=== PATIENT | female | born 1945 | race Caucasian/White ===

== ENCOUNTER 2020-05-13 08:53 | Day surgery (SDC) | payer MEDICARE ==
[2020-05-11 14:47] VITALS: BMI 35.9
[~2020-05-13 08:53] MED LIST: LACTATED RINGERS 1,000 ML IV SCH
[2020-05-13] MEDS ORDERED: LIDOCAINE 1% (10MG/ML) FOR IV START INTRADERMA ONE (10:00)
[2020-05-13 10:04] VITALS: RESP 16; TEMP 98.4
[2020-05-13] MEDS ORDERED: fentaNYL (PF) 50 MCG/ML 2 ML AMP ONE (10:06)
[2020-05-13] MEDS ORDERED: MIDAZOLAM 2 MG/2 ML VIAL ONE (10:06)
[2020-05-13] MEDS ORDERED: LIDOCAINE 1% INJ 10MG/ML (20 ML MDV) ONE (10:06)
[2020-05-13] MEDS ORDERED: PROPOFOL 10 MG/ML 20 ML VIAL IV ONE (10:06)
--- NOTE | 2020-05-13 10:37 | P.PCN ---
Date of Procedure: 05/13/20 Description of Procedure: BRIEF HISTORY: Patient is a 75-year-old female presenting for outpatient colonoscopy for screening for malignant neoplasm of the colon. No prior colonoscopy. No change in bowel habits. She does report a family history of colon cancer mother. PROCEDURE PERFORMED: Colonoscopy. PREOPERATIVE DIAGNOSIS: Screening for malignant neoplasm of the colon, no prior colonoscopy. ESTIMATED BLOOD LOSS: Minimal. IV sedation per Anesthesia. PROCEDURE: After informed consent was obtained, the patient, was brought into the endoscopy unit. IV sedation was administered by Anesthesia under continuous monitoring. Digital rectal examination was normal. Initially the Olympus CF-190 flexible video colonoscope was then inserted in the rectum, gradually advanced into the cecum without any difficulty. Careful examination was performed as the scope was gradually being withdrawn. Ileocecal valve and the appendiceal orifice were visualized and appeared normal. Prep was excellent. Mucosa of the cecum, ascending colon, transverse colon, descending colon, sigmoid colon, and rectum appeared normal. A few scattered diverticula noted in the sigmoid colon. Retroflexion was performed in the rectum and no lesions were seen, low-grade internal hemorrhoids and skin tags on retroflexion . The patient tolerated the procedure well. IMPRESSION: Mild sigmoid diverticulosis. Otherwise normal-appearing colon from rectum to cecum. RECOMMENDATIONS: Findings of this examination were discussed with the patient and her sister. Okay to resume diet. Okay to resume medications. Recommendation is for repeat colonoscopy in 5 years for family history of colon cancer the patient is medically stable at that time.
[2020-05-13 11:02] VITALS: BP 107/46; PULSE 82
== END 2020-05-13 11:20 | disposition home or self-care (01) ==
LOC: ORWHC2ENDO 08:53
PROVIDERS: ATTEND Internal Medicine
DX: Z12.11 Encounter for screening for malignant neoplasm of colon (principal); Z80.0 Family history of malignant neoplasm of digestive organs; K57.30 Diverticulosis of large intestine without perforation or abscess without bleeding; Z88.0 Allergy status to penicillin; Z96.651 Presence of right artificial knee joint; Z98.49 Cataract extraction status, unspecified eye; Z79.82 Long term (current) use of aspirin; Z79.899 Other long term (current) drug therapy; Z86.73 Personal history of transient ischemic attack (TIA), and cerebral infarction without residual deficits
CPT/HCPCS: J2250; J2001; J3010; J2704; G0105; 45378

== ENCOUNTER 2023-07-17 05:14 | Inpatient (IN) | payer MEDICARE ==
[2023-07-17 05:27] LABS: Glucose,Whole Blood 202 mg/dL (70-110)
--- NOTE | 2023-07-17 05:29 | ED ---
Altered Mental Status HPI - General Chief Complaint: Altered Mental Status Stated Complaint: Unresponsive Time Seen by Provider: 07/17/23 05:21 Source: EMS Mode of arrival: EMS Limitations: altered mental status - History of Present Illness Initial Comments: 's patient is 78-year-old woman brought by ambulance to evaluation for mental status change. The patient reportedly had called her family and told them she is not feeling well. Family called EMS and when they arrived they found patient at the top of the stairs and she was unresponsive. Emesis didn't state that the patient was in their estimation GCS 8 on arrival. They started to provide ox ygen via bag valve mask and transported patient here. On arrival, the patient is able to follow simple commands and answer yes no questions and state her name. She is otherwise not able to give much history. He did deny having any pain. MD Complaint: altered mental status -: unknown Severity: severe Treatments Prior to Arrival: oxygen - Related Data Home Medications Medication Instructions Recorded Confirmed Atorvastatin [Lipitor] 80 mg PO DAILY 05/11/20 07/17/23 Furosemide [Lasix] 20 mg PO BID 05/11/20 07/17/23 Losartan Potassium [Cozaar] 25 mg PO BID 05/11/20 07/17/23 Potassium Chloride [Klor-Con 10 ER] 10 meq PO DAILY 07/17/23 07/17/23 Previous Rx's Medication Instructions Recorded Aspirin 81 mg PO DAILY #30 tab 07/20/23 Azithromycin [Zithromax] 500 mg PO DAILY #5 tab 07/20/23 Clopidogrel [Plavix] 75 mg PO DAILY #30 tab 07/20/23 Ipratropium-Albuterol Nebulize 3 ml INHALATION RT-QID #120 each 07/20/23 [Duoneb 0.5 mg-3 mg/3 ml Soln] cefUROXime axetiL [Ceftin] 500 mg PO BID 5 Days #10 tab 07/20/23 predniSONE 10 mg PO DIRECTED #30 tab 07/20/23 Allergies Allergy/AdvReac Type Severity Reaction Status Date / Time Penicillins AdvReac Unknown PASSED OUT Verified 07/17/23 09:28 Review of Systems ROS Statement: Those systems with pertinent positive or pertinent negative responses have been documented in the HPI. ROS Other: All systems not noted in ROS Statement are negative. Limitations: ROS unobtainable due to patients medical condition Respiratory: Reports: dyspnea Cardiovascular: Denies: chest pain Past Medical History Past Medical History: CVA/TIA, Hypertension Additional Past Medical History / Comment(s): states CVA (no residual ), states stent in upper leg, rash on lower legs, ankles swell, pt states on Nutrisystem diet and has lost 20-25 # with frequent stools. History of Any Multi-Drug Resistant Organisms: None Reported Past Surgical History: Joint Replacement Additional Past Surgical History / Comment(s): total right knee x2, stem cell injections prior to total knees, cataract surgery, stent in leg. Additional Past Anesthesia/Blood Transfusion Reaction / Comment(s): STATES UNABLE TO INTUBATE- THEY HAD TO DO A SPINAL., STATES SHE HAS LETTER FROM [place] [facility] INSTRUCTED PATIENT TO BRING THIS LETTER WITH HER. Past Psychological History: No Psychological Hx Reported Smoking Status: Never smoker Past Alcohol Use History: None Reported Past Drug Use History: None Reported - Past Family History Mother Family Medical History: Cancer Additional Family Medical History / Comment(s): colon cancer General Exam General appearance: obtunded Head exam: Present: atraumatic, normocephalic Eye exam: Present: normal appearance, PERRL. Absent: scleral icterus, conjunctival injection ENT exam: Present: mucous membranes dry Neck exam: Present: normal inspection Respiratory exam: Present: respiratory distress, rales (Right-sided), rhonchi Cardiovascular Exam: Present: normal rhythm, tachycardia, normal heart sounds. Absent: systolic murmur, diastolic murmur, rubs, gallop GI/Abdominal exam: Present: soft. Absent: distended, tenderness, guarding, rebound, rigid, mass Extremities exam: Present: normal capillary refill, pedal edema (Mild ankle edema), other ( chronic venous stasis change) Neurological exam: Present: altered, CN II-XII intact. Absent: motor sensory deficit Expanded Eye Response: (3) open to voice Motor Response: (6) obeys commands Verbal Response: (4) confused conversation Skin exam: Present: warm, dry, intact, normal color. Absent: rash Course Vital Signs 07/17/23 07/17/23 07/17/23 05:16 05:20 05:21 Temperature Pulse Rate 117 H 84 Respiratory 20 20 Rate Blood Pressure 163/71 107/42 O2 Sat by Pulse 85 L 97 95 Oximetry Fraction of Inspired Oxygen (FIO2) 07/17/23 07/17/23 07/17/23 05:24 06:30 07:40 Temperature Pulse Rate 88 Respiratory 20 Rate Blood Pressure 113/45 O2 Sat by Pulse 95 Oximetry Fraction of 100 80 Inspired Oxygen (FIO2) 07/17/23 07/17/23 07/17/23 08:00 08:05 08:30 Temperature Pulse Rate 92 88 87 Respiratory 26 H 10 L 24 Rate Blood Pressure 119/57 119/57 91/69 O2 Sat by Pulse 88 L 94 L 93 L Oximetry Fraction of Inspired Oxygen (FIO2) 07/17/23 07/17/23 07/17/23 09:00 09:30 09:33 Temperature Pulse Rate 95 108 H Respiratory 24 24 Rate Blood Pressure 151/77 139/50 O2 Sat by Pulse 73 L 79 L Oximetry Fraction of Inspired Oxygen (FIO2) 07/17/23 07/17/23 07/17/23 09:45 09:47 10:05 Temperature Pulse Rate Respiratory 24 Rate Blood Pressure O2 Sat by Pulse 78 L Oximetry Fraction of 80 Inspired Oxygen (FIO2) 07/17/23 07/17/23 10:08 10:10 Temperature 99 F Pulse Rate 109 H 105 H Respiratory 22 26 H Rate Blood Pressure 163/57 177/77 O2 Sat by Pulse 83 L Oximetry Fraction of Inspired Oxygen (FIO2) Medical Decision Making - Medical Decision Making 's patient is 78-year-old woman brought by ambulance after she had become unresponsive at home after ground-level fall. The patient has improved somewhat since EMS arrived on the scene. At this point it appears that the patient probably has had acute respiratory failure with respiratory acidosis. The patient placed on BiPAP and is continuing to have slow but steady improvement. The patient is admitted to [facility] medical service and consultation to pulmonology who did see the patient in the department. The patient had chest x-ray that I interpreted to show increased density throughout the right lung, concerning for infiltrate versus aspiration. I did have a lengthy discussion of CODE STATUS with the patient's sister who states that per her knowledge of the patient she would desire full code. The patient's sister warned that in the past they were told that if she required intubation that she does have a limitation of the range of motion of her mandible and her was concerned that intubation would cause mandible fracture and therefore cautioned against intubation. Was pt. sent in by a medical professional or institution ([facility], [employer], urgent care, hospital, or fpc...) When possible be specific @ -[No] Did you speak to anyone other than the patient for history (EMS, parent, family, police, friend...)? What history was obtained from this source @ -[No] Did you review nursing and triage notes (agree or disagree)? Why? @ -[I reviewed and agree with nursing and triage notes] Were old charts reviewed (outside hosp., previous admission, EMS record, old EKG, old radiological studies, urgent care reports/EKG's, fpc records)? Report findings @ -[No old charts were reviewed] Differential Diagnosis (chest pain, altered mental status, abdominal pain women, abdominal pain men, vaginal bleeding, weakness, fever, dyspnea, syncope, headache, dizziness, GI bleed, back pain, seizure, CVA, palpatations, mental health, musculoskeletal)? @ -[Differential Dyspnea: Coronary syndrome, arrhythmia, tamponade, asthma, COPD, pulmonary embolism, pneumonia, pneumothorax, pulmonary effusion, anaphylaxis, diabetic ketoacidosis, flailed chest, pulmonary contusion, diaphragmatic rupture, anemia, neuromuscular, this is not meant to be an all-inclusive list. EKG interpreted by me (3pts min.). @ -[I interpreted As above] X-rays interpreted by me (1pt min.). @ -[I interpreted as above CT interpreted by me (1pt min.). @ -[None done] U/S interpreted by me (1pt. min.). @ -[None done] What testing was considered but not performed or refused? (CT, X-rays, U/S, labs)? Why? @ -[None] What meds were considered but not given or refused? Why? @ -[None] Did you discuss the management of the patient with other professionals (professionals i.e. [facility], [employer], lab, RT, psych nurse, director social service, wallpaper scraper, teacher, environmental technical officer, insurance case manager)? Give summary @ -[The patient's care is discussed with the admitting physician as well as consultants. There treatment recommendations are incorporated Was smoking cessation discussed for >3mins.? @ -[No] Was critical care preformed (if so, how long)? @ -[Yes 40 minutes Were there social determinants of health that impacted care today? How? (Homelessness, low income, unemployed, alcoholism, drug addiction, transportation, low edu. Level, literacy, decrease access to med. care, [facility], re hab)? @ -[No] Was there de-escalation of care discussed even if they declined (Discuss DNR or withdrawal of care, Hospice)? DNR status @ -[As CODE STATUS was discussed as above What co-morbidities impacted this encounter? (DM, HTN, Smoking, COPD, CAD, Cancer, CVA, ARF, Chemo, Hep., AIDS, mental health diagnosis, sleep apnea, morbid obesity)? @ -[None] Was patient admitted / discharged? Hospital course, mention meds given and route, prescriptions, significant lab abnormalities, going to OR and other pertinent info. @ -[See above Undiagnosed new problem with uncertain prognosis? @ -[No] Drug Therapy requiring intensive monitoring for toxicity (Heparin, Nitro, Insulin, Cardizem)? @ -[No] Were any procedures done? @ -[No] Diagnosis/symptom? @ -[Acute exacerbation of COPD Pneumonia Respiratory acidosis Impending respiratory failure Acute delirium Acute, or Chronic, or Acute on Chronic? @ -[Acute Uncomplicated (without systemic symptoms) or Complicated (systemic symptoms)? @ -[Complicated by altered mental status/delirium Side effects of treatment? @ -[No] Exacerbation, Progression, or Severe Exacerbation? @ -[Severe exacerbation of COPD Poses a threat to life or bodily function? How? (Chest pain, [place], [place], pneumonia, PE, COPD, DKA, ARF, appy, cholecystitis, CVA, Diverticulitis, Homicidal, Suicidal, threat to staff... and all critical care pts) @ -[Yes, there is high risk of mortality associated with respiratory failure. - Lab Data Result diagrams: 07/20/23 04:26 07/20/23 04:26 Lab Results 07/17/23 07/17/23 07/17/23 Range/Units 05:20 05:20 05:20 WBC 10.7 H (3.8-10.6) k/uL RBC 4.33 (3.80-5.40) m/uL Hgb 11.5 (11.4-16.0) gm/dL Hct 38.0 (34.0-46.0) % MCV 87.8 (80.0-100.0) fL MCH 26.5 (25.0-35.0) pg MCHC 30.1 L (31.0-37.0) g/dL RDW 14.7 (11.5-15.5) % Plt Count 207 (150-450) k/uL MPV 9.8 Neutrophils % 75 % Lymphocytes % 14 % Monocytes % 7 % Eosinophils % 2 % Basophils % 0 % Neutrophils # 8.0 H (1.3-7.7) k/uL Lymphocytes # 1.5 (1.0-4.8) k/uL Monocytes # 0.7 (0-1.0) k/uL Eosinophils # 0.2 (0-0.7) k/uL Basophils # 0.0 (0-0.2) k/uL Hypochromasia Marked PT 12.6 H (10.0-12.5) sec INR 1.2 H (<1.2) APTT 24.6 (22.0-30.0) sec VBG pH (7.31-7.41) VBG pCO2 (37-51) mmHg VBG HCO3 (24-28) mmol/L Sodium 139 (137-145) mmol/L Potassium 5.0 (3.5-5.1) mmol/L Chloride 104 (98-107) mmol/L Carbon Dioxide 20 L (22-30) mmol/L Anion Gap 15 mmol/L BUN 19 H (7-17) mg/dL Creatinine 0.59 (0.52-1.04) mg/dL Est GFR (CKD-EPI)AfAm >90 (>60 ml/min/1.73 sqM) Est GFR (CKD-EPI)NonAf 88 (>60 ml/min/1.73 sqM) Glucose 227 H (74-99) mg/dL POC Glucose (mg/dL) (70-110) mg/dL POC Glu Investigator Operator ID Lactic Ac Sepsis Rflx Plasma Lactic Acid Luis Eduardo (0.7-2.0) mmol/L Calcium 8.8 (8.4-10.2) mg/dL Total Bilirubin 0.8 (0.2-1.3) mg/dL AST 71 H (14-36) U/L ALT 28 (4-34) U/L Alkaline Phosphatase 63 (38-126) U/L Troponin I (0.000-0.034) ng/mL Total Protein 6.5 (6.3-8.2) g/dL Albumin 3.7 (3.5-5.0) g/dL Serum Alcohol <10 mg/dL Influenza Type A (PCR) (Not Detectd) Influenza Type B (PCR) (Not Detectd) RSV (PCR) (Not Detectd) SARS-CoV-2 (PCR) (Not Detectd) 07/17/23 07/17/23 07/17/23 Range/Units 05:20 05:20 05:20 WBC (3.8-10.6) k/uL RBC (3.80-5.40) m/uL Hgb (11.4-16.0) gm/dL Hct (34.0-46.0) % MCV (80.0-100.0) fL MCH (25.0-35.0) pg MCHC (31.0-37.0) g/dL RDW (11.5-15.5) % Plt Count (150-450) k/uL MPV Neutrophils % % Lymphocytes % % Monocytes % % Eosinophils % % Basophils % % Neutrophils # (1.3-7.7) k/uL Lymphocytes # (1.0-4.8) k/uL Monocytes # (0-1.0) k/uL Eosinophils # (0-0.7) k/uL Basophils # (0-0.2) k/uL Hypochromasia PT (10.0-12.5) sec INR (<1.2) APTT (22.0-30.0) sec VBG pH 7.21 L (7.31-7.41) VBG pCO2 57 H (37-51) mmHg VBG HCO3 23 L (24-28) mmol/L Sodium (137-145) mmol/L Potassium (3.5-5.1) mmol/L Chloride (98-107) mmol/L Carbon Dioxide (22-30) mmol/L Anion Gap mmol/L BUN (7-17) mg/dL Creatinine (0.52-1.04) mg/dL Est GFR (CKD-EPI)AfAm (>60 ml/min/1.73 sqM) Est GFR (CKD-EPI)NonAf (>60 ml/min/1.73 sqM) Glucose (74-99) mg/dL POC Glucose (mg/dL) (70-110) mg/dL POC Glu Investigator Operator ID Lactic Ac Sepsis Rflx Plasma Lactic Acid Luis Eduardo 6.1 H* (0.7-2.0) mmol/L Calcium (8.4-10.2) mg/dL Total Bilirubin (0.2-1.3) mg/dL AST (14-36) U/L ALT (4-34) U/L Alkaline Phosphatase (38-126) U/L Troponin I 0.071 H* (0.000-0.034) ng/mL Total Protein (6.3-8.2) g/dL Albumin (3.5-5.0) g/dL Serum Alcohol mg/dL Influenza Type A (PCR) (Not Detectd) Influenza Type B (PCR) (Not Detectd) RSV (PCR) (Not Detectd) SARS-CoV-2 (PCR) (Not Detectd) 07/17/23 07/17/23 07/17/23 Range/Units 05:25 05:41 06:15 WBC (3.8-10.6) k/uL RBC (3.80-5.40) m/uL Hgb (11.4-16.0) gm/dL Hct (34.0-46.0) % MCV (80.0-100.0) fL MCH (25.0-35.0) pg MCHC (31.0-37.0) g/dL RDW (11.5-15.5) % Plt Count (150-450) k/uL MPV Neutrophils % % Lymphocytes % % Monocytes % % Eosinophils % % Basophils % % Neutrophils # (1.3-7.7) k/uL Lymphocytes # (1.0-4.8) k/uL Monocytes # (0-1.0) k/uL Eosinophils # (0-0.7) k/uL Basophils # (0-0.2) k/uL Hypochromasia PT (10.0-12.5) sec INR (<1.2) APTT (22.0-30.0) sec VBG pH (7.31-7.41) VBG pCO2 (37-51) mmHg VBG HCO3 (24-28) mmol/L Sodium (137-145) mmol/L Potassium (3.5-5.1) mmol/L Chloride (98-107) mmol/L Carbon Dioxide (22-30) mmol/L Anion Gap mmol/L BUN (7-17) mg/dL Creatinine (0.52-1.04) mg/dL Est GFR (CKD-EPI)AfAm (>60 ml/min/1.73 sqM) Est GFR (CKD-EPI)NonAf (>60 ml/min/1.73 sqM) Glucose (74-99) mg/dL POC Glucose (mg/dL) 202 H (70-110) mg/dL POC Glu Investigator Operator ID Cheikh, Pao Lactic Ac Sepsis Rflx Y Plasma Lactic Acid Luis Eduardo (0.7-2.0) mmol/L Calcium (8.4-10.2) mg/dL Total Bilirubin (0.2-1.3) mg/dL AST (14-36) U/L ALT (4-34) U/L Alkaline Phosphatase (38-126) U/L Troponin I (0.000-0.034) ng/mL Total Protein (6.3-8.2) g/dL Albumin (3.5-5.0) g/dL Serum Alcohol mg/dL Influenza Type A (PCR) Not Detected (Not Detectd) Influenza Type B (PCR) Not Detected (Not Detectd) RSV (PCR) Not Detected (Not Detectd) SARS-CoV-2 (PCR) Not Detected (Not Detectd) - EKG Data -: EKG Interpreted by Ia EKG shows normal: sinus rhythm (With occasional premature supraventricular complex), axis, intervals (Normal), QRS complexes (Normal) Rate: tachycardia (Rate 100 bpm) Interpretation: nonspecific ST-T wave changes Disposition Clinical Impression: COPD exacerbation, Altered mental status, Acute delirium, Respiratory acidosis, Elevated troponin, Pneumonia Disposition: ADMITTED IP TO THIS HOSP Condition: Serious Is patient prescribed a controlled substance at d/c from ED?: No
[2023-07-17 05:38] LABS: Basophils % (A) 0 %; Eosinophils # (A) 0.2 k/uL (0-0.7); Eosinophils % (A) 2 %; HGB 11.5 gm/dL (11.4-16.0); Hypochromasia Marked; Lymphocytes # (A) 1.5 k/uL (1.0-4.8); Lymphocytes % (A) 14 %; MCH 26.5 pg (25.0-35.0); MCHC 30.1 g/dL (31.0-37.0); MCV 87.8 fL (80.0-100.0); Mean Platelet Volume 9.8; Monocytes # (A) 0.7 k/uL (0-1.0); Monocytes % (A) 7 %; Neutrophils % (A) 75 %; Platelet Count 207 k/uL (150-450); RBC 4.33 m/uL (3.80-5.40); RDW 14.7 % (11.5-15.5); WBC 10.7 k/uL (3.8-10.6)
[2023-07-17] MEDS ORDERED: AZITHROMYCIN 500 MG in SODIUM CHLORIDE 0.9% 250 ML IVPB STA (05:41)
--- NOTE | 2023-07-17 05:42 | XR ---
EXAM: XR Chest, 1 View CLINICAL HISTORY: ITS.REASON XR Reason: altered mental status TECHNIQUE: Frontal view of the chest. COMPARISON: No relevant prior studies available. IMPRESSION: 1. Asymmetric right greater than left lung airspace disease which may be due to infection/aspiration changes. Consider CT evaluation for further characterization. 2. Cardiomegaly.
[2023-07-17 05:43] LABS: VBG PH 7.21 (7.31-7.41)
[2023-07-17 05:49] LABS: ALT 28 U/L (4-34); AST 71 U/L (14-36); African American GFR (CKD) >90 (>60 ml/min/1.73 sqM); Albumin 3.7 g/dL (3.5-5.0); Alcohol <10 mg/dL; Alkaline Phosphatase 63 U/L (38-126); Anion Gap 15 mmol/L; Blood Urea Nitrogen 19 mg/dL (7-17); Calcium 8.8 mg/dL (8.4-10.2); Carbon Dioxide 20 mmol/L (22-30); Chloride 104 mmol/L (98-107); Glucose 227 mg/dL (74-99); Non-African American GFR(CKD) 88 (>60 ml/min/1.73 sqM); Sodium 139 mmol/L (137-145); Total Bilirubin 0.8 mg/dL (0.2-1.3); Total Protein 6.5 g/dL (6.3-8.2)
[2023-07-17 06:19] LABS: INR 1.2 (<1.2); Partial Thromboplastin Time 24.6 sec (22.0-30.0); Prothrombin Time 12.6 sec (10.0-12.5)
[2023-07-17] MEDS ORDERED: SODIUM CHLORIDE 0.9% 1,000 ML IV STA (07:38)
[2023-07-17] MEDS ORDERED: SODIUM CHLORIDE 0.9% 500 ML 500 ML IV STA (07:38)
[2023-07-17] MEDS ORDERED: SODIUM CHLORIDE 0.9% 1,000 ML IV ONE (07:38)
[2023-07-17] MEDS ORDERED: IPRATROPIUM-ALBUTEROL 3 ML NEB INHALATION PRN (07:59)
[2023-07-17] MEDS ORDERED: ACETAMINOPHEN TAB 325 MG TAB PO PRN (07:59)
[2023-07-17] MEDS ORDERED: methylPREDNISolone SOD SUCCI 125 MG/2 ML VIAL IV STA (07:59)
[2023-07-17] MEDS ORDERED: NALOXONE 0.4 MG/ML 1 ML VIAL IVP PRN (07:59)
[2023-07-17] MEDS ORDERED: ONDANSETRON 4 MG/2 ML VIAL IVP STA (09:00)
[2023-07-17] MEDS ORDERED: FUROSEMIDE 10 MG/ML 4 ML VIAL IV STA (10:07)
[2023-07-17] MEDS ORDERED: PIPERACILLIN-TAZOBACTAM 3.375 GM in SODIUM CHLORIDE 0.9% 100 ML IVPB ONE (10:15)
[2023-07-17 10:20] LABS: Glucose,Whole Blood 101 mg/dL (70-110)
[2023-07-17] MEDS: predniSONE 20 MG TAB PO SCH (10:59)
[2023-07-17] MEDS: IPRATROPIUM-ALBUTEROL 3 ML NEB INHALATION SCH ×4 (11:06→20:37)
[2023-07-17 11:19] LABS: Appearance,Urine Clear (Clear); Bilirubin,Urine Negative (Negative); Blood,Urine Negative (Negative); Color,Urine Colorless; Glucose,Urine (UA) Trace (Negative); Ketones,Urine Negative (Negative); Leukocyte Esterase,Urine Negative (Negative); Nitrite,Urine Negative (Negative); Protein,Urine Negative (Negative); Specific Gravity,Urine 1.009 (1.001-1.035); Urobilinogen,Urine <2.0 mg/dL (<2.0)
--- NOTE | 2023-07-17 11:49 | P.CNPUL ---
History of Present Illness Consult date: 07/17/23 Requesting physician: Izabel Murguia Reason for consult: dyspnea, cough, hypoxemia, pneumonia, abnormal CXR/CT Chief complaint: Shortness of breath. History of present illness: Pulmonary consult dated 07/17/2023. This is a 70-year-old female who was brought into the emergency department, at 5:00 in the morning, on 07/17/2023, by EMS, for mental status changes. Apparently EMS was called by the family, and apparently the family mentioned that the patient was not feeling well. They found the patient at the top of the stairs, and she was poorly responsive/unresponsive. She had a Marco Coma Scale of 8, on arrival. The patient was able to speak in short sentences. She apparently was quite short of breath. The patient was placed on BiPAP, with settings of 12/5 in 100% initially. She was getting saline at 130 mL an hour. Her chest x-ray showed near complete opacification of the right lung. A venous blood gas showed a pCO2 of 57, and a pH is 7.21. She apparently has a history of CVA, peripheral vascular occlusive disease with stents, hypertension, hyperlipidemia, among other things. She apparently has some sort of issue with her jaw, and mandibular immobility, and states that she cannot be intubated. White count was 10.7, hemoglobin 11.5, hematocrit 38, and platelet count 207,000. Sodium 139, potassium 5, chlorides 104, CO2 20, anion gap 15, BUN 19, and creatinine 0.59. Glucose was 227. Lactic acid was 6.1. Repeat 1.6. Troponin was 0.071. Urine was negative. Testing for influenza A, B, RSV, and coronavirus, overall negative. Chest x-ray showed cardiomegaly, and near complete opacification of the right lung. Review of Systems REVIEW OF SYSTEMS: CONSTITUTIONAL: [Negative.] NEUROLOGIC: Mental status changes. HEENT: [ Negative.] CARDIAC: [Negative.] PULMONARY: Shortness of breath. GI: [Negative.] : [Negative.] RHEUMATOLOGIC: [ Negative.] IMMUNOLOGIC: [ Negative.] ENDOCRINE: [Negative. ] DERMATOLOGIC: [Negative.] Past Medical History Past Medical History: CVA/TIA, Hypertension Additional Past Medical History / Comment(s): states CVA (no residual ), states stent in upper leg, rash on lower legs, ankles swell, pt states on Nutrisystem diet and has lost 20-25 # with frequent stools. History of Any Multi-Drug Resistant Organisms: None Reported Past Surgical History: Joint Replacement Additional Past Surgical History / Comment(s): total right knee x2, stem cell injections prior to total knees, cataract surgery, stent in leg. Additional Past Anesthesia/Blood Transfusion Reaction / Comment(s): STATES UNABLE TO INTUBATE- THEY HAD TO DO A SPINAL., STATES SHE HAS LETTER FROM [place] AND INSTRUCTED PATIENT TO BRING THIS LETTER WITH HER. Past Psychological History: No Psychological Hx Reported Smoking Status: Never smoker Past Alcohol Use History: None Reported Past Drug Use History: None Reported - Past Family History Mother Family Medical History: Cancer Additional Family Medical History / Comment(s): colon cancer Medications and Allergies Home Medications Medication Instructions Recorded Confirmed Type Atorvastatin [Lipitor] 80 mg PO DAILY 05/11/20 07/17/23 History Furosemide [Lasix] 20 mg PO BID 05/11/20 07/17/23 History Losartan Potassium [Cozaar] 25 mg PO BID 05/11/20 07/17/23 History Potassium Chloride [Klor-Con 10 ER] 10 meq PO DAILY 07/17/23 07/17/23 History Allergies Allergy/AdvReac Type Severity Reaction Status Date / Time Penicillins AdvReac Unknown PASSED OUT Verified 07/17/23 09:28 Physical Exam Osteopathic Statement: *. No significant issues noted on an osteopathic structural exam other than those noted in the History and Physical/Consult. Vitals: Vital Signs Temp Pulse Resp BP Pulse Ox FiO2 07/17/23 11:21 86 07/17/23 11:16 86 07/17/23 11:11 86 07/17/23 11:00 83 23 119/55 96 80 07/17/23 10:30 98 23 132/76 80 07/17/23 10:10 105 H 26 H 177/77 83 L 07/17/23 10:08 99 F 109 H 22 163/57 07/17/23 10:05 80 07/17/23 09:47 78 L 07/17/23 09:45 24 07/17/23 09:33 79 L 07/17/23 09:30 108 H 24 139/50 73 L 01/09/24 09:00 95 24 151/77 01/09/24 08:30 87 24 91/69 93 L 07/17/23 08:05 88 10 L 119/57 94 L 07/17/23 08:00 92 26 H 119/57 88 L 07/17/23 07:40 80 07/17/23 06:30 88 20 113/45 95 07/17/23 05:24 100 07/17/23 05:21 84 20 107/42 95 07/17/23 05:20 97 07/17/23 05:16 117 H 20 163/71 85 L Intake and Output 07/16/23 07/17/23 07/17/23 22:59 06:59 14:59 Intake Total 170 Output Total 1025 Balance -855 Intake: Intake, IV Titration 110 Amount Piperacillin-Tazobactam 3 100 .375 gm In Sodium Chloride 0.9% 100 ml @ 200 mls/hr IVPB ONCE ONE Rx#:[id number] Sodium Chloride 0.9% 1, 10 000 ml @ 10 mls/hr IV . Q24H STA Rx#:[id number] Oral 60 Output: Urine 1025 Other: Weight 79.333 kg Patient is tachypnea, and very lethargic/somnolent. BiPAP mask is noted. HEENT examination is grossly unremarkable. Neck supple. Full range of motion. No adenopathy thyromegaly or neck vein distention. Cardiovascular examination reveals regular rhythm rate. S1-S2 normal. No S3 or S4. No discernible murmur noted. Heart sounds are distant. Heart rate 86 bpm. Lungs reveal scattered bilateral rhonchi. Breath sounds are diminished on the right. No crackles or wheezes. Saturations are 96%, now on AIRVO, at 60 L/m, with an FiO2 of 80% Abdomen soft, without bowel sounds. Extremities are intact. No cyanosis clubbing or edema. Skin is without rash or lesion. Neurologic examination reveals the patient to be very lethargic/somnolent. Results - Laboratory Findings CBC and BMP: 07/17/23 05:20 07/17/23 05:20 PT/INR, D-dimer PT 12.6 sec (10.0-12.5) H 07/17/23 05:20 INR 1.2 (<1.2) H 07/17/23 05:20 Abnormal lab findings: Abnormal Labs 07/17/23 07/17/23 07/17/23 05:20 05:20 05:20 WBC 10.7 H MCHC 30.1 L Neutrophils # 8.0 H PT 12.6 H INR 1.2 H VBG pH VBG pCO2 VBG HCO3 Carbon Dioxide 20 L BUN 19 H Glucose 227 H POC Glucose (mg/dL) Plasma Lactic Acid Luis Eduardo AST 71 H Troponin I Urine Glucose (UA) 07/17/23 07/17/23 07/17/23 05:20 05:20 05:20 WBC MCHC Neutrophils # PT INR VBG pH 7.21 L VBG pCO2 57 H VBG HCO3 23 L Carbon Dioxide BUN Glucose POC Glucose (mg/dL) Plasma Lactic Acid Luis Eduardo 6.1 H* AST Troponin I 0.071 H* Urine Glucose (UA) 07/17/23 07/17/23 05:25 10:18 WBC MCHC Neutrophils # PT INR VBG pH VBG pCO2 VBG HCO3 Carbon Dioxide BUN Glucose POC Glucose (mg/dL) 202 H Plasma Lactic Acid Luis Eduardo AST Troponin I Urine Glucose (UA) Trace H - Diagnostic Findings Chest x-ray: image reviewed Assessment and Plan Assessment: Acute hypoxemic respiratory failure, likely on the basis of right-sided pneumonia. Acute mental status changes, likely secondary to hypoxemic respiratory failure. History of hypertension. History of hyperlipidemia. History of CVA/TIA. History of peripheral vascular occlusive disease, with previous stent placement. Lifelong nontobacco user. Plan: Plan dated 07/17/2023. The patient be transferred to the intensive care unit. Because of ongoing respiratory secretions, we added AIRVO rather than BiPAP. Saturation seems to be improved. The right lung is nearly completely opacified. Antibiotics and breathing treatments to be started. The patient apparently has some issues with her jaw, which is immobile, and apparently a letter states that she cannot be i ntubated. Labs, x-rays, medications are reviewed. Prognosis is guarded. Time with Patient: Greater than 30
[2023-07-17] MEDS: HEPARIN SODIUM,PORCINE 5,000 UNIT/ML 1 ML VIAL SQ SCH ×2 (13:13→19:55)
[2023-07-17] MEDS: PANTOPRAZOLE 40 MG TABLET PO SCH (13:13)
--- NOTE | 2023-07-17 14:30 | US ---
EXAMINATION TYPE: US carotid duplex BILAT DATE OF EXAM: 07/17/2023 COMPARISON: NONE CLINICAL INDICATION: Female, 78 years old with history of stroke; Stents TECHNIQUE: Carotid duplex ultrasound examination. Indirect Doppler criteria was utilized. FINDINGS: EXAM MEASUREMENTS: RIGHT: Peak Systolic Velocity (PSV) cm/sec ----- Right CCA: 104 ----- Right ICA: 130 ----- Right ECA: 158 ICA/CCA ratio: 1.3 RIGHT: End Diastole cm/sec ----- Right CCA: 23 ----- Right ICA: 37 ----- Right ECA: 10 LEFT: Peak Systolic Velocity (PSV) cm/sec ----- Left CCA: 76 ----- Left ICA: 304 ----- Left ECA: 258 ICA/CCA ratio: 4.0 LEFT: End Diastole cm/sec ----- Left CCA: 14 ----- Left ICA: 68 ----- Left ECA: 27 VERTEBRALS (direction of flow): Right Vertebral: Antegrade Left Vertebral: Antegrade Rhythm: Arrhythmia DOCTOR OF DENTAL SURGERY NOTES: Difficult exam due to previous stenting and extensive bilateral plaque buildup. Difficult exam also due to patient not able to lay back and not have pillows behind head; short neck. IMPRESSION: Moderate stenosis, between 50 and 69%, right internal carotid artery . Severe stenosis greater than 70% left carotid artery. Criteria for Assigning % of Stenosis / Diameter reduction (Estimation based on the indirect measurements of the internal carotid artery velocities (ICA PSV). 1. Normal (no stenosis)=ICA PSV < 125 cm/s: ratio < 2.0: ICA EDV<40 cm/s. 2. Less than 50% stenosis=ICA PSV < 125 cm/s: ratio < 2.0: ICA EDV<40 cm/s. 3. 50 to 69% stenosis=ICA PSV of 125 to 230 cm/s: ration 2.0 ? 4.0: ICA EDV 40-100 cm/s. 4. Greater than 70% stenosis to near occlusion= ICA PSV > 230 cm/s: ratio > 4.0: ICA EDV > 100 cm/s. 5. Near occlusion= ICA PSV velocities may be low or undetectable: variable ratio and ICA EDV. 6. Total occlusion=unable to detect flow.
[2023-07-17] MEDS ORDERED: PIPERACILLIN-TAZOBACTAM 3.375 GM in SODIUM CHLORIDE 0.9% 100 ML IVPB SCH (16:00)
--- NOTE | 2023-07-17 16:42 | CA ---
Transthoracic Echo Report Name: Imani Em Age: 78 Gender: F : 1945 Exam Date: 07/17/2023 10:49 Exam Location: [facility] Ht (in): 63 Wt (lb): 174 Ordering Physician: Akhil Gallego DO Attending/Referring Phys: Superintendent Service Berta Yee RDCS Procedure CPT: Indications: chf Cardiac Hx: Technical Quality: Fair Contrast 1: Total Dose (mL): Contrast 2: Total Dose (mL): MEASUREMENTS (Male / Female) Normal Values 2D ECHO LV Diastolic Diameter PLAX 4.2 cm 4.2 - 5.9 / 3.9 - 5.3 cm LV Systolic Diameter PLAX 2.5 cm IVS Diastolic Thickness 1.5 cm 0.6 - 1.0 / 0.6 - 0.9 cm LVPW Diastolic Thickness 1.5 cm 0.6 - 1.0 / 0.6 - 0.9 cm LV Relative Wall Thickness 0.7 RV Internal Dim ED PLAX 3.0 cm LVOT Diameter 1.5 cm LA Systolic Diameter LX 4.4 cm 3.0 - 4.0 / 2.7 - 3.8 cm LA Volume 66.0 cm??? 18 - 58 / 22 - 52 cm??? LA Volume Index 34.7 cm???/m??? 16 - 28 cm???/m??? M-MODE Aortic Root Diameter MM 3.0 cm AV Cusp Separation MM 1.2 cm DOPPLER AV Peak Velocity 333.3 cm/s AV Peak Gradient 44.4 mmHg AV Mean Velocity 195.3 cm/s AV Mean Gradient 18.8 mmHg AV Velocity Time Integral 60.4 cm LVOT Peak Velocity 214.1 cm/s LVOT Peak Gradient 18.3 mmHg AV Area Cont Eq pk 1.1 cm??? MV Peak Velocity 216.4 cm/s MV Peak Gradient 18.7 mmHg MV Mean Velocity 127.3 cm/s MV Mean Gradient 7.3 mmHg MV Velocity Time Integral 66.4 cm MV Area PHT 1.2 cm??? Mitral E Point Velocity 150.6 cm/s Mitral A Point Velocity 210.5 cm/s Mitral E to A Ratio 0.7 MV Deceleration Time 656.1 ms TR Peak Velocity 308.7 cm/s TR Peak Gradient 38.1 mmHg Right Ventricular Systolic Press 52.0 mmHg FINDINGS Left Ventricle Left ventricular ejection fraction is estimated at 60-65 %. Left ventricular cavity size normal. Moderately increased septal wall thickness. Moderately increased posterior wall thickness. Right Ventricle Normal right ventricular size. Moderate pulmonary hypertension. Right Atrium Right atrium not well visualized. Left Atrium Moderately increased left atrial diameter. Moderately increased left atrial volume. Mildly increased left atrial area. Mitral Valve Moderate thickening/calcification of the anterior mitral valve leaflet. Moderate thickening/calcification of the posterior mitral valve leaflet. Moderate mitral annular calcification. Mild mitral regurgitation. Moderate mitral stenosis with mean gradient of 7 mmhg Aortic Valve Focal thickening of the aortic valve cusps. -moderate aortic stenosis with a peak gradient of 44 mmHg and a mean gradient of 19 mmHg. Tricuspid Valve Tricuspid valve not well visualized. Mild tricuspid regurgitation. Pulmonic Valve Structurally normal pulmonic valve. Trace pulmonic regurgitation. Pericardium No pericardial effusion. Aorta Normal size aortic root and proximal ascending aorta. CONCLUSIONS Normal LV systolic function Moderate aortic stenosis Moderate pulmonary hypertension Severe mitral annular calcification Previewed by: Dr. Rolando Evans MD (Electronically Signed) Final Date: 17 July 2023 16:41
[2023-07-17] MEDS: FUROSEMIDE 20 MG TAB PO SCH (16:59)
[2023-07-17] MEDS: LOSARTAN 25 MG TAB PO SCH (20:55)
--- NOTE | 2023-07-17 22:32 | HP ---
HISTORY AND PHYSICAL CHIEF COMPLAINT: Unresponsiveness and pneumonia. HISTORY OF PRESENT ILLNESS: This is a 78-year-old woman with a past medical history of CVA, hypertension, apparently called family seeing that the patient is not feeling well. By the time EMS came, they found her unresponsive, patient was bagged then, was given BiPAP. Also, the patient was found to have right pneumonia and the patient was found to be hypoxic and the patient admitted to ICU for further evaluation and treatment. Currently, there is no history of any fever, rigors, or chills. No history of any headache, loss of consciousness, or seizures at this time. Aspiration pneumonia was highly suspected. The patient was started on Zosyn. PAST MEDICAL HISTORY: Reviewed include CVA, TIA, hypertension, rest of the history and rest of the chart is also reviewed. HOME MEDICATIONS: Reviewed with KCl, dose and rest of medications reviewed. ALLERGIES: Penicillin. FAMILY HISTORY: History of colon cancer. SOCIAL HISTORY: No history of smoking or alcohol. REVIEW OF SYSTEMS: A 14-point review is negative except as mentioned earlier. PHYSICAL EXAMINATION: VITAL SIGNS: Pulse 83, blood pressure 118/52, respirations 23. HEENT: Conjunctivae normal. NECK: No jugular venous distention. CARDIOVASCULAR: S1, S2 muffled. RESPIRATIONS: Diminished at the bases, scattered rhonchi and crackles. ABDOMEN: Soft, nontender. LEGS: No edema, no swelling. NERVOUS SYSTEM: Diffusely weak. SKIN: No ulcer, rash, bleeding. JOINTS: No active deforming arthropathy. LABORATORY DATA: Noted, glucose 22. Chest x-ray reviewed personally. ASSESSMENT: 1. Right aspiration pneumonia, possibly with acute hypoxic respiratory failure. 2. Change in mental status and possible syncope, rule out cardiac and Neurology causes. 3. Increased WBC. 4. Troponin 0.071, rule out acute [id number]-elevation myocardial infarction. 5. History of CVA, TIA. 6. Hypertension. 7. Full code. RECOMMENDATIONS: This 78-year-old woman presented with multiple complex medical issues. At this time, I recommended to continue the current medications. I would recommend intensive bronchodilator treatment and antibiotics and would follow the patient closely with intensive care physician in the ICU. The overall prognosis remain guarded because of above-mentioned multiple complex medical issues. I would also recommend Neurology and Cardiology consultations and complete neurovascular workup including 2D echo and carotid Doppler also. The CT scan of the brain also will be ordered. The prognosis is guarded because of multiple complex medical issues. Further recommendations to follow, see orders for details. MMODL / IJN: [id number] /
--- NOTE | 2023-07-17 22:34 | P.CONS ---
History of Present Illness - Reason for Consult Consult date: 07/17/23 Pneumonia Requesting physician: Izabel Murguia - Chief Complaint Mental status changes X 1 day - History of Present Illness Patient is a 78-year-old female with a past medical history difficult for CVA TIA hypertension in this patient also have a history of bilateral lower extremity chronic swelling and venous stasis dermatitis patient has been brought into the hospital for evaluation of mental status changes patient apparently called her family that she was not feeling well EMS was calling and arrival of EMS the patient was noticed to be unresponsive patient was rushed to the ER on arrival to the ER the patient was in respiratory distress and has to be placed on BiPAP and has been admitted to the ICU patient on presentation to the hospital did have a low-grade fever of 99 F and she spike a fever 100.3 F this afternoon patient was mildly tachycardic at 1 point not hypotensive requiring any pressor support and has been hypoxic requiring respiratory support patient did have a white count of 10.7 creatinine 0.59 lactic acid was elevated repeat is normal procalcitonin 2.62 urine has been negative influenza RSV COVID testing was negative patient did have a chest x-ray with asymmetric right greater than left lung airspace disease due to infection or aspiration changes and cardiomegaly patient was started on Rocephin and Zithromax has been admitted to the ICU infectious disease was consulted for further management of antibiotic therapy. At the time my evaluation patient mention has been sick for the last few days has been complaining of shortness of breath and also have a cough mild to moderate intensity cannot bring up any sputum. Denies any URI symptoms no nausea no vomiting choking on the food no abdominal pain or any diarrhea patient has been complaining of more swelling to lower extremity and did have some redness but no significant pain open wound or any drainage Review of Systems Positive point and negatives has been mentioned in the HPI, complete review of systems was performed and all other systems are negative Past Medical History Past Medical History: CVA/TIA, Hypertension Additional Past Medical History / Comment(s): states CVA (no residual ), states stent in upper leg, rash on lower legs, ankles swell, pt states on Nutrisystem diet and has lost 20-25 # with frequent stools. History of Any Multi-Drug Resistant Organisms: None Reported Past Surgical History: Joint Replacement Additional Past Surgical History / Comment(s): total right knee x2, stem cell injections prior to total knees, cataract surgery, stent in leg. Additional Past Anesthesia/Blood Transfusion Reaction / Comm: STATES UNABLE TO INTUBATE- THEY HAD TO DO A SPINAL., STATES SHE HAS LETTER FROM [place] AND INSTRUCTED PATIENT TO BRING THIS LETTER WITH HER. Past Psychological History: No Psychological Hx Reported Smoking Status: Never smoker Past Alcohol Use History: None Reported Past Drug Use History: None Reported - Past Family History Mother Family Medical History: Cancer Additional Family Medical History / Comment(s): colon cancer Medications and Allergies Home Medications Medication Instructions Recorded Confirmed Type Atorvastatin [Lipitor] 80 mg PO DAILY 05/11/20 07/17/23 History Furosemide [Lasix] 20 mg PO BID 05/11/20 07/17/23 History Losartan Potassium [Cozaar] 25 mg PO BID 05/11/20 07/17/23 History Potassium Chloride [Klor-Con 10 ER] 10 meq PO DAILY 07/17/23 07/17/23 History Aspirin 81 mg PO DAILY #30 tab 07/20/23 Rx Azithromycin [Zithromax] 500 mg PO DAILY #5 tab 07/20/23 Rx Clopidogrel [Plavix] 75 mg PO DAILY #30 tab 07/20/23 Rx Ipratropium-Albuterol Nebulize 3 ml INHALATION RT-QID #120 each 07/20/23 Rx [Duoneb 0.5 mg-3 mg/3 ml Soln] cefUROXime axetiL [Ceftin] 500 mg PO BID 5 Days #10 tab 07/20/23 Rx predniSONE 10 mg PO DIRECTED #30 tab 07/20/23 Rx Allergies Allergy/AdvReac Type Severity Reaction Status Date / Time Penicillins AdvReac Unknown PASSED OUT Verified 07/17/23 09:28 Physical Exam Vitals: Vital Signs Temp Pulse Resp BP Pulse Ox FiO2 07/17/23 13:00 78 22 111/50 99 75 07/17/23 12:30 76 18 105/43 100 75 07/17/23 12:00 99.2 F 76 18 103/43 99 86 07/17/23 11:30 80 20 119/55 98 07/17/23 11:21 86 07/17/23 11:16 86 07/17/23 11:11 86 07/17/23 11:00 83 23 119/55 96 86 07/17/23 10:30 98 23 132/76 86 07/17/23 10:10 105 H 26 H 177/77 83 L 07/17/23 10:08 99 F 109 H 22 163/57 07/17/23 10:05 80 07/17/23 09:47 78 L 07/17/23 09:45 24 07/17/23 09:33 79 L 07/17/23 09:30 108 H 24 139/50 73 L 07/17/23 09:00 95 24 151/77 07/17/23 08:30 87 24 91/69 93 L 07/17/23 08:05 88 10 L 119/57 94 L 07/17/23 08:00 92 26 H 119/57 88 L 07/17/23 07:40 80 07/17/23 06:30 88 20 113/45 95 07/17/23 05:24 100 07/17/23 05:21 84 20 107/42 95 07/17/23 05:20 97 07/17/23 05:16 117 H 20 163/71 85 L Intake and Output 07/16/23 07/17/23 07/17/23 22:59 06:59 14:59 Intake Total 190 Output Total 1475 Balance -1285 Intake: Intake, IV Titration 130 Amount Piperacillin-Tazobactam 3 100 .375 gm In Sodium Chloride 0.9% 100 ml @ 200 mls/hr IVPB ONCE ONE Rx#:[id number] Sodium Chloride 0.9% 1, 30 000 ml @ 10 mls/hr IV . Q24H STA Rx#:[id number] Oral 60 Output: Urine 1475 Other: Voiding Method Indwelling Catheter Weight 79.333 kg GENERAL DESCRIPTION: Middle-aged F[place]ale lying in bed, no distress. No tachypnea or accessory muscle of respiration use. HEENT: Shows Pallor , no scleral icterus. Oral mucous membrane is dry. No pharyngeal erythema or thrush NECK: Trachea central, no thyromegaly. LUNGS: Unlabored breathing. Decreased breath sound at the base HEART: S1, S2, regular rate and rhythm. No loud murmur ABDOMEN: Soft, no tenderness , guarding or rigidity, no organomegaly EXTREMITIES: Diffuse swelling to bilateral extremity minimal redness and warmth SKIN: No rash, no masses palpable. NEUROLOGICAL: The patient is awake, alert, oriented x3, mood and affect normal. Results CBC & Chem 7: 07/20/23 04:26 07/20/23 04:26 Labs: Abnormal Lab Results - Last 24 Hours (Table) 07/17/23 07/17/23 07/17/23 Range/Units 05:20 05:20 05:20 WBC 10.7 H (3.8-10.6) k/uL MCHC 30.1 L (31.0-37.0) g/dL Neutrophils # 8.0 H (1.3-7.7) k/uL PT 12.6 H (10.0-12.5) sec INR 1.2 H (<1.2) D-Dimer (<0.60) mg/L FEU VBG pH (7.31-7.41) VBG pCO2 (37-51) mmHg VBG HCO3 (24-28) mmol/L Carbon Dioxide 20 L (22-30) mmol/L BUN 19 H (7-17) mg/dL Glucose 227 H (74-99) mg/dL POC Glucose (mg/dL) (70-110) mg/dL Plasma Lactic Acid Luis Eduardo (0.7-2.0) mmol/L AST 71 H (14-36) U/L Troponin I (0.000-0.034) ng/mL Urine Glucose (UA) (Negative) 07/17/23 07/17/23 07/17/23 Range/Units 05:20 05:20 05:20 WBC (3.8-10.6) k/uL MCHC (31.0-37.0) g/dL Neutrophils # (1.3-7.7) k/uL PT (10.0-12.5) sec INR (<1.2) D-Dimer (<0.60) mg/L FEU VBG pH 7.21 L (7.31-7.41) VBG pCO2 57 H (37-51) mmHg VBG HCO3 23 L (24-28) mmol/L Carbon Dioxide (22-30) mmol/L BUN (7-17) mg/dL Glucose (74-99) mg/dL POC Glucose (mg/dL) (70-110) mg/dL Plasma Lactic Acid Luis Eduardo 6.1 H* (0.7-2.0) mmol/L AST (14-36) U/L Troponin I 0.071 H* (0.000-0.034) ng/mL Urine Glucose (UA) (Negative) 07/17/23 07/17/23 07/17/23 Range/Units 05:25 10:18 12:17 WBC (3.8-10.6) k/uL MCHC (31.0-37.0) g/dL Neutrophils # (1.3-7.7) k/uL PT (10.0-12.5) sec INR (<1.2) D-Dimer 3.84 H (<0.60) mg/L FEU VBG pH (7.31-7.41) VBG pCO2 (37-51) mmHg VBG HCO3 (24-28) mmol/L Carbon Dioxide (22-30) mmol/L BUN (7-17) mg/dL Glucose (74-99) mg/dL POC Glucose (mg/dL) 202 H (70-110) mg/dL Plasma Lactic Acid Luis Eduardo (0.7-2.0) mmol/L AST (14-36) U/L Troponin I (0.000-0.034) ng/mL Urine Glucose (UA) Trace H (Negative) Assessment and Plan (1) Leukocytosis Status: Acute Code(s): D72.829 - ELEVATED WHITE BLOOD CELL COUNT, UNSPECIFIED SNOMED Code(s): 190440440 (2) Penicillin allergy Status: Acute Code(s): Z88.0 - ALLERGY STATUS TO PENICILLIN SNOMED Code(s): 11589672 (3) Pneumonia Status: Acute Code(s): J18.9 - PNEUMONIA, UNSPECIFIED ORGANISM SNOMED Code(s): 349590792 Plan: 1patient presented to hospital with increasing shortness of breath hypoxemia patient did have a fever pulmonary infiltrate concerning for pneumonia question of community-acquired versus aspiration etiology 2-patient also have bilateral extremity swelling and minimal redness concerning for possible component of cellulitis 3-penicillin allergy that will limit the number of antibiotics safe to use 4-Rocephin 2 g daily and Zithromax to continue while waiting for the workup to be completed and cultures to be finalized We will follow on clinical condition and cultures to further adjust medication if needed Thank you for this consultation we will follow the patient along with you Dictation was produced using dragon dictation software. please excuse any grammatical, word or spelling errors. Time with Patient: Greater than 30
[2023-07-18 05:32] LABS: Basophils % (A) 0 %; Eosinophils % (A) 0 %; HCT 30.5 % (34.0-46.0); Hypochromasia Marked; Lymphocytes # (A) 1.1 k/uL (1.0-4.8); Lymphocytes % (A) 9 %; MCH 26.3 pg (25.0-35.0); MCHC 30.7 g/dL (31.0-37.0); MCV 85.8 fL (80.0-100.0); Mean Platelet Volume 9.7; Monocytes # (A) 0.6 k/uL (0-1.0); Monocytes % (A) 5 %; Neutrophils # (A) 10.9 k/uL (1.3-7.7); Neutrophils % (A) 85 %; Platelet Count 139 k/uL (150-450); RBC 3.55 m/uL (3.80-5.40); RDW 14.9 % (11.5-15.5); WBC 12.8 k/uL (3.8-10.6)
[2023-07-18 05:40] LABS: HGB 9.4 gm/dL (11.4-16.0)
[2023-07-18 05:43] LABS: African American GFR (CKD) >90 (>60 ml/min/1.73 sqM); Anion Gap 6 mmol/L; Blood Urea Nitrogen 28 mg/dL (7-17); Calcium 8.4 mg/dL (8.4-10.2); Carbon Dioxide 27 mmol/L (22-30); Chloride 106 mmol/L (98-107); Glucose 125 mg/dL (74-99); Non-African American GFR(CKD) 82 (>60 ml/min/1.73 sqM); Sodium 139 mmol/L (137-145)
[2023-07-18] MEDS: PANTOPRAZOLE 40 MG TABLET PO SCH (06:35)
--- NOTE | 2023-07-18 07:35 | P.CRDCN ---
History of Present Illness Consult date: 07/18/23 Chief complaint: Shortness of breath History of present illness: The patient is a 78-year-old female patient with a past medical history signific ant for valvular heart disease including aortic stenosis and mitral stenosis as well as multiple comorbid conditions who was admitted to the hospital after she was found unresponsive at home. The patient stated that she was in her usual state of health and she was sleeping in a recliner chair last night and she pushed the pattern and that she rejected the patient and pushed her on the floor. She was found unresponsive on the floor. She was brought to the hospital for further evaluation. She underwent an EKG which showed sinus mechanism with nonspecific ST and T wave abnormalities and also she underwent cardiac enzymes was a first set came in to be slightly abnormal and chest x-ray showed possible right side pneumonia. Currently the patient is on antibiotic for that. Pulmonary/critical care team on the case. She doesn't have any history of coronary artery disease or congestive heart failure or cardiac arrhythmia but that she does have history of lower extremities peripheral arter ial disease and she underwent revascularization in the past. No indication of chest pain but she clearly was experiencing shortness of breath associated with cough and sputum production. No fever and no chills. The examination is remarkable for regular rhythm with a systolic murmur and decreased the intensity of S2. Assessment Change in mental status Evidence of myocardial injury Pneumonia Peripheral arterial disease Multiple comorbid conditions Plan Obtain serial cardiac enzymes The echo was reviewed and showed normal LV systolic function was moderate aortic stenosis and moderate mitral stenosis Further recommendation to follow the serial cardiac enzymes Procedure living severe coronary artery disease Follow-up with the patient Past Medical History Past Medical History: CVA/TIA, Hypertension Additional Past Medical History / Comment(s): states CVA (no residual ), states stent in upper leg, rash on lower legs, ankles swell, pt states on Nutrisystem diet and has lost 20-25 # with frequent stools. History of Any Multi-Drug Resistant Organisms: None Reported Past Surgical History: Joint Replacement Additional Past Surgical History / Comment(s): total right knee x2, stem cell injections prior to total knees, cataract surgery, stent in leg. Additional Past Anesthesia/Blood Transfusion Reaction / Comment(s): STATES UNABLE TO INTUBATE- THEY HAD TO DO A SPINAL., STATES SHE HAS LETTER FROM [place] AND INSTRUCTED PATIENT TO BRING THIS LETTER WITH HER. Past Psychological History: No Psychological Hx Reported Smoking Status: Never smoker Past Alcohol Use History: None Reported Past Drug Use History: None Reported - Past Family History Mother Family Medical History: Cancer Additional Family Medical History / Comment(s): colon cancer Medications and Allergies Home Medications Medication Instructions Recorded Confirmed Type Atorvastatin [Lipitor] 80 mg PO DAILY 05/11/20 07/17/23 History Furosemide [Lasix] 20 mg PO BID 05/11/20 07/17/23 History Losartan Potassium [Cozaar] 25 mg PO BID 05/11/20 07/17/23 History Potassium Chloride [Klor-Con 10 ER] 10 meq PO DAILY 07/17/23 07/17/23 History Allergies Allergy/AdvReac Type Severity Reaction Status Date / Time Penicillins AdvReac Unknown PASSED OUT Verified 07/17/23 09:28 Physical Exam Vitals: Vital Signs Temp Pulse Resp BP Pulse Ox FiO2 07/18/23 07:00 73 18 98/43 99 07/18/23 06:00 70 17 108/48 97 07/18/23 05:00 74 18 109/48 98 07/18/23 04:00 98.7 F 74 14 128/71 97 50 07/18/23 03:59 98 50 07/18/23 03:00 73 16 108/49 94 L 07/18/23 02:00 79 19 95/40 97 07/18/23 01:00 73 20 96/47 97 07/18/23 00:00 99.6 F 77 27 H 104/44 97 50 07/17/23 23:58 97 50 07/17/23 23:00 78 16 102/40 98 07/17/23 22:00 77 22 106/44 95 07/17/23 21:00 81 17 107/46 97 07/17/23 20:52 81 07/17/23 20:37 78 97 50 07/17/23 20:00 99.8 F H 79 25 H 100/41 97 50 07/17/23 19:00 80 18 105/45 95 50 07/17/23 18:00 84 19 104/44 97 50 07/17/23 17:20 50 07/17/23 17:00 85 20 106/41 99 60 07/17/23 16:00 100.3 F H 77 20 102/40 99 60 07/17/23 15:24 82 07/17/23 15:13 70 60 07/17/23 15:00 82 18 112/47 99 60 07/17/23 14:30 85 20 111/46 99 07/17/23 14:00 81 24 112/48 98 60 07/17/23 13:40 60 07/17/23 13:00 78 22 111/50 99 75 07/17/23 12:31 75 07/17/23 12:30 76 18 105/43 100 75 07/17/23 12:00 99.2 F 76 18 103/43 99 86 07/17/23 11:30 80 20 119/55 98 07/17/23 11:21 86 07/17/23 11:16 86 07/17/23 11:11 86 07/17/23 11:00 83 23 119/55 96 86 07/17/23 10:30 98 23 132/76 86 07/17/23 10:10 105 H 26 H 177/77 83 L 07/17/23 10:08 99 F 109 H 22 163/57 07/17/23 10:05 80 07/17/23 09:47 78 L 07/17/23 09:45 24 07/17/23 09:33 79 L 07/17/23 09:30 108 H 24 139/50 73 L 07/17/23 09:00 95 24 151/77 07/17/23 08:30 87 24 91/69 93 L 07/17/23 08:05 88 10 L 119/57 94 L 07/17/23 08:00 92 26 H 119/57 88 L 07/17/23 07:40 80 Intake and Output 07/17/23 07/18/23 07/18/23 22:59 06:59 14:59 Intake Total 320 80 10 Output Total 285 330 40 Balance 35 -250 -30 Intake: IV 30 80 10 Sodium Chloride 0.9% 1, 30 80 10 000 ml @ 10 mls/hr IV . Q24H STA Rx#:[id number] Intake, IV Titration 50 Amount Sodium Chloride 0.9% 1, 50 000 ml @ 10 mls/hr IV . Q24H STA Rx#:[id number] Oral 240 Output: Urine 285 330 40 Other: Voiding Method Indwelling Catheter Indwelling Catheter Weight 84.6 kg Results 07/18/23 04:46 07/18/23 04:46 CBC 07/18/23 Range/Units 04:46 WBC 12.8 H (3.8-10.6) k/uL RBC 3.55 L (3.80-5.40) m/uL Hgb 9.4 L D (11.4-16.0) gm/dL Hct 30.5 L (34.0-46.0) % Plt Count 139 L (150-450) k/uL Comprehensive Metabolic Panel 07/18/23 Range/Units 04:46 Sodium 139 (137-145) mmol/L Potassium 4.0 (3.5-5.1) mmol/L Chloride 106 (98-107) mmol/L Carbon Dioxide 27 (22-30) mmol/L BUN 28 H (7-17) mg/dL Creatinine 0.71 (0.52-1.04) mg/dL Glucose 125 H (74-99) mg/dL Calcium 8.4 (8.4-10.2) mg/dL Current Medications Generic Name Dose Route Start Last Admin Trade Name Freq PRN Reason Stop Dose Admin Acetaminophen 650 mg 07/17/23 07:59 Acetaminophen Tab 325 Mg Tab PO Q4HR PRN Mild Pain or Fever > 100.5 Albuterol/Ipratropium 3 ml 07/17/23 07:59 Ipratropium-Albuterol 3 Ml Neb INHALATION RT-Q2H PRN Shortness Of Breath Or Wheezing Albuterol/Ipratropium 3 ml 07/17/23 08:00 07/17/23 20:37 Ipratropium-Albuterol 3 Ml Neb INHALATION 3 ml RT-QID LAY Administration Atorvastatin Calcium 80 mg 07/18/23 09:00 Atorvastatin 80 Mg Tab PO DAILY LAY Azithromycin 500 mg 07/18/23 09:00 Azithromycin 500 Mg Tab PO 07/19/23 09:01 DAILY LAY Protocol Furosemide 20 mg 07/17/23 17:00 07/17/23 16:59 Furosemide 20 Mg Tab PO 20 mg 0900,1700 LAY Administration Heparin Sodium (Porcine) 5,000 unit 07/17/23 12:15 07/17/23 19:55 Heparin Sodium,Porcine 5,000 Unit/Ml 1 Ml Vial SQ 5,000 unit Q12HR LAY Administration Sodium Chloride 1,000 mls @ 10 mls/hr 07/17/23 07:38 07/17/23 11:00 Saline 0.9% IV 07/18/23 07:37 10 mls/hr .Q24H STA Administration Ceftriaxone Sodium 2 gm/ 50 mls @ 100 mls/hr 07/18/23 09:00 Sodium Chloride IVPB Q24HR LAY Protocol Losartan Potassium 25 mg 07/17/23 21:00 07/17/23 20:55 Losartan 25 Mg Tab PO Not Given BID LAY Naloxone HCl 0.2 mg 07/17/23 07:59 Naloxone 0.4 Mg/Ml 1 Ml Vial IVP Q2M PRN Opioid Reversal Pantoprazole Sodium 40 mg 07/17/23 12:15 07/18/23 06:35 Pantoprazole 40 Mg Tablet PO 40 mg [id number] LAY Administration Potassium Chloride 10 meq 07/18/23 09:00 Potassium Chloride Er 10 Meq Tab.Er.Prt PO DAILY LAY Prednisone 40 mg 07/17/23 09:00 07/17/23 10:59 Prednisone 20 Mg Tab PO 07/21/23 09:01 40 mg DAILY LAY Administration Intake and Output 07/17/23 07/18/23 07/18/23 22:59 06:59 14:59 Intake Total 320 80 10 Output Total 285 330 40 Balance 35 -250 -30 Intake: IV 30 80 10 Sodium Chloride 0.9% 1, 30 80 10 000 ml @ 10 mls/hr IV . Q24H STA Rx#:[id number] Intake, IV Titration 50 Amount Sodium Chloride 0.9% 1, 50 000 ml @ 10 mls/hr IV . Q24H STA Rx#:[id number] Oral 240 Output: Urine 285 330 40 Other: Voiding Method Indwelling Catheter Indwelling Catheter Weight 84.6 kg 07/18/23 04:46 07/18/23 04:46
--- NOTE | 2023-07-18 08:15 | P.CNNES ---
History of Present Illness Consult date: 07/17/23 Requesting physician: Izabel Murguia Reason for Consult: syncope, ? fall weakness, TIA?? 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 Patient states that she was sleeping in the chair, as she usually sleeps in a chair, cannot lay flat because of her respiratory difficulties. Apparently the chair opened up" dumped her out". She started having in hyperventilation, panicked, couldn't get up. She went into respiratory distress, became unresponsive at home. EMS was called, and they Ambu bag her. There was "tons of frothy pinkish sputum" coming out. Patient was brought to the hospital. There was no report of slurred speech, facial droop or any other focal symptoms. EMS flow sheet not available in the chart. Vital signs on arrival blood pressure 163/71, pulse rate 117, temperature 99.0 axillary. Repeat temperature was 99.2 axillary. Blood test shows WBC 10.7 hemoglobin 11.5, normal platelets. INR 1.2, VBG with pH of 7.21, pCO2 57, HCO3 23. Electrolytes are normal, renal functions are normal. Plasma lactate 6.1. AST is mildly elevated 71, normal ALT 28. Troponin is mildly elevated 0.071. UA negative, blood alcohol level negative, influenza, RSV and coronal virus PCR negative. EKG shows sinus tachycardia with occasional supraventricular premature complexes. Chest x-ray revealed asymmetric right greater than left lung airspace disease this pain be due to infection/aspiration changes. Consider CTA variation for further characterization. Cardiomegaly. While in the ER, patient was given Lasix, and she "bounced back". Patient has history of TIA 4 years ago with no residual deficits. Patient has chronic lung disease, never been diagnosed with COPD. She always sleeps in the chair because she cannot lay flat. 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 She denies any alcohol. Denies diabetes. She walks by herself does not use any assistive device. She lives alone at home. Review of Systems All systems: negative (As mentioned in HPI. Patient has chronic shoulder issues bilaterally with arthritis. Patient has chronic breathing difficulty.) Past Medical History Past Medical History: CVA/TIA, Hypertension, Pneumonia, Rheumatoid Arthritis (RA) Additional Past Medical History / Comment(s): states CVA (no residual ), states stent in upper rt leg, rash on lower legs, ankles swell, pt states on Nutrisystem diet and has lost 20-25 # with frequent stools. arthritis bilateral arms History of Any Multi-Drug Resistant Organisms: None Reported Past Surgical History: Joint Replacement Additional Past Surgical History / Comment(s): total right knee x2, stem cell injections prior to total knees, cataract surgery, stent in leg. Additional Past Anesthesia/Blood Transfusion Reaction / Comment(s): STATES UNABLE TO INTUBATE- THEY HAD TO DO A SPINAL., STATES SHE HAS LETTER FROM [place] AND INSTRUCTED PATIENT TO BRING THIS LETTER WITH HER. Past Psychological History: No Psychological Hx Reported Smoking Status: Never smoker Past Alcohol Use History: None Reported Past Drug Use History: None Reported - Past Family History Mother Family Medical History: Cancer Additional Family Medical History / Comment(s): colon cancer Medications and Allergies Home Medications Medication Instructions Recorded Confirmed Type Atorvastatin [Lipitor] 80 mg PO DAILY 05/11/20 07/17/23 History Furosemide [Lasix] 20 mg PO BID 05/11/20 07/17/23 History Losartan Potassium [Cozaar] 25 mg PO BID 05/11/20 07/17/23 History Potassium Chloride [Klor-Con 10 ER] 10 meq PO DAILY 07/17/23 07/17/23 History Allergies Allergy/AdvReac Type Severity Reaction Status Date / Time Penicillins AdvReac Unknown PASSED OUT Verified 07/17/23 09:28 Physical Examination - Vital Signs Vital Signs: Vital Signs Temp Pulse Resp BP Pulse Ox FiO2 07/17/23 14:00 81 24 112/48 98 60 07/17/23 13:00 78 22 111/50 99 75 07/17/23 12:30 76 18 105/43 100 75 07/17/23 12:00 99.2 F 76 18 103/43 99 86 07/17/23 11:30 80 20 119/55 98 07/17/23 11:21 86 07/17/23 11:16 86 07/17/23 11:11 86 07/17/23 11:00 83 23 119/55 96 86 07/17/23 10:30 98 23 132/76 86 07/17/23 10:10 105 H 26 H 177/77 83 L 07/17/23 10:08 99 F 109 H 22 163/57 07/17/23 10:05 80 07/17/23 09:47 78 L 07/17/23 09:45 24 07/17/23 09:33 79 L 07/17/23 09:30 108 H 24 139/50 73 L 07/17/23 09:00 95 24 151/77 07/17/23 08:30 87 24 91/69 93 L 07/17/23 08:05 88 10 L 119/57 94 L 07/17/23 08:00 92 26 H 119/57 88 L 07/17/23 07:40 80 07/17/23 06:30 88 20 113/45 95 07/17/23 05:24 100 07/17/23 05:21 84 20 107/42 95 07/17/23 05:20 97 07/17/23 05:16 117 H 20 163/71 85 L Intake and Output 07/16/23 07/17/23 07/17/23 22:59 06:59 14:59 Intake Total 260 Output Total 1550 Balance -1290 Intake: Intake, IV Titration 140 Amount Piperacillin-Tazobactam 3 100 .375 gm In Sodium Chloride 0.9% 100 ml @ 200 mls/hr IVPB ONCE ONE Rx#:[id number] Sodium Chloride 0.9% 1, 40 000 ml @ 10 mls/hr IV . Q24H STA Rx#:[id number] Oral 120 Output: Urine 1550 Other: Voiding Method Indwelling Catheter Weight 79.333 kg 79.333 kg Patient is an elderly female, in no significant distress. She does have some airvo attached. Her oxygen demand has been improving. Patient is alert awake oriented to time place and person. Speech and language functions are normal. Patient can name and repeat very well. No aphasia or dysarthria. Attention, concentration and fund of knowledge is adequate. Detail cognitive function testing deferred. On cranial nerve examination, pupils are equal, round and reacting to light, visual ortiz are full on confrontation, with no neglect on double simultaneous stimulation. Extraocular muscles are intact with no nystagmus. Face is symmetric, tongue protrudes to the midline. Palatal elevation and sensation normal, hearing and shoulder shrug normal, facial sensation normal. On muscle strength testing, there is no pronator drift and the strength is normal in arms and legs distally and proximally, except bilateral shoulders, which she has significant arthritis. In the lower limbs, her hip flexion is 4+ but ankle dorsiflexion 5 bilaterally. Deep tendon reflexes are symmetric 2 all over and plantars downgoing. Sensory to touch is equal with no neglect on double simultaneous stimulation. Cerebellar function showed no ataxia for [id number] testing. No dysdiadochokinesia. Tone and bulk of muscles normal. Gait deferred.. On general examination, there is no carotid bruit or murmur, S1-S2 audible. Chest is clear on consultation. Abdomen is soft nontender. No organomegaly, bowel sounds present. Peripheral pulses are present. Patient has peripheral edema. Results - Laboratory Findings CBC and BMP: 07/18/23 04:46 07/18/23 04:46 Abnormal Lab Findings: Abnormal Labs 07/17/23 07/17/23 07/17/23 05:20 05:20 05:20 WBC 10.7 H MCHC 30.1 L Neutrophils # 8.0 H PT 12.6 H INR 1.2 H D-Dimer VBG pH VBG pCO2 VBG HCO3 Carbon Dioxide 20 L BUN 19 H Glucose 227 H POC Glucose (mg/dL) Plasma Lactic Acid Luis Eduardo AST 71 H Troponin I Urine Glucose (UA) 07/17/23 07/17/23 07/17/23 05:20 05:20 05:20 WBC MCHC Neutrophils # PT INR D-Dimer VBG pH 7.21 L VBG pCO2 57 H VBG HCO3 23 L Carbon Dioxide BUN Glucose POC Glucose (mg/dL) Plasma Lactic Acid Luis Eduardo 6.1 H* AST Troponin I 0.071 H* Urine Glucose (UA) 07/17/23 07/17/23 07/17/23 05:25 10:18 12:17 WBC MCHC Neutrophils # PT INR D-Dimer 3.84 H VBG pH VBG pCO2 VBG HCO3 Carbon Dioxide BUN Glucose POC Glucose (mg/dL) 202 H Plasma Lactic Acid Luis Eduardo AST Troponin I Urine Glucose (UA) Trace H Assessment and Plan Assessment: * Syncope * Bilateral ICA stenosis, severe > 70% left ICA and moderate stenosis between 50 and 69% right ICA. * Possible pneumonia * Moderate mitral stenosis, moderate aortic stenosis. * Hypertension * History of TIA 4 years ago, with no residual deficits * Rheumatoid arthritis * Chronic lung disease. * Nonsmoker. Plan: * Patient has presented with syncopal spell, likely due to underlying cardiopulmonary process. * CT head was recommended, but patient cannot lay flat. Her current neurological examination is normal, and current NIH stroke scale 0. * Carotid Doppler revealed moderate stenosis between 50 and 69% right ICA, severe stenosis of greater than 70% left carotid artery. Antegrade flow in both vertebral arteries. * Consider CTA of head and neck for further evaluation of stenosis. Patient states that she cannot lay flat at all. We will defer to cardiovascular team, if she is a candidate for stenting. * 2-D echo revealed normal left ventricular systolic function with EF 60-65%. Moderately increased septal wall thickness. Moderate increased posterior wall thickness. Moderately increased left atrial diameter, and left atrial volume. Mild MR, moderate MS, moderate aortic stenosis. Cardiology on board. * Lipid panel. Continue Lipitor 80 mg daily. Hemoglobin A1c. * Start aspirin 81 mg daily, if no medical contraindication. * Patient currently on ceftriaxone and azithromycin for possible pneumonia. ID on board. * Other medical management as per IM, critical care and other specialties. * Neurology will follow. Thank you for the consult.
[2023-07-18] MEDS: ASPIRIN 81 MG PO SCH (08:52)
[2023-07-18] MEDS: FUROSEMIDE 20 MG TAB PO SCH ×2 (08:52→16:12)
[2023-07-18] MEDS: HEPARIN SODIUM,PORCINE 5,000 UNIT/ML 1 ML VIAL SQ SCH ×2 (08:52→19:47)
[2023-07-18] MEDS: POTASSIUM CHLORIDE ER 10 MEQ TAB.ER.PRT PO SCH (08:52)
[2023-07-18] MEDS: predniSONE 20 MG TAB PO SCH (08:52)
[2023-07-18] MEDS: ATORVASTATIN 80 MG TAB PO SCH (08:52)
[2023-07-18] MEDS: AZITHROMYCIN 500 MG TAB PO SCH (08:53)
[2023-07-18] MEDS: IPRATROPIUM-ALBUTEROL 3 ML NEB INHALATION SCH ×4 (09:28→20:16)
--- NOTE | 2023-07-18 10:27 | XR ---
EXAMINATION TYPE: XR chest 1V portable DATE OF EXAM: 07/18/2023 Comparison: 07/17/2023 Clinical History: 78-year-old female ICU follow-up, bipap Findings: Heart mildly enlarged. Airspace disease throughout the right lung is becoming less confluent improvin g. Similar interstitial density on the left. No sizable pleural effusion. Impression: Similar mild cardiomegaly but with improving airspace disease throughout the right lung. Patchy densi ties remain.
--- NOTE | 2023-07-18 11:55 | P.PN ---
Subjective Progress Note Date: 07/18/23 Principal diagnosis: Respiratory failure. Pulmonary consult dated 07/17/2023. This is a 70-year-old female who was brought into the emergency department, at 5:00 in the morning, on 07/17/2023, by EMS, for mental status changes. Apparently EMS was called by the family, and apparently the family mentioned that the patient was not feeling well. They found the patient at the top of the stairs, and she was poorly responsive/unresponsive. She had a Marco Coma Scale of 8, on arrival. The patient was able to speak in short sentences. She apparently was quite short of breath. The patient was placed on BiPAP, with settings of 12/5 in 100% initially. She was getting saline at 130 mL an hour. Her chest x-ray showed near complete opacification of the right lung. A venous blood gas showed a pCO2 of 57, and a pH is 7.21. She apparently has a history of CVA, peripheral vascular occlusive disease with stents, hypertension, hyperlipidemia, among other things. She apparently has some sort of issue with her jaw, and mandibular immobility, and states that she cannot be intubated. White count was 10.7, hemoglobin 11.5, hematocrit 38, and platelet count 207,000. Sodium 139, potassium 5, chlorides 104, CO2 20, anion gap 15, BUN 19, and creatinine 0.59. Glucose was 227. Lactic acid was 6.1. Repeat 1.6. Troponin was 0.071. Urine was negative. Testing for influenza A, B, RSV, and coronavirus, overall negative. Chest x-ray showed cardiomegaly, and near complete opacification of the right lung. Progress note dated 07/18/2023. 70-year-old female seen in the emergency department yesterday, for respiratory failure, and mental status changes. The patient was found to be poorly responsive, and brought into the emergency department by EMS. Her chest x-ray yesterday showed near complete opacification of the right lung. She was initially placed on BiPAP, and then on AIRVO. She was admitted to the intensive care unit for further monitoring and management. Currently, she is seen in room 267. She is on AIRVO, at 40 L/m with an FiO2 55%. Her pro-calcitonin level was 2.62, and she continues on Rocephin and azithromycin. She is getting saline at 10 mL an hour. She is doing much better. White count 12.8, hemoglobin 9.4, hematocrit 30.5, platelet count 139,000. Sodium 139, potassium 4, chlorides 106, CO2 27, BUN 28, creatinine 0.71. Her most recent troponin level was 0.067. N-terminal proBNP was 3270. Chest x-ray shows improving airspace disease, throughout the right lung. Objective - Vital Signs Vital signs: Vital Signs Temp 98.7 F 07/18/23 04:00 Pulse 84 07/18/23 11:00 Resp 22 07/18/23 11:00 BP 83/58 07/18/23 11:00 Pulse Ox 97 07/18/23 11:00 FiO2 40 07/18/23 11:00 Intake & Output 07/17/23 07/18/23 07/18/23 18:59 06:59 18:59 Intake Total 540 120 90 Output Total 1685 480 160 Balance -1145 -360 -70 Weight 79.333 kg 84.6 kg Intake: IV 110 40 Sodium Chloride 0.9% 1, 110 40 000 ml @ 10 mls/hr IV . Q24H [facility] Rx#:[id number] Intake, IV Titration 180 10 50 Amount Piperacillin-Tazobactam 3 100 .375 gm In Sodium Chloride 0.9% 100 ml @ 200 mls/hr IVPB ONCE ONE Rx#:[id number] Sodium Chloride 0.9% 1, 80 10 000 ml @ 10 mls/hr IV . Q24H [facility] Rx#:[id number] cefTRIAXone 2 gm In 50 Sodium Chloride 0.9% 50 ml @ 100 mls/hr IVPB Q24HR [facility] Rx#:[id number] Oral 360 Output: Urine 1685 480 160 Other: Voiding Method Indwelling Catheter Indwelling Catheter Indwelling Catheter - Exam Patient is much more comfortable, without any respiratory distress. She is awake and alert. AIRVO cannula in place. HEENT examination is grossly unremarkable. Neck supple. Full range of motion. No adenopathy thyromegaly or neck vein dis tention. Cardiovascular examination reveals regular rhythm rate. S1-S2 normal. No S3 or S4. No discernible murmur noted. Heart sounds are distant. Heart rate 84 bpm. Lungs reveal scattered bilateral rhonchi. Breath sounds are diminished on the right. No crackles or wheezes. Saturations are 96%, now on AIRVO, at 40 L/m with an FiO2 of 55%. Abdomen soft, without bowel sounds. Extremities reveal evidence of 1+ edema, and chronic venous stasis changes. Skin is without rash or lesion. Neurologic examination is brief but nonfocal. - Labs CBC & Chem 7: 07/18/23 04:46 07/18/23 04:46 Labs: Abnormal Lab Results - Last 24 Hours (Table) 07/17/23 07/17/23 07/18/23 Range/Units 12:17 14:06 04:46 WBC 12.8 H (3.8-10.6) k/uL RBC 3.55 L (3.80-5.40) m/uL Hgb 9.4 L D (11.4-16.0) gm/dL Hct 30.5 L (34.0-46.0) % MCHC 30.7 L (31.0-37.0) g/dL Plt Count 139 L (150-450) k/uL Neutrophils # 10.9 H (1.3-7.7) k/uL D-Dimer 3.84 H (<0.60) mg/L FEU BUN (7-17) mg/dL Glucose (74-99) mg/dL Troponin I (0.000-0.034) ng/mL Procalcitonin 2.62 H (0.02-0.09) ng/mL 07/18/23 07/18/23 Range/Units 04:46 08:16 WBC (3.8-10.6) k/uL RBC (3.80-5.40) m/uL Hgb (11.4-16.0) gm/dL Hct (34.0-46.0) % MCHC (31.0-37.0) g/dL Plt Count (150-450) k/uL Neutrophils # (1.3-7.7) k/uL D-Dimer (<0.60) mg/L FEU BUN 28 H (7-17) mg/dL Glucose 125 H (74-99) mg/dL Troponin I 0.067 H* (0.000-0.034) ng/mL Procalcitonin (0.02-0.09) ng/mL Assessment and Plan Assessment: Acute hypoxemic respiratory failure, likely on the basis of right-sided pneumonia. Acute mental status changes, likely secondary to hypoxemic respiratory failure. History of hypertension. History of hyperlipidemia. History of CVA/TIA. History of peripheral vascular occlusive disease, with previous stent placement. Lifelong nontobacco user. Plan: Plan dated 07/17/2023. The patient be transferred to the intensive care unit. Because of ongoing respiratory secretions, we added AIRVO rather than BiPAP. Saturation seems to be improved. The right lung is nearly completely opacified. Antibiotics and breathing treatments to be started. The patient apparently has some issues with her jaw, which is immobile, and apparently a letter states that she cannot be intubated. Labs, x-rays, medications are reviewed. Prognosis is guarded. Plan dated 07/18/2023. The patient is seen in the intensive care unit. She remains on Rocephin and Zithromax, for possible pneumonia, involving the right lung. He may relate to aspiration. Her pro-calcitonin level was elevated at 2.62. The patient currently is on AIRVO, at 40 L/m, with an FiO2 55%. The patient's getting saline at 10 mL an hour. Labs, x-rays, and medications are all reviewed. Clinically, the patient is night and day difference today than she was yesterday. He is much improved, much more alert, and having much less respiratory distress. We will continue to follow make recommendations along the way. Prognosis is guarded. Time with Patient: Greater than 30
[2023-07-18] MEDS: LOSARTAN 25 MG TAB PO SCH ×2 (12:41→19:47)
[2023-07-18 16:25] LABS: Chol/HDL Ratio 2.05 Ratio; LDL Cholesterol,Calculated 31.6 mg/dL (0.0-131.0); VLDL Calculation 10.98 mg/dL (5.00-40.00)
--- NOTE | 2023-07-18 18:31 | P.PN ---
Subjective Progress Note Date: 07/18/23 Principal diagnosis: Reason for follow-up is pneumonia Patient is a 78-year-old female with a past medical history difficult for CVA TIA hypertension in this patient also have a history of bilateral lower extremity chronic swelling and venous stasis dermatitis patient has been brought into the hospital for evaluation of mental status changes, patient was in respiratory distress on presentation to the hospital requiring BiPAP and admission to the ICU, chest x-ray with suspicious for pneumonia. On today's evaluation that is 07/18/2023 patient did have resolution of fever and is afebrile this morning, the patient is breathing comfortably on 40% FiO2 the patient denies having any chest pain or shortness of breath occasional cough no nausea vomiting no abdominal pain no diarrhea. The patient vital of 12.8 creatinine 0.71 Percocet 2.6 to Objective - Vital Signs Vital signs: Vital Signs Temp 98.7 F 07/18/23 04:00 Pulse 77 07/18/23 12:00 Resp 15 07/18/23 12:00 BP 99/50 07/18/23 12:00 Pulse Ox 96 07/18/23 12:33 FiO2 40 07/18/23 12:33 Intake & Output 07/17/23 07/18/23 07/18/23 18:59 06:59 18:59 Intake Total 540 120 100 Output Total 1685 480 200 Balance -1145 -360 -100 Weight 79.333 kg 84.6 kg Intake: IV 110 50 Sodium Chloride 0.9% 1, 110 50 000 ml @ 10 mls/hr IV . Q24H [facility] Rx#:[id number] Intake, IV Titration 180 10 50 Amount Piperacillin-Tazobactam 3 100 .375 gm In Sodium Chloride 0.9% 100 ml @ 200 mls/hr IVPB ONCE ONE Rx#:[id number] Sodium Chloride 0.9% 1, 80 10 000 ml @ 10 mls/hr IV . Q24H [facility] Rx#:[id number] cefTRIAXone 2 gm In 50 Sodium Chloride 0.9% 50 ml @ 100 mls/hr IVPB Q24HR [facility] Rx#:[id number] Oral 360 Output: Urine 1685 480 200 Other: Voiding Method Indwelling Catheter Indwelling Catheter Indwelling Catheter - Exam GENERAL DESCRIPTION: An elderly female up in the chair in no distress RESPIRATORY SYSTEM: Unlabored breathing , decreased breath sounds at bases HEART: S1 S2 regular rate and rhythm , ABDOMEN: Soft , no tenderness EXTREMITIES: Diffuse swelling to lower extremity no significant redness - Labs CBC & Chem 7: 07/18/23 04:46 07/18/23 04:46 Labs: Abnormal Lab Results - Last 24 Hours (Table) 07/17/23 07/17/23 07/18/23 Range/Units 12:17 14:06 04:46 WBC 12.8 H (3.8-10.6) k/uL RBC 3.55 L (3.80-5.40) m/uL Hgb 9.4 L D (11.4-16.0) gm/dL Hct 30.5 L (34.0-46.0) % MCHC 30.7 L (31.0-37.0) g/dL Plt Count 139 L (150-450) k/uL Neutrophils # 10.9 H (1.3-7.7) k/uL D-Dimer 3.84 H (<0.60) mg/L FEU BUN (7-17) mg/dL Glucose (74-99) mg/dL Troponin I (0.000-0.034) ng/mL Procalcitonin 2.62 H (0.02-0.09) ng/mL 07/18/23 07/18/23 Range/Units 04:46 08:16 WBC (3.8-10.6) k/uL RBC (3.80-5.40) m/uL Hgb (11.4-16.0) gm/dL Hct (34.0-46.0) % MCHC (31.0-37.0) g/dL Plt Count (150-450) k/uL Neutrophils # (1.3-7.7) k/uL D-Dimer (<0.60) mg/L FEU BUN 28 H (7-17) mg/dL Glucose 125 H (74-99) mg/dL Troponin I 0.067 H* (0.000-0.034) ng/mL Procalcitonin (0.02-0.09) ng/mL Assessment and Plan (1) Pneumonia Current Visit: Yes Status: Acute Code(s): J18.9 - PNEUMONIA, UNSPECIFIED ORGANISM SNOMED Code(s): 741476927 (2) Leukocytosis Current Visit: Yes Status: Acute Code(s): D72.829 - ELEVATED WHITE BLOOD CELL COUNT, UNSPECIFIED SNOMED Code(s): 025800205 (3) Penicillin allergy Current Visit: Yes Status: Acute Code(s): Z88.0 - ALLERGY STATUS TO PEN ICILLIN SNOMED Code(s): 52609627 Plan: 1patient presented to hospital with increasing shortness of breath hypoxemia patient did have a fever pulmonary infiltrate concerning for pneumonia question of community-acquired versus aspiration etiology 2-patient also have bilateral extremity swelling and minimal redness concerning for possible component of cellulitis 3-penicillin allergy that will limit the number of antibiotics safe to use 4-patient did have some clinical improvement and will continue with Rocephin 2 g daily and Zithromax, waiting for the workup to be completed and cultures to be finalized Dictation was produced using [employer] dictation software. please excuse any grammatical, word or spelling errors. Time with Patient: Less than 30
--- NOTE | 2023-07-19 04:21 | PN ---
PROGRESS NOTE DATE OF SERVICE: 07/18/2023 SUBJECTIVE: This is a 78-year-old woman, who was admitted with right aspiration pneumonia and acute hypoxic respiratory failure, still on AIRVO. The patient is rather unstable, is being closely monitored in ICU. Multiple consultants are following the following. She is still on broad spectrum IV antibiotics. The chest x-ray showed some minimal improvement on the right side. The CT scan of the brain has been ordered, but she deferred because of the acute on stable condition at this time. Procalcitonin 2.62. Troponin is elevated. PAST MEDICAL HISTORY: Reviewed. REVIEW OF SYSTEMS: A 14-point review is negative except as mentioned earlier. CURRENT MEDICATIONS: Reviewed include DuoNeb. Dose and rest of medications reviewed. PHYSICAL EXAMINATION: VITAL SIGNS: Pulse is 77, blood pressure 109/43, respirations 14. CHEST: A few scattered rhonchi and crackles. ABDOMEN: Soft, nontender. NERVOUS SYSTEM: Nonfocal. LABORATORY DATA: Reviewed. ASSESSMENT: 1. Right aspiration pneumonia possibly acute hypoxic respiratory failure. 2. Change in mental status, acute encephalopathy, possibly secondary to syncope. 3. Increased WBC. 4. Troponin 0.01. Rule out acute dve-VW-[id number]-elevation myocardial infarction. 5. Moderate aortic stenosis and moderate mitral stenosis in the 2D echo. 6. History of cerebrovascular accident, transient ischemic attack. 7. Hypertension. 8. Bilateral carotid artery stenosis. 9. Full code. RECOMMENDATIONS: Recommend to continue current management and continue symptomatic treatment. Closely follow with Cardiology and Pulmonology. Neurology has also seen the patient and prognosis guarded. Further recommendations to follow. Echo showed normal LV dysfunction and moderate aortic stenosis and moderate mitral stenosis. Carotid duplex showed severe 70% stenosis of the left carotid artery and moderate stenosis 55% to 60% of the right internal carotid artery. We will closely follow. MMODL / IJN: [id number] /
[2023-07-19] MEDS: PANTOPRAZOLE 40 MG TABLET PO SCH (06:24)
[2023-07-19 06:43] LABS: Basophils % (A) 0 %; Eosinophils # (A) 0.1 k/uL (0-0.7); Eosinophils % (A) 1 %; HCT 29.6 % (34.0-46.0); Hypochromasia Marked; Lymphocytes # (A) 1.2 k/uL (1.0-4.8); Lymphocytes % (A) 12 %; MCH 26.5 pg (25.0-35.0); MCHC 30.5 g/dL (31.0-37.0); MCV 86.9 fL (80.0-100.0); Mean Platelet Volume 9.7; Monocytes # (A) 0.5 k/uL (0-1.0); Monocytes % (A) 5 %; Neutrophils # (A) 8.4 k/uL (1.3-7.7); Neutrophils % (A) 81 %; Platelet Count 133 k/uL (150-450); RBC 3.41 m/uL (3.80-5.40); RDW 14.7 % (11.5-15.5); WBC 10.3 k/uL (3.8-10.6)
[2023-07-19 07:01] LABS: ALT 35 U/L (4-34); AST 37 U/L (14-36); African American GFR (CKD) >90 (>60 ml/min/1.73 sqM); Albumin 2.8 g/dL (3.5-5.0); Alkaline Phosphatase 56 U/L (38-126); Anion Gap 9 mmol/L; Blood Urea Nitrogen 33 mg/dL (7-17); Calcium 8.5 mg/dL (8.4-10.2); Carbon Dioxide 27 mmol/L (22-30); Chloride 106 mmol/L (98-107); Glucose 98 mg/dL (74-99); Non-African American GFR(CKD) 89 (>60 ml/min/1.73 sqM); Potassium 4.1 mmol/L (3.5-5.1); Sodium 142 mmol/L (137-145); Total Bilirubin 0.4 mg/dL (0.2-1.3); Total Protein 5.4 g/dL (6.3-8.2)
[2023-07-19] MEDS: IPRATROPIUM-ALBUTEROL 3 ML NEB INHALATION SCH ×4 (08:10→20:27)
[2023-07-19] MEDS: HEPARIN SODIUM,PORCINE 5,000 UNIT/ML 1 ML VIAL SQ SCH ×2 (09:44→20:37)
[2023-07-19] MEDS: POTASSIUM CHLORIDE ER 10 MEQ TAB.ER.PRT PO SCH (09:45)
[2023-07-19] MEDS: FUROSEMIDE 20 MG TAB PO SCH ×2 (09:45→16:44)
[2023-07-19] MEDS: ATORVASTATIN 80 MG TAB PO SCH (09:45)
[2023-07-19] MEDS: predniSONE 20 MG TAB PO SCH (09:45)
[2023-07-19] MEDS: ASPIRIN 81 MG PO SCH (09:45)
[2023-07-19] MEDS: LOSARTAN 25 MG TAB PO SCH ×2 (09:47→20:37)
[2023-07-19] MEDS: AZITHROMYCIN 500 MG TAB PO SCH (09:47)
--- NOTE | 2023-07-19 10:57 | P.PN ---
Subjective Progress Note Date: 07/18/23 Patient was seen for a follow-up patient is sitting comfortably in the recliner. Patient's ABG has improved, only on 35% FiO2. Her legs are much stronger. Arms slightly weak. Patient did walk today. Patient denies any new focal symptoms. Objective - Vital Signs Vital signs: Vital Signs Temp 98.7 F 07/18/23 04:00 Pulse 77 07/18/23 14:00 Resp 20 07/18/23 14:00 BP 102/41 07/18/23 14:00 Pulse Ox 95 07/18/23 14:00 FiO2 35 07/18/23 14:00 Intake & Output 07/17/23 07/18/23 07/18/23 18:59 06:59 18:59 Intake Total 540 120 130 Output Total 1685 480 360 Balance -1145 -360 -230 Weight 79.333 kg 84.6 kg Intake: IV 110 80 Sodium Chloride 0.9% 1, 110 80 000 ml @ 10 mls/hr IV . Q24H [facility] Rx#:[id number] Intake, IV Titration 180 10 50 Amount Piperacillin-Tazobactam 3 100 .375 gm In Sodium Chloride 0.9% 100 ml @ 200 mls/hr IVPB ONCE ONE Rx#:[id number] Sodium Chloride 0.9% 1, 80 10 000 ml @ 10 mls/hr IV . Q24H [facility] Rx#:[id number] cefTRIAXone 2 gm In 50 Sodium Chloride 0.9% 50 ml @ 100 mls/hr IVPB Q24HR [facility] Rx#:[id number] Oral 360 Output: Urine 1685 480 360 Other: Voiding Method Indwelling Catheter Indwelling Catheter Indwelling Catheter - Exam Patient's examination unchanged. Mentation normal. Strength normal. - Labs CBC & Chem 7: 07/19/23 06:24 07/19/23 06:24 Labs: Abnormal Lab Results - Last 24 Hours (Table) 07/17/23 07/18/23 07/18/23 Range/Units 14:06 04:46 04:46 WBC 12.8 H (3.8-10.6) k/uL RBC 3.55 L (3.80-5.40) m/uL Hgb 9.4 L D (11.4-16.0) gm/dL Hct 30.5 L (34.0-46.0) % MCHC 30.7 L (31.0-37.0) g/dL Plt Count 139 L (150-450) k/uL Neutrophils # 10.9 H (1.3-7.7) k/uL BUN 28 H (7-17) mg/dL Glucose 125 H (74-99) mg/dL Troponin I (0.000-0.034) ng/mL Procalcitonin 2.62 H (0.02-0.09) ng/mL 07/18/23 07/18/23 Range/Units 08:16 12:48 WBC (3.8-10.6) k/uL RBC (3.80-5.40) m/uL Hgb (11.4-16.0) gm/dL Hct (34.0-46.0) % MCHC (31.0-37.0) g/dL Plt Count (150-450) k/uL Neutrophils # (1.3-7.7) k/uL BUN (7-17) mg/dL Glucose (74-99) mg/dL Troponin I 0.067 H* 0.061 H* (0.000-0.034) ng/mL Procalcitonin (0.02-0.09) ng/mL Microbiology - Last 24 Hours (Table) 07/17/23 05:45 Blood Culture - Preliminary Blood 07/17/23 05:30 Blood Culture - Preliminary Blood Assessment and Plan Assessment: * Syncope * Bilateral ICA stenosis, severe > 70% left ICA and moderate stenosis between 50 and 69% right ICA. * Possible pneumonia * Moderate mitral stenosis, moderate aortic stenosis. * Hypertension * History of TIA 4 years ago, with no residual deficits * Rheumatoid arthritis * Chronic lung disease. * Nonsmoker. Plan: * Patient has presented with syncopal spell, likely due to underlying cardiopulmonary process. * CT head was recommended, but patient cannot lay flat. Her current neurological examination is normal, and current NIH stroke scale 0. * Carotid Doppler revealed moderate stenosis between 50 and 69% right ICA, severe stenosis of greater than 70% left carotid artery. Antegrade flow in both vertebral arteries. * Await cardiovascular input regarding possibility of carotid stenting. Discussed with Dr. Chinchilla. * 2-D echo revealed normal left ventricular systolic function with EF 60-65%. Moderately increased septal wall thickness. Moderate increased posterior wall thickness. Moderately increased left atrial diameter, and left atrial volume. Mild MR, moderate MS, moderate aortic stenosis. Cardiology on board. * Lipid panel. Continue Lipitor 80 mg daily. Hemoglobin A1c 5.6. * Start aspirin 81 mg daily, if no medical contraindication. * Patient currently on ceftriaxone and azithromycin for possible pneumonia. ID on board. * Other medical management as per IM, critical care and other specialties.
--- NOTE | 2023-07-19 12:12 | XR ---
EXAMINATION TYPE: XR chest 1V portable DATE OF EXAM: 07/19/2023 Comparison: 07/18/2023 Clinical History: 78-year-old female pneumonia Findings: Heart mildly enlarged. Atherosclerotic calcifications throughout the aorta. Vascular stent at the lef t base of the neck. Patchy and confluent airspace opacities throughout the right lung and mild patchy interstitial densities throughout the left lung fairly similar to minimally increased. Impression: Patchy and confluent airspace disease throughout the right lung and mild patchy densities on the left . Changes are similar to minimally increased.
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
--- NOTE | 2023-07-19 12:39 | P.PN ---
Subjective Progress Note Date: 07/19/23 Principal diagnosis: Respiratory failure. Pulmonary consult dated 07/17/2023. This is a 70-year-old female who was brought into the emergency department, at 5:00 in the morning, on 07/17/2023, by EMS, for mental status changes. Apparently EMS was called by the family, and apparently the family mentioned that the patient was not feeling well. They found the patient at the top of the stairs, and she was poorly responsive/unresponsive. She had a Marco Coma Scale of 8, on arrival. The patient was able to speak in short sentences. She apparently was quite short of breath. The patient was placed on BiPAP, with settings of 12/5 in 100% initially. She was getting saline at 130 mL an hour. Her chest x-ray showed near complete opacification of the right lung. A venous blood gas showed a pCO2 of 57, and a pH is 7.21. She apparently has a history of CVA, peripheral vascular occlusive disease with stents, hypertension, hyperlipidemia, among other things. She apparently has some sort of issue with her jaw, and mandibular immobility, and states that she cannot be intubated. White count was 10.7, hemoglobin 11.5, hematocrit 38, and platelet count 207,000. Sodium 139, potassium 5, chlorides 104, CO2 20, anion gap 15, BUN 19, and creatinine 0.59. Glucose was 227. Lactic acid was 6.1. Repeat 1.6. Troponin was 0.071. Urine was negative. Testing for influenza A, B, RSV, and coronavirus, overall negative. Chest x-ray showed cardiomegaly, and near complete opacification of the right lung. Progress note dated 07/18/2023. 70-year-old female seen in the emergency department yesterday, for respiratory failure, and mental status changes. The patient was found to be poorly responsive, and brought into the emergency department by EMS. Her chest x-ray yesterday showed near complete opacification of the right lung. She was initially placed on BiPAP, and then on AIRVO. She was admitted to the intensive care unit for further monitoring and management. Currently, she is seen in room 267. She is on AIRVO, at 40 L/m with an FiO2 55%. Her pro-calcitonin level was 2.62, and she continues on Rocephin and azithromycin. She is getting saline at 10 mL an hour. She is doing much better. White count 12.8, hemoglobin 9.4, hematocrit 30.5, platelet count 139,000. Sodium 139, potassium 4, chlorides 106, CO2 27, BUN 28, creatinine 0.71. Her most recent troponin level was 0.067. N-terminal proBNP was 3270. Chest x-ray shows improving airspace disease, throughout the right lung. Progress note dated 07/19/2023. 70-year-old female with a history of respiratory failure. Currently, she is resting comfortably in the intensive care unit, room 267. She's been weaned down to 2 L of oxygen. No IV fluids. Yesterday, she was on AIRVO, at 40 L/m, with an FiO2 of 55%. She appears very comfortable today. She denies any shortness of breath, cough, wheezing, or chest congestion. White count is 10.3, hemoglobin 9, hematocrit 29.6, and platelet count 133,000. Sodium 142, potassium 4.1, chlorides 106, CO2 27, BUN 33, and creatinine 0.57. Troponins are 0.067 and 0.061. Albumin was 2.8. Pro-calcitonin level was 2.62. Chest x- ray shows patchy confluence airspace disease, throughout the right lung, although, overall, the chest x-rays improved. Objective - Vital Signs Vital signs: Vital Signs Temp 98.2 F 07/19/23 08:00 Pulse 80 07/19/23 11:36 Resp 18 07/19/23 11:36 BP 141/82 07/19/23 08:00 Pulse Ox 94 L 07/19/23 08:10 FiO2 35 07/19/23 01:10 Intake & Output 07/18/23 07/19/23 07/19/23 18:59 06:59 18:59 Intake Total 150 Output Total 540 550 40 Balance -390 -550 -40 Weight 82 kg Intake: IV 100 Sodium Chloride 0.9% 1, 100 000 ml @ 10 mls/hr IV . Q24H [facility] Rx#:[id number] Intake, IV Titration 50 Amount cefTRIAXone 2 gm In 50 Sodium Chloride 0.9% 50 ml @ 100 mls/hr IVPB Q24HR [facility] Rx#:[id number] Output: Urine 540 550 40 Other: Voiding Method Indwelling Catheter Indwelling Catheter Indwelling Catheter - Exam Patient is much more comfortable, without any respiratory distress. She is awake and alert. Nasal cannula at 2 L is 94%. HEENT examination is grossly unremarkable. Neck supple. Full range of motion. No adenopathy thyromegaly or neck vein distention. Cardiovascular examination reveals regular rhythm rate. S1-S2 normal. No S3 or S4. No discernible murmur noted. Heart sounds are distant. Heart rate 80 bpm. Lungs reveal scattered bilateral rhonchi. Breath sounds are diminished on the right. No crackles or wheezes. Saturations are 94% on 2 L by nasal cannula. Abdomen soft, without bowel sounds. Extremities reveal evidence of 1+ edema, and chronic venous stasis changes. Skin is without rash or lesion. Neurologic examination is brief but nonfocal. - Labs CBC & Chem 7: 07/19/23 06:24 07/19/23 06:24 Labs: Abnormal Lab Results - Last 24 Hours (Table) 07/18/23 07/19/23 07/19/23 Range/Units 12:48 06:24 06:24 RBC 3.41 L (3.80-5.40) m/uL Hgb 9.0 L (11.4-16.0) gm/dL Hct 29.6 L (34.0-46.0) % MCHC 30.5 L (31.0-37.0) g/dL Plt Count 133 L (150-450) k/uL Neutrophils # 8.4 H (1.3-7.7) k/uL BUN 33 H (7-17) mg/dL AST 37 H (14-36) U/L ALT 35 H (4-34) U/L Troponin I 0.061 H* (0.000-0.034) ng/mL Total Protein 5.4 L (6.3-8.2) g/dL Albumin 2.8 L (3.5-5.0) g/dL Microbiology - Last 24 Hours (Table) 07/17/23 05:45 Blood Culture - Preliminary Blood 07/17/23 05:30 Blood Culture - Preliminary Blood Assessment and Plan Assessment: Acute hypoxemic respiratory failure, likely on the basis of right-sided pneumonia. Acute mental status changes, likely secondary to hypoxemic respiratory failure. History of hypertension. History of hyperlipidemia. History of CVA/TIA. History of peripheral vascular occlusive disease, with previous stent placement. Lifelong nontobacco user. Plan: Plan dated 07/17/2023. The patient be transferred to the intensive care unit. Because of ongoing respiratory secretions, we added AIRVO rather than BiPAP. Saturation seems to be improved. The right lung is nearly completely opacified. Antibiotics and breathing treatments to be started. The patient apparently has some issues with her jaw, which is immobile, and apparently a letter states that she cannot be intubated. Labs, x-rays, medications are reviewed. Prognosis is guarded. Plan dated 07/18/2023. The patient is seen in the intensive care unit. She remains on Rocephin and Zithromax, for possible pneumonia, involving the right lung. He may relate to aspiration. Her pro-calcitonin level was elevated at 2.62. The patient currently is on AIRVO, at 40 L/m, with an FiO2 55%. The patient's getting saline at 10 mL an hour. Labs, x-rays, and medications are all reviewed. Clinically, the patient is night and day difference today than she was yesterday. He is much improved, much more alert, and having much less respiratory distress. We will continue to follow make recommendations along the way. Prognosis is guarded. Plan dated 07/19/2023. Overall, the patient's doing much better. The patient's alert and awake. She is sitting in a chair, next her hospital bed. She's been weaned down to 2 L of oxygen. She's not receiving any IV fluids. Her chest x-ray today is much improved. She continues on Rocephin, updrafts, and prednisone. No additional recommendations are made. We will continue to follow the patient. Prognosis is guarded. Labs, x-rays, and medications are reviewed. Time with Patient: Less than 30
[2023-07-19] MEDS: PSYLLIUM HUSK 100% 6 GM PACKET PO SCH (20:04)
--- NOTE | 2023-07-20 00:52 | PN ---
PROGRESS NOTE DATE OF SERVICE: 07/19/2023 SUBJECTIVE: This is a 78-year-old woman who was admitted with right aspiration pneumonia, acute hypoxic respiratory failure, is being closely monitored. The patient is off airway at this time. The most recent chest x-ray which I reviewed personally showed significant bilateral pneumonia, right more than left, multiple consultants are following the patient closely. PAST MEDICAL HISTORY: Reviewed. REVIEW OF SYSTEMS: A 14-point review of systems is negative except as mentioned earlier. CURRENT MEDICATIONS: Reviewed include IV Zosyn, rest of the medication doses are reviewed. PHYSICAL EXAMINATION: VITAL SIGNS: Pulse is 75, blood pressure 140/80, respirations 16. CHEST: Bilateral scattered rhonchi and crackles. ABDOMEN: Soft. NERVOUS SYSTEM: No focal deficits. LABORATORY DATA: Reviewed, hemoglobin is 9. The troponin is noted. ASSESSMENT: 1. Right aspiration pneumonia, possibly with acute hypoxic respiratory failure. 2. Change in mental status, acute encephalopathy, possibly secondary to syncope. 3. History of recent troponin 0.01. Rule out acute [id number] elevation myocardial infarction. 4. Moderate aortic stenosis and moderate mitral stenosis on the 2D echo. 5. History of CVA, TIA. 6. Hypertension. 7. Bilateral carotid artery stenosis. 8. Full code. RECOMMENDATIONS: Recommended to continue current management, continue symptomatic treatment, otherwise at this time I would recommend continue the broad-spectrum IV antibiotics. Also recommended CT scan of the brain to complete the workup. Closely follow with multiple consultants. Prognosis guarded. Further recommendations to follow. Increase ambulation. MMODL / IJN: [id number] /
[2023-07-20 04:38] LABS: Basophils % (A) 0 %; Eosinophils % (A) 0 %; HCT 30.5 % (34.0-46.0); HGB 9.3 gm/dL (11.4-16.0); Hypochromasia Marked; Lymphocytes % (A) 11 %; MCH 26.4 pg (25.0-35.0); MCHC 30.6 g/dL (31.0-37.0); MCV 86.2 fL (80.0-100.0); Mean Platelet Volume 9.9; Monocytes # (A) 0.4 k/uL (0-1.0); Monocytes % (A) 5 %; Neutrophils # (A) 7.6 k/uL (1.3-7.7); Neutrophils % (A) 82 %; Platelet Count 148 k/uL (150-450); RBC 3.53 m/uL (3.80-5.40); RDW 14.6 % (11.5-15.5); WBC 9.3 k/uL (3.8-10.6)
[2023-07-20 04:56] LABS: African American GFR (CKD) >90 (>60 ml/min/1.73 sqM); Anion Gap 8 mmol/L; Blood Urea Nitrogen 29 mg/dL (7-17); Calcium 8.5 mg/dL (8.4-10.2); Carbon Dioxide 28 mmol/L (22-30); Chloride 106 mmol/L (98-107); Glucose 116 mg/dL (74-99); Non-African American GFR(CKD) 89 (>60 ml/min/1.73 sqM); Potassium 4.2 mmol/L (3.5-5.1); Sodium 142 mmol/L (137-145)
--- NOTE | 2023-07-20 05:15 | P.PN ---
Subjective Progress Note Date: 07/19/23 Patient was seen for a follow-up. Patient is sitting in the recliner, has oxygen by airvo, appears mild short of breath. Patient feels she is slightly better. Her oxygen requirement is decreasing. Her legs are much stronger. Arms slightly weak. Patient did walk today. Patient denies any new focal symptoms. Objective - Vital Signs Vital signs: Vital Signs Temp 98.2 F 07/19/23 08:00 Pulse 80 07/19/23 11:36 Resp 18 07/19/23 11:36 BP 141/82 07/19/23 08:00 Pulse Ox 94 L 07/19/23 08:10 FiO2 35 07/19/23 01:10 Intake & Output 07/18/23 07/19/23 07/19/23 18:59 06:59 18:59 Intake Total 150 Output Total 540 550 40 Balance -390 -550 -40 Weight 82 kg Intake: IV 100 Sodium Chloride 0.9% 1, 100 000 ml @ 10 mls/hr IV . Q24H [facility] Rx#:[id number] Intake, IV Titration 50 Amount cefTRIAXone 2 gm In 50 Sodium Chloride 0.9% 50 ml @ 100 mls/hr IVPB Q24HR [facility] Rx#:[id number] Output: Urine 540 550 40 Other: Voiding Method Indwelling Catheter Indwelling Catheter Indwelling Catheter - Exam Patient's examination unchanged. Mentation normal. Strength normal. - Labs CBC & Chem 7: 07/20/23 04:26 07/20/23 04:26 Labs: Abnormal Lab Results - Last 24 Hours (Table) 07/19/23 07/19/23 Range/Units 06:24 06:24 RBC 3.41 L (3.80-5.40) m/uL Hgb 9.0 L (11.4-16.0) gm/dL Hct 29.6 L (34.0-46.0) % MCHC 30.5 L (31.0-37.0) g/dL Plt Count 133 L (150-450) k/uL Neutrophils # 8.4 H (1.3-7.7) k/uL BUN 33 H (7-17) mg/dL AST 37 H (14-36) U/L ALT 35 H (4-34) U/L Total Protein 5.4 L (6.3-8.2) g/dL Albumin 2.8 L (3.5-5.0) g/dL Microbiology - Last 24 Hours (Table) 07/17/23 05:45 Blood Culture - Preliminary Blood 07/17/23 05:30 Blood Culture - Preliminary Blood Assessment and Plan Assessment: * Syncope * Bilateral ICA stenosis, severe > 70% left ICA and moderate stenosis between 50 and 69% right ICA. Probably asymptomatic. Patient did not have any stroke symptoms or TIA. * Possible pneumonia * Moderate mitral stenosis, moderate aortic stenosis. * Hypertension * History of TIA 4 years ago, with no residual deficits * Rheumatoid arthritis * Chronic lung disease. * Nonsmoker. Plan: * Patient has presented with syncopal spell, likely due to underlying cardiopulmonary process. * CT head and CTA of head and neck were recommended, but patient cannot lay flat. Her current neurological examination is normal, and current NIH stroke scale 0. * Carotid Doppler revealed moderate stenosis between 50 and 69% right ICA, severe stenosis of greater than 70% left carotid artery. Antegrade flow in both vertebral arteries. * Patient denies any history of stroke or TIA at this time. Carotid stenosis is likely asymptomatic at this time. * Ideally she would need a CTA of head and neck for further evaluation of carotid stenosis. However patient cannot lay flat. Await cardiovascular input regarding possibility of carotid stenting. This may be done as an outpatient, once her pneumonia has cleared. * 2-D echo revealed normal left ventricular systolic function with EF 60-65%. Moderately increased septal wall thickness. Moderate increased posterior wall thickness. Moderately increased left atrial diameter, and left atrial volume. Mild MR, moderate MS, moderate aortic stenosis. Cardiology on board. * Lipid panel. Continue Lipitor 80 mg daily. Hemoglobin A1c 5.6. * Patient states that she has been taking aspirin 81 mg daily for a few years ( although not mentioned in her home medication list). Aspirin will be continued. * Patient currently on ceftriaxone and azithromycin for possible pneumonia. ID on board. * Other medical management as per IM, critical care and other specialties.
[2023-07-20] MEDS: PANTOPRAZOLE 40 MG TABLET PO SCH (06:17)
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
[2023-07-20] MEDS ORDERED: CLOPIDOGREL 75 MG TAB PO SCH (09:00)
[2023-07-20] MEDS: IPRATROPIUM-ALBUTEROL 3 ML NEB INHALATION SCH ×3 (09:05→15:21)
[2023-07-20] MEDS: HEPARIN SODIUM,PORCINE 5,000 UNIT/ML 1 ML VIAL SQ SCH (10:10)
[2023-07-20] MEDS: predniSONE 20 MG TAB PO SCH (10:10)
[2023-07-20] MEDS: ASPIRIN 81 MG PO SCH (10:11)
[2023-07-20] MEDS: FUROSEMIDE 20 MG TAB PO SCH (10:11)
[2023-07-20] MEDS: PSYLLIUM HUSK 100% 6 GM PACKET PO SCH (10:12)
[2023-07-20] MEDS: LOSARTAN 25 MG TAB PO SCH (10:12)
[2023-07-20] MEDS: ATORVASTATIN 80 MG TAB PO SCH (10:13)
[2023-07-20] MEDS: POTASSIUM CHLORIDE ER 10 MEQ TAB.ER.PRT PO SCH (10:13)
--- NOTE | 2023-07-20 10:39 | P.PN ---
Subjective Progress Note Date: 07/20/23 Principal diagnosis: Respiratory failure. Pulmonary consult dated 07/17/2023. This is a 70-year-old female who was brought into the emergency department, at 5:00 in the morning, on 07/17/2023, by EMS, for mental status changes. Apparently EMS was called by the family, and apparently the family mentioned that the patient was not feeling well. They found the patient at the top of the stairs, and she was poorly responsive/unresponsive. She had a Marco Coma Scale of 8, on arrival. The patient was able to speak in short sentences. She apparently was quite short of breath. The patient was placed on BiPAP, with settings of 12/5 in 100% initially. She was getting saline at 130 mL an hour. Her chest x-ray showed near complete opacification of the right lung. A venous blood gas showed a pCO2 of 57, and a pH is 7.21. She apparently has a history of CVA, peripheral vascular occlusive disease with stents, hypertension, hyperlipidemia, among other things. She apparently has some sort of issue with her jaw, and mandibular immobility, and states that she cannot be intubated. White count was 10.7, hemoglobin 11.5, hematocrit 38, and platelet count 207,000. Sodium 139, potassium 5, chlorides 104, CO2 20, anion gap 15, BUN 19, and creatinine 0.59. Glucose was 227. Lactic acid was 6.1. Repeat 1.6. Troponin was 0.071. Urine was negative. Testing for influenza A, B, RSV, and coronavirus, overall negative. Chest x-ray showed cardiomegaly, and near complete opacification of the right lung. Progress note dated 07/18/2023. 70-year-old female seen in the emergency department yesterday, for respiratory failure, and mental status changes. The patient was found to be poorly responsive, and brought into the emergency department by EMS. Her chest x-ray yesterday showed near complete opacification of the right lung. She was initially placed on BiPAP, and then on AIRVO. She was admitted to the intensive care unit for further monitoring and management. Currently, she is seen in room 267. She is on AIRVO, at 40 L/m with an FiO2 55%. Her pro-calcitonin level was 2.62, and she continues on Rocephin and azithromycin. She is getting saline at 10 mL an hour. She is doing much better. White count 12.8, hemoglobin 9.4, hematocrit 30.5, platelet count 139,000. Sodium 139, potassium 4, chlorides 106, CO2 27, BUN 28, creatinine 0.71. Her most recent troponin level was 0.067. N-terminal proBNP was 3270. Chest x-ray shows improving airspace disease, throughout the right lung. Progress note dated 07/19/2023. 70-year-old female with a history of respiratory failure. Currently, she is resting comfortably in the intensive care unit, room 267. She's been weaned down to 2 L of oxygen. No IV fluids. Yesterday, she was on AIRVO, at 40 L/m, with an FiO2 of 55%. She appears very comfortable today. She denies any shortness of breath, cough, wheezing, or chest congestion. White count is 10.3, hemoglobin 9, hematocrit 29.6, and platelet count 133,000. Sodium 142, potassium 4.1, chlorides 106, CO2 27, BUN 33, and creatinine 0.57. Troponins are 0.067 and 0.061. Albumin was 2.8. Pro-calcitonin level was 2.62. Chest x- ray shows patchy confluence airspace disease, throughout the right lung, although, overall, the chest x-rays improved. Progress note dated 07/20/2023. 70-year-old female with a history of respiratory failure. She was initially seen in the emergency department. The patient is currently seen in the intensive care unit, room 267. She's made a miraculous recovery, and is currently on 2 L of oxygen, or room air, in no IV fluids. She's feeling much better, and the like to be discharged home. I told her it was up to her primary care provider/hospitalist doctor. White count 9.3, hemoglobin 9.3, hematocrit 3 0.5, platelet count 148,000. Sodium 142, potassium 4.2, chlorides 106, CO2 28, BUN 29, creatinine 0.58. Glucose 116. Objective - Vital Signs Vital signs: Vital Signs Temp 99.2 F 07/20/23 01:44 Pulse 95 07/20/23 09:54 Resp 18 07/20/23 01:44 BP 132/62 07/20/23 01:44 Pulse Ox 84 L 07/20/23 09:54 FiO2 35 07/19/23 01:10 Intake & Output 07/19/23 07/20/23 07/20/23 18:59 06:59 18:59 Output Total 40 Balance -40 Output: Urine 40 Other: Voiding Method Indwelling Catheter External Catheter # Voids 2 1 # Bowel Movements 1 - Exam Patient is much more comfortable, without any respiratory distress. She is awak e and alert. Nasal cannula at 2 L is 97 %. HEENT examination is grossly unremarkable. Neck supple. Full range of motion. No adenopathy thyromegaly or neck vein distention. Cardiovascular examination reveals regular rhythm rate. S1-S2 normal. No S3 or S4. No discernible murmur noted. Heart sounds are distant. Heart rate 85 bpm. Lungs reveal scattered bilateral rhonchi. Breath sounds are diminished on the right. No crackles or wheezes. Saturations are 97 % on 2 L by nasal cannula. Abdomen soft, without bowel sounds. Extremities reveal evidence of 1+ edema, and chronic venous stasis changes. Skin is without rash or lesion. Neurologic examination is brief but nonfocal. - Labs CBC & Chem 7: 07/20/23 04:26 07/20/23 04:26 Labs: Abnormal Lab Results - Last 24 Hours (Table) 07/20/23 07/20/23 Range/Units 04:26 04:26 RBC 3.53 L (3.80-5.40) m/uL Hgb 9.3 L (11.4-16.0) gm/dL Hct 30.5 L (34.0-46.0) % MCHC 30.6 L (31.0-37.0) g/dL Plt Count 148 L (150-450) k/uL BUN 29 H (7-17) mg/dL Glucose 116 H (74-99) mg/dL Microbiology - Last 24 Hours (Table) 07/17/23 05:45 Blood Culture - Preliminary Blood 07/17/23 05:30 Blood Culture - Preliminary Blood Assessment and Plan Assessment: Acute hypoxemic respiratory failure, likely on the basis of right-sided pneumonia. Acute mental status changes, likely secondary to hypoxemic respiratory failure. History of hypertension. History of hyperlipidemia. History of CVA/TIA. History of peripheral vascular occlusive disease, with previous stent placement. Lifelong nontobacco user. Plan: Plan dated 07/17/2023. The patient be transferred to the intensive care unit. Because of ongoing resp iratory secretions, we added AIRVO rather than BiPAP. Saturation seems to be improved. The right lung is nearly completely opacified. Antibiotics and breathing treatments to be started. The patient apparently has some issues with her jaw, which is immobile, and apparently a letter states that she cannot be intubated. Labs, x-rays, medications are reviewed. Prognosis is guarded. Plan dated 07/18/2023. The patient is seen in the intensive care unit. She remains on Rocephin and Zithromax, for possible pneumonia, involving the right lung. He may relate to aspiration. Her pro-calcitonin level was elevated at 2.62. The patient currently is on AIRVO, at 40 L/m, with an FiO2 55%. The patient's getting saline at 10 mL an hour. Labs, x-rays, and medications are all reviewed. Clinically, the patient is night and day difference today than she was yesterday. He is much improved, much more alert, and having much less respiratory distress. We will continue to follow make recommendations along the way. Prognosis is guarded. Plan dated 07/19/2023. Overall, the patient's doing much better. The patient's alert and awake. She is sitting in a chair, next her hospital bed. She's been weaned down to 2 L of oxygen. She's not receiving any IV fluids. Her chest x-ray today is much improved. She continues on Rocephin, updrafts, and prednisone. No additional recommendations are made. We will continue to follow the patient. Prognosis is guarded. Labs, x-rays, and medications are reviewed. Plan dated 07/20/2023. The patient's doing much better. The patient is currently on room air, or 2 L. Her saturations are excellent. She's feeling much improved. Labs, x-rays, and medications are reviewed. Her medications are reviewed. The patient can certainly transfer out of the intensive care unit. She remains on Rocephin. We will switch her to something orally. She continues on prednisone 40 mg a day. Prognosis is thought to be very good. Time with Patient: Less than 30
--- NOTE | 2023-07-20 12:34 | P.PN ---
Progress Note - Text Progress Note Date: 07/20/23 Patient will require 2 L of oxygen via nasal cannula to manage her pulmonary hypertension.
--- NOTE | 2023-07-20 12:36 | CDI ---
Documentation Clarification Form Date: 07/20/2023 11:53:17 AM From: Ana Harris RN, CCDS Phone: [phone] Admit Date: 07/17/2023 07:59:00 AM Patient Name: Imani Em Visit Number: [id number] Discharge Date: ATTENTION: The Clinical Documentation Specialists (CDI) and [facility] Coding Staff appreciate your assistance in clarifying documentation. Please respond to the clarification below the line at the bottom and electronically sign. The CDI & [facility] Coding staff will review the response and follow-up if needed. Please note: Queries are made part of the Legal Health Record. If you have any questions, please contact the author of this message via ITS. Dr. Mir Chinchilla There is documentation of evidence of myocardial injury in the cardiology consult on 07/18/23 and subsequent progress notes has mildly abnormal cardiac enzymes. Additional clarification is requested. History/Risk Factors: CVA/TIA, Hypertension Clinical Indicators: 78-year-old female past medical history significant for valvular heart disease including aortic stenosis and mitral stenosis found unresponsive at home. She was poorly responsive/unresponsive per EMS. She had short of breath. The patient was placed on BiPAP, with settings of 12/5 in 100% initially. 163/71 117 20 bipap WBC 0.7, lactic acid 6.1, Troponin 0.071, 0.067, 0.061 EKG: Sinus mechanism with nonspecific ST and T wave abnormalities. Vent rate 100 bpm ECHO: Left ventricular EF estimated at 60-65% moderate aortic stenosis and moderate mitral stenosis Treatment: ICU/Telemetry monitoring Monitor O2 Sat (Titrate) Monitor serial cardiac enzymes ASA 81 MG PO Daily 02/15-02/17 Plavix 75 MG PO Daily 07/20 (3 doses ordered) Lasix 20MG PO 09, 1700 07/17-07/20 Cozaar 25 MG PO BID 07/17-07/20 Can you please clarify evidence of myocardial injury, mildly abnormal cardiac enzymes? [ ] Type II myocardial infarction secondary to acute hypoxic respiratory failure [ ] Non-ischemic myocardial injury [ ] Other, please specify [ ] Unable to determine (Template Last Revised: September 2020) MTDD
--- NOTE | 2023-07-20 12:49 | P.PN ---
Subjective Progress Note Date: 07/19/23 Principal diagnosis: Reason for follow-up is pneumonia Patient is a 78-year-old female with a past medical history difficult for CVA TIA hypertension in this patient also have a history of bilateral lower extremity chronic swelling and venous stasis dermatitis patient has been brought into the hospital for evaluation of mental status changes, patient was in respiratory distress on presentation to the hospital requiring BiPAP and admission to the ICU, chest x-ray with suspicious for pneumonia. On today's evaluation that is 07/19/2023 patient remains to be afebrile this morning, the patient is breathing comfortably on 2 L nasal cannula oxygen, the patient denies having any chest pain or shortness of breath, the patient did have occasional cough no nausea vomiting no abdominal pain no diarrhea. The patient white count is down to 10.3 creatinine 0.57 Percocet 2.62 Objective - Vital Signs Vital signs: Vital Signs Temp 98.2 F 07/19/23 08:00 Pulse 80 07/19/23 08:00 Resp 16 07/19/23 08:00 BP 141/82 07/19/23 08:00 Pulse Ox 98 07/19/23 08:00 FiO2 2 07/19/23 08:00 Intake & Output 07/18/23 07/19/23 18:59 06:59 Output Total 40 Balance -40 Output: Urine 40 Other: Voiding Method Indwelling Catheter External Catheter # Voids 2 1 # Bowel Movements 1 - Exam GENERAL DESCRIPTION: An elderly female up in the chair in no distress RESPIRATORY SYSTEM: Unlabored breathing , decreased breath sounds at bases HEART: S1 S2 regular rate and rhythm , ABDOMEN: Soft , no tenderness EXTREMITIES: Diffuse swelling to lower extremity no significant redness - Labs CBC & Chem 7: 07/20/23 04:26 07/20/23 04:26 Labs: Abnormal Lab Results - Last 24 Hours (Table) 07/20/23 07/20/23 Range/Units 04:26 04:26 RBC 3.53 L (3.80-5.40) m/uL Hgb 9.3 L (11.4-16.0) gm/dL Hct 30.5 L (34.0-46.0) % MCHC 30.6 L (31.0-37.0) g/dL Plt Count 148 L (150-450) k/uL BUN 29 H (7-17) mg/dL Glucose 116 H (74-99) mg/dL Microbiology - Last 24 Hours (Table) 07/17/23 05:45 Blood Culture - Preliminary Blood 07/17/23 05:30 Blood Culture - Preliminary Blood Assessment and Plan (1) Pneumonia Current Visit: Yes Status: Acute Code(s): J18.9 - PNEUMONIA, UNSPECIFIED ORGANISM SNOMED Code(s): 931836644 (2) Leukocytosis Current Visit: Yes Status: Acute Code(s): D72.829 - ELEVATED WHITE BLOOD CELL COUNT, UNSPECIFIED SNOMED Code(s): 989740223 (3) Penicillin allergy Current Visit: Yes Status: Acute Code(s): Z88.0 - ALLERGY STATUS TO PENICILLIN SNOMED Code(s): 40100275 Plan: 1patient presented to hospital with increasing shortness of breath hypoxemia patient did have a fever pulmonary infiltrate concerning for pneumonia question of community-acquired versus aspiration etiology 2-patient also have bilateral extremity swelling and minimal redness concerning for possible component of cellulitis 3-penicillin allergy that will limit the number of antibiotics safe to use 4-patient is slowly clinical improvement, patient to continue Rocephin 2 g daily and monitor clinical course closely Dictation was produced using [employer] dictation software. please excuse any g rammatical, word or spelling errors.
--- NOTE | 2023-07-20 12:50 | P.PN ---
Subjective Progress Note Date: 07/20/23 Principal diagnosis: Reason for follow-up is pneumonia Patient is a 78-year-old female with a past medical history difficult for CVA TIA hypertension in this patient also have a history of bilateral lower extremity chronic swelling and venous stasis dermatitis patient has been brought into the hospital for evaluation of mental status changes, patient was in respiratory distress on presentation to the hospital requiring BiPAP and admission to the ICU, chest x-ray with suspicious for pneumonia. On today's evaluation that is 07/20/2023 patient continues to be afebrile, the patient is breathing comfortably on 2 L nasal cannula oxygen, the patient denies chest pain or shortness of breath, the patient did have occasional cough but no sputum production, patient denies nausea vomiting no abdominal pain no diarrhea. The patient white count is 9.3 creatinine 0.58 Percocet 2.62 Objective - Vital Signs Vital signs: Vital Signs Temp 99.2 F 07/20/23 01:44 Pulse 86 07/20/23 12:34 Resp 16 07/20/23 08:00 BP 164/78 07/20/23 08:00 Pulse Ox 84 L 07/20/23 09:54 FiO2 35 07/19/23 01:10 Intake & Output 07/19/23 07/20/23 07/20/23 18:59 06:59 18:59 Output Total 40 Balance -40 Output: Urine 40 Other: Voiding Method Indwelling Catheter External Catheter Toilet # Voids 2 1 # Bowel Movements 1 - Exam GENERAL DESCRIPTION: An elderly female up in the chair in no distress RESPIRATORY SYSTEM: Unlabored breathing , decreased breath sounds at bases HEART: S1 S2 regular rate and rhythm , ABDOMEN: Soft , no tenderness EXTREMITIES: Diffuse swelling to lower extremity no significant redness - Labs CBC & Chem 7: 07/20/23 04:26 07/20/23 04:26 Labs: Abnormal Lab Results - Last 24 Hours (Table) 07/20/23 07/20/23 Range/Units 04:26 04:26 RBC 3.53 L (3.80-5.40) m/uL Hgb 9.3 L (11.4-16.0) gm/dL Hct 30.5 L (34.0-46.0) % MCHC 30.6 L (31.0-37.0) g/dL Plt Count 148 L (150-450) k/uL BUN 29 H (7-17) mg/dL Glucose 116 H (74-99) mg/dL Microbiology - Last 24 Hours (Table) 07/17/23 05:45 Blood Culture - Preliminary Blood 07/17/23 05:30 Blood Culture - Preliminary Blood Assessment and Plan (1) Pneumonia Current Visit: Yes Status: Acute Code(s): J18.9 - PNEUMONIA, UNSPECIFIED ORGANISM SNOMED Code(s): 577223488 (2) Leukocytosis Current Visit: Yes Status: Acute Code(s): D72.829 - ELEVATED WHITE BLOOD CELL COUNT, UNSPECIFIED SNOMED Code(s): 210773008 (3) Penicillin allergy Current Visit: Yes Status: Acute Code(s): Z88.0 - ALLERGY STATUS TO PENICILLIN SNOMED Code(s): 59404338 Plan: 1patient presented to hospital with increasing shortness of breath hypoxemia patient did have a fever pulmonary infiltrate concerning for pneumonia question of community-acquired versus aspiration etiology 2-patient also have bilateral extremity swelling and minimal redness concerning for possible component of cellulitis 3-penicillin allergy that will limit the number of antibiotics safe to use 4-patient has shown clinical improvement, Rocephin has been discontinued currently on Zithromax and will monitor the patient closely Dictation was produced using [employer] dictation software. please excuse any grammatical, word or spelling errors. Time with Patient: Less than 30
--- NOTE | 2023-07-20 13:20 | DS ---
DISCHARGE SUMMARY FINAL DIAGNOSES: 1. Bilateral aspiration pneumonia, right more than left, possibly hypoxic respiratory failure and change in mental status, acute hepatic encephalopathy possibly secondary to syncope. 2. Possible COPD, J44.9. 3. Chronic hypoxic respiratory failure. 4. Troponin 0.01. Myocardial infarction ruled out. Rule out coronary artery disease. Outpatient followup. 5. Moderate aortic stenosis and moderate mitral stenosis on the 2D echo. 6. History of CVA TIA. 7. Bilateral carotid artery stenosis. 8. Hypertension. 9. Full code. DISCHARGE DISPOSITION: The patient will be discharged in stable condition and guarded prognosis. Time taken 35 minutes. HISTORY OF PRESENT ILLNESS: This is a 78-year-old woman with a past medical history of multiple medical problems, admitted with syncope as well as aspiration pneumonia. The evaluation showed multiple findings as above. Cardiology and multiple consultants saw the patient. The improved significantly. Dr. Gallego cleared the patient for discharge. The patient is keen on going home also at this time. The patient will require outpatient home O2 and I would also recommend outpatient antibiotics. The patient recommended to continue Plavix and aspirin and also Zithromax, Ceftin, and DuoNeb q.i.d. and p.r.n. and prednisone taper. Otherwise continue to monitor. The prognosis is guarded. Follow up with Primary and follow up with Cardiology for above- mentioned multiple cardiac issues. Once again, the patient is stable but overall prognosis guarded. Further recommendations to follow. MMODL / IJN: [id number] /
--- NOTE | 2023-07-20 14:09 | P.PN ---
Progress Note - Text Progress Note Date: 07/20/23 07/20/2023 Additional diagnoses Lactic acidosis, multifactorial possibly secondary to syncope as well as hypoxia Acute hypercarbic encephalopathy
[2023-07-20 15:06] VITALS: BP 150/101; PULSE 90; RESP 18; TEMP 99
[2023-07-21] MEDS ORDERED: AZITHROMYCIN 500 MG TAB PO SCH (09:00)
== END 2023-07-20 15:00 | disposition home health service (06) | DRG 177 ==
LOC: EC 05:14 → 2SICU 07:59
PROVIDERS: ADMIT Hospitalist; ATTEND Hospitalist
PROC: 5A09357 Assistance with Respiratory Ventilation, Less than 24 Consecutive Hours, Continuous Positive Airway Pressure (ICD-10-PCS; principal; 2023-07-17)
DX: J69.0 Pneumonitis due to inhalation of food and vomit (principal); I21.A1 Myocardial infarction type 2; J96.21 Acute and chronic respiratory failure with hypoxia; G93.49 Other encephalopathy; E87.20 Acidosis, unspecified; I27.20 Pulmonary hypertension, unspecified; E78.5 Hyperlipidemia, unspecified; I73.9 Peripheral vascular disease, unspecified; M06.9 Rheumatoid arthritis, unspecified; Z77.22 Contact with and (suspected) exposure to environmental tobacco smoke (acute) (chronic); I08.0 Rheumatic disorders of both mitral and aortic valves; I10 Essential (primary) hypertension; I25.10 Atherosclerotic heart disease of native coronary artery without angina pectoris; I49.1 Atrial premature depolarization; I65.23 Occlusion and stenosis of bilateral carotid arteries; I87.2 Venous insufficiency (chronic) (peripheral); M19.90 Unspecified osteoarthritis, unspecified site; Z79.899 Other long term (current) drug therapy; Z95.820 Peripheral vascular angioplasty status with implants and grafts; Z96.651 Presence of right artificial knee joint; Z86.73 Personal history of transient ischemic attack (TIA), and cerebral infarction without residual deficits; W18.30XA Fall on same level, unspecified, initial encounter; Z88.0 Allergy status to penicillin
CPT/HCPCS: 36415; 71045; 80048; 80053; 80061; 80320; 81003; 82803; 83036; 83605; 83880; 84145; 84484; 85025; 85379; 85610; 85730; 87040; 87636; 93005; 93306; 93880; 94640; 94660; 96361; 96365; 96366; 96367; 96375; 99291

== ENCOUNTER → 2023-08-17 | Outpatient (CLI) | payer MEDICARE ==
[2023-08-17 12:03] LABS: African American GFR (CKD) >90 (>60 ml/min/1.73 sqM); Blood Urea Nitrogen 18 mg/dL (7-17); Non-African American GFR(CKD) 87 (>60 ml/min/1.73 sqM)
--- NOTE | 2023-08-17 14:46 | CT ---
EXAMINATION TYPE: CT angio neck DATE OF EXAM: 08/17/2023 1:05 PM CLINICAL INDICATION:Female, 78 years old with history of I65.29 OCCLUSION AND STENOSIS OF UNSPECIFIED CAROT; Occlusion/stenosis of unspecified carotid COMPARISON: None TECHNIQUE: Axially acquired helical CT Angiogram of the Neck was obtained with and without contrast. Axial images are supplemented with coronal and sagittal MIP reconstructions. 3D reconstructions were also performed and were post-processed at an independent workstation. Estimated carotid stenosis was calculated using the NASCET criteria. CT DLP: 322.20 mGycm, Automated exposure control for dose reduction was used. Contrast used:80 mL of Isovue 370 with IV Contrast, Oral contrast used: None. FINDINGS: CTA NECK: Right Carotid System: The common carotid and external carotid arteries are patent. There is approximately 70 % stenosis at the carotid bifurcation secondary to calcified plaquing. The rest of the internal carotid artery is p atent. Left Carotid System: Common carotid artery is patent. There is a stent graft present within the common carotid artery whic h is patent without significant stenosis this and is just before the bifurcation. An additional stent graft is present in the proximal internal carotid artery which also appears patent. The lumen of the proximal internal carotid artery stent graft has a smaller caliber than other approximately 25-50 %. Remaining mild narrowing of the distal portion of the stent graft. Vertebral arteries are patent without evidence hemodynamically significant stenosis. There is a 4a-vessel aortic arch. The origins of the great vessels are patent. No evidence of hemodyn amically significant stenosis. Upper thorax: Mitral valve annular calcifications. Aortic valve calcifications. Arthrosis course of t he aorta. The esophagus is dilated and somewhat patulous. Layering debris within the esophagus. There is mildly enlarged for size. IMPRESSION: 1. Left common carotid artery stent graft which appears patent No evidence for significant stenosis. 2. Left carotid bifurcation stent grafts within the internal carotid artery which has a smaller [place] with approximately 25-50 % narrowing. 3. At least greater than 70% stenosis of the right carotid bifurcation secondary to calcified plaque . 4. No evidence of dissection. 5. The esophagus is patulous with layering debris correlate for reflux and/or esophageal dysmotility .
== END | disposition home or self-care (01) ==
LOC: RADCTMAIN 11:17
PROVIDERS: ATTEND Internal Medicine Interventional Cardiology
DX: I65.23 Occlusion and stenosis of bilateral carotid arteries (principal); K22.89 Other specified disease of esophagus; Z95.828 Presence of other vascular implants and grafts
CPT/HCPCS: 70498; 82565; 84520

== ENCOUNTER 2023-09-05 08:30 | Inpatient (IN) | payer MEDICARE ==
--- NOTE | 2023-09-05 08:44 | ED ---
SOB HPI - General Chief Complaint: Shortness of Breath Stated Complaint: SOB Time Seen by Provider: 09/05/23 08:40 Source: patient, EMS Mode of arrival: EMS Limitations: no limitations - History of Present Illness Initial Comments: 78-year-old female presents emergency department reporting shortness of breath. Patient was hospitalized 2 weeks ago for a COPD exacerbation and aspiration pneumonia. She was discharged home on 3 L of oxygen at night. States that last night she became short of breath. She has had a frothy cough. She woke up at 430 with a coughing attack. Patient follows with Dr. Gallego and Dr. Chinchilla. EMS put the patient on 4 L of oxygen. They did not give her breathing treatment as the patient states she is allergic to albuterol. She denies any chest pain. Patient denies history of congestive heart failure but does have chronic lower extremity edema and takes Lasix. She denies fevers. No sick contacts. Patient does admit to dark stools since she left the hospital. No other alleviating, precipitating modifying factors - Related Data Home Medications Medication Instructions Recorded Confirmed Atorvastatin [Lipitor] 80 mg PO DAILY 05/11/20 09/05/23 Furosemide [Lasix] 20 mg PO BID 05/11/20 09/05/23 Losartan Potassium [Cozaar] 25 mg PO BID 05/11/20 09/05/23 Potassium Chloride [Klor-Con 10 ER] 10 meq PO DAILY 07/17/23 09/05/23 Ammonium Lactate Cream [Lac-Hydrin 1 applic TOPICAL DAILY 09/05/23 09/05/23 12% Cream] Calcium Carbonate [Tums] 1,000 mg PO QID PRN 09/05/23 09/05/23 Pantoprazole [Protonix] 40 mg PO BID 09/05/23 09/05/23 Previous Rx's Medication Instructions Recorded Aspirin 81 mg PO DAILY #30 tab 07/20/23 Clopidogrel [Plavix] 75 mg PO DAILY #30 tab 07/20/23 Ipratropium-Albuterol Nebulize 3 ml INHALATION RT-QID #120 each 07/20/23 [Duoneb 0.5 mg-3 mg/3 ml Soln] Allergies Allergy/AdvReac Type Severity Reaction Status Date / Time Penicillins AdvReac Unknown PASSED OUT Verified 09/05/23 12:05 Review of Systems ROS Statement: Those systems with pertinent positive or pertinent negative responses have been documented in the HPI. ROS Other: All systems not noted in ROS Statement are negative. Past Medical History Past Medical History: CVA/TIA, Hypertension Additional Past Medical History / Comment(s): states CVA (no residual ), states stent in upper leg, rash on lower legs, ankles swell, pt states on Nutrisystem diet and has lost 20-25 # with frequent stools. History of Any Multi-Drug Resistant Organisms: None Reported Past Surgical History: Joint Replacement Additional Past Surgical History / Comment(s): total right knee x2, stem cell injections prior to total knees, cataract surgery, stent in leg. Additional Past Anesthesia/Blood Transfusion Reaction / Comment(s): STATES UNABLE TO INTUBATE- THEY HAD TO DO A SPINAL., STATES SHE HAS LETTER FROM [facility] INSTRUCTED PATIENT TO BRING THIS LETTER WITH HER. Past Psychological History: No Psychological Hx Reported Smoking Status: Never smoker Past Alcohol Use History: None Reported Past Drug Use History: None Reported - Past Family History Mother Family Medical History: Cancer Additional Family Medical History / Comment(s): colon cancer General Exam Limitations: no limitations General appearance: alert, in no apparent distress Head exam: Present: atraumatic, normocephalic, normal inspection Eye exam: Present: normal appearance, PERRL, EOMI. Absent: scleral icterus, conjunctival injection, periorbital swelling ENT exam: Present: normal exam, mucous membranes moist Neck exam: Present: normal inspection. Absent: tenderness, meningismus, lymphadenopathy Respiratory exam: Present: rales. Absent: respiratory distress, wheezes, rhonchi, stridor Cardiovascular Exam: Present: regular rate, normal rhythm, normal heart sounds. Absent: systolic murmur, diastolic murmur, rubs, gallop, clicks GI/Abdominal exam: Present: soft, normal bowel sounds. Absent: distended, tenderness, guarding, rebound, rigid Extremities exam: Present: full ROM, normal capillary refill, pedal edema. Absent: tenderness, joint swelling, calf tenderness Back exam: Present: normal inspection Neurological exam: Present: alert, oriented X3, CN II-XII intact Psychiatric exam: Present: normal affect, normal mood Skin exam: Present: warm, dry, intact, normal color. Absent: rash Course Vital Signs 09/05/23 09/05/23 09/05/23 08:37 08:50 11:41 Temperature 98.6 F 98.4 F Pulse Rate 91 80 Respiratory 22 20 12 Rate Blood Pressure 153/79 153/64 O2 Sat by Pulse 100 94 L Oximetry 09/05/23 09/05/23 09/05/23 11:54 12:00 12:14 Temperature 98.4 F 98.4 F Pulse Rate 88 80 83 Respiratory 22 18 24 Rate Blood Pressure 177/75 179/76 190/85 O2 Sat by Pulse 100 100 100 Oximetry 09/05/23 09/05/23 09/05/23 14:20 14:33 14:45 Temperature 99.0 F 99.0 F 99.0 F Pulse Rate 79 75 74 Respiratory 22 20 22 Rate Blood Pressure 183/87 192/81 183/86 O2 Sat by Pulse 100 100 100 Oximetry 09/05/23 09/05/23 17:21 20:00 Temperature 99.3 F Pulse Rate 74 78 Respiratory 18 18 Rate Blood Pressure 174/70 167/81 O2 Sat by Pulse 97 Oximetry Medical Decision Making - Medical Decision Making Was pt. sent in by a medical professional or institution (, PA, DISTRIBUTION ESTIMATOR, urgent care, hospital, or custodial...) When possible be specific @ -No Did you speak to anyone other than the patient for history (EMS, parent, family, police, friend...)? What history was obtained from this source @ -No Did you review nursing and triage notes (agree or disagree)? Why? @ -I reviewed and agree with nursing and triage notes Were old charts reviewed (outside hosp., previous admission, EMS record, old EKG, old radiological studies, urgent care reports/EKG's, custodial records)? Report findings @ -No old charts were reviewed Differential Diagnosis (chest pain, altered mental status, abdominal pain women, abdominal pain men, vaginal bleeding, weakness, fever, dyspnea, syncope, headache, dizziness, GI bleed, back pain, seizure, CVA, palpatations, mental health, musculoskeletal)? @ -Differential Dyspnea: Coronary syndrome, arrhythmia, tamponade, asthma, COPD, pulmonary embolism, pneumonia, pneumothorax, pulmonary effusion, anaphylaxis, diabetic ketoacidosis, flailed chest, pulmonary contusion, diaphragmatic rupture, anemia, neuromuscular, this is not meant to be an all-inclusive list. EKG interpreted by me (3pts min.). @ -Yes and demonstrates sinus rhythm with a rate of 88. NE interval 147. QRS 91. QTc of 405. No acute ST segment elevations or depressions X-rays interpreted by me (1pt min.). @ -Yes and demonstrates signs of congestive heart failure CT interpreted by me (1pt min.). @ -None done U/S interpreted by me (1pt. min.). @ -None done What testing was considered but not performed or refused? (CT, X-rays, U/S, labs)? Why? @ -None What meds were considered but not given or refused? Why? @ -None Did you discuss the management of the patient with other professionals (professionals i.e. , PA, DISTRIBUTION ESTIMATOR, lab, RT, psych nurse, social media project manager, bowling ball grader and marker, teacher, disability hearing officer, welfare case worker)? Give summary @ -Spoke with Dr. Mcfadden for admission Was smoking cessation discussed for >3mins.? @ -No Was critical care preformed (if so, how long)? @ -40 minutes for blood transfusion Were there social determinants of health that impacted care today? How? (Homelessness, low income, unemployed, alcoholism, drug addiction, t ransportation, low edu. Level, literacy, decrease access to med. care, senior living, rehab)? @ -No Was there de-escalation of care discussed even if they declined (Discuss DNR or withdrawal of care, Hospice)? DNR status @ -No What co-morbidities impacted this encounter? (DM, HTN, Smoking, COPD, CAD, Cance r, CVA, ARF, Chemo, Hep., AIDS, mental health diagnosis, sleep apnea, morbid obesity)? @ -COPD Was patient admitted / discharged? Hospital course, mention meds given and route, prescriptions, significant lab abnormalities, going to OR and other pertinent info. @ -Upon arrival patient was placed into room 5. Thorough history and physical exam was performed. Patient does have rales on physical exam. Laboratory studies are conducted and chest x-ray was performed. Patient found to be markedly anemic. Patient will require blood transfusion at this time. As she is already volume overloaded she will also receive Lasix. Patient will be admitted to Dr. Mcfadden who accepted the admission. Patient pending a bed on the floor in stable condition Undiagnosed new problem with uncertain prognosis? @ -Yes Drug Therapy requiring intensive monitoring for toxicity (Heparin, Nitro, Insulin, Cardizem)? @ -No Were any procedures done? @ -No Diagnosis/symptom? @ -Acute dyspnea, chronic respiratory failure, acute anemia, occult positive stool, acute CHF Acute, or Chronic, or Acute on Chronic? @Acute Uncomplicated (without systemic symptoms) or Complicated (systemic symptoms)? @ -Complicated Side effects of treatment? @ -No Exacerbation, Progression, or Severe Exacerbation? @ -No Poses a threat to life or bodily function? How? (Chest pain, [place], [place], pneumonia, PE, COPD, DKA, ARF, appy, cholecystitis, CVA, Diverticulitis, Homicidal, Suicidal, threat to staff... and all critical care pts) @ -Yes as patient is markedly anemic - Lab Data Result diagrams: 09/07/23 07:57 09/07/23 07:57 Lab Results 09/05/23 09/05/23 09/05/23 Range/Units 09:13 09:13 09:13 WBC 6.2 (3.8-10.6) k/uL RBC 2.17 L (3.80-5.40) m/uL Hgb 4.7 L* D (11.4-16.0) gm/dL Hct 15.9 L* (34.0-46.0) % MCV 73.2 L D (80.0-100.0) fL MCH 21.7 L (25.0-35.0) pg MCHC 29.7 L (31.0-37.0) g/dL RDW 17.1 H (11.5-15.5) % Plt Count 171 (150-450) k/uL MPV 8.4 Neutrophils % 76 % Lymphocytes % 14 % Monocytes % 6 % Eosinophils % 2 % Basophils % 1 % Neutrophils # 4.7 (1.3-7.7) k/uL Lymphocytes # 0.9 L (1.0-4.8) k/uL Monocytes # 0.4 (0-1.0) k/uL Eosinophils # 0.1 (0-0.7) k/uL Basophils # 0.0 (0-0.2) k/uL Hypochromasia Marked Poikilocytosis Moderate Anisocytosis Slight Microcytosis Moderate PT 12.2 (10.0-12.5) sec INR 1.1 (<1.2) APTT 21.2 L (22.0-30.0) sec Sodium 141 (137-145) mmol/L Potassium 3.9 (3.5-5.1) mmol/L Chloride 107 (98-107) mmol/L Carbon Dioxide 27 (22-30) mmol/L Anion Gap 7 mmol/L BUN 24 H (7-17) mg/dL Creatinine 0.72 (0.52-1.04) mg/dL Est GFR (CKD-EPI)AfAm >90 (>60 ml/min/1.73 sqM) Est GFR (CKD-EPI)NonAf 81 (>60 ml/min/1.73 sqM) Glucose 110 H (74-99) mg/dL Plasma Lactic Acid Luis Eduardo (0.7-2.0) mmol/L Calcium 9.0 (8.4-10.2) mg/dL Total Bilirubin 0.6 (0.2-1.3) mg/dL AST 23 (14-36) U/L ALT 19 (4-34) U/L Alkaline Phosphatase 64 (38-126) U/L Troponin I (0.000-0.034) ng/mL NT-Pro-B Natriuret Pep 3320 pg/mL Total Protein 5.4 L (6.3-8.2) g/dL Albumin 3.3 L (3.5-5.0) g/dL Stool Occult Blood (Negative) Influenza Type A (PCR) (Not Detectd) Influenza Type B (PCR) (Not Detectd) RSV (PCR) (Not Detectd) SARS-CoV-2 (PCR) (Not Detectd) Blood Type Blood Type Confirm Blood Type Recheck Bld Type Recheck Status Antibody Screen Crossmatch Spec Expiration Date 09/05/23 09/05/23 09/05/23 Range/Units 09:13 09:13 09:13 WBC (3.8-10.6) k/uL RBC (3.80-5.40) m/uL Hgb (11.4-16.0) gm/dL Hct (34.0-46.0) % MCV (80.0-100.0) fL MCH (25.0-35.0) pg MCHC (31.0-37.0) g/dL RDW (11.5-15.5) % Plt Count (150-450) k/uL MPV Neutrophils % % Lymphocytes % % Monocytes % % Eosinophils % % Basophils % % Neutrophils # (1.3-7.7) k/uL Lymphocytes # (1.0-4.8) k/uL Monocytes # (0-1.0) k/uL Eosinophils # (0-0.7) k/uL Basophils # (0-0.2) k/uL Hypochromasia Poikilocytosis Anisocytosis Microcytosis PT (10.0-12.5) sec INR (<1.2) APTT (22.0-30.0) sec Sodium (137-145) mmol/L Potassium (3.5-5.1) mmol/L Chloride (98-107) mmol/L Carbon Dioxide (22-30) mmol/L Anion Gap mmol/L BUN (7-17) mg/dL Creatinine (0.52-1.04) mg/dL Est GFR (CKD-EPI)AfAm (>60 ml/min/1.73 sqM) Est GFR (CKD-EPI)NonAf (>60 ml/min/1.73 sqM) Glucose (74-99) mg/dL Plasma Lactic Acid Luis Eduardo 1.1 (0.7-2.0) mmol/L Calcium (8.4-10.2) mg/dL Total Bilirubin (0.2-1.3) mg/dL AST (14-36) U/L ALT (4-34) U/L Alkaline Phosphatase (38-126) U/L Troponin I <0.012 (0.000-0.034) ng/mL NT-Pro-B Natriuret Pep pg/mL Total Protein (6.3-8.2) g/dL Albumin (3.5-5.0) g/dL Stool Occult Blood (Negative) Influenza Type A (PCR) Not Detected (Not Detectd) Influenza Type B (PCR) Not Detected (Not Detectd) RSV (PCR) Not Detected (Not Detectd) SARS-CoV-2 (PCR) Not Detected (Not Detectd) Blood Type Blood Type Confirm Blood Type Recheck Bld Type Recheck Status Antibody Screen Crossmatch Spec Expiration Date 02/28/24 02/28/24 02/28/24 Range/Units 10:00 10:01 10:05 WBC 6.0 (3.8-10.6) k/uL RBC 2.09 L (3.80-5.40) m/uL Hgb 4.6 L* (11.4-16.0) gm/dL Hct 15.1 L* (34.0-46.0) % MCV 72.3 L (80.0-100.0) fL MCH 22.2 L (25.0-35.0) pg MCHC 30.7 L (31.0-37.0) g/dL RDW 17.1 H (11.5-15.5) % Plt Count 175 (150-450) k/uL MPV 8.7 Neutrophils % 77 % Lymphocytes % 13 % Monocytes % 5 % Eosinophils % 1 % Basophils % 1 % Neutrophils # 4.6 (1.3-7.7) k/uL Lymphocytes # 0.8 L (1.0-4.8) k/uL Monocytes # 0.3 (0-1.0) k/uL Eosinophils # 0.1 (0-0.7) k/uL Basophils # 0.1 (0-0.2) k/uL Hypochromasia Marked Poikilocytosis Moderate Anisocytosis Slight Microcytosis Moderate PT (10.0-12.5) sec INR (<1.2) APTT (22.0-30.0) sec Sodium (137-145) mmol/L Potassium (3.5-5.1) mmol/L Chloride (98-107) mmol/L Carbon Dioxide (22-30) mmol/L Anion Gap mmol/L BUN (7-17) mg/dL Creatinine (0.52-1.04) mg/dL Est GFR (CKD-EPI)AfAm (>60 ml/min/1.73 sqM) Est GFR (CKD-EPI)NonAf (>60 ml/min/1.73 sqM) Glucose (74-99) mg/dL Plasma Lactic Acid Luis Eduardo (0.7-2.0) mmol/L Calcium (8.4-10.2) mg/dL Total Bilirubin (0.2-1.3) mg/dL AST (14-36) U/L ALT (4-34) U/L Alkaline Phosphatase (38-126) U/L Troponin I (0.000-0.034) ng/mL NT-Pro-B Natriuret Pep pg/mL Total Protein (6.3-8.2) g/dL Albumin (3.5-5.0) g/dL Stool Occult Blood (Negative) Influenza Type A (PCR) (Not Detectd) Influenza Type B (PCR) (Not Detectd) RSV (PCR) (Not Detectd) SARS-CoV-2 (PCR) (Not Detectd) Blood Type O Positive Blood Type Confirm O Positive Blood Type Recheck No Previous Record Bld Type Recheck Status CABO Indicated Antibody Screen NEGATIVE Crossmatch See Detail Spec Expiration Date 09/08/2023 - 230409/05/23 Range/Units 10:50 WBC (3.8-10.6) k/uL RBC (3.80-5.40) m/uL Hgb (11.4-16.0) gm/dL Hct (34.0-46.0) % MCV (80.0-100.0) fL MCH (25.0-35.0) pg MCHC (31.0-37.0) g/dL RDW (11.5-15.5) % Plt Count (150-450) k/uL MPV Neutrophils % % Lymphocytes % % Monocytes % % Eosinophils % % Basophils % % Neutrophils # (1.3-7.7) k/uL Lymphocytes # (1.0-4.8) k/uL Monocytes # (0-1.0) k/uL Eosinophils # (0-0.7) k/uL Basophils # (0-0.2) k/uL Hypochromasia Poikilocytosis Anisocytosis Microcytosis PT (10.0-12.5) sec INR (<1.2) APTT (22.0-30.0) sec Sodium (137-145) mmol/L Potassium (3.5-5.1) mmol/L Chloride (98-107) mmol/L Carbon Dioxide (22-30) mmol/L Anion Gap mmol/L BUN (7-17) mg/dL Creatinine (0.52-1.04) mg/dL Est GFR (CKD-EPI)AfAm (>60 ml/min/1.73 sqM) Est GFR (CKD-EPI)NonAf (>60 ml/min/1.73 sqM) Glucose (74-99) mg/dL Plasma Lactic Acid Luis Eduardo (0.7-2.0) mmol/L Calcium (8.4-10.2) mg/dL Total Bilirubin (0.2-1.3) mg/dL AST (14-36) U/L ALT (4-34) U/L Alkaline Phosphatase (38-126) U/L Troponin I (0.000-0.034) ng/mL NT-Pro-B Natriuret Pep pg/mL Total Protein (6.3-8.2) g/dL Albumin (3.5-5.0) g/dL Stool Occult Blood Positive H (Negative) Influenza Type A (PCR) (Not Detectd) Influenza Type B (PCR) (Not Detectd) RSV (PCR) (Not Detectd) SARS-CoV-2 (PCR) (Not Detectd) Blood Type Blood Type Confirm Blood Type Recheck Bld Type Recheck Status Antibody Screen Crossmatch Spec Expiration Date Disposition Clinical Impression: Anemia, Respiratory insufficiency, CHF (congestive heart failure) Disposition: ADMITTED IP TO THIS [facility] Condition: Serious Is patient prescribed a controlled substance at d/c from ED?: No Time of Disposition: 10:59 Decision to Admit Reason: Admit from EC Decision Date: 09/05/23 Decision Time: 10:59
[2023-09-05 09:35] LABS: Anisocytosis Slight; Basophils % (A) 1 %; Eosinophils # (A) 0.1 k/uL (0-0.7); Eosinophils % (A) 2 %; Hypochromasia Marked; Lymphocytes # (A) 0.9 k/uL (1.0-4.8); Lymphocytes % (A) 14 %; MCH 21.7 pg (25.0-35.0); MCHC 29.7 g/dL (31.0-37.0); Mean Platelet Volume 8.4; Microcytosis Moderate; Monocytes # (A) 0.4 k/uL (0-1.0); Monocytes % (A) 6 %; Neutrophils # (A) 4.7 k/uL (1.3-7.7); Neutrophils % (A) 76 %; Platelet Count 171 k/uL (150-450); Poikilocytosis Moderate; RBC 2.17 m/uL (3.80-5.40); RDW 17.1 % (11.5-15.5); WBC 6.2 k/uL (3.8-10.6)
[2023-09-05 09:38] LABS: INR 1.1 (<1.2); Partial Thromboplastin Time 21.2 sec (22.0-30.0); Prothrombin Time 12.2 sec (10.0-12.5)
[2023-09-05 09:40] LABS: ALT 19 U/L (4-34); AST 23 U/L (14-36); African American GFR (CKD) >90 (>60 ml/min/1.73 sqM); Albumin 3.3 g/dL (3.5-5.0); Alkaline Phosphatase 64 U/L (38-126); Anion Gap 7 mmol/L; Blood Urea Nitrogen 24 mg/dL (7-17); Carbon Dioxide 27 mmol/L (22-30); Chloride 107 mmol/L (98-107); Glucose 110 mg/dL (74-99); Non-African American GFR(CKD) 81 (>60 ml/min/1.73 sqM); Potassium 3.9 mmol/L (3.5-5.1); Sodium 141 mmol/L (137-145); Total Bilirubin 0.6 mg/dL (0.2-1.3); Total Protein 5.4 g/dL (6.3-8.2)
--- NOTE | 2023-09-05 09:46 | XR ---
EXAMINATION TYPE: XR chest 2V DATE OF EXAM: 09/05/2023 9:24 AM CLINICAL INDICATION:Female, 78 years old with history of difficulty breathing; COMPARISON: Chest radiographs from 07/19/2023 TECHNIQUE: XR chest 2V Frontal and lateral views of the chest. FINDINGS: Lungs/Pleura: No evidence of focal consolidation or pneumothorax. Blunting of the costophrenic angles is present. Pulmonary vascularity: Pulmonary vascular congestion. Heart/mediastinum: Cardiomediastinal silhouette is enlarged and stable. Atherosclerotic calcificatio ns are seen in the aorta. Musculoskeletal: No acute osseous pathology. IMPRESSION: Cardiomegaly, pulmonary vascular congestion and bilateral pleural effusions. Correlate with BNP for c ongestive heart failure.
[2023-09-05 09:48] LABS: NT-Pro-B-Type Natriuretic Pept 3320 pg/mL
[2023-09-05 09:49] LABS: HGB 4.7 gm/dL (11.4-16.0)
[2023-09-05 09:50] LABS: HCT 15.9 % (34.0-46.0); MCV 73.2 fL (80.0-100.0)
[2023-09-05 10:30] LABS: Anisocytosis Slight; Basophils # (A) 0.1 k/uL (0-0.2); Basophils % (A) 1 %; Eosinophils # (A) 0.1 k/uL (0-0.7); Eosinophils % (A) 1 %; Hypochromasia Marked; Lymphocytes # (A) 0.8 k/uL (1.0-4.8); Lymphocytes % (A) 13 %; MCH 22.2 pg (25.0-35.0); MCHC 30.7 g/dL (31.0-37.0); MCV 72.3 fL (80.0-100.0); Mean Platelet Volume 8.7; Microcytosis Moderate; Monocytes # (A) 0.3 k/uL (0-1.0); Monocytes % (A) 5 %; Neutrophils # (A) 4.6 k/uL (1.3-7.7); Neutrophils % (A) 77 %; Platelet Count 175 k/uL (150-450); Poikilocytosis Moderate; RBC 2.09 m/uL (3.80-5.40); RDW 17.1 % (11.5-15.5)
[2023-09-05 10:33] LABS: HCT 15.1 % (34.0-46.0); HGB 4.6 gm/dL (11.4-16.0)
[2023-09-05] MEDS ORDERED: NALOXONE 0.4 MG/ML 1 ML VIAL IV PRN (10:59)
[2023-09-05] MEDS: PANTOPRAZOLE 40 MG/10 ML VIAL IV SCH (11:25)
[2023-09-05] MEDS: FUROSEMIDE 10 MG/ML 4 ML VIAL IV STA (11:25)
--- NOTE | 2023-09-05 14:48 | P.CONS ---
History of Present Illness - Reason for Consult Consult date: 09/05/23 Anemia Requesting physician: Kimberlyn Mas - Chief Complaint shortness of breath - History of Present Illness This is a pleasant 78-year-old female who presented to the emergency department with complaints of shortness of breath, and frothy cough. She has a past medical history of COPD, congestive heart failure, hypertension, CVA and was recently hospitalized about 2 weeks ago for COPD exacerbation and aspiration pneumonia. She says she follows with Dr. Gallego and her professor of languages is Dr. Bennett. She had blood work showed the patient to be severely anemic. Gastroe nterology was consulted for anemia. Patient denies any abdominal pain, nausea or vomiting. She states that they did tell her her stool was dark. She denies any anticoagulation, however is on Plavix and aspirin. Last taken yesterday. Last colonoscopy was [address] Lynn with findings of mild sigmoid diverticulosis otherwise normal colon. She denies any previous history of upper endoscopy, no history of peptic ulcer disease. She denies any NSAID use. Labs: WBC 6.0 hemoglobin 4.6 hematocrit 15 platelet count 175,000 INR 1.1 sodium 141 potassium 3.9 BUN 24 creatinine 0.7 total bilirubin 0.6 AST 23 ALT 19 alkaline phosphatase 64 stool occult blood positive Review of Systems REVIEW OF SYSTEMS: CARDIOPULMONARY: No chest pain, complaints of shortness of breath and frothy cough. Gastrointestinal: No abdominal pain or epigastric pain. No nausea or vomiting. No hematemesis, coffee-ground emesis. No rectal bleeding, patient reports some dark stool reported GENITOURINARY: No dysuria or hematuria. MUSCULOSKELETAL: Reports normal range of motion., Joint pain. SKIN: No rashes. No jaundice. ENDOCRINE: No chills, fevers. No excessive weight gain or loss. No polydipsia or polyuria. PSYCHIATRIC: Unremarkable. NEUROLOGY: No change in mental status. Denies dizziness, headache. ENT: Vision unremarkable. CONSTITUTIONAL: No recent weight loss. No fever, chills, night sweats. Past Medical History Past Medical History: CVA/TIA, Hypertension Additional Past Medical History / Comment(s): states CVA (no residual ), states stent in upper leg, rash on lower legs, ankles swell, pt states on Nutrisystem diet and has lost 20-25 # with frequent stools. History of Any Multi-Drug Resistant Organisms: None Reported Past Surgical History: Joint Replacement Additional Past Surgical History / Comment(s): total right knee x2, stem cell injections prior to total knees, cataract surgery, stent in leg. Additional Past Anesthesia/Blood Transfusion Reaction / Comm: STATES UNABLE TO INTUBATE- THEY HAD TO DO A SPINAL., STATES SHE HAS LETTER FROM [place] [facility] INSTRUCTED PATIENT TO BRING THIS LETTER WITH HER. Past Psychological History: No Psychological Hx Reported Smoking Status: Never smoker Past Alcohol Use History: None Reported Past Drug Use History: None Reported - Past Family History Mother Family Medical History: Cancer Additional Family Medical History / Comment(s): colon cancer Medications and Allergies Home Medications Medication Instructions Recorded Confirmed Type Atorvastatin [Lipitor] 80 mg PO DAILY 05/11/20 09/05/23 History Furosemide [Lasix] 20 mg PO BID 05/11/20 09/05/23 History Losartan Potassium [Cozaar] 25 mg PO BID 05/11/20 09/05/23 History Potassium Chloride [Klor-Con 10 ER] 10 meq PO DAILY 07/17/23 09/05/23 History Aspirin 81 mg PO DAILY #30 tab 07/20/23 09/05/23 Rx Clopidogrel [Plavix] 75 mg PO DAILY #30 tab 07/20/23 09/05/23 Rx Ipratropium-Albuterol Nebulize 3 ml INHALATION RT-QID #120 each 07/20/23 09/05/23 Rx [Duoneb 0.5 mg-3 mg/3 ml Soln] Ammonium Lactate Cream [Lac-Hydrin 1 applic TOPICAL DAILY 09/05/23 09/05/23 History 12% Cream] Calcium Carbonate [Tums] 1,000 mg PO QID PRN 09/05/23 09/05/23 History Pantoprazole [Protonix] 40 mg PO BID 09/05/23 09/05/23 History Allergies Allergy/AdvReac Type Severity Reaction Status Date / Time Penicillins AdvReac Unknown PASSED OUT Verified 09/05/23 12:05 Physical Exam Vitals: Vital Signs Temp Pulse Resp BP Pulse Ox 09/05/23 14:33 99.0 F 75 20 192/81 100 09/05/23 14:20 99.0 F 79 22 183/87 100 09/05/23 12:14 98.4 F 83 24 190/85 100 09/05/23 12:00 80 18 179/76 100 09/05/23 11:54 98.4 F 88 22 177/75 100 09/05/23 11:41 98.4 F 80 12 153/64 94 L 09/05/23 08:50 20 09/05/23 08:37 98.6 F 91 22 153/79 100 Intake and Output 09/04/23 09/05/23 09/05/23 22:59 06:59 14:59 Intake Total 310 Balance 310 Intake: Blood Product 310 Rc As-1 Unit 310 [id number] Other: Weight 75.75 kg GI GI general appearance: The patient is alert, oriented, appears in no acute distress. HET: Head is normocephalic and atraumatic. Conjunctiva pink. Sclera anicteric. Neck: Supple without lymphadenopathy. Trachea midline. Heart: Regular. Lungs: Equal expansion, normal respiratory effort. Abdomen: Soft, nontender, nondistended with bowel sounds. No guarding or rigidity. Skin: No rashes. No jaundice. Extremities: Normal skin color and turgor. No pedal edema. Neurological: No focal deficits. Alert and oriented x3. Results CBC & Chem 7: 09/05/23 10:01 09/05/23 09:13 Labs: Abnormal Lab Results - Last 24 Hours (Table) 09/05/23 09/05/23 09/05/23 Range/Units 09:13 09:13 09:13 RBC 2.17 L (3.80-5.40) m/uL Hgb 4.7 L* D (11.4-16.0) gm/dL Hct 15.9 L* (34.0-46.0) % MCV 73.2 L D (80.0-100.0) fL MCH 21.7 L (25.0-35.0) pg MCHC 29.7 L (31.0-37.0) g/dL RDW 17.1 H (11.5-15.5) % Lymphocytes # 0.9 L (1.0-4.8) k/uL APTT 21.2 L (22.0-30.0) sec BUN 24 H (7-17) mg/dL Glucose 110 H (74-99) mg/dL Total Protein 5.4 L (6.3-8.2) g/dL Albumin 3.3 L (3.5-5.0) g/dL Stool Occult Blood (Negative) Crossmatch 09/05/23 09/05/23 09/05/23 Range/Units 10:01 10:05 10:50 RBC 2.09 L (3.80-5.40) m/uL Hgb 4.6 L* (11.4-16.0) gm/dL Hct 15.1 L* (34.0-46.0) % MCV 72.3 L (80.0-100.0) fL MCH 22.2 L (25.0-35.0) pg MCHC 30.7 L (31.0-37.0) g/dL RDW 17.1 H (11.5-15.5) % Lymphocytes # 0.8 L (1.0-4.8) k/uL APTT (22.0-30.0) sec BUN (7-17) mg/dL Glucose (74-99) mg/dL Total Protein (6.3-8.2) g/dL Albumin (3.5-5.0) g/dL Stool Occult Blood Positive H (Negative) Crossmatch See Detail Comments: Chest x-ray: Cardiomegaly, pulmonary vascular congestion and bilateral pleural effusions. Correlate with BNP for congestive heart failure. Assessment and Plan (1) Symptomatic anemia Narrative/Plan: 78-year-old female with multiple comorbidities including COPD and recent aspiration pneumonia came in for shortness of breath and was found to have severe microcytic anemia. Patient also had elevated BUN, this is usually consistent with a upper GI bleed. However due to severe anemia would recommend evaluation for GI blood loss with both endoscopy and colonoscopy. Patient is quite concerned with her respiratory status and states that she has restrictive disease and that she is concerned about having an EGD and is refusing at this time unless cleared by her case finisher Dr. Palm. Pulmonology consulted. Will plan for EGD and colonoscopy on Sunday if patient is cleared by pulmo nology. Current Visit: Yes Status: Acute Code(s): D64.9 - ANEMIA, UNSPECIFIED SNOMED Code(s): 690936615 (2) COPD (chronic obstructive pulmonary disease) Current Visit: Yes Status: Acute Code(s): J44.9 - CHRONIC OBSTRUCTIVE PULMONARY DISEASE, UNSPECIFIED SNOMED Code(s): 09116914 (3) CHF (congestive heart failure) Current Visit: Yes Status: Acute Code(s): I50.9 - HEART FAILURE, UNSPECIFIED SNOMED Code(s): 04161334 Plan: 1. Continue symptomatic and supportive care 2. Agree with blood transfusion 3. Daily CBC, transfuse for hemoglobin less than 7 4. Protonix 40 mg daily 5. Avoid NSAIDs 6. Patient may have heart healthy diet 7. Hold aspirin and Plavix 8. Will consult pulmonology for clearance for EGD and colonoscopy, plan is for Sunday09/07/23 Thank you for this consultation, we will continue to follow. Dr. Lilia Evans I agree with the dictator's note, documented as a scribe by Dana Kohli.
[2023-09-05] MEDS: IPRATROPIUM-ALBUTEROL 3 ML NEB INHALATION SCH (20:35)
[2023-09-05 22:09] LABS: Anisocytosis Slight; HCT 23.6 % (34.0-46.0); Hypochromasia Marked; MCH 24.9 pg (25.0-35.0); MCHC 31.2 g/dL (31.0-37.0); Mean Platelet Volume 10.1; Microcytosis Slight; Platelet Count 150 k/uL (150-450); Poikilocytosis Marked; RBC 2.96 m/uL (3.80-5.40); RDW 17.7 % (11.5-15.5); WBC 7.4 k/uL (3.8-10.6)
[2023-09-05 22:20] LABS: HGB 7.4 gm/dL (11.4-16.0); MCV 79.9 fL (80.0-100.0)
[2023-09-05] MEDS ORDERED: Potassium Replacement Protocol 1 EACH MISC MISCELLANE PRN (22:46)
--- NOTE | 2023-09-05 23:11 | P.HPIM ---
History of Present Illness H&P Date: 09/05/23 Chief Complaint: Shortness of breath Patient is a 78-year-old female with a past medical history of COPD on home oxygen at 3 L via nasal cannula, history of CVA/TIA, hypertension presents to ER with complaints of shortness of breath and cough with frothy sputum. Patient states that she is also having dark-colored stools for the past 3 to 4 days. Denies any complaints of fever or chills. No complaints of abdominal pain. No nausea or vomiting. No hematemesis. No chest pain or worsening shortness of breath. Patient was recently admitted to hospital in July 2023 due to syncopal episode after she was ejected out of her new recliner. And also was treated for pneumonia. Patient was seen by cardiology and pulmonary and neurology at that time. Carotid duplex showed bilateral ICA stenosis severe greater than 70% left ICA, moderate stenosis between 50 to 69% on right ICA. CTA neck could not be done at the time. As patient could not lay flat. Patient is currently taking aspirin and Plavix at home. Patient states that she has been having bilateral leg swelling since her knee surgeries. On admission EKG showed sinus rhythm with occasional premature ventricular complexes. Chest x-ray showed cardiomegaly, pulmonary vascular congestion and bilateral pleural effusions. Correlate with BNP for congestive heart failure. Recent echocardiogram showed normal ejection fraction and moderate aortic stenosis. Moderate pulmonary hypertension and severe mitral annular calcification. Neck CTA on 08/17/2023 showed left common carotid artery stent graft which appears patent no evidence of significant stenosis. At least greater than 70% stenosis of the right carotid bifurcation secondary to calcified plaque. Laboratory data showed WBC 6.2 hemoglobin 4.7 Hemoglobin during previous admission was 9.4 MCV 73.2 and platelets 171 RDW 17.1 Sodium 141 potassium 3.9 chloride 107 bicarb is 27 BUN 24 and creatinine 0.71 blood sugar 110 and proBNP 3320, albumin 3.3 FOBT positive. ROS Constitutional: Patient denies any fever or chills . Patient does have generalized weakness. No weight loss. Abdomen: Patient denied nausea vomiting and diarrhea and abdominal pain. Dark- colored stools. Cardiovascular: Patient denies any chest pain. Does have short of breath no palpitations. Respiratory: patient denied any cough is from production. Positive for shortness of breath Neurologic: Patient denied any numbness or tingling headache. Musculoskeletal: Patient denies any complaints of joint swelling or deformity. Skin: Negative Psychiatric: Negative Endocrine: No heat or cold intolerance. No recent weight gain. Genitourinary: No dysuria or hematuria. All other 14 point ROS negative except the above PHYSICAL EXAMINATION: Patient is lying in the bed comfortably, no acute distress, awake alert and oriented.. HEENT: Normocephalic. Neck is supple. Pupils reactive. Nostrils clear. Oral cavity is moist. Neck reveals no JVD, carotid bruits, or thyromegaly. CHEST EXAMINATION: Trachea is central. Symmetrical expansion. Bibasilar diminished sounds and basilar crackles. No wheezing. CARDIAC: Normal S1, S2 with no gallops. No murmurs ABDOMEN: Soft. Bowel sounds normal. No organomegaly. No abdominal bruits. Extremities: Bilateral lower extremity 2+ edema. No clubbing or cyanosis Neurologically awake, alert, oriented x3. Able to move all extremities while in bed. s. No focal deficits noted Skin: No rash or skin lesions. Psychiatric: Coperative. Nonsuicidal Musculoskeletal: No joint swelling or deformity. Normal range of motion. Assessment Acute blood loss anemia secondary to GI bleed likely upper GI with dark-colored stools. Symptomatic anemia Acute on chronic CHF with preserved ejection fraction and moderate pulmonary hypertension Moderate aortic stenosis COPD on home oxygen 3 L via nasal cannula History of CVA/TIA Right ICA 70% stenosis at the bifurcation Hypertension DVT prophylaxis with SCDs Plan: Patient will be transfused with 2 unit of PRBC and keep hemoglobin greater than 7 Continue with PPI IV daily and monitor H&H. Gastroenterology is on board. Plan for EGD and colonoscopy tomorrow. Continue with DuoNebs. Aspirin Plavix on hold. Patient will be continued on Lasix due to fluid overload with anemia contributin g. Continue to follow closely. Past Medical History Past Medical History: CVA/TIA, Hypertension Additional Past Medical History / Comment(s): states CVA (no residual ), states stent in upper leg, rash on lower legs, ankles swell, pt states on Nutrisystem diet and has lost 20-25 # with frequent stools. History of Any Multi-Drug Resistant Organisms: None Reported Past Surgical History: Joint Replacement Additional Past Surgical History / Comment(s): total right knee x2, stem cell injections prior to total knees, cataract surgery, stent in leg. Additional Past Anesthesia/Blood Transfusion Reaction / Comment(s): STATES UNABLE TO INTUBATE- THEY HAD TO DO A SPINAL., STATES SHE HAS LETTER FROM [place] [facility] INSTRUCTED PATIENT TO BRING THIS LETTER WITH HER. Past Psychological History: No Psychological Hx Reported Smoking Status: Never smoker Past Alcohol Use History: None Reported Past Drug Use History: None Reported - Past Family History Mother Family Medical History: Cancer Additional Family Medical History / Comment(s): colon cancer Medications and Allergies Home Medications Medication Instructions Recorded Confirmed Type Atorvastatin [Lipitor] 80 mg PO DAILY 05/11/20 09/05/23 History Furosemide [Lasix] 20 mg PO BID 05/11/20 09/05/23 History Losartan Potassium [Cozaar] 25 mg PO BID 05/11/20 09/05/23 History Potassium Chloride [Klor-Con 10 ER] 10 meq PO DAILY 07/17/23 09/05/23 History Aspirin 81 mg PO DAILY #30 tab 07/20/23 09/05/23 Rx Clopidogrel [Plavix] 75 mg PO DAILY #30 tab 07/20/23 09/05/23 Rx Ipratropium-Albuterol Nebulize 3 ml INHALATION RT-QID #120 each 07/20/23 09/05/23 Rx [Duoneb 0.5 mg-3 mg/3 ml Soln] Ammonium Lactate Cream [Lac-Hydrin 1 applic TOPICAL DAILY 09/05/23 09/05/23 History 12% Cream] Calcium Carbonate [Tums] 1,000 mg PO QID PRN 09/05/23 09/05/23 History Pantoprazole [Protonix] 40 mg PO BID 09/05/23 09/05/23 History Allergies Allergy/AdvReac Type Severity Reaction Status Date / Time Penicillins AdvReac Unknown PASSED OUT Verified 09/05/23 12:05 Physical Exam Vitals: Vital Signs Temp Pulse Resp BP Pulse Ox 09/05/23 12:14 98.4 F 83 24 190/85 100 09/05/23 12:00 80 18 179/76 100 09/05/23 11:54 98.4 F 88 22 177/75 100 09/05/23 11:41 98.4 F 80 12 153/64 94 L 09/05/23 08:50 20 09/05/23 08:37 98.6 F 91 22 153/79 100 Intake and Output 09/04/23 09/05/23 09/05/23 22:59 06:59 14:59 Other: Weight 75.75 kg Results CBC & Chem 7: 09/05/23 21:56 09/05/23 09:13 Labs: Abnormal Lab Results - Last 24 Hours (Table) 09/05/23 09/05/23 09/05/23 Range/Units 09:13 09:13 09:13 RBC 2.17 L (3.80-5.40) m/uL Hgb 4.7 L* D (11.4-16.0) gm/dL Hct 15.9 L* (34.0-46.0) % MCV 73.2 L D (80.0-100.0) fL MCH 21.7 L (25.0-35.0) pg MCHC 29.7 L (31.0-37.0) g/dL RDW 17.1 H (11.5-15.5) % Lymphocytes # 0.9 L (1.0-4.8) k/uL APTT 21.2 L (22.0-30.0) sec BUN 24 H (7-17) mg/dL Glucose 110 H (74-99) mg/dL Total Protein 5.4 L (6.3-8.2) g/dL Albumin 3.3 L (3.5-5.0) g/dL Stool Occult Blood (Negative) Crossmatch 09/05/23 09/05/23 09/05/23 Range/Units 10:01 10:05 10:50 RBC 2.09 L (3.80-5.40) m/uL Hgb 4.6 L* (11.4-16.0) gm/dL Hct 15.1 L* (34.0-46.0) % MCV 72.3 L (80.0-100.0) fL MCH 22.2 L (25.0-35.0) pg MCHC 30.7 L (31.0-37.0) g/dL RDW 17.1 H (11.5-15.5) % Lymphocytes # 0.8 L (1.0-4.8) k/uL APTT (22.0-30.0) sec BUN (7-17) mg/dL Glucose (74-99) mg/dL Total Protein (6.3-8.2) g/dL Albumin (3.5-5.0) g/dL Stool Occult Blood Positive H (Negative) Crossmatch See Detail Assessment and Plan Time with Patient: Greater than 30
[2023-09-05] MEDS: FUROSEMIDE 10 MG/ML 2 ML VIAL IV SCH (23:53)
[2023-09-05] MEDS: LOSARTAN 25 MG TAB PO SCH (23:53)
[2023-09-05] MEDS: CALCIUM CARBONATE 500 MG CHEWABLE PO PRN (23:53)
[2023-09-06 07:58] LABS: Anisocytosis Slight; Basophils % (A) 1 %; Eosinophils # (A) 0.3 k/uL (0-0.7); Eosinophils % (A) 3 %; HCT 25.2 % (34.0-46.0); HGB 7.7 gm/dL (11.4-16.0); Hypochromasia Marked; Lymphocytes # (A) 0.8 k/uL (1.0-4.8); Lymphocytes % (A) 11 %; MCH 24.5 pg (25.0-35.0); MCHC 30.5 g/dL (31.0-37.0); MCV 80.5 fL (80.0-100.0); Mean Platelet Volume 10.7; Microcytosis Slight; Monocytes # (A) 0.4 k/uL (0-1.0); Monocytes % (A) 6 %; Neutrophils # (A) 5.9 k/uL (1.3-7.7); Neutrophils % (A) 78 %; Platelet Count 154 k/uL (150-450); Poikilocytosis Marked; RBC 3.13 m/uL (3.80-5.40); RDW 17.8 % (11.5-15.5); WBC 7.7 k/uL (3.8-10.6)
[2023-09-06 08:25] LABS: African American GFR (CKD) >90 (>60 ml/min/1.73 sqM); Anion Gap 3 mmol/L; Blood Urea Nitrogen 21 mg/dL (7-17); Calcium 8.7 mg/dL (8.4-10.2); Carbon Dioxide 31 mmol/L (22-30); Chloride 108 mmol/L (98-107); Glucose 90 mg/dL (74-99); Non-African American GFR(CKD) 84 (>60 ml/min/1.73 sqM); Potassium 3.5 mmol/L (3.5-5.1); Sodium 142 mmol/L (137-145)
--- NOTE | 2023-09-06 09:16 | P.CNPUL ---
History of Present Illness Consult date: 09/06/23 Requesting physician: Dana Leon Reason for consult: other (Pulmonary clearance for EGD/colonoscopy) Chief complaint: Shortness of breath and frothy sputum History of present illness: I am seeing this patient in new consultation today 09/06/2023 for pulmonary clearance in regards to an upcoming planned EGD/colonoscopy. Patient is a 78-year-old white female with past medical history significant for aspiration and aspiration pneumonia, difficult previous intubation at [facility], hypertension, CVA, peripheral vascular disease, lifelong nontobacco smoker. She had a recent hospitalization 07/17/2023 through 07/20/2023 for right-sided pneumonia. She had a brief stay in the intensive care unit, but did not require intubation. She was discharged on home oxygen. She returned to the emergency room yesterday morning complaining mostly of progressively worsening shortness of breath since her hospital discharge. Shortness of breath is mostly with exertion. She also admits associated fatigue/tiredness and she has been cold. On arrival, she was noted to be severely anemic with a hemoglobin of 4.7 g/dL. She received a total of 2 units PRBCs, and her most recent hemoglobin from last night was 7.4. She reports dark to black formed stools while at home since her most recent hospital discharge. Denies any kenan blood. Denies any nausea or vomiting or hematic emesis. She does take Plavix and aspirin 81 mg daily. Fecal occult was positive. She did have a chest x-ray which was done on arrival which showed cardiomegaly, pulmonary vascular congestion, and bilateral small pleural effusions. NT proBNP was elevated at 3320. She is currently on Lasix 20 mg twice daily. She is resting comfortably on 3 L/min nasal cannula. SpO2 is 100%. She denies any further bowel movements today. Most recent colonoscopy was done in 2019 which showed mild sigmoid diverticulosis without diverticulitis. Most recent CBC from last night includes a WBC count of 7.4, hemoglobin 7.4, hematocrit 23.6, platelets 150. BMP from yesterday shows a sodium 141, potassium 3.9, chloride 107, serum bicarb 27, BUN 24, creatinine 0.72, glucose 110. Troponin less than 0.012. Negative for influenza, RSV, COVID. Afebrile. Vital signs are stable. Patient is leery to have an EGD/colonoscopy, she is afraid of being intubated, as she states she is a difficult intubation. She reportedly has paperwork from [facility] stating that she could not be intubated again. She denies any pre-existing history of lung disease. She is a lifelong non-smoker. Vital signs are stable. Review of Systems REVIEW OF SYSTEMS: CONSTITUTIONAL: Denies any recent significant weight loss or weight gain. Denies fevers. EYES: Denies change in vision. EARS, NOSE, MOUTH, THROAT: Denies headaches, denies sore throat. CARDIOVASCULAR: Denies chest pain, palpitations or syncopal episodes. RESPIRATORY: Admits shortness of breath and cough with frothy sputum. Denies any congestion, hemoptysis, or purulent sputum. GASTROINTESTINAL: Denies change in appetite, abdominal pain, nausea and vomiting, or diarrhea. Admits to dark stools that are formed. Denies any diarrhea or kenan blood. GENITOURINARY: Denies hematuria, denies infections. MUSKULOSKELETAL: Denies pain, denies swelling. INTEGUMENTARY: Denies rash, denies eczema. NEUROLOGICAL: Denies recent memory loss, no recent seizure activity. PSYCHIATRIC: Denies anxiety, denies depression. HEMATOLOGIC/LYMPHATIC: Denies anemia, denies enlarged lymph node Past Medical History Past Medical History: CVA/TIA, Hypertension Additional Past Medical History / Comment(s): states CVA (no residual ), states stent in upper leg, rash on lower legs, ankles swell, pt states on Nutrisystem diet and has lost 20-25 # with frequent stools. History of Any Multi-Drug Resistant Organisms: None Reported Past Surgical History: Joint Replacement Additional Past Surgical History / Comment(s): total right knee x2, stem cell injections prior to total knees, cataract surgery, stent in leg. Additional Past Anesthesia/Blood Transfusion Reaction / Comment(s): STATES DAVID BLE TO INTUBATE- THEY HAD TO DO A SPINAL., STATES SHE HAS LETTER FROM [employer] PAT[employer] TO BRING THIS LETTER WITH HER. Past Psychological History: No Psychological Hx Reported Smoking Status: Never smoker Past Alcohol Use History: None Reported Past Drug Use History: None Reported - Past Family History Mother Family Medical History: Cancer Additional Family Medical History / Comment(s): colon cancer Medications and Allergies Home Medications Medication Instructions Recorded Confirmed Type Atorvastatin [Lipitor] 80 mg PO DAILY 05/11/20 09/05/23 History Furosemide [Lasix] 20 mg PO BID 05/11/20 09/05/23 History Losartan Potassium [Cozaar] 25 mg PO BID 05/11/20 09/05/23 History Potassium Chloride [Klor-Con 10 ER] 10 meq PO DAILY 07/17/23 09/05/23 History Aspirin 81 mg PO DAILY #30 tab 07/20/23 09/05/23 Rx Clopidogrel [Plavix] 75 mg PO DAILY #30 tab 07/20/23 09/05/23 Rx Ipratropium-Albuterol Nebulize 3 ml INHALATION RT-QID #120 each 07/20/23 09/05/23 Rx [Duoneb 0.5 mg-3 mg/3 ml Soln] Ammonium Lactate Cream [Lac-Hydrin 1 applic TOPICAL DAILY 09/05/23 09/05/23 History 12% Cream] Calcium Carbonate [Tums] 1,000 mg PO QID PRN 09/05/23 09/05/23 History Pantoprazole [Protonix] 40 mg PO BID 09/05/23 09/05/23 History Allergies Allergy/AdvReac Type Severity Reaction Status Date / Time Penicillins AdvReac Unknown PASSED OUT Verified 09/05/23 12:05 Physical Exam Vitals: Vital Signs Temp Pulse Pulse Resp BP BP Pulse Ox 09/06/23 00:00 98 F 20 148/63 100 09/05/23 21:28 98.2 F 74 20 138/70 100 09/05/23 20:48 98.5 F 87 18 165/64 97 09/05/23 20:00 78 18 167/81 97 09/05/23 17:21 99.3 F 74 18 174/70 09/05/23 14:45 99.0 F 74 22 183/86 100 09/05/23 14:33 99.0 F 75 20 192/81 100 09/05/23 14:20 99.0 F 79 22 183/87 100 09/05/23 12:14 98.4 F 83 24 190/85 100 09/05/23 12:00 80 18 179/76 100 09/05/23 11:54 98.4 F 88 22 177/75 100 09/05/23 11:41 98.4 F 80 12 153/64 94 L 09/05/23 08:50 20 09/05/23 08:37 98.6 F 91 22 153/79 100 Intake and Output 09/05/23 09/05/23 09/06/23 14:59 22:59 06:59 Intake Total 310 310 Output Total 1700 Balance 310 -1390 Intake: Blood Product 310 310 Rc As-1 Unit 0 310 [id number] Rc As-1 Unit 310 [id number] Output: Urine 1700 Other: Weight 75.75 kg GENERAL EXAM: Alert, 78-year-old white female, comfortable in no apparent distress. HEAD: Normocephalic and atraumatic EYES: Normal reaction of pupils, equal size. NOSE: Clear with pink turbinates. THROAT: No erythema or exudates. NECK: No masses, no JVD. Short neck. CHEST: No chest wall deformity. LUNGS: Equal air entry with no crackles, wheeze, rhonchi or dullness. On 3 L/min nasal cannula. SpO2 is 100%. No conversational dyspnea or accessory muscle use while at rest.. CVS: S1 and S2 normal with no audible murmur, regular rhythm. No extra heart sounds ABDOMEN: No hepatosplenomegaly, active bowel sounds, no guarding or rigidity. SPINE: No scoliosis or deformity SKIN: No rashes CENTRAL NERVOUS SYSTEM: No focal deficits, tone is normal in all 4 extremities. EXTREMITIES: There is no peripheral edema, clubbing, or cyanosis. Peripheral pulses are intact. Results - Laboratory Findings CBC and BMP: 09/06/23 07:42 09/06/23 07:42 PT/INR, D-dimer PT 12.2 sec (10.0-12.5) 09/05/23 09:13 INR 1.1 (<1.2) 09/05/23 09:13 Abnormal lab findings: Abnormal Labs 09/05/23 09/05/23 09/05/23 09:13 09:13 09:13 RBC 2.17 L Hgb 4.7 L* D Hct 15.9 L* MCV 73.2 L D MCH 21.7 L MCHC 29.7 L RDW 17.1 H Lymphocytes # 0.9 L APTT 21.2 L BUN 24 H Glucose 110 H Total Protein 5.4 L Albumin 3.3 L Stool Occult Blood Crossmatch 09/05/23 09/05/23 09/05/23 10:01 10:05 10:50 RBC 2.09 L Hgb 4.6 L* Hct 15.1 L* MCV 72.3 L MCH 22.2 L MCHC 30.7 L RDW 17.1 H Lymphocytes # 0.8 L APTT BUN Glucose Total Protein Albumin Stool Occult Blood Positive H Crossmatch See Detail 09/05/23 21:56 RBC 2.96 L Hgb 7.4 L D Hct 23.6 L MCV 79.9 L D MCH 24.9 L MCHC RDW 17.7 H Lymphocytes # APTT BUN Glucose Total Protein Albumin Stool Occult Blood Crossmatch - Diagnostic Findings Chest x-ray: image reviewed Assessment and Plan Assessment: Acute hypoxemic respiratory failure, secondary to suspected acute diastolic CHF exacerbation, chest x-ray on arrival shows cardiomegaly with pulmonary vascular congestion and suspected small bilateral pleural effusions. No focal infiltrates or obvious evidence of superimposed pneumonia. There is improved aeration of the right lung field that was previously opacified on most recent hospitalization. Acute dyspnea, secondary to above and severe anemia Severe symptomatic microcytic and hypochromic anemia, status post 2 units PRBC transfusion Recent hospitalization for right-sided pneumonia, possible aspiration pneumonia Moderate aortic stenosis Moderate pulmonary hypertension History of systemic hypertension History of hyperlipidemia History of CVA/TIA History of PVD History of being a difficult intubation Lifelong non-smoker Plan: Patient's medications, labs, chest x-ray reviewed Patient is currently on supplemental oxygen at 3 L/min nasal cannula, SpO2 is 100%, this probably can be weaned down Continue with diuretics twice a day. Patient denies any history of pre-existing lung disease. She does state she has history of difficult intubation at outside facility. 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 No stridor on clinical exam. Dr. Benavides will see this patient later this morning, and have further recommendations. Patient's tentatively planned EGD/colonoscopy is reportedly for 09/07/2023. Time with Patient: Greater than 30
[2023-09-06] MEDS: ATORVASTATIN 80 MG TAB PO SCH (11:16)
--- NOTE | 2023-09-06 12:36 | P.PN ---
Subjective Progress Note Date: 09/06/23 Principal diagnosis: Anemia, positive stool for occult blood This is a pleasant 78-year-old female who presented to the emergency department with complaints of shortness of breath, and frothy cough. She has a past medical history of COPD, congestive heart failure, hypertension, CVA and was recently hospitalized about 2 weeks ago for COPD exacerbation and aspiration pneumonia. She says she follows with Dr. Gallego and her hotel manager is Dr. Bennett. She had blood work showed the patient to be severely anemic. Gastroenterology was consulted for anemia. Patient denies any abdominal pain, nausea or vomiting. She states that they did tell her her stool was dark. She denies any anticoagulation, however is on Plavix and aspirin. Last taken yesterday. Last colonoscopy was [address] Lynn with findings of mild sigmoid diverticulosis otherwise normal colon. She denies any previous history of upper endoscopy, no history of peptic ulcer disease. She denies any NSAID use. Labs: WBC 6.0 hemoglobin 4.6 hematocrit 15 platelet count 175,000 INR 1.1 sodium 141 potassium 3.9 BUN 24 creatinine 0.7 total bilirubin 0.6 AST 23 ALT 19 alkaline phosphatase 64 stool occult blood positive 09/06/2023 Patient is seen and examined today as a follow-up for anemia. She denies any blood in her stool. No abdominal pain nausea or vomiting. Repeat hemoglobin 7.7, she is status post 2 units of blood. Oxygen saturation 94 to 96% on 3 L. She denies any shortness of breath or chest pain at this time. Objective - Vital Signs Vital signs: Vital Signs Temp 98.1 F 09/06/23 08:00 Pulse 74 09/06/23 08:00 Resp 20 09/06/23 08:00 BP 138/68 09/06/23 08:00 Pulse Ox 99 09/06/23 08:39 FiO2 Intake & Output 09/05/23 09/06/23 09/06/23 18:59 06:59 18:59 Intake Total 620 118 Output Total 1700 775 Balance -1253 -972 118 Weight 75.75 kg 85.5 kg 85.5 kg Intake: Oral 118 Blood Product 620 Rc As-1 Unit 310 [id number] Rc As-1 Unit 310 [id number] Output: Urine 1700 775 Other: Voiding Method Indwelling Catheter Indwelling Catheter - Exam General appearance: The patient is alert, oriented, appears in no acute distress. HET: Head is normocephalic and atraumatic. Conjunctiva pink. Sclera anicteric. Neck: Supple without lymphadenopathy. Abdomen: Soft, nontender, nondistended with bowel sounds. No guarding or rigidity. Extremities: Normal skin color and turgor. No pedal edema Skin: No rashes, no jaundice Neurological: No focal deficits. Alert and oriented. - Labs CBC & Chem 7: 09/06/23 07:42 09/06/23 07:42 Labs: Abnormal Lab Results - Last 24 Hours (Table) 09/05/23 09/05/23 09/06/23 Range/Units 10:05 21:56 07:42 RBC 2.96 L 3.13 L (3.80-5.40) m/uL Hgb 7.4 L D 7.7 L (11.4-16.0) gm/dL Hct 23.6 L 25.2 L (34.0-46.0) % MCV 79.9 L D (80.0-100.0) fL MCH 24.9 L 24.5 L (25.0-35.0) pg MCHC 30.5 L (31.0-37.0) g/dL RDW 17.7 H 17.8 H (11.5-15.5) % Lymphocytes # 0.8 L (1.0-4.8) k/uL Chloride (98-107) mmol/L Carbon Dioxide (22-30) mmol/L BUN (7-17) mg/dL Crossmatch See Detail 09/06/23 Range/Units 07:42 RBC (3.80-5.40) m/uL Hgb (11.4-16.0) gm/dL Hct (34.0-46.0) % MCV (80.0-100.0) fL MCH (25.0-35.0) pg MCHC (31.0-37.0) g/dL RDW (11.5-15.5) % Lymphocytes # (1.0-4.8) k/uL Chloride 108 H (98-107) mmol/L Carbon Dioxide 31 H (22-30) mmol/L BUN 21 H (7-17) mg/dL Crossmatch Assessment and Plan (1) Symptomatic anemia Narrative/Plan: 78-year-old female with multiple comorbidities including COPD and recent aspiration pneumonia came in for shortness of breath and was found to have severe microcytic anemia. Patient also had elevated BUN, this is usually consistent with a upper GI bleed. However due to severe anemia would recommend evaluation for GI blood loss with both endoscopy and colonoscopy. Patient is quite concerned with her respiratory status and states that she has restrictive disease and that she is concerned about having an EGD and is refusing at this time unless cleared by her high lift operator Dr. Palm. Pulmonology consulted. Will plan for EGD and colonoscopy on Sunday if patient is cleared by pulmonology. Current Visit: Yes Status: Acute Code(s): D64.9 - ANEMIA, UNSPECIFIED SNOMED Code(s): 052181702 (2) COPD (chronic obstructive pulmonary disease) Current Visit: Yes Status: Acute Code(s): J44.9 - CHRONIC OBSTRUCTIVE PULMONARY DISEASE, UNSPECIFIED SNOMED Code(s): 83282947 (3) CHF (congestive heart failure) Current Visit: Yes Status: Acute Code(s): I50.9 - HEART FAILURE, UNSPECIFIED SNOMED Code(s): 59596679 Plan: 1. Continue symptomatic and supportive care 2. Daily CBC, transfuse for hemoglobin less than 7 3. Protonix 40 mg daily 4. Avoid NSAIDs 6. Clear liquid diet 7. Hold aspirin and Plavix 8. Pulmonology consulted for clearance for EGD and colonoscopy, plan is for Sunday09/07/23. Appreciate their recommendations 9. Will tentatively schedule patient for EGD colonoscopy for tomorrow to evaluate for possible GI source of blood loss Thank you for this consultation, we will continue to follow. Dr. Lilia Evans I agree with the dictator's note, documented as a scribe by Dana Kohli.
[2023-09-06] MEDS: POTASSIUM CHLORIDE ER 20 MEQ TAB.ER PO STA (12:37)
[2023-09-06] MEDS: POTASSIUM CHLORIDE 10 MEQ in WATER FOR INJECTION 1 100ML.BAG IVPB SCH (14:58)
--- NOTE | 2023-09-06 16:06 | P.CNPUL ---
History of Present Illness Consult date: 09/06/23 Chief complaint: Pulmonary clearance for EGD History of present illness: This is a 78-year-old female patient who presented to us with profound anemia and the patient's hemoglobin was 4.7 at time of admission the patient was given a total of 2 days of packed RBC and her current hemoglobin is above 7. She reported dark/tarry stool while at home. No bright red blood per rectum. No nausea or emesis. No abdominal pain. She has been maintained on a combination of aspirin and Plavix on outpatient basis and the patient has fecal occult posit carmina. Based on that, EGD and colonoscopy was recommended by GI services. Nevertheless, the patient stated that she is very much concerned about the procedure as the patient has had previous history of difficult intubation and previous attempts to intubate this patient during early hospitalization at [facility] stated that the patient has been extremely difficult to intubate and for that reason a pulmonary consultation was requested. There is still ongoing intention to do an EGD and colonoscopy regarding her GI bleeding workup. Her previous endoscopy that was done back in 2019 have shown diverticulosis and the patient has not undergone any previous EGD. The patient also has other comorbidities and the patient is known to have previous history of peripheral vascular disease and hypertension and she was recently hospitalized between 07/17/2023 to 07/20/2023 for an extensive right lung pneumonia that was thought to be related to an aspiration. At that time, the patient had a brief stay in the intensive care unit. She did not require intubation or mechanical ventilation.The most recent chest x-ray that was done on 09/05/2023 showed cardiomegaly and pulm vessel congestion and bilateral pleural effusion. There was some limited infiltration of the right lung. Comparing it to the earlier chest x-ray from July 2023, there is marked improvement. At the same time, the patient has history of valvular heart disease. The patient has moderate aortic stenosis and moderate mitral stenosis and a preserved LV function and this is based on a echocardiogram that was done on 07/17/2023 which showed an ejection fraction of 60 to 65% along with valvular abnormalities as discussed. The patient was also known to have coronary artery disease. An outpatient CT angiogram of the neck that was done by cardiology showed a left common carotid artery stent graft that was patent and the left carotid bifurcation stent graft within the internal carotid artery that was approximate 25 to 50% narrowing and there was more than 70% stenosis of the right carotid bifurcation secondary to calcified plaque. No evidence of any dissection. I also reviewed the CAT scan of the chest to look at the patient's upper airways and I do appreciate some narrowing in the subglottic trachea. However, on examination, the patient does not have any significant stridor. She is currently on oxygen at 4 L nasal cannula. Pulse ox of 99%. She is on Lasix 20 mg IV every 12 hours. She denies having any Review of Systems CONSTITUTIONAL: Denies any recent significant weight loss or weight gain. Denies fevers. EYES: Denies change in vision. EARS, NOSE, MOUTH, THROAT: Denies headaches, denies sore throat. CARDIOVASCULAR: Denies chest pain, palpitations or syncopal episodes. RESPIRATORY: Admits shortness of breath and cough with frothy sputum. Denies any congestion, hemoptysis, or purulent sputum. GASTROINTESTINAL: Denies change in appetite, abdominal pain, nausea and vomiting, or diarrhea. Admits to dark stools that are formed. Denies any diarrhea or kenan blood. GENITOURINARY: Denies hematuria, denies infections. MUSKULOSKELETAL: Denies pain, denies swelling. INTEGUMENTARY: Denies rash, denies eczema. NEUROLOGICAL: Denies recent memory loss, no recent seizure activity. PSYCHIATRIC: Denies anxiety, denies depression. HEMATOLOGIC/LYMPHATIC: Denies anemia, denies enlarged lymph node Past Medical History Past Medical History: Coronary Artery Disease (CAD), CVA/TIA, Hypertension, Musculoskeletal Disorder, Vascular Disorder Additional Past Medical History / Comment(s): states CVA (no residual ), states stent in leg, rash on lower legs, ankles swell, pt states on Nutrisystem diet a nd has lost 20-25 # with frequent stools. Carotid artery stenosis. Valvular heart disease with moderate aortic stenosis, moderate mitral stenosis at the present LV function. Recent hospitalization for a right lung pneumonia and the hospitalization was between 07/17/2023 to 07/20/2023. Diverticulosis History of Any Multi-Drug Resistant Organisms: None Reported Past Surgical History: Joint Replacement Additional Past Surgical History / Comment(s): total right knee x2, stem cell injections prior to total knees, cataract surgery, stent in leg. Additional Past Anesthesia/Blood Transfusion Reaction / Comment(s): STATES UNABLE TO INTUBATE- THEY HAD TO DO A SPINAL., STATES SHE HAS LETTER FROM [facility] AND INSTRUCTED PATIENT TO BRING THIS LETTER WITH HER. Past Psychological History: No Psychological Hx Reported Smoking Status: Never smoker Past Alcohol Use History: None Reported Past Drug Use History: None Reported - Past Family History Mother Family Medical History: Cancer Additional Family Medical History / Comment(s): colon cancer Medications and Allergies Home Medications Medication Instructions Recorded Confirmed Type Atorvastatin [Lipitor] 80 mg PO DAILY 05/11/20 09/05/23 History Furosemide [Lasix] 20 mg PO BID 05/11/20 09/05/23 History Losartan Potassium [Cozaar] 25 mg PO BID 05/11/20 09/05/23 History Potassium Chloride [Klor-Con 10 ER] 10 meq PO DAILY 07/17/23 09/05/23 History Aspirin 81 mg PO DAILY #30 tab 07/20/23 09/05/23 Rx Clopidogrel [Plavix] 75 mg PO DAILY #30 tab 07/20/23 09/05/23 Rx Ipratropium-Albuterol Nebulize 3 ml INHALATION RT-QID #120 each 07/20/23 09/05/23 Rx [Duoneb 0.5 mg-3 mg/3 ml Soln] Ammonium Lactate Cream [Lac-Hydrin 1 applic TOPICAL DAILY 09/05/23 09/05/23 History 12% Cream] Calcium Carbonate [Tums] 1,000 mg PO QID PRN 09/05/23 09/05/23 History Pantoprazole [Protonix] 40 mg PO BID 09/05/23 09/05/23 History Allergies Allergy/AdvReac Type Severity Reaction Status Date / Time Penicillins AdvReac Unknown PASSED OUT Verified 09/05/23 12:05 Physical Exam Vitals: Vital Signs Temp Pulse Pulse Resp BP BP Pulse Ox 09/06/23 08:39 99 09/06/23 04:00 20 140/68 96 09/06/23 00:00 98 F 20 148/63 100 09/05/23 21:28 98.2 F 74 20 138/70 100 09/05/23 20:48 98.5 F 87 18 165/64 97 09/05/23 20:00 78 18 167/81 97 09/05/23 17:21 99.3 F 74 18 174/70 09/05/23 14:45 99.0 F 74 22 183/86 100 09/05/23 14:33 99.0 F 75 20 192/81 100 09/05/23 14:20 99.0 F 79 22 183/87 100 09/05/23 12:14 98.4 F 83 24 190/85 100 09/05/23 12:00 80 18 179/76 100 09/05/23 11:54 98.4 F 88 22 177/75 100 09/05/23 11:41 98.4 F 80 12 153/64 94 L Intake and Output 09/05/23 09/06/23 09/06/23 22:59 06:59 14:59 Intake Total 310 118 Output Total 1700 775 Balance -1390 -775 118 Intake: Oral 118 Blood Product 310 Rc As-1 Unit 310 [id number] Output: Urine 1700 775 Other: Voiding Method Indwelling Catheter Weight 85.5 kg 85.5 kg GENERAL EXAM: Alert, 78-year-old white female, comfortable in no apparent distress. The patient is currently on 3 L of oxygen by nasal cannula. The patient is calm and comfortable. HEAD: Normocephalic and atraumatic EYES: Normal reaction of pupils, equal size. NOSE: Clear with pink turbinates. THROAT: No erythema or exudates. No throat abnormalities. No scars over the neck NECK: No masses, no JVD. Short neck. No stridor. CHEST: No chest wall deformity. LUNGS: Equal air entry with no crackles, wheeze, rhonchi or dullness. No conversational dyspnea or accessory muscle use while at rest.. CVS: S1 and S2 normal with no audible murmur, regular rhythm. No extra heart sounds ABDOMEN: No hepatosplenomegaly, active bowel sounds, no guarding or rigidity. SPINE: No scoliosis or deformity SKIN: No rashes CENTRAL NERVOUS SYSTEM: No focal deficits, tone is normal in all 4 extremities. EXTREMITIES: There is no peripheral edema, clubbing, or cyanosis. Peripheral pulses are intact. Results - Laboratory Findings CBC and BMP: 09/06/23 07:42 09/06/23 07:42 PT/INR, D-dimer PT 12.2 sec (10.0-12.5) 09/05/23 09:13 INR 1.1 (<1.2) 09/05/23 09:13 Abnormal lab findings: Abnormal Labs 09/05/23 09/05/23 09/05/23 09:13 09:13 09:13 RBC 2.17 L Hgb 4.7 L* D Hct 15.9 L* MCV 73.2 L D MCH 21.7 L MCHC 29.7 L RDW 17.1 H Lymphocytes # 0.9 L APTT 21.2 L Chloride Carbon Dioxide BUN 24 H Glucose 110 H Total Protein 5.4 L Albumin 3.3 L Stool Occult Blood Crossmatch 09/05/23 09/05/23 09/05/23 10:01 10:05 10:50 RBC 2.09 L Hgb 4.6 L* Hct 15.1 L* MCV 72.3 L MCH 22.2 L MCHC 30.7 L RDW 17.1 H Lymphocytes # 0.8 L APTT Chloride Carbon Dioxide BUN Glucose Total Protein Albumin Stool Occult Blood Positive H Crossmatch See Detail 09/05/23 09/06/23 09/06/23 21:56 07:42 07:42 RBC 2.96 L 3.13 L Hgb 7.4 L D 7.7 L Hct 23.6 L 25.2 L MCV 79.9 L D MCH 24.9 L 24.5 L MCHC 30.5 L RDW 17.7 H 17.8 H Lymphocytes # 0.8 L APTT Chloride 108 H Carbon Dioxide 31 H BUN 21 H Glucose Total Protein Albumin Stool Occult Blood Crossmatch - Diagnostic Findings Chest x-ray: image reviewed Assessment and Plan Plan: Severe symptomatic anemia with a hemoglobin of 4.7 at time of admission, likely secondary to a ongoing occult GI bleed which is likely of an upper GI source. The patient has been maintained on a combination of aspirin and Plavix on outpatient basis. Given titrated up to units of packed RBC and the hemoglobin is currently above 7. The patient is being further worked up and there is interest in doing EGD and colonoscopy. There is concern upper airway as the patient has been difficult airway and she has been a very difficult intubation should there be any told to have a respiratory failure during the procedure. Right lung aspiration pneumonia hospitalized between 07/17/2023 and 07/20/2023, likely improved with some minimal residual inflammatory changes involving the right lung. Nevertheless, the radiographic picture is improved considerably Questionable subglottic stenosis as noted on the CAT scan of the neck. The patient has no stridor. The patient has had previous intubations. No previous history of tracheostomy. Previous history of CVA Carotid artery disease Peripheral vascular disease with previous vascular intervention involving the lower extremities along with stenting Valvular heart disease with moderate aortic stenosis and moderate mitral steno sis and preserved LV function Hypertension Hyperlipidemia Diverticular disease, and previous colonoscopy was done 05/13/2020 showing mild sigmoid diverticulosis Plan Hold aspirin and Plavix Monitor hemoglobin and transfuse accordingly to maintain hemoglobin above 7 There is concern of subglottic tracheal stenosis versus in general and airway that is difficult to intubate. Ideally, direct visualization will be needed to evaluate the patency of the airway. I discussed this with the patient. My suggestion is to do a quick bronchoscopy for upper and lower airway inspection and make sure the airway is quite patent. If no significant airway abnormalities, the patient should be able to undergo subsequent EGD and colonoscopy without any complications. Patient has been recently treated for aspiration pneumonia of the right lung. Minimal residual changes/inflammatory changes involving the follow-up chest x- ray. Valvular heart disease and the patient is currently on IV Lasix Will continue to follow For now, the plan is to do a upper and lower airway inspection tomorrow and this will be coordinated with gastroenterology. If the airway is cleared, the patient will continue having her EGD and colonoscopy. This case was discussed with gastroenterology.
[2023-09-06] MEDS: PEG 3350 (236 GM/BTL) + LYTES 4,000 ML BOTTLE PO ONE (16:48)
--- NOTE | 2023-09-06 22:50 | P.PN ---
Subjective Progress Note Date: 09/06/23 Patient is a 78-year-old female with a past medical history of COPD on home oxygen at 3 L via nasal cannula, history of CVA/TIA, hypertension presents to ER with complaints of shortness of breath and cough with frothy sputum. Patient states that she is also having dark-colored stools for the past 3 to 4 days. Denies any complaints of fever or chills. No complaints of abdominal pain. No nausea or vomiting. No hematemesis. No chest pain or worsening shortness of breath. Patient was recently admitted to hospital in July 2023 due to syncopal episode after she was ejected out of her new recliner. And also was treated for pneumonia. Patient was seen by cardiology and pulmonary and neurology at that time. Carotid duplex showed bilateral ICA stenosis severe greater than 70% left ICA, moderate stenosis between 50 to 69% on right ICA. CTA neck could not be done at the time. As patient could not lay flat. Patient is currently taking aspirin and Plavix at home. Patient states that she has been having bilateral leg swelling since her knee surgeries. On admission EKG showed sinus rhythm with occasional premature ventricular complexes. Chest x-ray showed cardiomegaly, pulmonary vascular congestion and bilateral pleural effusions. Correlate with BNP for congestive heart failure. Recent echocardiogram showed normal ejection fraction and moderate aortic stenosis. Moderate pulmonary hypertension and severe mitral annular calcification. Neck CTA on 08/17/2023 showed left common carotid artery stent graft which appears patent no evidence of significant stenosis. At least greater than 70% stenosis of the right carotid bifurcation secondary to calcified plaque. Laboratory data showed WBC 6.2 hemoglobin 4.7 Hemoglobin during previous admission was 9.4 MCV 73.2 and platelets 171 RDW 17.1 Sodium 141 potassium 3.9 chloride 107 bicarb is 27 BUN 24 and creatinine 0.71 blood sugar 110 and proBNP 3320, albumin 3.3 FOBT positive. 09/05/2023 Patient is currently resting in the bed. Awake alert and oriented. Requiring 3.5 L oxygen via nasal cannula. No complaints of chest pain. Denies any nausea or vomiting. Patient is being continued on Protonix 40 mg IV daily. Also on IV Lasix 20 mg twice daily. Laboratory data showed WBC 7.7 hemoglobin 7.7 and platelets 154 and MCV 80.5 Sodium 142, potassium 3.5 chloride 108 bicarb is 31 BUN 21 creatinine 0.69 and calcium 8.7. Pulmonary and GI is on board. Current medications reviewed. ROS Constitutional: Patient denies any fever or chills . Patient does have generalized weakness. No weight loss. Abdomen: Patient denied nausea vomiting and diarrhea and abdominal pain. Dark- colored stools. Cardiovascular: Patient denies any chest pain. Does have short of breath no palpitations. Respiratory: patient denied any cough is from production. Positive for shortness of breath Neurologic: Patient denied any numbness or tingling headache. PHYSICAL EXAMINATION: Patient is lying in the bed comfortably, no acute distress, awake alert and oriented.. HEENT: Normocephalic. Neck is supple. Pupils reactive. Nostrils clear. Oral cav ity is moist. Neck reveals no JVD, carotid bruits, or thyromegaly. CHEST EXAMINATION: Trachea is central. Symmetrical expansion. Bibasilar diminished sounds and basilar crackles. No wheezing. CARDIAC: Normal S1, S2 with no gallops. No murmurs ABDOMEN: Soft. Bowel sounds normal. No organomegaly. No abdominal bruits. Extremities: Bilateral lower extremity 2+ edema. No clubbing or cyanosis Neurologically awake, alert, oriented x3. Able to move all extremities while in bed. s. No focal deficits noted Skin: No rash or skin lesions. Psychiatric: Coperative. Nonsuicidal Musculoskeletal: No joint swelling or deformity. Normal range of motion. Assessment Acute blood loss anemia secondary to GI bleed likely upper GI with dark-colored stools. Symptomatic anemia Questionable subglottic stenosis Acute on chronic CHF with preserved ejection fraction and moderate pulmonary hypertension Moderate aortic stenosis COPD on home oxygen 3 L via nasal cannula History of CVA/TIA Right ICA 70% stenosis at the bifurcation Hypertension DVT prophylaxis with SCDs Plan: Patient was transfused with 2 unit of PRBC. Hemoglobin improved to 7.7 today. Continue with PPI IV daily and monitor H&H. Gastroenterology is on board. Plan for EGD and colonoscopy tomorrow. Pulmonary has seen the patient and recommends upper and lower airway inspection prior to proceeding with EGD and colonoscopy. Continue with DuoNebs. Aspirin Plavix on hold. Patient will be continued on Lasix due to fluid overload with anemia contributing. Will be changed to p.o. tomorrow. Continue to follow closely. Objective - Vital Signs Vital signs: Vital Signs Temp 98 F 09/06/23 00:00 Pulse 74 09/05/23 21:28 Resp 20 09/06/23 04:00 BP 140/68 09/06/23 04:00 Pulse Ox 99 09/06/23 08:39 FiO2 Intake & Output 09/05/23 09/06/23 09/06/23 18:59 06:59 18:59 Intake Total 620 118 Output Total 1700 775 Balance -1080 -775 118 Weight 75.75 kg 85.5 kg 85.5 kg Intake: Oral 118 Blood Product 620 Rc As-1 Unit 310 [id number] Rc As-1 Unit 310 [id number] Output: Urine 1700 775 Other: Voiding Method Indwelling Catheter - Labs CBC & Chem 7: 09/06/23 07:42 09/06/23 07:42 Labs: Abnormal Lab Results - Last 24 Hours (Table) 09/05/23 09/05/23 09/05/23 Range/Units 10:01 10:05 10:50 RBC 2.09 L (3.80-5.40) m/uL Hgb 4.6 L* (11.4-16.0) gm/dL Hct 15.1 L* (34.0-46.0) % MCV 72.3 L (80.0-100.0) fL MCH 22.2 L (25.0-35.0) pg MCHC 30.7 L (31.0-37.0) g/dL RDW 17.1 H (11.5-15.5) % Lymphocytes # 0.8 L (1.0-4.8) k/uL Chloride (98-107) mmol/L Carbon Dioxide (22-30) mmol/L BUN (7-17) mg/dL Stool Occult Blood Positive H (Negative) Crossmatch See Detail 09/05/23 09/06/23 09/06/23 Range/Units 21:56 07:42 07:42 RBC 2.96 L 3.13 L (3.80-5.40) m/uL Hgb 7.4 L D 7.7 L (11.4-16.0) gm/dL Hct 23.6 L 25.2 L (34.0-46.0) % MCV 79.9 L D (80.0-100.0) fL MCH 24.9 L 24.5 L (25.0-35.0) pg MCHC 30.5 L (31.0-37.0) g/dL RDW 17.7 H 17.8 H (11.5-15.5) % Lymphocytes # 0.8 L (1.0-4.8) k/uL Chloride 108 H (98-107) mmol/L Carbon Dioxide 31 H (22-30) mmol/L BUN 21 H (7-17) mg/dL Stool Occult Blood (Negative) Crossmatch Assessment and Plan Time with Patient: Greater than 30
[2023-09-07 08:08] LABS: Anisocytosis Slight; HCT 26.4 % (34.0-46.0); Hypochromasia Marked; MCH 24.8 pg (25.0-35.0); MCHC 30.4 g/dL (31.0-37.0); MCV 81.6 fL (80.0-100.0); Mean Platelet Volume 11.7; Platelet Count 153 k/uL (150-450); Poikilocytosis Marked; RBC 3.24 m/uL (3.80-5.40); RDW 16.9 % (11.5-15.5); WBC 8.1 k/uL (3.8-10.6)
[2023-09-07] MEDS: POTASSIUM CHLORIDE ER 10 MEQ TAB.ER.PRT PO SCH (08:44)
[2023-09-07 08:48] LABS: African American GFR (CKD) >90 (>60 ml/min/1.73 sqM); Anion Gap 4 mmol/L; Blood Urea Nitrogen 17 mg/dL (7-17); Calcium 8.6 mg/dL (8.4-10.2); Carbon Dioxide 32 mmol/L (22-30); Chloride 105 mmol/L (98-107); Glucose 86 mg/dL (74-99); Non-African American GFR(CKD) 88 (>60 ml/min/1.73 sqM); Potassium 3.8 mmol/L (3.5-5.1); Sodium 141 mmol/L (137-145)
[2023-09-07] MEDS: LACTATED RINGERS 1,000 ML IV ONE (15:27)
[2023-09-07] MEDS ORDERED: LIDOCAINE 1% INJ 10MG/ML (20 ML MDV) ONE (15:30)
[2023-09-07] MEDS ORDERED: PROPOFOL 10 MG/ML 20 ML VIAL IV ONE (15:30)
[2023-09-07] MEDS ORDERED: MIDAZOLAM 2 MG/2 ML VIAL ONE (15:30)
--- NOTE | 2023-09-07 15:36 | P.PN ---
Subjective Progress Note Date: 09/07/23 This is a 78-year-old female patient who presented to us with profound anemia and the patient's hemoglobin was 4.7 at time of admission the patient was given a total of 2 days of packed RBC and her current hemoglobin is above 7. She reported dark/tarry stool while at home. No bright red blood per rectum. No nausea or emesis. No abdominal pain. She has been maintained on a combination of aspirin and Plavix on outpatient basis and the patient has fecal occult positive. Based on that, EGD and colonoscopy was recommended by GI services. Nevertheless, the patient stated that she is very much concerned about the procedure as the patient has had previous history of difficult intubation and previous attempts to intubate this patient during early hospitalization at [facility] stated that the patient has been extremely difficult to intubate and for that reason a pulmonary consultation was requested. There is still ongoing intention to do an EGD and colonoscopy regarding her GI bleeding workup. Her previous endoscopy that was done back in 2019 have shown diverticulosis and the patient has not undergone any previous EGD. The patient also has other comorbidities and the patient is known to have previous history of peripheral vascular disease and hypertension and she was recently hospitalized between 07/17/2023 to 07/20/2023 for an extensive right lung pneumonia that was thought to be related to an aspiration. At that time, the patient had a brief stay in the intensive care unit. She did not require intubation or mechanical ventilation.The most recent chest x-ray that was done on 09/05/2023 showed cardiomegaly and pulm vessel congestion and bilateral pleural effusion. There was some limited infiltration of the right lung. Comparing it to the earlier chest x-ray from July 2023, there is marked improvement. At the same time, the patient has history of valvular heart disease. The patient has moderate aortic stenosis and moderate mitral stenosis and a preserved LV function and this is based on a echocardiogram that was done on 07/17/2023 which showed an ejection fraction of 60 to 65% along with valvular abnormalities as discussed. The patient was also known to have coronary artery disease. An outpatient CT angiogram of the neck that was done by cardiology showed a left common carotid artery stent graft that was patent and the left carotid bifurcation stent graft within the internal carotid artery that was approximate 25 to 50% narrowing and there was more than 70% stenosis of the right carotid bifurcation secondary to calcified plaque. No evidence of any dissection. I also reviewed the CAT scan of the chest to look at the patient's upper airways and I do appreciate some narrowing in the subglottic trachea. However, on examination, the patient does not have any significant stridor. She is currently on oxygen at 4 L nasal cannula. Pulse ox of 99%. She is on Lasix 20 mg IV every 12 hours. On today's evaluation of 09/07/2023, the patient is n.p.o. and I am going to do a quick upper airway inspection via bronchoscopy to evaluate for tracheal stenosis. If no significant airway compromise, the patient is going to undergo a EGD and a colonoscopy. Note that the patient Presented to us with a GI bleed. Hemoglobin is stable. She is currently off aspirin and Plavix. No other significant events over the past 24 hours. She is awake and alert and she is currently on 2 L O2 nasal cannula with a pulse ox of 91 to 92%. No respiratory distress. No stridor. GI is on the case. Objective - Vital Signs Vital signs: Vital Signs Temp 98.0 F 09/07/23 08:41 Pulse 80 09/07/23 08:41 Resp 20 09/07/23 08:41 BP 127/58 09/07/23 08:41 Pulse Ox 99 09/07/23 08:41 FiO2 Intake & Output 09/06/23 09/07/23 09/07/23 18:59 06:59 18:59 Intake Total 118 1050 Output Total 625 1550 Balance -507 -1550 1050 Weight 85.5 kg 72.6 kg Intake: IV 10 Invasive Line 1 10 Oral 118 1040 Output: Urine 625 1550 Other: Voiding Method Indwelling Catheter Indwelling Catheter Indwelling Catheter # Bowel Movements 2 1 - Exam GENERAL EXAM: Alert, 78-year-old white female, comfortable in no apparent distress. The patient is currently on 3 L of oxygen by nasal cannula. The patient is calm and comfortable. HEAD: Normocephalic and atraumatic EYES: Normal reaction of pupils, equal size. NOSE: Clear with pink turbinates. THROAT: No erythema or exudates. No throat abnormalities. No scars over the neck NECK: No masses, no JVD. Short neck. No stridor. CHEST: No chest wall deformity. LUNGS: Equal air entry with no crackles, wheeze, rhonchi or dullness. No convers ational dyspnea or accessory muscle use while at rest.. CVS: S1 and S2 normal with no audible murmur, regular rhythm. No extra heart sounds ABDOMEN: No hepatosplenomegaly, active bowel sounds, no guarding or rigidity. SPINE: No scoliosis or deformity SKIN: No rashes CENTRAL NERVOUS SYSTEM: No focal deficits, tone is normal in all 4 extremities. EXTREMITIES: There is no peripheral edema, clubbing, or cyanosis. Peripheral pulses are intact. - Labs CBC & Chem 7: 09/07/23 07:57 09/07/23 07:57 Labs: Abnormal Lab Results - Last 24 Hours (Table) 09/07/23 09/07/23 Range/Units 07:57 07:57 RBC 3.24 L (3.80-5.40) m/uL Hgb 8.0 L (11.4-16.0) gm/dL Hct 26.4 L (34.0-46.0) % MCH 24.8 L (25.0-35.0) pg MCHC 30.4 L (31.0-37.0) g/dL RDW 16.9 H (11.5-15.5) % Carbon Dioxide 32 H (22-30) mmol/L Assessment and Plan Plan: Severe symptomatic anemia with a hemoglobin of 4.7 at time of admission, likely secondary to a ongoing occult GI bleed which is likely of an upper GI source. The patient has been maintained on a combination of aspirin and Plavix on outpatient basis. Given titrated up to units of packed RBC and the hemoglobin is currently above 7. The patient is being further worked up and there is interest in doing EGD and colonoscopy. There is concern upper airway as the patient has been difficult airway and she has been a very difficult intubation should there be any told to have a respiratory failure during the procedure. No evidence of any ongoing GI bleed and the patient's hemoglobin is stable at 8.0. Right lung aspiration pneumonia hospitalized between 07/17/2023 and 07/20/2023, likely improved with some minimal residual inflammatory changes involving the right lung. Nevertheless, the radiographic picture is improved considerably Questionable subglottic stenosis as noted on the CAT scan of the neck. The patient has no stridor. The patient has had previous intubations. No previous history of tracheostomy. Previous history of CVA Carotid artery disease Peripheral vascular disease with previous vascular intervention involving the lower extremities along with stenting Valvular heart disease with moderate aortic stenosis and moderate mitral stenosis and preserved LV function Hypertension Hyperlipidemia Diverticular disease, and previous colonoscopy was done 05/13/2020 showing mild sigmoid diverticulosis Plan Keep the aspirin and Plavix on hold Monitor hemoglobin and transfuse accordingly to maintain hemoglobin above 7, most recent hemoglobin is at 8.0 There is concern of subglottic tracheal stenosis versus in general and airway that is difficult to intubate. Ideally, direct visualization will be needed to evaluate the patency of the airway. I discussed this with the patient. My suggestion is to do a quick bronchoscopy for upper and lower airway inspection and make sure the airway is quite patent. If no significant airway abnormalities, the patient should be able to undergo subsequent EGD and colonoscopy without any complications. The patient is going to undergo the bronchoscopy today for an upper and lower airway inspection to be evaluated for tracheal stenosis. If no significant airway compromise, the patient will be completing her EGD and colonoscopy. Patient has been recently treated for aspiration pneumonia of the right lung. Minimal residual changes/inflammatory changes involving the follow-up chest x- ray. Valvular heart disease and the patient is currently on IV Lasix Will continue to follow Patient is NPO. Procedure will be done today..
[2023-09-07] MEDS: IV FLUID CONTINUATION 900 ML IV ONE (15:53)
--- NOTE | 2023-09-07 16:19 | P.PCN ---
Date of Procedure: 09/07/23 Procedure(s) Performed: Brief history: Patient is a pleasant 78-year-old white female with history of COPD on home O2 admitted hospital with severe symptomatic microcytic anemia and hemoglobin of 4.6 g/dL. She denies any GI bleed. She is scheduled for an upper endoscopy as well as colonoscopy as a part of evaluation of severe symptomatic anemia. Pulmonary clearance was obtained from Dr. Benavides. Procedure performed: Esophagogastroduodenoscopy biopsy Colonoscopy Preoperative diagnosis: severe symptomatic microcytic anemia Anesthesia: MAC Procedure: After informed consent was obtained from the patient was brought into the endoscopy unit and IV sedation was administered by anesthesia under continuous monitoring. Initially upper endoscopy was done. The Olympus GF 160 video endoscope was inserted inserted into the mouth and esophagus intubated without any difficulty and was gradually advanced into the stomach and duodenum and carefully examined. The bulb and second part of the duodenum appeared normal. The scope was then withdrawn into the stomach adequately insufflated with air and upon careful examination the antrum had a 5 mm superficial ulcer with no active bleeding and biopsies were done from this area. There was antral gastritis noted. Rest of the body, cardia and fundus appeared normal. The scope was then withdrawn into the esophagus. The GE junction was located at 40 cm to the incisors. It appeared regular with no erythema erosions or ulcerations. Rest of the esophagus appeared normal. Patient tolerated the procedure well. At this time the patient continued to remain sedation. Initial digital rectal examination was normal. Olympus CF 160 video colonoscope was then inserted into the rectum and gradually advanced to the cecum without any difficulty. Careful examination was performed as the scope was gradually being withdrawn. The prep was excellent. The cecum, ascending colon, transverse colon, descending colon, sigmoid colon and rectum appeared normal. scattered sigmoid diverticulosis Retroflexion was performed in the rectum and no lesions were noted. Patient tolerated the procedure well. Impression: 1. Upper endoscopy revealed 5 mm gastric antral ulcer and antral gastritis 2. Colonoscopy revealed scattered sigmoid diverticulosis but no evidence of colorectal neoplasia Recommendations: Findings of this examination were discussed with the patient as well as her family. Follow with the biopsy results. She will be continued on Protonix 40 mg daily and avoid NSAIDs. Start iron supplements. Monitor CBC daily.
[2023-09-07] MEDS: IV FLUID CONTINUATION 1,000 ML IV ONE (16:30)
--- NOTE | 2023-09-07 18:45 | P.PCN ---
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 The procedure was done prior to the patient having EGD and colonoscopy. It was crucial to evaluate the patient's airways as the patient was reporting having a difficult airway even in the form of difficult intubation versus tracheal stenosis as she has been told in outside hospital. There was concern of respiratory compromise during the endoscopy for that reason I performed a flexible bronchoscopy to evaluate the airway and assess her ability to undergo her endoscopy which will involve an EGD and colonoscopy under conscious sedation The procedure was done under conscious sedation and the patient was given propofol and Versed. I was able to introduce the flexible bronchoscope through the right nostril and I was able to advance a flex bronchoscope to the posterior pharynx and later on to the larynx. There was excess amount of redundant adipose tissue in the upper airways with dynamic collapse of the airways under sedation consistent with obstructive sleep apnea. I was able to pass the bronchoscope and inspect the upper airway. Epiglottis was identified. It was within normal. Vallecula, arytenoids and vocal cords were all within normal limits and the patient had normal vocal cord function and mobility. Following that, the bronchoscope was passed into the subglottic trachea and subglottic area was patent. No evidence of any tracheal stenosis. There was however severe tracheobronchomalacia throughout the patient's airways. The membranous trachea was very dynamic and the patient was having complete collapse of the airway with exhalation and coughing. Nevertheless, there was no anatomic obstruction and this was dynamic obstruction consistent with tracheobronchomalacia. Similar findings were seen in the bilateral mainstem bronchi and the various segments involving the upper lobes and lower lobes bilaterally. Some gnosis poor secretions were also encountered. No endobronchial tumors. The flexible bronchoscope was removed and the procedure was terminated and subsequently the patient was given the clearance to undergo her EGD and colonoscopy. The patient was kept on a oxygen by 10 L facemask throughout the procedure. No complications.
--- NOTE | 2023-09-07 22:38 | P.PN ---
Subjective Progress Note Date: 09/07/23 Patient is a 78-year-old female with a past medical history of COPD on home oxygen at 3 L via nasal cannula, history of CVA/TIA, hypertension presents to ER with complaints of shortness of breath and cough with frothy sputum. Patient states that she is also having dark-colored stools for the past 3 to 4 days. Denies any complaints of fever or chills. No complaints of abdominal pain. No nausea or vomiting. No hematemesis. No chest pain or worsening shortness of breath. Patient was recently admitted to hospital in July 2023 due to syncopal episode after she was ejected out of her new recliner. And also was treated for pneumonia. Patient was seen by cardiology and pulmonary and neurology at that time. Carotid duplex showed bilateral ICA stenosis severe greater than 70% left ICA, moderate stenosis between 50 to 69% on right ICA. CTA neck could not be done at the time. As patient could not lay flat. Patient is currently taking aspirin and Plavix at home. Patient states that she has been having bilateral leg swelling since her knee surgeries. On admission EKG showed sinus rhythm with occasional premature ventricular complexes. Chest x-ray showed cardiomegaly, pulmonary vascular congestion and bilateral pleural effusions. Correlate with BNP for congestive heart failure. Recent echocardiogram showed normal ejection fraction and moderate aortic stenosis. Moderate pulmonary hypertension and severe mitral annular calcification. Neck CTA on 08/17/2023 showed left common carotid artery stent graft which appears patent no evidence of significant stenosis. At least greater than 70% stenosis of the right carotid bifurcation secondary to calcified plaque. Laboratory data showed WBC 6.2 hemoglobin 4.7 Hemoglobin during previous admission was 9.4 MCV 73.2 and platelets 171 RDW 17.1 Sodium 141 potassium 3.9 chloride 107 bicarb is 27 BUN 24 and creatinine 0.71 blood sugar 110 and proBNP 3320, albumin 3.3 FOBT positive. 09/05/2023 Patient is currently resting in the bed. Awake alert and oriented. Requiring 3.5 L oxygen via nasal cannula. No complaints of chest pain. Denies any nausea or vomiting. Patient is being continued on Protonix 40 mg IV daily. Also on IV Lasix 20 mg twice daily. Laboratory data showed WBC 7.7 hemoglobin 7.7 and platelets 154 and MCV 80.5 Sodium 142, potassium 3.5 chloride 108 bicarb is 31 BUN 21 creatinine 0.69 and calcium 8.7. Pulmonary and GI is on board. 09/07/2023 Patient is currently sitting on side of the bed. Awake alert and oriented x 3. Does have cough without any sputum production. Patient is also breathing shallow. Patient is scheduled for bronchoscopy to evaluate for tracheal stenosis followed by EGD and colonoscopy today. Otherwise hemoglobin is stable. 8.0 No further episodes of dark stools. Patient is also receiving IV Protonix Laboratory data showed WBC 8.1 hemoglobin 8.0 and platelets 153 Sodium 141 potassium 3.8 chloride 105 bicarb is 32 BUN 17 and creatinine 0.59. Pulmonary and GI is on board. Current medications reviewed. ROS Constitutional: Patient denies any fever or chills . Patient does have gen eralized weakness. No weight loss. Abdomen: Patient denied nausea vomiting and diarrhea and abdominal pain. Dark- colored stools. Cardiovascular: Patient denies any chest pain. Does have short of breath no palpitations. Respiratory: patient denied any cough is from production. Positive for shor tness of breath Neurologic: Patient denied any numbness or tingling headache. PHYSICAL EXAMINATION: Patient is lying in the bed comfortably, no acute distress, awake alert and oriented.. HEENT: Normocephalic. Neck is supple. Pupils reactive. Nostrils clear. Oral cavity is moist. Neck reveals no JVD, carotid bruits, or thyromegaly. CHEST EXAMINATION: Trachea is central. Symmetrical expansion. Bibasilar diminished sounds and basilar crackles. No wheezing. CARDIAC: Normal S1, S2 with no gallops. No murmurs ABDOMEN: Soft. Bowel sounds normal. No organomegaly. No abdominal bruits. Extremities: Bilateral lower extremity 2+ edema. No clubbing or cyanosis Neurologically awake, alert, oriented x3. Able to move all extremities while in bed. s. No focal deficits noted Skin: No rash or skin lesions. Psychiatric: Coperative. Nonsuicidal Musculoskeletal: No joint swelling or deformity. Normal range of motion. Assessment Acute blood loss anemia secondary to GI bleed likely upper GI with dark-colored stools. Symptomatic anemia Questionable subglottic stenosis Acute on chronic CHF with preserved ejection fraction and moderate pulmonary hypertension Moderate aortic stenosis COPD on home oxygen 3 L via nasal cannula History of CVA/TIA Right ICA 70% stenosis at the bifurcation Hypertension DVT prophylaxis with SCDs Plan: Patient was transfused with 2 unit of PRBC. Hemoglobin improved to 7.7--8.0 today. Continue with PPI IV daily and monitor H&H. Gastroenterology is on board. Plan for EGD and colonoscopy today Pulmonary has seen the patient and recommends upper and lower airway inspection prior to proceeding with EGD and colonoscopy. Continue with DuoNebs. Aspirin Plavix on hold. Patient will be continued on Lasix due to fluid overload with anemia contributing. Will be changed to p.o. tomorrow. Continue to follow closely. Objective - Vital Signs Vital signs: Vital Signs Temp 98.0 F 09/07/23 08:41 Pulse 80 09/07/23 08:41 Resp 20 09/07/23 08:41 BP 127/58 09/07/23 08:41 Pulse Ox 99 09/07/23 08:41 FiO2 Intake & Output 09/06/23 09/07/23 09/07/23 18:59 06:59 18:59 Intake Total 118 1050 Output Total 625 1550 Balance -507 -1550 1050 Weight 85.5 kg 72.6 kg Intake: IV 10 Invasive Line 1 10 Oral 118 1040 Output: Urine 625 1550 Other: Voiding Method Indwelling Catheter Indwelling Catheter Indwelling Catheter # Bowel Movements 2 1 - Labs CBC & Chem 7: 09/07/23 07:57 09/07/23 07:57 Labs: Abnormal Lab Results - Last 24 Hours (Table) 09/07/23 09/07/23 Range/Units 07:57 07:57 RBC 3.24 L (3.80-5.40) m/uL Hgb 8.0 L (11.4-16.0) gm/dL Hct 26.4 L (34.0-46.0) % MCH 24.8 L (25.0-35.0) pg MCHC 30.4 L (31.0-37.0) g/dL RDW 16.9 H (11.5-15.5) % Carbon Dioxide 32 H (22-30) mmol/L Assessment and Plan Time with Patient: Greater than 30
[2023-09-08 09:01] LABS: Anisocytosis Slight; Basophils % (A) 1 %; Eosinophils # (A) 0.3 k/uL (0-0.7); Eosinophils % (A) 4 %; HGB 7.7 gm/dL (11.4-16.0); Hypochromasia Marked; Lymphocytes # (A) 0.8 k/uL (1.0-4.8); Lymphocytes % (A) 12 %; MCH 24.4 pg (25.0-35.0); MCHC 29.6 g/dL (31.0-37.0); MCV 82.3 fL (80.0-100.0); Mean Platelet Volume 10.1; Microcytosis Slight; Monocytes # (A) 0.5 k/uL (0-1.0); Monocytes % (A) 7 %; Neutrophils # (A) 5.3 k/uL (1.3-7.7); Neutrophils % (A) 75 %; Platelet Count 155 k/uL (150-450); Poikilocytosis Moderate; RBC 3.16 m/uL (3.80-5.40); RDW 18.3 % (11.5-15.5); WBC 7.2 k/uL (3.8-10.6)
[2023-09-08 09:15] LABS: African American GFR (CKD) >90 (>60 ml/min/1.73 sqM); Anion Gap 4 mmol/L; Blood Urea Nitrogen 18 mg/dL (7-17); Calcium 8.6 mg/dL (8.4-10.2); Carbon Dioxide 34 mmol/L (22-30); Chloride 104 mmol/L (98-107); Glucose 118 mg/dL (74-99); Non-African American GFR(CKD) 89 (>60 ml/min/1.73 sqM); Potassium 3.4 mmol/L (3.5-5.1); Sodium 142 mmol/L (137-145)
[2023-09-08] MEDS: FUROSEMIDE 20 MG TAB PO SCH (09:59)
[2023-09-08] MEDS: SODIUM FERRIC GLUCONAT-SUCROSE 125 MG in SODIUM CHLORIDE 0.9% 100 ML IVPB SCH (09:59)
--- NOTE | 2023-09-08 11:57 | P.PN ---
Subjective Progress Note Date: 09/08/23 This is a 78-year-old female patient who presented to us with profound anemia and the patient's hemoglobin was 4.7 at time of admission the patient was given a total of 2 days of packed RBC and her current hemoglobin is above 7. She reported dark/tarry stool while at home. No bright red blood per rectum. No nausea or emesis. No abdominal pain. She has been maintained on a combination of aspirin and Plavix on outpatient basis and the patient has fecal occult positive. Based on that, EGD and colonoscopy was recommended by GI services. Nevertheless, the patient stated that she is very much concerned about the procedure as the patient has had previous history of difficult intubation and previous attempts to intubate this patient during early hospitalization at [facility] stated that the patient has been extremely difficult to intubate and for that reason a pulmonary consultation was requested. There is still ongoing intention to do an EGD and colonoscopy regarding her GI bleeding workup. Her previous endoscopy that was done back in 2019 have shown diverticulosis and the patient has not undergone any previous EGD. The patient also has other comorbidities and the patient is known to have previous history of peripheral vascular disease and hypertension and she was recently hospitalized between 07/17/2023 to 07/20/2023 for an extensive right lung pneumonia that was thought to be related to an aspiration. At that time, the patient had a brief stay in the intensive care unit. She did not require intubation or mechanical ventilation.The most recent chest x-ray that was done on 09/05/2023 showed cardiomegaly and pulm vessel congestion and bilateral pleural effusion. There was some limited infiltration of the right lung. Comparing it to the earlier chest x-ray from July 2023, there is marked improvement. At the same time, the patient has history of valvular heart disease. The patient has moderate aortic stenosis and moderate mitral stenosis and a preserved LV function and this is based on a echocardiogram that was done on 07/17/2023 which showed an ejection fraction of 60 to 65% along with valvular abnormalities as discussed. The patient was also known to have coronary artery disease. An outpatient CT angiogram of the neck that was done by cardiology showed a left common carotid artery stent graft that was patent and the left carotid bifurcation stent graft within the internal carotid artery that was approximate 25 to 50% narrowing and there was more than 70% stenosis of the right carotid bifurcation secondary to calcified plaque. No evidence of any dissection. I also reviewed the CAT scan of the chest to look at the patient's upper airways and I do appreciate some narrowing in the subglottic trachea. However, on examination, the patient does not have any significant stridor. She is currently on oxygen at 4 L nasal cannula. Pulse ox of 99%. She is on Lasix 20 mg IV every 12 hours. On today's evaluation of 09/07/2023, the patient is n.p.o. and I am going to do a quick upper airway inspection via bronchoscopy to evaluate for tracheal stenosis. If no significant airway compromise, the patient is going to undergo a EGD and a colonoscopy. Note that the patient Presented to us with a GI bleed. Hemoglobin is stable. She is currently off aspirin and Plavix. No other significant events over the past 24 hours. She is awake and alert and she is currently on 2 L O2 nasal cannula with a pulse ox of 91 to 92%. No respiratory distress. No stridor. GI is on the case. On today's evaluation of 09/08/2023, seen the patient for a follow-up. The patient underwent her endoscopy without any major difficulties and the patient was found to have a 5 mm gastric antral ulcer and antral gastritis and the colonoscopy showed sigmoid diverticulosis without evidence of any malignancy. The patient is not showing any active bleeding at this point in time. Hemoglobin is at 7.7 which is stable and the platelet count is at 155. BUN is 18 with a creatinine of 0.57. Bronchoscopy was also done prior to her EGD and the colonoscopy patient was found to have redundant adipose tissue in the upper airways consistent with obstructive sleep apnea. 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 No evidence of any tracheal stenosis. Respiratory status is stable and the patient remains on oxygen at 3 L with a pulse ox of 95 to 100%. She is on bronchodilators. She is also on IV iron. Hemodynamically stable. She has no specific complaints. Objective - Vital Signs Vital signs: Vital Signs Temp 98.1 F 09/08/23 03:12 Pulse 72 09/08/23 09:58 Resp 16 09/08/23 09:58 BP 94/52 09/08/23 09:58 Pulse Ox 95 09/08/23 09:58 FiO2 Intake & Output 03/08/0109/08/23 09/08/23 18:59 06:59 18:59 Intake Total 1328 20 200 Output Total 700 450 Balance 628 -430 200 Intake: IV 170 20 Invasive Line 1 20 20 Oral 1158 200 Output: Urine 700 450 Other: Voiding Method Indwelling Catheter Indwelling Catheter # Bowel Movements 1 - Exam GENERAL EXAM: Alert, 78-year-old white female, comfortable in no apparent distress. The patient is currently on 3 L of oxygen by nasal cannula. The patient is calm and comfortable. HEAD: Normocephalic and atraumatic EYES: Normal reaction of pupils, equal size. NOSE: Clear with pink turbinates. THROAT: No erythema or exudates. No throat abnormalities. No scars over the neck NECK: No masses, no JVD. Short neck. No stridor. CHEST: No chest wall deformity. LUNGS: Equal air entry with no crackles, wheeze, rhonchi or dullness. No conversational dyspnea or accessory muscle use while at rest.. CVS: S1 and S2 normal with no audible murmur, regular rhythm. No extra heart sounds ABDOMEN: No hepatosplenomegaly, active bowel sounds, no guarding or rigidity. SPINE: No scoliosis or deformity SKIN: No rashes CENTRAL NERVOUS SYSTEM: No focal deficits, tone is normal in all 4 extremities. EXTREMITIES: There is no peripheral edema, clubbing, or cyanosis. Peripheral pulses are intact. - Labs CBC & Chem 7: 09/08/23 08:11 09/08/23 08:11 Labs: Abnormal Lab Results - Last 24 Hours (Table) 09/08/23 09/08/23 Range/Units 08:11 08:11 RBC 3.16 L (3.80-5.40) m/uL Hgb 7.7 L (11.4-16.0) gm/dL Hct 26.0 L (34.0-46.0) % MCH 24.4 L (25.0-35.0) pg MCHC 29.6 L (31.0-37.0) g/dL RDW 18.3 H (11.5-15.5) % Lymphocytes # 0.8 L (1.0-4.8) k/uL Potassium 3.4 L (3.5-5.1) mmol/L Carbon Dioxide 34 H (22-30) mmol/L BUN 18 H (7-17) mg/dL Glucose 118 H (74-99) mg/dL Assessment and Plan Plan: Severe symptomatic anemia with a hemoglobin of 4.7 at time of admission, likely secondary to a ongoing occult GI bleed which is likely of an upper GI source. The patient has been maintained on a combination of aspirin and Plavix on outpatient basis. Given titrated up to units of packed RBC and the hemoglobin is currently above 7. The patient is currently off antiplatelet agents. Antral gastric ulcer along with antral gastritis and sigmoid diverticulosis without evidence of any neoplasia or active bleeding. Right lung aspiration pneumonia hospitalized between 07/17/2023 and 07/20/2023, likely improved with some minimal residual inflammatory changes involving the right lung. Nevertheless, the radiographic picture is improved considerably Tracheobronchomalacia along with redundant adipose tissue involving the upper airway consistent with obstructive sleep apnea. No evidence of any tracheal stenosis. Subglottic trachea is patent. No stridor. This is confirmed by bronchoscopy that was done on 09/07/2023. Previous history of CVA Carotid artery disease Peripheral vascular disease with previous vascular intervention involving the lower extremities along with stenting Valvular heart disease with moderate aortic stenosis and moderate mitral stenosis and preserved LV function Hypertension Hyperlipidemia Diverticular disease, and previous colonoscopy was done 05/13/2020 showing mild sigmoid diverticulosis Plan Monitor hemoglobin Continue PPI Monitor hemoglobin and transfuse accordingly to maintain hemoglobin above 7, most recent hemoglobin is at 7.7 Continue bronchodilators Oxygen therapy and wean it off to maintain saturation above 90% Patient has been recently treated for aspiration pneumonia of the right lung. Minimal residual changes/inflammatory changes involving the follow-up chest x- ray. Valvular heart disease and the patient is currently on oral Lasix Will continue to follow Utilization of antiplatelet agents to be determined by gastroenterology as the patient has a 5 mm NC gastric ulcer. Currently she is on PPI.
--- NOTE | 2023-09-08 21:36 | P.PN ---
Subjective Progress Note Date: 09/08/23 Patient is a 78-year-old female with a past medical history of COPD on home oxygen at 3 L via nasal cannula, history of CVA/TIA, hypertension presents to ER with complaints of shortness of breath and cough with frothy sputum. Patient states that she is also having dark-colored stools for the past 3 to 4 days. Denies any complaints of fever or chills. No complaints of abdominal pain. No nausea or vomiting. No hematemesis. No chest pain or worsening shortness of breath. Patient was recently admitted to hospital in July 2023 due to syncopal episode after she was ejected out of her new recliner. And also was treated for pneumonia. Patient was seen by cardiology and pulmonary and neurology at that time. Carotid duplex showed bilateral ICA stenosis severe greater than 70% left ICA, moderate stenosis between 50 to 69% on right ICA. CTA neck could not be done at the time. As patient could not lay flat. Patient is currently taking aspirin and Plavix at home. Patient states that she has been having bilateral leg swelling since her knee surgeries. On admission EKG showed sinus rhythm with occasional premature ventricular complexes. Chest x-ray showed cardiomegaly, pulmonary vascular congestion and bilateral pleural effusions. Correlate with BNP for congestive heart failure. Recent echocardiogram showed normal ejection fraction and moderate aortic stenosis. Moderate pulmonary hypertension and severe mitral annular calcification. Neck CTA on 08/17/2023 showed left common carotid artery stent graft which appears patent no evidence of significant stenosis. At least greater than 70% stenosis of the right carotid bifurcation secondary to calcified plaque. Laboratory data showed WBC 6.2 hemoglobin 4.7 Hemoglobin during previous admission was 9.4 MCV 73.2 and platelets 171 RDW 17.1 Sodium 141 potassium 3.9 chloride 107 bicarb is 27 BUN 24 and creatinine 0.71 blood sugar 110 and proBNP 3320, albumin 3.3 FOBT positive. 09/05/2023 Patient is currently resting in the bed. Awake alert and oriented. Requiring 3.5 L oxygen via nasal cannula. No complaints of chest pain. Denies any nausea or vomiting. Patient is being continued on Protonix 40 mg IV daily. Also on IV Lasix 20 mg twice daily. Laboratory data showed WBC 7.7 hemoglobin 7.7 and platelets 154 and MCV 80.5 Sodium 142, potassium 3.5 chloride 108 bicarb is 31 BUN 21 creatinine 0.69 and calcium 8.7. Pulmonary and GI is on board. 09/07/2023 Patient is currently sitting on side of the bed. Awake alert and oriented x 3. Does have cough without any sputum production. Patient is also breathing shallow. Patient is scheduled for bronchoscopy to evaluate for tracheal stenosis followed by EGD and colonoscopy today. Otherwise hemoglobin is stable. 8.0 No further episodes of dark stools. Patient is also receiving IV Protonix Laboratory data showed WBC 8.1 hemoglobin 8.0 and platelets 153 Sodium 141 potassium 3.8 chloride 105 bicarb is 32 BUN 17 and creatinine 0.59. Pulmonary and GI is on board. 09/08/2023 Patient is currently sitting on side of the bed. Awake alert and oriented x 3. Requiring oxygen at 3 L via nasal cannula. Patient is s/p EGD and colonoscopy yesterday. EGD showed 5 mm gastric antral ulcer and antral gastritis. Colonoscopy revealed scattered sigmoid diverticulosis but no evidence of colorectal neoplasm. Patient denies any hematemesis or melena. No nausea vomiting abdominal pain or diarrhea. Laboratories showed WBC 7.2 hemoglobin 7.7 and platelets 155, sodium 142 potassium 3.4 chloride 104 bicarb is 34 BUN 18 and creatinine 0.57 and blood sugar is 118. Pulmonary is on board. Bronchoscopy showed redundant adipose tissue in the upper airways consistent with obstructive sleep apnea. 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 No evidence of any tracheal stenosis. Current medications reviewed. ROS Constitutional: Patient denies any fever or chills . Patient does have generalized weakness. No weight loss. Abdomen: Patient denied nausea vomiting and diarrhea and abdominal pain. Dark- colored stools. Cardiovascular: Patient denies any chest pain. Does have short of breath no palpitations. Respiratory: patient denied any cough is from production. Positive for shortness of breath Neurologic: Patient denied any numbness or tingling headache. PHYSICAL EXAMINATION: Patient is lying in the bed comfortably, no acute distress, awake alert and oriented.. HEENT: Normocephalic. Neck is supple. Pupils reactive. Nostrils clear. Oral cavity is moist. Neck reveals no JVD, carotid bruits, or thyromegaly. CHEST EXAMINATION: Trachea is central. Symmetrical expansion. Bibasilar diminished sounds and basilar crackles. No wheezing. CARDIAC: Normal S1, S2 with no gallops. No murmurs ABDOMEN: Soft. Bowel sounds normal. No organomegaly. No abdominal bruits. Extremities: Bilateral lower extremity 2+ edema. No clubbing or cyanosis Neurologically awake, alert, oriented x3. Able to move all extremities while in bed. s. No focal deficits noted Skin: No rash or skin lesions. Psychiatric: Coperative. Nonsuicidal Musculoskeletal: No joint swelling or deformity. Normal range of motion. Assessment Acute blood loss anemia secondary to GI bleed likely upper GI with dark-colored stools. Status post s/p EGD showed 5 mm gastric antral ulcer and antral gastritis. Symptomatic anemia. Improving clinically. Tracheobronchomalacia. No evidence of tracheal stenosis as per bronchoscopy on 09/07/2023. Acute on chronic CHF with preserved ejection fraction and moderate pulmonary hypertension Moderate aortic stenosis COPD on home oxygen 3 L via nasal cannula History of CVA/TIA Right ICA 70% stenosis at the bifurcation Hypertension DVT prophylaxis with SCDs Plan: Patient was transfused with 2 unit of PRBC. Hemoglobin improved to 7.7--8.0 --7.7 today. Gastroenterology is on board. Patient is s/p EGD and colonoscopy report as above. Showed antral ulcer. Continue with PPI. Monitor H&H. Pulmonary is on board. Status post bronchoscopy. No evidence of tracheal stenosis. Continue with DuoNebs. Aspirin Plavix on hold. Patient will be continued on Lasix due to fluid overload with anemia contributing. Changed to by mouth. PT OT will be consulted. Continue to follow closely. Objective - Vital Signs Vital signs: Vital Signs Temp 98.2 F 09/08/23 11:32 Pulse 96 09/08/23 16:39 Resp 16 09/08/23 16:39 BP 97/58 09/08/23 16:39 Pulse Ox 97 09/08/23 16:39 FiO2 Intake & Output 09/08/23 09/08/23 09/09/23 06:59 18:59 06:59 Intake Total 20 338 Output Total 450 Balance -430 338 Weight 64 kg Intake: IV 20 20 Invasive Line 1 20 20 Oral 318 Output: Urine 450 Other: Voiding Method Indwelling Catheter Indwelling Catheter - Labs CBC & Chem 7: 09/08/23 08:11 09/08/23 08:11 Labs: Abnormal Lab Results - Last 24 Hours (Table) 09/08/23 09/08/23 Range/Units 08:11 08:11 RBC 3.16 L (3.80-5.40) m/uL Hgb 7.7 L (11.4-16.0) gm/dL Hct 26.0 L (34.0-46.0) % MCH 24.4 L (25.0-35.0) pg MCHC 29.6 L (31.0-37.0) g/dL RDW 18.3 H (11.5-15.5) % Lymphocytes # 0.8 L (1.0-4.8) k/uL Potassium 3.4 L (3.5-5.1) mmol/L Carbon Dioxide 34 H (22-30) mmol/L BUN 18 H (7-17) mg/dL Glucose 118 H (74-99) mg/dL
[2023-09-09 14:47] LABS: Anisocytosis Slight; Basophils # (A) 0.1 k/uL (0-0.2); Basophils % (A) 1 %; Eosinophils # (A) 0.4 k/uL (0-0.7); Eosinophils % (A) 5 %; HCT 28.8 % (34.0-46.0); HGB 8.7 gm/dL (11.4-16.0); Hypochromasia Marked; Lymphocytes # (A) 1.1 k/uL (1.0-4.8); Lymphocytes % (A) 14 %; MCH 25.4 pg (25.0-35.0); MCHC 30.2 g/dL (31.0-37.0); MCV 84.4 fL (80.0-100.0); Mean Platelet Volume 11.4; Monocytes # (A) 0.5 k/uL (0-1.0); Monocytes % (A) 7 %; Neutrophils # (A) 5.5 k/uL (1.3-7.7); Neutrophils % (A) 71 %; Platelet Count 170 k/uL (150-450); Poikilocytosis Moderate; RBC 3.41 m/uL (3.80-5.40); RDW 17.9 % (11.5-15.5); WBC 7.7 k/uL (3.8-10.6)
[2023-09-09 14:53] LABS: African American GFR (CKD) >90 (>60 ml/min/1.73 sqM); Anion Gap 4 mmol/L; Blood Urea Nitrogen 14 mg/dL (7-17); Calcium 8.8 mg/dL (8.4-10.2); Carbon Dioxide 34 mmol/L (22-30); Chloride 103 mmol/L (98-107); Glucose 148 mg/dL (74-99); Non-African American GFR(CKD) 89 (>60 ml/min/1.73 sqM); Potassium 3.8 mmol/L (3.5-5.1); Sodium 141 mmol/L (137-145)
--- NOTE | 2023-09-09 17:01 | P.PN ---
Subjective Progress Note Date: 09/09/23 This is a 78-year-old female patient who presented to us with profound anemia and the patient's hemoglobin was 4.7 at time of admission the patient was given a total of 2 days of packed RBC and her current hemoglobin is above 7. She reported dark/tarry stool while at home. No bright red blood per rectum. No nausea or emesis. No abdominal pain. She has been maintained on a combination of aspirin and Plavix on outpatient basis and the patient has fecal occult positive. Based on that, EGD and colonoscopy was recommended by GI services. Nevertheless, the patient stated that she is very much concerned about the procedure as the patient has had previous history of difficult intubation and previous attempts to intubate this patient during early hospitalization at [facility] stated that the patient has been extremely difficult to intubate and for that reason a pulmonary consultation was requested. There is still ongoing intention to do an EGD and colonoscopy regarding her GI bleeding workup. Her previous endoscopy that was done back in 2019 have shown diverticulosis and the patient has not undergone any previous EGD. The patient also has other comorbidities and the patient is known to have previous history of peripheral vascular disease and hypertension and she was recently hospitalized between 07/17/2023 to 07/20/2023 for an extensive right lung pneumonia that was thought to be related to an aspiration. At that time, the patient had a brief stay in the intensive care unit. She did not require intubation or mechanical ventilation.The most recent chest x-ray that was done on 09/05/2023 showed cardiomegaly and pulm vessel congestion and bilateral pleural effusion. There was some limited infiltration of the right lung. Comparing it to the earlier chest x-ray from July 2023, there is marked improvement. At the same time, the patient has history of valvular heart disease. The patient has moderate aortic stenosis and moderate mitral stenosis and a preserved LV function and this is based on a echocardiogram that was done on 07/17/2023 which showed an ejection fraction of 60 to 65% along with valvular abnormalities as discussed. The patient was also known to have coronary artery disease. An outpatient CT angiogram of the neck that was done by cardiology showed a left common carotid artery stent graft that was patent and the left carotid bifurcation stent graft within the internal carotid artery that was approximate 25 to 50% narrowing and there was more than 70% stenosis of the right carotid bifurcation secondary to calcified plaque. No evidence of any dissection. I also reviewed the CAT scan of the chest to look at the patient's upper airways and I do appreciate some narrowing in the subglottic trachea. However, on examination, the patient does not have any significant stridor. She is currently on oxygen at 4 L nasal cannula. Pulse ox of 99%. She is on Lasix 20 mg IV every 12 hours. On today's evaluation of 09/07/2023, the patient is n.p.o. and I am going to do a quick upper airway inspection via bronchoscopy to evaluate for tracheal stenosis. If no significant airway compromise, the patient is going to undergo a EGD and a colonoscopy. Note that the patient Presented to us with a GI bleed. Hemoglobin is stable. She is currently off aspirin and Plavix. No other significant events over the past 24 hours. She is awake and alert and she is currently on 2 L O2 nasal cannula with a pulse ox of 91 to 92%. No respiratory distress. No stridor. GI is on the case. On today's evaluation of 09/08/2023, seen the patient for a follow-up. The patient underwent her endoscopy without any major difficulties and the patient was found to have a 5 mm gastric antral ulcer and antral gastritis and the colonoscopy showed sigmoid diverticulosis without evidence of any malignancy. The patient is not showing any active bleeding at this point in time. Hemoglobin is at 7.7 which is stable and the platelet count is at 155. BUN is 18 with a creatinine of 0.57. Bronchoscopy was also done prior to her EGD and the colonoscopy patient was found to have redundant adipose tissue in the upper airways consistent with obstructive sleep apnea. 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 No evidence of any tracheal stenosis. Respiratory status is stable and the patient remains on oxygen at 3 L with a pulse ox of 95 to 100%. She is on bronchodilators. She is also on IV iron. Hemodynamically stable. She has no specific complaints. On today's evaluation of 09/09/2023, the patient is resting comfortably in bed. Hemoglobin today 8.7. No bleeding complications. No respiratory difficulties. She is receiving IV iron. She has home O2 and she remains on O2 at 3 L/min nasal cannula. Objective - Vital Signs Vital signs: Vital Signs Temp 97.5 F L 09/09/23 08:41 Pulse 73 09/09/23 08:41 Resp 16 09/09/23 08:41 BP 122/73 09/09/23 08:41 Pulse Ox 98 09/09/23 08:41 FiO2 Intake & Output 09/08/23 09/09/23 09/09/23 18:59 06:59 18:59 Intake Total 338 20 250 Output Total 500 Balance 338 -480 250 Weight 64 kg 73.4 kg Intake: IV 20 20 10 Invasive Line 1 20 20 10 Oral 318 240 Output: Urine 500 Other: Voiding Method Indwelling Catheter Indwelling Catheter Indwelling Catheter - Exam GENERAL EXAM: Alert, 78-year-old white female, comfortable in no apparent distress. The patient is currently on 3 L of oxygen by nasal cannula. The pat ient is calm and comfortable. HEAD: Normocephalic and atraumatic EYES: Normal reaction of pupils, equal size. NOSE: Clear with pink turbinates. THROAT: No erythema or exudates. No throat abnormalities. No scars over the neck NECK: No masses, no JVD. Short neck. No stridor. CHEST: No chest wall deformity. LUNGS: Equal air entry with no crackles, wheeze, rhonchi or dullness. No conversational dyspnea or accessory muscle use while at rest.. CVS: S1 and S2 normal with no audible murmur, regular rhythm. No extra heart sounds ABDOMEN: No hepatosplenomegaly, active bowel sounds, no guarding or rigidity. SPINE: No scoliosis or deformity SKIN: No rashes CENTRAL NERVOUS SYSTEM: No focal deficits, tone is normal in all 4 extremities. EXTREMITIES: There is no peripheral edema, clubbing, or cyanosis. Peripheral pulses are intact. - Labs CBC & Chem 7: 09/09/23 14:08 09/09/23 14:08 Assessment and Plan Plan: Severe symptomatic anemia with a hemoglobin of 4.7 at time of admission, likely secondary to a ongoing occult GI bleed which is likely of an upper GI source. The patient has been maintained on a combination of aspirin and Plavix on outpatient basis. Given titrated up to units of packed RBC and the hemoglobin is currently above 7. The patient is currently off antiplatelet agents. The patient's hemoglobin is 8.7 Antral gastric ulcer along with antral gastritis and sigmoid diverticulosis without evidence of any neoplasia or active bleeding. Right lung aspiration pneumonia hospitalized between 07/17/2023 and 07/20/2023, likely improved with some minimal residual inflammatory changes involving the right lung. Nevertheless, the radiographic picture is improved considerably Tracheobronchomalacia along with redundant adipose tissue involving the upper airway consistent with obstructive sleep apnea. No evidence of any tracheal stenosis. Subglottic trachea is patent. No stridor. This is confirmed by bronchoscopy that was done on 09/07/2023. Previous history of CVA Carotid artery disease Peripheral vascular disease with previous vascular intervention involving the lower extremities along with stenting Valvular heart disease with moderate aortic stenosis and moderate mitral stenos is and preserved LV function Hypertension Hyperlipidemia Diverticular disease, and previous colonoscopy was done 05/13/2020 showing mild sigmoid diverticulosis Plan Monitor hemoglobin and hemoglobin stable and the patient is having IV iron Continue PPI Monitor hemoglobin and transfuse accordingly to maintain hemoglobin above 7, most recent hemoglobin is at 8.7 Continue bronchodilators Oxygen therapy and wean it off to maintain saturation above 90% Patient has been recently treated for aspiration pneumonia of the right lung. Minimal residual changes/inflammatory changes involving the follow-up chest x- ray. Valvular heart disease and the patient is currently on oral Lasix Will continue to follow Utilization of antiplatelet agents to be determined by gastroenterology as the patient has a 5 mm NC gastric ulcer. Currently she is on PPI.
--- NOTE | 2023-09-10 02:28 | P.PN ---
Subjective Progress Note Date: 09/09/23 Patient is a 78-year-old female with a past medical history of COPD on home oxygen at 3 L via nasal cannula, history of CVA/TIA, hypertension presents to ER with complaints of shortness of breath and cough with frothy sputum. Patient states that she is also having dark-colored stools for the past 3 to 4 days. Denies any complaints of fever or chills. No complaints of abdominal pain. No nausea or vomiting. No hematemesis. No chest pain or worsening shortness of breath. Patient was recently admitted to hospital in July 2023 due to syncopal episode after she was ejected out of her new recliner. And also was treated for pneumonia. Patient was seen by cardiology and pulmonary and neurology at that time. Carotid duplex showed bilateral ICA stenosis severe greater than 70% left ICA, moderate stenosis between 50 to 69% on right ICA. CTA neck could not be done at the time. As patient could not lay flat. Patient is currently taking aspirin and Plavix at home. Patient states that she has been having bilateral leg swelling since her knee surgeries. On admission EKG showed sinus rhythm with occasional premature ventricular complexes. Chest x-ray showed cardiomegaly, pulmonary vascular congestion and bilateral pleural effusions. Correlate with BNP for congestive heart failure. Recent echocardiogram showed normal ejection fraction and moderate aortic stenosis. Moderate pulmonary hypertension and severe mitral annular calcification. Neck CTA on 08/17/2023 showed left common carotid artery stent graft which appears patent no evidence of significant stenosis. At least greater than 70% stenosis of the right carotid bifurcation secondary to calcified plaque. Laboratory data showed WBC 6.2 hemoglobin 4.7 Hemoglobin during previous admission was 9.4 MCV 73.2 and platelets 171 RDW 17.1 Sodium 141 potassium 3.9 chloride 107 bicarb is 27 BUN 24 and creatinine 0.71 blood sugar 110 and proBNP 3320, albumin 3.3 FOBT positive. 09/05/2023 Patient is currently resting in the bed. Awake alert and oriented. Requiring 3.5 L oxygen via nasal cannula. No complaints of chest pain. Denies any nausea or vomiting. Patient is being continued on Protonix 40 mg IV daily. Also on IV Lasix 20 mg twice daily. Laboratory data showed WBC 7.7 hemoglobin 7.7 and platelets 154 and MCV 80.5 Sodium 142, potassium 3.5 chloride 108 bicarb is 31 BUN 21 creatinine 0.69 and calcium 8.7. Pulmonary and GI is on board. 09/07/2023 Patient is currently sitting on side of the bed. Awake alert and oriented x 3. Does have cough without any sputum production. Patient is also breathing shallow. Patient is scheduled for bronchoscopy to evaluate for tracheal stenosis followed by EGD and colonoscopy today. Otherwise hemoglobin is stable. 8.0 No further episodes of dark stools. Patient is also receiving IV Protonix Laboratory data showed WBC 8.1 hemoglobin 8.0 and platelets 153 Sodium 141 potassium 3.8 chloride 105 bicarb is 32 BUN 17 and creatinine 0.59. Pulmonary and GI is on board. 09/08/2023 Patient is currently sitting on side of the bed. Awake alert and oriented x 3. Requiring oxygen at 3 L via nasal cannula. Patient is s/p EGD and colonoscopy yesterday. EGD showed 5 mm gastric antral ulcer and antral gastritis. Colonoscopy revealed scattered sigmoid diverticulosis but no evidence of colorectal neoplasm. Patient denies any hematemesis or melena. No nausea vomiting abdominal pain or diarrhea. Laboratories showed WBC 7.2 hemoglobin 7.7 and platelets 155, sodium 142 potassium 3.4 chloride 104 bicarb is 34 BUN 18 and creatinine 0.57 and blood sugar is 118. Pulmonary is on board. Bronchoscopy showed redundant adipose tissue in the upper airways consistent with obstructive sleep apnea. 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 No evidence of any tracheal stenosis. 09/09/2023 Patient is sitting on the side of the road No complaints of chest pain. No worsening shortness of breath. Requiring 3 L oxygen via nasal cannula. Otherwise hemoglobin level improved to 8.7 today. Leg swelling is also much improved. No nausea or vomiting. Tolerating oral diet. Patient is also receiving IV iron supplementation. Laboratory data showed WBC 7.7 hemoglobin 8.7 and platelets 178 sodium 141 potassium 3.8, chloride 103 bicarb is 34 BUN 49 creatinine 0.58 and blood sugar 148. Anticipate discharge in next 24 hours. Current medications reviewed. ROS Constitutional: Patient denies any fever or chills . Patient does have generalized weakness. No weight loss. Abdomen: Patient denied nausea vomiting and diarrhea and abdominal pain. Dark- colored stools. Cardiovascular: Patient denies any chest pain. Does have short of breath no palpitations. Respiratory: patient denied any cough is from production. Positive for shortness of breath Neurologic: Patient denied any numbness or tingling headache. PHYSICAL EXAMINATION: Patient is lying in the bed comfortably, no acute distress, awake alert and oriented.. HEENT: Normocephalic. Neck is supple. Pupils reactive. Nostrils clear. Oral cavity is moist. Neck reveals no JVD, carotid bruits, or thyromegaly. CHEST EXAMINATION: Trachea is central. Symmetrical expansion. Bibasilar diminished sounds and basilar crackles. No wheezing. CARDIAC: Normal S1, S2 with no gallops. No murmurs ABDOMEN: Soft. Bowel sounds normal. No organomegaly. No abdominal bruits. Extremities: Bilateral lower extremity 2+ edema. No clubbing or cyanosis Neurologically awake, alert, oriented x3. Able to move all extremities while in bed. s. No focal deficits noted Skin: No rash or skin lesions. Psychiatric: Coperative. Nonsuicidal Musculoskeletal: No joint swelling or deformity. Normal range of motion. Assessment Acute blood loss anemia secondary to GI bleed likely upper GI with dark-colored stools. Status post s/p EGD showed 5 mm gastric antral ulcer and antral gastritis. Symptomatic anemia. Improving clinically. Tracheobronchomalacia. No evidence of tracheal stenosis as per bronchoscopy on 09/07/2023. Acute on chronic CHF with preserved ejection fraction and moderate pulmonary hypertension Moderate aortic stenosis COPD on home oxygen 3 L via nasal cannula History of CVA/TIA Right ICA 70% stenosis at the bifurcation Hypertension DVT prophylaxis with SCDs Plan: Patient was transfused with 2 unit of PRBC. Hemoglobin improved to 7.7--8.0 --7.7--8.7 today. Gastroenterology is on board. Patient is s/p EGD and colonoscopy report as above. Showed antral ulcer. Continue with PPI. Monitor H&H. Pulmonary is on board. Status post bronchoscopy. No evidence of tracheal stenosis. Continue with DuoNebs. Aspirin Plavix on hold. Restart once cleared by GI Patient will be continued on Lasix due to fluid overload with anemia contributing. Changed to by mouth. PT OT will be consulted. Continue to follow closely. Objective - Vital Signs Vital signs: Vital Signs Temp 97.8 F 09/09/23 16:34 Pulse 70 09/09/23 16:34 Resp 16 09/09/23 16:34 BP 122/68 09/09/23 16:34 Pulse Ox 96 09/09/23 16:34 FiO2 Intake & Output 09/09/23 09/09/23 09/10/23 06:59 18:59 06:59 Intake Total 20 740 Output Total 500 Balance -480 740 Weight 73.4 kg Intake: IV 20 20 Invasive Line 1 20 20 Oral 720 Output: Urine 500 Other: Voiding Method Indwelling Catheter Indwelling Catheter # Voids 1 # Bowel Movements 1 - Labs CBC & Chem 7: 09/09/23 14:08 09/09/23 14:08 Labs: Abnormal Lab Results - Last 24 Hours (Table) 09/09/23 09/09/23 Range/Units 14:08 14:08 RBC 3.41 L (3.80-5.40) m/uL Hgb 8.7 L (11.4-16.0) gm/dL Hct 28.8 L (34.0-46.0) % MCHC 30.2 L (31.0-37.0) g/dL RDW 17.9 H (11.5-15.5) % Carbon Dioxide 34 H (22-30) mmol/L Glucose 148 H (74-99) mg/dL Assessment and Plan Time with Patient: Greater than 30
[2023-09-10 06:02] LABS: Glucose,Whole Blood 126 mg/dL (70-110)
[2023-09-10 12:07] LABS: Anisocytosis Slight; HCT 27.8 % (34.0-46.0); Hypochromasia Marked; MCH 24.5 pg (25.0-35.0); MCHC 28.8 g/dL (31.0-37.0); MCV 85.2 fL (80.0-100.0); Mean Platelet Volume 8.9; Platelet Count 139 k/uL (150-450); Poikilocytosis Moderate; RBC 3.27 m/uL (3.80-5.40); RDW 18.2 % (11.5-15.5); WBC 7.8 k/uL (3.8-10.6)
[2023-09-10 12:26] LABS: ALT 19 U/L (4-34); AST 30 U/L (14-36); African American GFR (CKD) >90 (>60 ml/min/1.73 sqM); Alkaline Phosphatase 63 U/L (38-126); Anion Gap 4 mmol/L; Blood Urea Nitrogen 12 mg/dL (7-17); Calcium 8.8 mg/dL (8.4-10.2); Carbon Dioxide 36 mmol/L (22-30); Chloride 102 mmol/L (98-107); Glucose 112 mg/dL (74-99); Non-African American GFR(CKD) >90 (>60 ml/min/1.73 sqM); Potassium 3.5 mmol/L (3.5-5.1); Sodium 142 mmol/L (137-145); Total Bilirubin 0.5 mg/dL (0.2-1.3); Total Protein 5.2 g/dL (6.3-8.2)
--- NOTE | 2023-09-10 15:59 | XR ---
EXAMINATION TYPE: XR chest 1V portable DATE OF EXAM: 09/10/2023 Comparison: 09/05/2023 Clinical History: 78-year-old female CHF Findings: Heart moderately enlarged. Dense mitral annular calcifications noted. Atherosclerotic arch calcificat ions. Diffuse interstitial opacity small bilateral pleural effusions with prominent patchy bilateral lower lung opacities. Changes slightly worsened from prior. Impression: Ongoing CHF now with mild interstitial pulmonary edema. Bilateral small pleural effusions with promin ent adjacent atelectasis and/or consolidation, slight interval worsening.
[2023-09-10] MEDS: POTASSIUM CHLORIDE ER 20 MEQ TAB.ER PO STA (18:07)
--- NOTE | 2023-09-11 06:26 | PN ---
PROGRESS NOTE DATE OF SERVICE: 09/10/2023 SUBJECTIVE: This is a 78-year-old woman, who was admitted with anemia as well as CHF acute exacerbation and closely monitored. No chest pain. No palpitation. Endoscopy showed ulcer. REVIEW OF SYSTEMS: Reviewed. HOME MEDICATIONS: Reviewed. OBJECTIVE: VITAL SIGNS: Pulse is 84, blood pressure 130/58, respirations 16. CHEST: A few scattered rhonchi and crackles. ABDOMEN: Soft. NERVOUS SYSTEM: Nonfocal. LABORATORY DATA: Hemoglobin is 8. ASSESSMENT: 1. Acute blood loss anemia, status post transfusion, status post EGD showing gastric antral ulcer and gastritis. 2. Tracheobronchomalacia. 3. Congestive heart failure acute exacerbation. 4. Moderate aortic stenosis. 5. Chronic obstructive pulmonary disease. 6. Multiple complex medical issues. RECOMMENDATIONS: Recommend to continue current management and continue symptomatic treatment. Otherwise, I would recommend 1 more unit of PRBC with Lasix. Continue to monitor. Chest x-ray. Guarded prognosis because of multiple complex medical issues and further recommendations to follow. See orders for further details. Repeat labs. The prognosis remains extremely guarded. The patient still has symptomatic anemia after transfusing 2 units transfusion. See orders for further details. Monitor the potassium also. MMODL / IJN: [id number] /
[2023-09-11 09:27] LABS: Anisocytosis Slight; Basophils # (A) 0.1 k/uL (0-0.2); Basophils % (A) 1 %; Eosinophils # (A) 0.4 k/uL (0-0.7); Eosinophils % (A) 6 %; HGB 9.2 gm/dL (11.4-16.0); Hypochromasia Marked; Lymphocytes # (A) 0.8 k/uL (1.0-4.8); Lymphocytes % (A) 10 %; MCH 26.1 pg (25.0-35.0); MCHC 30.7 g/dL (31.0-37.0); MCV 84.9 fL (80.0-100.0); Mean Platelet Volume 10.1; Monocytes # (A) 0.5 k/uL (0-1.0); Monocytes % (A) 6 %; Neutrophils # (A) 5.9 k/uL (1.3-7.7); Neutrophils % (A) 76 %; Platelet Count 146 k/uL (150-450); Poikilocytosis Marked; RBC 3.54 m/uL (3.80-5.40); RDW 19.1 % (11.5-15.5); WBC 7.8 k/uL (3.8-10.6)
[2023-09-11 09:45] LABS: African American GFR (CKD) >90 (>60 ml/min/1.73 sqM); Anion Gap 2 mmol/L; Blood Urea Nitrogen 13 mg/dL (7-17); Carbon Dioxide 37 mmol/L (22-30); Chloride 105 mmol/L (98-107); Glucose 102 mg/dL (74-99); Non-African American GFR(CKD) >90 (>60 ml/min/1.73 sqM); Potassium 3.9 mmol/L (3.5-5.1); Sodium 144 mmol/L (137-145)
[2023-09-11 13:52] VITALS: BMI 33.8
[2023-09-11] MEDS ORDERED: IPRATROPIUM-ALBUTEROL 3 ML NEB INHALATION PRN (14:17)
[2023-09-11] MEDS: IPRATROPIUM-ALBUTEROL 3 ML NEB INHALATION SCH (19:58)
[2023-09-11] MEDS: SYMBICORT 160-4.5 MCG INHALER INHALATION SCH (19:58)
[2023-09-11] MEDS: HEPARIN SODIUM,PORCINE 5,000 UNIT/ML 1 ML VIAL SQ SCH (20:44)
--- NOTE | 2023-09-11 21:53 | PN ---
PROGRESS NOTE DATE OF SERVICE: 09/11/2023 SUBJECTIVE: This 78-year-old woman was admitted with acute blood loss anemia, also had tracheobronchomalacia. The patient also had CHF acute exacerbation. The most recent chest x-ray done today showed significant lesions bilaterally and evidence of fluid overload also. Multiple consultants are following the patient closely. PAST MEDICAL HISTORY: Reviewed. REVIEW OF SYSTEMS: A 14-point review is negative except as mentioned earlier. CURRENT MEDICATIONS: Reviewed include Narcan, Lasix, dose and rest of medications noted. PHYSICAL EXAMINATION: VITAL SIGNS: Pulse 90, blood pressure 140/66, respirations 18. CHEST: Few scattered rhonchi and crackles. ABDOMEN: Soft. NERVOUS SYSTEM: Nonfocal. LABORATORY DATA: Hemoglobin 9.2. ASSESSMENT: 1. Acute blood loss anemia, status post transfusion, status post EGD showing gastric antral ulcer and gastritis. 2. Tracheobronchomalacia. 3. CHF acute exacerbation. 4. Moderate aortic stenosis. 5. Chronic obstructive pulmonary disease. 6. Multiple complex medical issues. RECOMMENDATIONS AND DISCUSSION: Recommended to continue current management, continue symptomatic treatment. I recommended course of bronchodilators, incentive spirometry, DVT prophylaxis. Prognosis guarded because of multiple complex medical issues and further recommendations to follow. See orders for details. MMODL / IJN: [id number] /
[2023-09-12 09:18] VITALS: TEMP 97.7
[2023-09-12 09:24] LABS: Anisocytosis Moderate; Basophils # (A) 0.1 k/uL (0-0.2); Basophils % (A) 1 %; Eosinophils # (A) 0.3 k/uL (0-0.7); Eosinophils % (A) 4 %; HCT 33.8 % (34.0-46.0); HGB 10.1 gm/dL (11.4-16.0); Hypochromasia Marked; Lymphocytes # (A) 0.8 k/uL (1.0-4.8); Lymphocytes % (A) 11 %; MCH 25.6 pg (25.0-35.0); MCV 85.6 fL (80.0-100.0); Microcytosis Slight; Monocytes # (A) 0.4 k/uL (0-1.0); Monocytes % (A) 5 %; Neutrophils % (A) 78 %; Platelet Count 161 k/uL (150-450); Poikilocytosis Moderate; RBC 3.94 m/uL (3.80-5.40); RDW 20.1 % (11.5-15.5); WBC 7.7 k/uL (3.8-10.6)
[2023-09-12 09:48] LABS: African American GFR (CKD) >90 (>60 ml/min/1.73 sqM); Anion Gap 5 mmol/L; Blood Urea Nitrogen 14 mg/dL (7-17); Calcium 9.2 mg/dL (8.4-10.2); Carbon Dioxide 32 mmol/L (22-30); Chloride 104 mmol/L (98-107); Glucose 116 mg/dL (74-99); Non-African American GFR(CKD) >90 (>60 ml/min/1.73 sqM); Sodium 141 mmol/L (137-145)
[2023-09-12 09:53] LABS: Potassium 4.2 mmol/L (3.5-5.1)
[2023-09-12 11:37] VITALS: BP 133/55; PULSE 85; RESP 20
== END 2023-09-12 15:15 | disposition home or self-care (01) | DRG 377 ==
LOC: EC 08:30 → 3SCARD 11:02
PROVIDERS: ADMIT Hospitalist; ATTEND Hospitalist
PROC: 0DB78ZX Excision of Stomach, Pylorus, Via Natural or Artificial Opening Endoscopic, Diagnostic (ICD-10-PCS; principal; 2023-09-05)
PROC: 0DJD8ZZ Inspection of Lower Intestinal Tract, Via Natural or Artificial Opening Endoscopic (ICD-10-PCS; 2023-09-05)
PROC: 30233N1 Transfusion of Nonautologous Red Blood Cells into Peripheral Vein, Percutaneous Approach (ICD-10-PCS; 2023-09-05)
PROC: 0BJ08ZZ Inspection of Tracheobronchial Tree, Via Natural or Artificial Opening Endoscopic (ICD-10-PCS; 2023-09-07)
DX: K25.4 Chronic or unspecified gastric ulcer with hemorrhage (principal); I50.33 Acute on chronic diastolic (congestive) heart failure; J96.01 Acute respiratory failure with hypoxia; J96.21 Acute and chronic respiratory failure with hypoxia; D62 Acute posthemorrhagic anemia; Q32.4 Other congenital malformations of bronchus; K57.32 Diverticulitis of large intestine without perforation or abscess without bleeding; E78.5 Hyperlipidemia, unspecified; Z99.81 Dependence on supplemental oxygen; J44.9 Chronic obstructive pulmonary disease, unspecified; J39.8 Other specified diseases of upper respiratory tract; I11.0 Hypertensive heart disease with heart failure; D50.9 Iron deficiency anemia, unspecified; G47.33 Obstructive sleep apnea (adult) (pediatric); I08.0 Rheumatic disorders of both mitral and aortic valves; I25.10 Atherosclerotic heart disease of native coronary artery without angina pectoris; I27.20 Pulmonary hypertension, unspecified; I49.3 Ventricular premature depolarization; I65.23 Occlusion and stenosis of bilateral carotid arteries; Z87.01 Personal history of pneumonia (recurrent); Z79.02 Long term (current) use of antithrombotics/antiplatelets; Z79.82 Long term (current) use of aspirin; Z79.899 Other long term (current) drug therapy; Z86.73 Personal history of transient ischemic attack (TIA), and cerebral infarction without residual deficits; Z88.0 Allergy status to penicillin; J98.09 Other diseases of bronchus, not elsewhere classified
CPT/HCPCS: 31645; 36415; 36430; 43239; 45378; 51702; 51798; 71045; 71046; 80048; 80053; 82272; 83605; 83880; 84484; 85025; 85027; 85610; 85730; 86850; 86900; 86901; 86920; 87636; 88305; 88342; 93005; 94760; 96374; 96375; 99291

== ENCOUNTER → 2023-10-01 | Outpatient (CLI) | payer MEDICARE ==
--- NOTE | 2023-10-01 14:26 | FL ---
COMPARISON: NONE DATE OF EXAM: 10/01/2023 HISTORY: Dysplasia A number of thin and thick substances were ingested under the care of the department of speech pathol ogy. There is no evidence of aspiration or penetration. There is no evidence of obstruction. FL TI ME- 1.09 RM3 NO DAP. IMPRESSION: 1. No evidence of aspiration or penetration.
== END | disposition home or self-care (01) ==
LOC: RADFLMAIN 10:49
PROVIDERS: ATTEND Internal Medicine Critical Care Medicine
DX: J69.0 Pneumonitis due to inhalation of food and vomit (principal); Q89.9 Congenital malformation, unspecified
CPT/HCPCS: 74230

== ENCOUNTER 2024-04-30 15:01 | Inpatient (IN) | payer MEDICARE ==
--- NOTE | 2024-04-30 15:31 | ED ---
SOB HPI - General Chief Complaint: Shortness of Breath Stated Complaint: weakness Time Seen by Provider: 04/30/24 15:27 Source: patient, RN notes reviewed, old records reviewed Mode of arrival: EMS Limitations: no limitations - History of Present Illness Initial Comments: This is a 79-year-old female to the ER for evaluation of shortness of breath especially with activity and exertion. Patient having severe and significant shortness of breath here in the emergency department MD Complaint: shortness of breath -: days(s) Severity: severe Severity scale (1-10): 9 Consistency: constant Improves With: rest Worsens With: exertion Known History Of: COPD Context: recent URI Associated Symptoms: denies other symptoms - Related Data Home Medications Medication Instructions Recorded Confirmed Furosemide [Lasix] 20 mg PO BID 05/11/20 04/30/24 Losartan Potassium [Cozaar] 25 mg PO BID 05/11/20 04/30/24 Ammonium Lactate Cream [Lac-Hydrin 1 applic TOPICAL BID 09/05/23 04/30/24 12% Cream] Acetaminophen [Tylenol 8 Hour] 1,300 mg PO DAILY 04/30/24 04/30/24 Acetaminophen [Tylenol 8 Hour] 650 - 1,300 mg PO BID PRN 04/30/24 04/30/24 Atorvastatin [Lipitor] 40 mg PO HS 04/30/24 04/30/24 [place] Beets Gummies 2 tab PO HS 04/30/24 04/30/24 Calcium Carbonate [Calcium] 600 mg PO DAILY 04/30/24 04/30/24 Metamucil Gummy 3 tab PO DAILY 04/30/24 04/30/24 [place]-3S/Dha/Epa/Fish Oil/D3 [Fish 2 tab PO DAILY 04/30/24 04/30/24 Oil Gummies] Omeprazole 20 mg PO DAILY 04/30/24 04/30/24 Vit C/Zinc Citrate/Elderberry 1 tab PO BID 04/30/24 04/30/24 [Sambucus Elderberry Gummy] Vitamin B Gummy(Unknown) 1 tab PO DAILY 04/30/24 04/30/24 Women's Adult Gummy Multivitamin 2 tab PO DAILY 04/30/24 04/30/24 Previous Rx's Medication Instructions Recorded Aspirin 81 mg PO DAILY #30 tab 07/20/23 Allergies Allergy/AdvReac Type Severity Reaction Status Date / Time Penicillins AdvReac Unknown PASSED OUT Verified 04/30/24 18:28 Review of Systems ROS Statement: Those systems with pertinent positive or pertinent negative responses have been documented in the HPI. ROS Other: All systems not noted in ROS Statement are negative. Past Medical History Past Medical History: CVA/TIA, Hypertension Additional Past Medical History / Comment(s): states CVA (no residual ), states stent in upper leg, rash on lower legs, ankles swell, pt states on Nutrisystem diet and has lost 20-25 # with frequent stools. History of Any Multi-Drug Resistant Organisms: None Reported Past Surgical History: Joint Replacement Additional Past Surgical History / Comment(s): total right knee x2, stem cell injections prior to total knees, cataract surgery, stent in leg. Additional Past Anesthesia/Blood Transfusion Reaction / Comment(s): STATES UNABLE TO INTUBATE- THEY HAD TO DO A SPINAL., STATES SHE HAS LETTER FROM [place] AND INSTRUCTED PATIENT TO BRING THIS LETTER WITH HER. Past Psychological History: No Psychological Hx Reported Smoking Status: Never smoker Past Alcohol Use History: None Reported Past Drug Use History: None Reported - Past Family History Mother Family Medical History: Cancer Additional Family Medical History / Comment(s): colon cancer General Exam Limitations: no limitations General appearance: alert, in no apparent distress Head exam: Present: atraumatic, normocephalic, normal inspection Eye exam: Present: normal appearance, PERRL, EOMI. Absent: scleral icterus, conjunctival injection, periorbital swelling ENT exam: Present: normal exam, mucous membranes moist Neck exam: Present: normal inspection. Absent: tenderness, meningismus, lymphadenopathy Respiratory exam: Present: normal lung sounds bilaterally. Absent: respiratory distress, wheezes, rales, rhonchi, stridor Cardiovascular Exam: Present: regular rate, normal rhythm, normal heart sounds. Absent: systolic murmur, diastolic murmur, rubs, gallop, clicks GI/Abdominal exam: Present: soft, normal bowel sounds. Absent: distended, tenderness, guarding, rebound, rigid Extremities exam: Present: normal inspection, full ROM, normal capillary refill. Absent: tenderness, pedal edema, joint swelling, calf tenderness Back exam: Present: normal inspection Neurological exam: Present: alert, oriented X3, CN II-XII intact Psychiatric exam: Present: normal affect, normal mood Skin exam: Present: warm, dry, intact, normal color. Absent: rash Course Vital Signs 04/30/24 04/30/24 04/30/24 15:03 15:21 16:52 Temperature 98.7 F Pulse Rate 59 L 87 82 Respiratory 16 18 16 Rate Blood Pressure 99/40 111/45 108/44 O2 Sat by Pulse 97 96 96 Oximetry 04/30/24 04/30/24 04/30/24 17:20 17:39 17:49 Temperature 98.2 F 98.7 F Pulse Rate 84 84 16 L Respiratory 16 20 82 H Rate Blood Pressure 110/50 121/85 122/43 O2 Sat by Pulse 94 L 94 L 95 Oximetry 04/30/24 04/30/24 04/30/24 18:09 19:11 20:30 Temperature 98 F 98.3 F 98.1 F Pulse Rate 85 88 90 Respiratory 16 20 19 Rate Blood Pressure 114/46 147/61 147/61 O2 Sat by Pulse 95 97 Oximetry 04/30/24 04/30/24 04/30/24 20:44 21:04 23:50 Temperature 98.4 F 98.3 F 98.5 F Pulse Rate 91 89 85 Respiratory 16 20 20 Rate Blood Pressure 121/89 110/65 152/62 O2 Sat by Pulse 96 98 98 Oximetry 05/01/24 05/01/24 05/01/24 03:03 06:27 09:14 Temperature Pulse Rate 88 80 82 Respiratory 20 16 16 Rate Blood Pressure 127/60 122/59 138/70 O2 Sat by Pulse 99 Oximetry 05/01/24 05/01/24 05/01/24 12:25 13:47 18:28 Temperature Pulse Rate 90 87 93 Respiratory 18 18 18 Rate Blood Pressure 151/70 154/71 159/96 O2 Sat by Pulse 95 96 Oximetry 05/01/24 20:27 Temperature Pulse Rate 90 Respiratory 20 Rate Blood Pressure 164/116 O2 Sat by Pulse 93 L Oximetry - Reevaluation(s) Reevaluation #1: 04/30/24 16:26 Medical records reviewed Reevaluation #2: 04/30/24 19:35 Patient symptoms unchanged here in the ER Reevaluation #3: 04/30/24 19:35 Patient informed of results and questions answered Reevaluation #4: Was pt. sent in by a medical professional or institution (MACARIO Alves, ACID WASH OPERATOR, urgent care, hospital, or [facility]...) When possible be specific @ -no Did you speak to anyone other than the patient for history (EMS, parent, family, police, friend...)? What history was obtained from this source @ -no Did you review nursing and triage notes (agree or disagree)? Why? @ -agree Are old charts reviewed (outside hosp., previous admission, EMS record, old EKG, old radiological studies, urgent care reports/EKG's, [facility] records)? Report findings @ -yes Differential Diagnosis (chest pain, altered mental status, abdominal pain women, abdominal pain men, vaginal bleeding, weakness, fever, dyspnea, syncope, headache, dizziness, GI bleed, back pain, seizure, CVA, palpatations, mental health, musculoskeletal)? @ -prior EKG interpreted by me (3pts min.). @ -yes X-rays interpreted by me (1pt min.). @ -yes negative for acute disease CT interpreted by me (1pt min.). @ -no U/S interpreted by me (1pt. min.). @ -no What testing was considered but not performed or refused? (CT, X-rays, U/S, labs)? Why? @ -none What meds were considered but not given or refused? Why? @ -none Did you discuss the management of the patient with other professionals (professionals i.e. MACARIO Alves, ACID WASH OPERATOR, lab, RT, psych nurse, social media senior associate, electrical line mechanic, teacher, consular officer, case management associate)? Give summary @ -no Was smoking cessation discussed for >3mins.? @ -no Was critical care preformed (if so, how long)? @ -yes31 Were there social determinants of health that impacted care today? How? (Homelessness, low income, unemployed, alcoholism, drug addiction, baneg[place] sportation, low edu. Level, literacy, decrease access to med. care, correction, rehab)? @ -none Was there de-escalation of care discussed even if they declined (Discuss DNR or withdrawal of care, Hospice)? DNR status @ -no What co-morbidities impacted this encounter? (DM, HTN, Smoking, COPD, CAD, Cancer, CVA, ARF, Chemo, Hep., AIDS, mental health diagnosis, sleep apnea, morbid obesity)? @ -none Was patient admitted / discharged? Hospital course, mention meds given and route, prescriptions, significant lab abnormalities, going to OR and other pertinent info. @ - 79 female to the ER for evaluation patient has significant low hemoglobin here in the ER will admit for transfusion Admitted Undiagnosed new problem with uncertain prognosis? @ -no Drug Therapy requiring intensive monitoring for toxicity (Heparin, Nitro, Insulin, Cardizem)? @ -no Were any procedures done? @ -no Diagnosis/symptom? @ -Anemia with severe dyspnea symptomatic Acute, or Chronic, or Acute on Chronic? @ -Acute Uncomplicated (without systemic symptoms) or Complicated (systemic symptoms)? @ -Complicated Side effects of treatment? @ -no Exacerbation, Progression, or Severe Exacerbation? @ -exacerbation Poses a threat to life or bodily function? How? (Chest pain, [place], [place], pneumonia, PE, COPD, DKA, ARF, appy, cholecystitis, CVA, Diverticulitis, Homicidal, Suicidal, threat to staff... and all critical care pts) @ -yes GI bleed and anemia with dyspnea Reevaluation #5: Differential Dyspnea: Coronary syndrome, arrhythmia, tamponade, asthma, COPD, pulmonary embolism, pneumonia, pneumothorax, pulmonary effusion, anaphylaxis, diabetic ketoacidosis, flailed chest, pulmonary contusion, diaphragmatic rupture, anemia, neuromuscular, this is not meant to be an all-inclusive list. - Consultations Consultation #1: Spoke with admitting physicians who agreed to admit this patient Consultation #2: Spoke with ICU who does not suggest ICU placement for this patient currently Medical Decision Making - Medical Decision Making 79 female to the ER for evaluation patient has significant low hemoglobin here in the ER will admit for transfusion - Lab Data Result diagrams: 05/05/24 08:12 05/05/24 08:12 Lab Results 04/30/24 04/30/24 04/30/24 Range/Units 15:45 15:45 15:45 WBC 4.3 (3.8-10.6) k/uL RBC 2.68 L (3.80-5.40) m/uL Hgb 3.9 L* (11.4-16.0) gm/dL Hct 17.0 L* (34.0-46.0) % MCV 63.2 L (80.0-100.0) fL MCH 14.7 L (25.0-35.0) pg MCHC 23.2 L (31.0-37.0) g/dL RDW 20.2 H (11.5-15.5) % Plt Count 181 (150-450) k/uL MPV 9.6 Neutrophils % 71 % Lymphocytes % 18 % Monocytes % 6 % Eosinophils % 2 % Basophils % 1 % Neutrophils # 3.0 (1.3-7.7) k/uL Lymphocytes # 0.8 L (1.0-4.8) k/uL Monocytes # 0.3 (0-1.0) k/uL Eosinophils # 0.1 (0-0.7) k/uL Basophils # 0.0 (0-0.2) k/uL Hypochromasia Marked Poikilocytosis Moderate Anisocytosis Moderate Microcytosis Marked PT 11.6 (10.0-12.5) sec INR 1.1 (<1.2) APTT 23.1 (22.0-30.0) sec Sodium 143 (137-145) mmol/L Potassium 3.5 (3.5-5.1) mmol/L Chloride 106 (98-107) mmol/L Carbon Dioxide 27 (22-30) mmol/L Anion Gap 10 mmol/L BUN 25 H (7-17) mg/dL Creatinine 0.63 (0.52-1.04) mg/dL Est GFR (CKD-EPI)AfAm >90 (>60 ml/min/1.73 sqM) Est GFR (CKD-EPI)NonAf 86 (>60 ml/min/1.73 sqM) Glucose 114 H (74-99) mg/dL Lactic Ac Sepsis Rflx Plasma Lactic Acid Luis Eduardo (0.7-2.0) mmol/L Calcium 8.8 (8.4-10.2) mg/dL Magnesium 2.1 (1.6-2.3) mg/dL Total Bilirubin 0.4 (0.2-1.3) mg/dL AST 28 (14-36) U/L ALT 14 (4-34) U/L Alkaline Phosphatase 60 (38-126) U/L Troponin I (0.000-0.034) ng/mL NT-Pro-B Natriuret Pep 3600 pg/mL Total Protein 5.6 L (6.3-8.2) g/dL Albumin 3.4 L (3.5-5.0) g/dL Blood Type Blood Type Recheck Bld Type Recheck Status Antibody Screen Crossmatch Spec Expiration Date 04/30/24 04/30/24 04/30/24 Range/Units 15:45 15:45 16:16 WBC (3.8-10.6) k/uL RBC (3.80-5.40) m/uL Hgb (11.4-16.0) gm/dL Hct (34.0-46.0) % MCV (80.0-100.0) fL MCH (25.0-35.0) pg MCHC (31.0-37.0) g/dL RDW (11.5-15.5) % Plt Count (150-450) k/uL MPV Neutrophils % % Lymphocytes % % Monocytes % % Eosinophils % % Basophils % % Neutrophils # (1.3-7.7) k/uL Lymphocytes # (1.0-4.8) k/uL Monocytes # (0-1.0) k/uL Eosinophils # (0-0.7) k/uL Basophils # (0-0.2) k/uL Hypochromasia Poikilocytosis Anisocytosis Microcytosis PT (10.0-12.5) sec INR (<1.2) APTT (22.0-30.0) sec Sodium (137-145) mmol/L Potassium (3.5-5.1) mmol/L Chloride (98-107) mmol/L Carbon Dioxide (22-30) mmol/L Anion Gap mmol/L BUN (7-17) mg/dL Creatinine (0.52-1.04) mg/dL Est GFR (CKD-EPI)AfAm (>60 ml/min/1.73 sqM) Est GFR (CKD-EPI)NonAf (>60 ml/min/1.73 sqM) Glucose (74-99) mg/dL Lactic Ac Sepsis Rflx Y Plasma Lactic Acid Luis Eduardo 2.2 H* (0.7-2.0) mmol/L Calcium (8.4-10.2) mg/dL Magnesium (1.6-2.3) mg/dL Total Bilirubin (0.2-1.3) mg/dL AST (14-36) U/L ALT (4-34) U/L Alkaline Phosphatase (38-126) U/L Troponin I <0.012 (0.000-0.034) ng/mL NT-Pro-B Natriuret Pep pg/mL Total Protein (6.3-8.2) g/dL Albumin (3.5-5.0) g/dL Blood Type Blood Type Recheck Bld Type Recheck Status Antibody Screen Crossmatch Spec Expiration Date 04/30/24 04/30/24 05/01/24 Range/Units 16:20 19:30 01:42 WBC 6.0 (3.8-10.6) k/uL RBC 3.37 L (3.80-5.40) m/uL Hgb 7.0 L D (11.4-16.0) gm/dL Hct 23.6 L (34.0-46.0) % MCV 70.2 L D (80.0-100.0) fL MCH 20.9 L (25.0-35.0) pg MCHC 29.7 L (31.0-37.0) g/dL RDW 22.0 H (11.5-15.5) % Plt Count 190 (150-450) k/uL MPV 11.0 Neutrophils % % Lymphocytes % % Monocytes % % Eosinophils % % Basophils % % Neutrophils # (1.3-7.7) k/uL Lymphocytes # (1.0-4.8) k/uL Monocytes # (0-1.0) k/uL Eosinophils # (0-0.7) k/uL Basophils # (0-0.2) k/uL Hypochromasia Marked Poikilocytosis Marked Anisocytosis Moderate Microcytosis Marked PT (10.0-12.5) sec INR (<1.2) APTT (22.0-30.0) sec Sodium (137-145) mmol/L Potassium (3.5-5.1) mmol/L Chloride (98-107) mmol/L Carbon Dioxide (22-30) mmol/L Anion Gap mmol/L BUN (7-17) mg/dL Creatinine (0.52-1.04) mg/dL Est GFR (CKD-EPI)AfAm (>60 ml/min/1.73 sqM) Est GFR (CKD-EPI)NonAf (>60 ml/min/1.73 sqM) Glucose (74-99) mg/dL Lactic Ac Sepsis Rflx Plasma Lactic Acid Luis Eduardo 1.0 (0.7-2.0) mmol/L Calcium (8.4-10.2) mg/dL Magnesium (1.6-2.3) mg/dL Total Bilirubin (0.2-1.3) mg/dL AST (14-36) U/L ALT (4-34) U/L Alkaline Phosphatase (38-126) U/L Troponin I (0.000-0.034) ng/mL NT-Pro-B Natriuret Pep pg/mL Total Protein (6.3-8.2) g/dL Albumin (3.5-5.0) g/dL Blood Type O Positive Blood Type Recheck O Pos Bld Type Recheck Status No Antibody Screen NEGATIVE Crossmatch See Detail Spec Expiration Date 05/03/20242319 - EKG Data -: EKG Interpreted by Me (EKG is sinus 83 NE 177 QRS 84 QTc 406) - Radiology Data Radiology results: report reviewed (Chest x-ray does show evaluation of pulmonary edema), image reviewed Critical Care Time Critical Care Time: Yes Total Critical Care Time: 31 Disposition Clinical Impression: COPD exacerbation, COPD (chronic obstructive pulmonary disease), Anemia, Symptomatic anemia Disposition: ADMITTED IP TO THIS HOSP Condition: Fair Is patient prescribed a controlled substance at d/c from ED?: No Time of Disposition: 19:35
[2024-04-30] MEDS: SODIUM CHLORIDE 0.9% 1,000 ML IV STA (15:55)
[2024-04-30 16:00] LABS: Anisocytosis Moderate; Basophils % (A) 1 %; Eosinophils # (A) 0.1 k/uL (0-0.7); Eosinophils % (A) 2 %; Hypochromasia Marked; Lymphocytes # (A) 0.8 k/uL (1.0-4.8); Lymphocytes % (A) 18 %; MCH 14.7 pg (25.0-35.0); MCHC 23.2 g/dL (31.0-37.0); MCV 63.2 fL (80.0-100.0); Mean Platelet Volume 9.6; Microcytosis Marked; Monocytes # (A) 0.3 k/uL (0-1.0); Monocytes % (A) 6 %; Neutrophils % (A) 71 %; Platelet Count 181 k/uL (150-450); Poikilocytosis Moderate; RBC 2.68 m/uL (3.80-5.40); RDW 20.2 % (11.5-15.5); WBC 4.3 k/uL (3.8-10.6)
[2024-04-30 16:10] LABS: INR 1.1 (<1.2); Partial Thromboplastin Time 23.1 sec (22.0-30.0); Prothrombin Time 11.6 sec (10.0-12.5)
[2024-04-30 16:17] LABS: ALT 14 U/L (4-34); AST 28 U/L (14-36); African American GFR (CKD) >90 (>60 ml/min/1.73 sqM); Albumin 3.4 g/dL (3.5-5.0); Alkaline Phosphatase 60 U/L (38-126); Anion Gap 10 mmol/L; Blood Urea Nitrogen 25 mg/dL (7-17); Calcium 8.8 mg/dL (8.4-10.2); Carbon Dioxide 27 mmol/L (22-30); Chloride 106 mmol/L (98-107); Glucose 114 mg/dL (74-99); Magnesium 2.1 mg/dL (1.6-2.3); Non-African American GFR(CKD) 86 (>60 ml/min/1.73 sqM); Potassium 3.5 mmol/L (3.5-5.1); Sodium 143 mmol/L (137-145); Total Bilirubin 0.4 mg/dL (0.2-1.3); Total Protein 5.6 g/dL (6.3-8.2)
[2024-04-30] MEDS: IPRATROPIUM-ALBUTEROL 3 ML NEB INHALATION STA (16:20)
[2024-04-30 16:25] LABS: NT-Pro-B-Type Natriuretic Pept 3600 pg/mL
--- NOTE | 2024-04-30 16:30 | XR ---
EXAMINATION TYPE: XR chest 1V portable DATE OF EXAM: 04/30/2024 4:02 PM CLINICAL INDICATION: Female, 79 years old with history of sob; [facility] COMPARISON: Chest radiographs from 09/10/2023 TECHNIQUE: XR chest 1V portable Frontal view of the chest. FINDINGS: Lungs/Pleura: There is no evidence of pleural effusion, focal consolidation, or pneumothorax. Pulmonary vascularity: Pulmonary vascular congestion. Heart/mediastinum: Cardiomediastinal silhouette is enlarged. Atherosclerotic calcifications are seen in the aorta. Musculoskeletal: No acute osseous pathology. IMPRESSION: Cardiomegaly and mild pulmonary vascular congestion. Correlate with BNP for congestive heart failure. [facility], , 04/30/2024 4:27 PM
[2024-04-30 16:39] LABS: HGB 3.9 gm/dL (11.4-16.0)
[2024-04-30] MEDS ORDERED: NALOXONE 0.4 MG/ML 1 ML VIAL IV PRN (19:27)
[2024-04-30] MEDS ORDERED: MORPHINE SULFATE 4 MG/ML SYRINGE IV PRN (19:27)
[2024-05-01 02:39] LABS: Anisocytosis Moderate; HCT 23.6 % (34.0-46.0); Hypochromasia Marked; MCH 20.9 pg (25.0-35.0); MCHC 29.7 g/dL (31.0-37.0); Microcytosis Marked; Platelet Count 190 k/uL (150-450); Poikilocytosis Marked; RBC 3.37 m/uL (3.80-5.40)
[2024-05-01 02:40] LABS: MCV 70.2 fL (80.0-100.0)
[2024-05-01] MEDS: SODIUM CHLORIDE 0.9% 1,000 ML IV SCH (07:00)
[2024-05-01] MEDS ORDERED: [UNRECOGNIZED DRUG - OTHER] PO SCH (09:00)
[2024-05-01] MEDS ORDERED: CALCIUM CARBONATE 500 MG CHEWABLE PO SCH (09:00)
[2024-05-01] MEDS ORDERED: VITAMIN B GUMMY PO SCH (09:00)
[2024-05-01] MEDS ORDERED: FISH OIL PO SCH (09:00)
[2024-05-01] MEDS ORDERED: EPA PO SCH (09:00)
[2024-05-01] MEDS ORDERED: [UNRECOGNIZED DRUG - OTHER] PO SCH (09:00)
[2024-05-01] MEDS ORDERED: ZINC CITRATE PO SCH (09:00)
[2024-05-01] MEDS ORDERED: OMEGA PO SCH (09:00)
[2024-05-01] MEDS ORDERED: ASCORBIC ACID PO SCH (09:00)
[2024-05-01] MEDS ORDERED: D3 PO SCH (09:00)
[2024-05-01] MEDS ORDERED: DHA PO SCH (09:00)
[2024-05-01] MEDS ORDERED: ELDERBERRY PO SCH (09:00)
[2024-05-01] MEDS: MULTIVITAMINS, THERA 1 EACH TAB PO SCH (09:24)
[2024-05-01] MEDS: LOSARTAN 25 MG TAB PO SCH (09:24)
[2024-05-01] MEDS: PANTOPRAZOLE 40 MG/10 ML VIAL IV SCH ×2 (09:25→20:39)
[2024-05-01] MEDS: CALCIUM CARBONATE 500 MG CHEWABLE PO SCH (09:25)
[2024-05-01 10:00] LABS: Anisocytosis Moderate; Basophils % (A) 0 %; Eosinophils # (A) 0.2 k/uL (0-0.7); Eosinophils % (A) 3 %; HCT 24.9 % (34.0-46.0); HGB 7.3 gm/dL (11.4-16.0); Hypochromasia Marked; Lymphocytes # (A) 0.9 k/uL (1.0-4.8); Lymphocytes % (A) 15 %; MCH 20.7 pg (25.0-35.0); MCHC 29.4 g/dL (31.0-37.0); MCV 70.4 fL (80.0-100.0); Mean Platelet Volume 8.7; Microcytosis Marked; Monocytes # (A) 0.4 k/uL (0-1.0); Monocytes % (A) 6 %; Neutrophils # (A) 4.6 k/uL (1.3-7.7); Neutrophils % (A) 74 %; Platelet Count 180 k/uL (150-450); Poikilocytosis Marked; RBC 3.54 m/uL (3.80-5.40); WBC 6.2 k/uL (3.8-10.6)
[2024-05-01 10:41] LABS: ALT 13 U/L (4-34); AST 32 U/L (14-36); African American GFR (CKD) >90 (>60 ml/min/1.73 sqM); Alkaline Phosphatase 72 U/L (38-126); Anion Gap 5 mmol/L; Blood Urea Nitrogen 19 mg/dL (7-17); Calcium 8.5 mg/dL (8.4-10.2); Carbon Dioxide 25 mmol/L (22-30); Chloride 111 mmol/L (98-107); Glucose 95 mg/dL (74-99); Non-African American GFR(CKD) 87 (>60 ml/min/1.73 sqM); Potassium 3.2 mmol/L (3.5-5.1); Sodium 141 mmol/L (137-145); Total Protein 5.4 g/dL (6.3-8.2)
--- NOTE | 2024-05-01 15:22 | P.HPIM ---
History of Present Illness History of present illness; 79-year-old female with a past medical history of hypertension, COPD (on 3 L at home), diastolic CHF, and history of CVA/TIA presents with complaints of shortness of breath and weakness. Patient reports for the last week or so she has felt short of breath and weak and throughout the week it is gotten increasingly more and more prominent. At which point the patient decided to come to the emergency room due to her symptoms. Patient denies chest pain, palpitations, hematemesis or vomiting of any kind, or any dark stools. Initial lab work from the ER was significant for WBC 4.3, RBC 2.68, hemoglobin 3.9, hematocrit 17, MCV 63.2, platelet count 181, sodium 143, potassium 3.5, creatinine 0.63, glucose 114, troponins less than 0.012, BNP 3600. EKG done in the ER showed heart rate of 83 bpm, no ST segment elevation or depression seen, no T-wave inversions seen. Sinus rhythm, possible left atrial enlargement, QTc 406. ER CXR: Cardiomegaly and mild pulmonary vascular congestion. Patient admitted to internal medicine service REVIEW OF SYSTEMS: CONSTITUTIONAL: No fever, no malaise, no fatigue. HEENT: No recent visual problems or hearing problems. Denied any sore throat. CARDIOVASCULAR: No chest pain, orthopnea, PND, no palpitations, no syncope. PULMONARY: Admits to shortness of breath, no cough, no hemoptysis. GASTROINTESTINAL: No diarrhea, no nausea, no vomiting, no abdominal pain. NEUROLOGICAL: No headaches, admits to weakness, no numbness. HEMATOLOGICAL: Denies any bleeding or petechiae. GENITOURINARY: Denies any burning micturition, frequency, or urgency. MUSCULOSKELETAL/RHEUMATOLOGICAL: Denies any joint pain, swelling, or any muscle pain. ENDOCRINE: Denies any polyuria or polydipsia. The rest of the 14-point review of systems is negative. PHYSICAL EXAMINATION: GENERAL: The patient is alert and oriented x3, not in any acute distress. Well developed, well nourished. HEENT: Pupils are round and equally reacting to light. EOMI. No scleral icterus. No conjunctival pallor. Normocephalic, atraumatic. No pharyngeal erythema. No thyromegaly. CARDIOVASCULAR: S1 and S2 present. No murmurs, rubs, or gallops. PULMONARY: Chest is clear to auscultation b/l, no wheezing or crackles. ABDOMEN: Soft, nontender, nondistended, normoactive bowel sounds. No palpable o rganomegaly. MUSCULOSKELETAL: No joint swelling or deformity. EXTREMITIES: No cyanosis, clubbing, or pedal edema. NEUROLOGICAL: Gross neurological examination did not reveal any focal deficits. SKIN: No rashes. Assessment & Plan: Acute: #Anemia: History of upper GI bleed, previous admission patient had colonoscopy and EGD which showed 5 mm antral gastric ulcer that was not bleeding at the time Potentially will get scope tomorrow GI on consult, appreciate further recommendations Transfuse if hemoglobin less than 7 Continue GI prophylaxis Follow-up results of ferritin and iron panel #Diastolic CHF: Started Lasix 20 mg IV twice daily Daily weights Continue gentle fluids in the setting of potential GI bleed Continue to monitor #Hypokalemia: Replete potassium with 40 mill equivalents p.o. Continue to monitor BMP Chronic: #Hypertension: Continue home medications #History of CVA/TIA: Continue to monitor F: NS 20 cc/h E: None N: Clear liquid diet A: Normally ambulates unassisted at home GI ppx: Protonix 40 mg IV daily CODE STATUS: Full code Dispo: Pending clinical course Inder Rolle MD PGY-1 FM Dictation was produced using [employer] dictation software. please excuse any grammatical, word or spelling errors. Past Medical History Past Medical History: CVA/TIA, Hypertension Additional Past Medical History / Comment(s): states CVA (no residual ), states stent in upper leg, rash on lower legs, ankles swell, pt states on Nutrisystem diet and has lost 20-25 # with frequent stools. History of Any Multi-Drug Resistant Organisms: None Reported Past Surgical History: Joint Replacement Additional Past Surgical History / Comment(s): total right knee x2, stem cell injections prior to total knees, cataract surgery, stent in leg. Additional Past Anesthesia/Blood Transfusion Reaction / Comment(s): STATES UNABLE TO INTUBATE- THEY HAD TO DO A SPINAL., STATES SHE HAS LETTER FROM [place] AND INSTRUCTED PATIENT TO BRING THIS LETTER WITH HER. Past Psychological History: No Psychological Hx Reported Smoking Status: Never smoker Past Alcohol Use History: None Reported Past Drug Use History: None Reported - Past Family History Mother Family Medical History: Cancer Additional Family Medical History / Comment(s): colon cancer Medications and Allergies Home Medications Medication Instructions Recorded Confirmed Type Furosemide [Lasix] 20 mg PO BID 05/11/20 04/30/24 History Losartan Potassium [Cozaar] 25 mg PO BID 05/11/20 04/30/24 History Aspirin 81 mg PO DAILY #30 tab 07/20/23 04/30/24 Rx Ammonium Lactate Cream [Lac-Hydrin 1 applic TOPICAL BID 09/05/23 04/30/24 History 12% Cream] Acetaminophen [Tylenol 8 Hour] 1,300 mg PO DAILY 04/30/24 04/30/24 History Acetaminophen [Tylenol 8 Hour] 650 - 1,300 mg PO BID PRN 04/30/24 04/30/24 History Atorvastatin [Lipitor] 40 mg PO HS 04/30/24 04/30/24 History [place] Beets Gummies 2 tab PO HS 04/30/24 04/30/24 History Calcium Carbonate [Calcium] 600 mg PO DAILY 04/30/24 04/30/24 History Metamucil Gummy 3 tab PO DAILY 04/30/24 04/30/24 History [place]-3S/Dha/Epa/Fish Oil/D3 [Fish 2 tab PO DAILY 04/30/24 04/30/24 History Oil Gummies] Omeprazole 20 mg PO DAILY 04/30/24 04/30/24 History Vit C/Zinc Citrate/Elderberry 1 tab PO BID 04/30/24 04/30/24 History [Sambucus Elderberry Gummy] Vitamin B Gummy(Unknown) 1 tab PO DAILY 04/30/24 04/30/24 History Women's Adult Gummy Multivitamin 2 tab PO DAILY 04/30/24 04/30/24 History Allergies Allergy/AdvReac Type Severity Reaction Status Date / Time Penicillins AdvReac Unknown PASSED OUT Verified 04/30/24 18:28 Physical Exam Vitals: Vital Signs Temp Pulse Resp BP Pulse Ox 05/01/24 06:27 80 16 122/59 99 05/01/24 03:03 88 20 127/60 04/30/24 23:50 98.5 F 85 20 152/62 98 04/30/24 21:04 98.3 F 89 20 110/65 98 04/30/24 20:44 98.4 F 91 16 121/89 96 04/30/24 20:30 98.1 F 90 19 147/61 04/30/24 19:11 98.3 F 88 20 147/61 97 04/30/24 18:09 98 F 85 16 114/46 95 04/30/24 17:49 98.7 F 16 L 82 H 122/43 95 04/30/24 17:39 98.2 F 84 20 121/85 94 L 04/30/24 17:20 84 16 110/50 94 L 04/30/24 16:52 82 16 108/44 96 04/30/24 15:21 87 18 111/45 96 04/30/24 15:03 98.7 F 59 L 16 99/40 97 Intake and Output 04/30/24 05/01/24 05/01/24 22:59 06:59 14:59 Intake Total 292 310 Balance 292 310 Intake: Blood Product 292 310 Rc As-1 Unit 0 310 [id number] Rc Pheresis 2 As3 Unit 292 [id number] Other: Weight 63.503 kg Results CBC & Chem 7: 05/01/24 09:31 05/01/24 09:31 Labs: Abnormal Lab Results - Last 24 Hours (Table) 04/30/24 04/30/24 04/30/24 Range/Units 15:45 15:45 15:45 RBC 2.68 L (3.80-5.40) m/uL Hgb 3.9 L* (11.4-16.0) gm/dL Hct 17.0 L* (34.0-46.0) % MCV 63.2 L (80.0-100.0) fL MCH 14.7 L (25.0-35.0) pg MCHC 23.2 L (31.0-37.0) g/dL RDW 20.2 H (11.5-15.5) % Lymphocytes # 0.8 L (1.0-4.8) k/uL BUN 25 H (7-17) mg/dL Glucose 114 H (74-99) mg/dL Plasma Lactic Acid Luis Eduardo 2.2 H* (0.7-2.0) mmol/L Total Protein 5.6 L (6.3-8.2) g/dL Albumin 3.4 L (3.5-5.0) g/dL Crossmatch 04/30/24 05/01/24 Range/Units 16:20 01:42 RBC 3.37 L (3.80-5.40) m/uL Hgb 7.0 L D (11.4-16.0) gm/dL Hct 23.6 L (34.0-46.0) % MCV 70.2 L D (80.0-100.0) fL MCH 20.9 L (25.0-35.0) pg MCHC 29.7 L (31.0-37.0) g/dL RDW 22.0 H (11.5-15.5) % Lymphocytes # (1.0-4.8) k/uL BUN (7-17) mg/dL Glucose (74-99) mg/dL Plasma Lactic Acid Luis Eduardo (0.7-2.0) mmol/L Total Protein (6.3-8.2) g/dL Albumin (3.5-5.0) g/dL Crossmatch See Detail
[2024-05-01] MEDS: POTASSIUM CHLORIDE ER 20 MEQ TAB.ER PO STA (15:36)
--- NOTE | 2024-05-01 15:37 | P.CONS ---
History of Present Illness - Reason for Consult Consult date: 05/01/24 Anemia Requesting physician: Neftali Ruiz - Chief Complaint Shortness of breath and weakness - History of Present Illness This is a pleasant 79-year-old white female who presented to the emergency department with complaints of shortness of breath with exertion and weakness. She had labs done that showed significant anemia with a hemoglobin of 3.9. Gastroenterology was consulted for anemia. She has a past medical history of anemia, CVA/TIA hypertension and gastric ulcer. Patient denies any abdominal pain, no nausea or vomiting. She denies any anticoagulation or NSAID use. She does take a daily aspirin 81 mg. Denies any blood in her stool or black stool. She was seen earlier this year for similar symptoms and was noted to have a hemoglobin of 4.6 at that time. She underwent an EGD and colonoscopy on 09/07/2023 with gastroenterology. Upper endoscopy with findings of 5 mm gastric antral ulcer nonbleeding, and colonoscopy showed some diverticulosis otherwise normal colon. Review of Systems REVIEW OF SYSTEMS: CARDIOPULMONARY: No chest pain or shortness of breath. Gastrointestinal: No abdominal pain. No nausea or vomiting. No hematemesis, coffee-ground emesis. No rectal bleeding, or melena. GENITOURINARY: No dysuria or hematuria. MUSCULOSKELETAL: Reports normal range of motion., Joint pain. SKIN: No rashes. No jaundice. ENDOCRINE: No chills, fevers. No excessive weight gain or loss. No polydipsia or polyuria. PSYCHIATRIC: Unremarkable. NEUROLOGY: No change in mental status. Denies dizziness, headache. ENT: Vision unremarkable. CONSTITUTIONAL: No recent weight loss. No fever, chills, night sweats. Past Medical History Past Medical History: CVA/TIA, Hypertension Additional Past Medical History / Comment(s): states CVA (no residual ), states stent in upper leg, rash on lower legs, ankles swell, pt states on Nutrisystem diet and has lost 20-25 # with frequent stools. History of Any Multi-Drug Resistant Organisms: None Reported Past Surgical History: Joint Replacement Additional Past Surgical History / Comment(s): total right knee x2, stem cell injections prior to total knees, cataract surgery, stent in leg. Additional Past Anesthesia/Blood Transfusion Reaction / Comm: STATES UNABLE TO INTUBATE- THEY HAD TO DO A SPINAL., STATES SHE HAS LETTER FROM [place] [facility] INSTRUCTED PATIENT TO BRING THIS LETTER WITH HER. Past Psychological History: No Psychological Hx Reported Smoking Status: Never smoker Past Alcohol Use History: None Reported Past Drug Use History: None Reported - Past Family History Mother Family Medical History: Cancer Additional Family Medical History / Comment(s): colon cancer Medications and Allergies Home Medications Medication Instructions Recorded Confirmed Type Furosemide [Lasix] 20 mg PO BID 05/11/20 04/30/24 History Losartan Potassium [Cozaar] 25 mg PO BID 05/11/20 04/30/24 History Aspirin 81 mg PO DAILY #30 tab 07/20/23 04/30/24 Rx Ammonium Lactate Cream [Lac-Hydrin 1 applic TOPICAL BID 09/05/23 04/30/24 History 12% Cream] Acetaminophen [Tylenol 8 Hour] 1,300 mg PO DAILY 04/30/24 04/30/24 History Acetaminophen [Tylenol 8 Hour] 650 - 1,300 mg PO BID PRN 04/30/24 04/30/24 History Atorvastatin [Lipitor] 40 mg PO HS 04/30/24 04/30/24 History [place] Beets Gummies 2 tab PO HS 04/30/24 04/30/24 History Calcium Carbonate [Calcium] 600 mg PO DAILY 04/30/24 04/30/24 History Metamucil Gummy 3 tab PO DAILY 04/30/24 04/30/24 History [place]-3S/Dha/Epa/Fish Oil/D3 [Fish 2 tab PO DAILY 04/30/24 04/30/24 History Oil Gummies] Omeprazole 20 mg PO DAILY 04/30/24 04/30/24 History Vit C/Zinc Citrate/Elderberry 1 tab PO BID 04/30/24 04/30/24 History [Sambucus Elderberry Gummy] Vitamin B Gummy(Unknown) 1 tab PO DAILY 04/30/24 04/30/24 History Women's Adult Gummy Multivitamin 2 tab PO DAILY 04/30/24 04/30/24 History Allergies Allergy/AdvReac Type Severity Reaction Status Date / Time Penicillins AdvReac Unknown PASSED OUT Verified 04/30/24 18:28 Physical Exam Vitals: Vital Signs Temp Pulse Resp BP Pulse Ox 05/01/24 13:47 87 18 154/71 95 05/01/24 12:25 90 18 151/70 05/01/24 09:14 82 16 138/70 05/01/24 06:27 80 16 122/59 99 05/01/24 03:03 88 20 127/60 04/30/24 23:50 98.5 F 85 20 152/62 98 04/30/24 21:04 98.3 F 89 20 110/65 98 04/30/24 20:44 98.4 F 91 16 121/89 96 04/30/24 20:30 98.1 F 90 19 147/61 04/30/24 19:11 98.3 F 88 20 147/61 97 04/30/24 18:09 98 F 85 16 114/46 95 04/30/24 17:49 98.7 F 16 L 82 H 122/43 95 04/30/24 17:39 98.2 F 84 20 121/85 94 L 04/30/24 17:20 84 16 110/50 94 L 04/30/24 16:52 82 16 108/44 96 Intake and Output 05/01/24 05/01/24 05/01/24 06:59 14:59 22:59 Intake Total 310 Output Total 450 Balance 310 -450 Intake: Blood Product 310 Rc As-1 Unit 310 [id number] Output: Urine 450 Other: Voiding Method Bedside Commode # Bowel Movements 1 General appearance: The patient is alert, oriented, appears in no acute distress. HET: Head is normocephalic and atraumatic. Conjunctiva pink. Sclera anicteric. Neck: Supple without lymphadenopathy. Trachea midline. Heart: Regular. Lungs: Equal expansion, normal respiratory effort. Abdomen: Soft, nontender, nondistended. Skin: No rashes. No jaundice. Extremities: Normal skin color and turgor. No pedal edema. Neurological: No focal deficits. Alert and oriented x3. Results CBC & Chem 7: 05/01/24 09:31 05/01/24 09:31 Labs: Abnormal Lab Results - Last 24 Hours (Table) 04/30/24 04/30/24 04/30/24 Range/Units 15:45 15:45 15:45 RBC 2.68 L (3.80-5.40) m/uL Hgb 3.9 L* (11.4-16.0) gm/dL Hct 17.0 L* (34.0-46.0) % MCV 63.2 L (80.0-100.0) fL MCH 14.7 L (25.0-35.0) pg MCHC 23.2 L (31.0-37.0) g/dL RDW 20.2 H (11.5-15.5) % Lymphocytes # 0.8 L (1.0-4.8) k/uL Potassium (3.5-5.1) mmol/L Chloride (98-107) mmol/L BUN 25 H (7-17) mg/dL Glucose 114 H (74-99) mg/dL Plasma Lactic Acid Luis Eduardo 2.2 H* (0.7-2.0) mmol/L Total Protein 5.6 L (6.3-8.2) g/dL Albumin 3.4 L (3.5-5.0) g/dL Crossmatch 04/30/24 05/01/24 05/01/24 Range/Units 16:20 01:42 09:31 RBC 3.37 L 3.54 L (3.80-5.40) m/uL Hgb 7.0 L D 7.3 L (11.4-16.0) gm/dL Hct 23.6 L 24.9 L (34.0-46.0) % MCV 70.2 L D 70.4 L (80.0-100.0) fL MCH 20.9 L 20.7 L (25.0-35.0) pg MCHC 29.7 L 29.4 L (31.0-37.0) g/dL RDW 22.0 H 22.0 H (11.5-15.5) % Lymphocytes # 0.9 L (1.0-4.8) k/uL Potassium (3.5-5.1) mmol/L Chloride (98-107) mmol/L BUN (7-17) mg/dL Glucose (74-99) mg/dL Plasma Lactic Acid Luis Eduardo (0.7-2.0) mmol/L Total Protein (6.3-8.2) g/dL Albumin (3.5-5.0) g/dL Crossmatch See Detail 05/01/24 Range/Units 09:31 RBC (3.80-5.40) m/uL Hgb (11.4-16.0) gm/dL Hct (34.0-46.0) % MCV (80.0-100.0) fL MCH (25.0-35.0) pg MCHC (31.0-37.0) g/dL RDW (11.5-15.5) % Lymphocytes # (1.0-4.8) k/uL Potassium 3.2 L (3.5-5.1) mmol/L Chloride 111 H (98-107) mmol/L BUN 19 H (7-17) mg/dL Glucose (74-99) mg/dL Plasma Lactic Acid Luis Eduardo (0.7-2.0) mmol/L Total Protein 5.4 L (6.3-8.2) g/dL Albumin 3.0 L (3.5-5.0) g/dL Crossmatch Comments: Chest x-ray reports cardiomegaly and mild pulmonary vascular congestion. Correlate with BNP for congestive heart failure Assessment and Plan (1) Microcytic hypochromic anemia Narrative/Plan: 79-year-old female presenting with shortness of breath especially with exertion and weakness presenting with a hemoglobin of 3.9 and a microcytic anemia. Previous history of anemia with a hemoglobin in the fours and had undergone upper and lower endoscopy with findings of a nonbleeding 5 mm gastric antral ulc er. Colonoscopy with diverticulosis otherwise normal. Unclear etiology may be secondary to ulcer. However concern with the severe anemia and patient's history of anemia that may have another underlying cause to her anemia. Would recommend consultation to hematology. In the meantime patient has been transfused, we will proceed with upper endoscopy no need for colonoscopy as patient had within the last year. Current Visit: Yes Status: Acute Code(s): D50.9 - IRON DEFICIENCY ANEMIA, UNSPECIFIED SNOMED Code(s): 24511022 (2) Symptomatic anemia Current Visit: Yes Status: Acute Code(s): D64.9 - ANEMIA, UNSPECIFIED SNOMED Code(s): 817845991 Plan: 1. Continue symptomatic and supportive care 2. Diet as tolerated 3. N.p.o. after midnight 4. Protonix 40 mg twice daily 5. Consult to hematology 6. Plan for EGD tomorrow with possible small bowel capsule endoscopy Thank you for this consultation, we will continue to follow. Dr. Lilia Evans I agree with the dictator's note, documented as a scribe by Dana Kohli.
[2024-05-01 16:50] LABS: % Iron Saturation 3.63 (12.00-45.00); Ferritin 13.2 ng/mL (10.0-291.0)
--- NOTE | 2024-05-01 17:12 | P.CONS ---
History of Present Illness - Reason for Consult Consult date: 05/01/24 Microcytic, hypochromic anemia Requesting physician: Dana Leon - Chief Complaint weak, SOB - History of Present Illness Ms. Em is a 79 yo female we have been asked to see because of severe anemia, admitted with a Hgb 3.9. She is s/p 2 units with a Hgb of 7.3. She has been seen by GI. She had EGD and colonoscopy 09/2023 for anemia, pt states she had a "bleeding ulcer". She was started on po iron but pt states this was stopped. States she has been weak and not walking much since September. She denies any nose bleeds, hematemesis, hemoptysis, hematuria, hematochezia or melena, no easy bruising. Denies fevers, sweats, loss of appetite, chest pain, she is having abd discomfort as she is constipation, no BM for possibly 4 days. Denies any history of blood disorder, no personal Hx of cancer. Review of Systems 10 point ROS is neg except as stated in HPI Past Medical History Past Medical History: CVA/TIA, Hypertension Additional Past Medical History / Comment(s): states CVA (no residual ), states stent in upper leg, rash on lower legs, ankles swell, pt states on Nutrisystem diet and has lost 20-25 # with frequent stools. History of Any Multi-Drug Resistant Organisms: None Reported Past Surgical History: Joint Replacement Additional Past Surgical History / Comment(s): total right knee x2, stem cell injections prior to total knees, cataract surgery, stent in leg. Additional Past Anesthesia/Blood Transfusion Reaction / Comm: STATES UNABLE TO INTUBATE- THEY HAD TO DO A SPINAL., STATES SHE HAS LETTER FROM [place] [facility] INSTRUCTED PATIENT TO BRING THIS LETTER WITH HER. Past Psychological History: No Psychological Hx Reported Smoking Status: Never smoker Past Alcohol Use History: None Reported Past Drug Use History: None Reported - Past Family History Mother Family Medical History: Cancer Additional Family Medical History / Comment(s): colon cancer Medications and Allergies Home Medications Medication Instructions Recorded Confirmed Type Furosemide [Lasix] 20 mg PO BID 05/11/20 04/30/24 History Losartan Potassium [Cozaar] 25 mg PO BID 05/11/20 04/30/24 History Aspirin 81 mg PO DAILY #30 tab 07/20/23 04/30/24 Rx Ammonium Lactate Cream [Lac-Hydrin 1 applic TOPICAL BID 09/05/23 04/30/24 History 12% Cream] Acetaminophen [Tylenol 8 Hour] 1,300 mg PO DAILY 04/30/24 04/30/24 History Acetaminophen [Tylenol 8 Hour] 650 - 1,300 mg PO BID PRN 04/30/24 04/30/24 History Atorvastatin [Lipitor] 40 mg PO HS 04/30/24 04/30/24 History [place] Beets Gummies 2 tab PO HS 04/30/24 04/30/24 History Calcium Carbonate [Calcium] 600 mg PO DAILY 04/30/24 04/30/24 History Metamucil Gummy 3 tab PO DAILY 04/30/24 04/30/24 History [place]-3S/Dha/Epa/Fish Oil/D3 [Fish 2 tab PO DAILY 04/30/24 04/30/24 History Oil Gummies] Omeprazole 20 mg PO DAILY 04/30/24 04/30/24 History Vit C/Zinc Citrate/Elderberry 1 tab PO BID 04/30/24 04/30/24 History [Sambucus Elderberry Gummy] Vitamin B Gummy(Unknown) 1 tab PO DAILY 04/30/24 04/30/24 History Women's Adult Gummy Multivitamin 2 tab PO DAILY 04/30/24 04/30/24 History Allergies Allergy/AdvReac Type Severity Reaction Status Date / Time Penicillins AdvReac Unknown PASSED OUT Verified 04/30/24 18:28 Physical Exam Vitals: Vital Signs Temp Pulse Resp BP Pulse Ox 05/01/24 09:14 82 16 138/70 05/01/24 06:27 80 16 122/59 99 05/01/24 03:03 88 20 127/60 04/30/24 23:50 98.5 F 85 20 152/62 98 04/30/24 21:04 98.3 F 89 20 110/65 98 04/30/24 20:44 98.4 F 91 16 121/89 96 04/30/24 20:30 98.1 F 90 19 147/61 04/30/24 19:11 98.3 F 88 20 147/61 97 04/30/24 18:09 98 F 85 16 114/46 95 04/30/24 17:49 98.7 F 16 L 82 H 122/43 95 04/30/24 17:39 98.2 F 84 20 121/85 94 L 04/30/24 17:20 84 16 110/50 94 L 04/30/24 16:52 82 16 108/44 96 04/30/24 15:21 87 18 111/45 96 04/30/24 15:03 98.7 F 59 L 16 99/40 97 Intake and Output 04/30/24 05/01/24 05/01/24 22:59 06:59 14:59 Intake Total 292 310 Balance 292 310 Intake: Blood Product 292 310 Rc As-1 Unit 0 310 [id number] Rc Pheresis 2 As3 Unit 292 [id number] Other: Weight 63.503 kg - Constitutional General appearance: cooperative, no acute distress, obese - EENT Eyes: anicteric sclerae, EOMI ENT: hearing grossly normal, normal oropharynx - Neck Neck: no lymphadenopathy - Respiratory Respiratory: bilateral: CTA, diminished - Cardiovascular Rhythm: regular Heart sounds: normal: S1, S2 Abnormal Heart Sounds: systolic murmur leg Peripheral Edema: bilateral: 1+ - Gastrointestinal General gastrointestinal: no absent bowel sounds, decreased bowel sounds, no distended, no hepatomegaly, no hyperactive bowel sounds, no normal bowel sounds, no organomegaly, no rigid, no scaphoid, soft, no splenomegaly, tenderness, no umbilical hernia, no ventral hernia Localized gastrointestinal: tender: RUQ, epigastric periumbilical - Integumentary Integumentary: pale - Neurologic Neurologic: CNII-XII intact - Musculoskeletal Musculoskeletal: generalized weakness - Psychiatric Psychiatric: A&O x's 3, appropriate affect Results CBC & Chem 7: 05/01/24 09:31 05/01/24 09:31 Labs: Abnormal Lab Results - Last 24 Hours (Table) 04/30/24 04/30/24 04/30/24 Range/Units 15:45 15:45 15:45 RBC 2.68 L (3.80-5.40) m/uL Hgb 3.9 L* (11.4-16.0) gm/dL Hct 17.0 L* (34.0-46.0) % MCV 63.2 L (80.0-100.0) fL MCH 14.7 L (25.0-35.0) pg MCHC 23.2 L (31.0-37.0) g/dL RDW 20.2 H (11.5-15.5) % Lymphocytes # 0.8 L (1.0-4.8) k/uL Potassium (3.5-5.1) mmol/L Chloride (98-107) mmol/L BUN 25 H (7-17) mg/dL Glucose 114 H (74-99) mg/dL Plasma Lactic Acid Luis Eduardo 2.2 H* (0.7-2.0) mmol/L Total Protein 5.6 L (6.3-8.2) g/dL Albumin 3.4 L (3.5-5.0) g/dL Crossmatch 04/30/24 05/01/24 05/01/24 Range/Units 16:20 01:42 09:31 RBC 3.37 L 3.54 L (3.80-5.40) m/uL Hgb 7.0 L D 7.3 L (11.4-16.0) gm/dL Hct 23.6 L 24.9 L (34.0-46.0) % MCV 70.2 L D 70.4 L (80.0-100.0) fL MCH 20.9 L 20.7 L (25.0-35.0) pg MCHC 29.7 L 29.4 L (31.0-37.0) g/dL RDW 22.0 H 22.0 H (11.5-15.5) % Lymphocytes # 0.9 L (1.0-4.8) k/uL Potassium (3.5-5.1) mmol/L Chloride (98-107) mmol/L BUN (7-17) mg/dL Glucose (74-99) mg/dL Plasma Lactic Acid Luis Eduardo (0.7-2.0) mmol/L Total Protein (6.3-8.2) g/dL Albumin (3.5-5.0) g/dL Crossmatch See Detail 05/01/24 Range/Units 09:31 RBC (3.80-5.40) m/uL Hgb (11.4-16.0) gm/dL Hct (34.0-46.0) % MCV (80.0-100.0) fL MCH (25.0-35.0) pg MCHC (31.0-37.0) g/dL RDW (11.5-15.5) % Lymphocytes # (1.0-4.8) k/uL Potassium 3.2 L (3.5-5.1) mmol/L Chloride 111 H (98-107) mmol/L BUN 19 H (7-17) mg/dL Glucose (74-99) mg/dL Plasma Lactic Acid Luis Eduardo (0.7-2.0) mmol/L Total Protein 5.4 L (6.3-8.2) g/dL Albumin 3.0 L (3.5-5.0) g/dL Crossmatch Chest x-ray: report reviewed Assessment and Plan (1) Microcytic hypochromic anemia Current Visit: Yes Status: Acute Priority: High Code(s): D50.9 - IRON DEFICIENCY ANEMIA, UNSPECIFIED SNOMED Code(s): 09165720 (2) Symptomatic anemia Current Visit: Yes Status: Acute Priority: High Code(s): D64.9 - ANEMIA, UNSPECIFIED SNOMED Code(s): 108504029 Plan: Microcytic, hypochromic anemia -Anemia new onset earlier this year as stated in HPI. Pt denies any acute event or changes in her health that she can recall at that time. She had GI work up then, no significant findings. She is sched for another EGD, pending results. -Pt has been transfused 2 units PRBCs for 3.9 Hgb, would anticipate a Hgb in the 6 range, lab test came back at 7. Cont to monitor. Transfuse for Hgb <7. -Anemia lab work up ordered. Further recommendations as testing results.
[2024-05-01] MEDS: SODIUM FERRIC GLUCONAT-SUCROSE 125 MG in SODIUM CHLORIDE 0.9% 100 ML IVPB SCH (18:48)
[2024-05-01 18:54] LABS: Reticulocyte % 1.9 % (0.5-2.0)
[2024-05-01] MEDS: ATORVASTATIN 40 MG TAB PO SCH (20:30)
[2024-05-01] MEDS: FUROSEMIDE 10 MG/ML 2 ML VIAL IV SCH (20:30)
[2024-05-01] MEDS ORDERED: [UNRECOGNIZED DRUG - OTHER] PO SCH (21:00)
[2024-05-01] MEDS ORDERED: ZINC OXIDE PASTE (Z-GUARD) 1 APPLIC TOPICAL PRN (21:19)
[2024-05-02 07:56] LABS: Anisocytosis Moderate; HCT 25.8 % (34.0-46.0); HGB 7.1 gm/dL (11.4-16.0); Hypochromasia Marked; MCHC 27.7 g/dL (31.0-37.0); MCV 72.3 fL (80.0-100.0); Mean Platelet Volume 8.1; Microcytosis Marked; Platelet Count 173 k/uL (150-450); Poikilocytosis Marked; RBC 3.56 m/uL (3.80-5.40); WBC 9.1 k/uL (3.8-10.6)
[2024-05-02 08:32] LABS: African American GFR (CKD) >90 (>60 ml/min/1.73 sqM); Anion Gap 4 mmol/L; Blood Urea Nitrogen 14 mg/dL (7-17); Calcium 8.5 mg/dL (8.4-10.2); Carbon Dioxide 31 mmol/L (22-30); Chloride 110 mmol/L (98-107); Glucose 84 mg/dL (74-99); Non-African American GFR(CKD) 88 (>60 ml/min/1.73 sqM); Potassium 3.8 mmol/L (3.5-5.1); Sodium 145 mmol/L (137-145)
[2024-05-02] MEDS: IV FLUID CONTINUATION 1,000 ML IV ONE (09:18)
[2024-05-02] MEDS ORDERED: LIDOCAINE 1% INJ 10MG/ML (20 ML MDV) ONE (09:20)
[2024-05-02] MEDS ORDERED: PROPOFOL 10 MG/ML 20 ML VIAL IV ONE (09:20)
--- NOTE | 2024-05-02 09:35 | P.PCN ---
Date of Procedure: 05/02/24 Procedure(s) Performed: BRIEF HISTORY: Patient is a 79-year-old, pleasant, white female admitted to hospital service symptomatic anemia and hemoglobin of 3.9 g/dL requiring the use of biopsy transfusion. She had similar episode in September of this year and she underwent EGD colonoscopy that showed a small 5 mm antral ulcer and sigmoid diverticulosis. She was since then on Prilosec 20 mg daily. She was denies any recent NSAIDs use. She was readmitted to hospital with hemoglobin of 3.9. Denies any active GI bleed. She is not scheduled for an upper endoscopy today and if negative proceed with a small bowel capsule endoscopy.. PROCEDURE PERFORMED: Esophagogastroduodenoscopy with argon plasma coagulation. PREOPERATIVE DIAGNOSIS: Severe symptomatic iron deficiency anemia with a hemoglobin of 3.9 g/dL. IV sedation per anesthesia. PROCEDURE: After informed consent was obtained, the patient was brought into the endoscopy unit. IV sedation was administered by Anesthesia under continuous monitoring. Initially the Olympus GIF-140 video endoscope was inserted into the mouth. Esophagus intubated without any difficulty. It was gradually advanced into the stomach and duodenum and carefully examined. The bulb and the second part of the duodenum appeared normal. The scope at this time was withdrawn to the stomach, adequately insufflated with air, and upon careful examination, mucosa of the antrum had linear areas of telangiectasia with some oozing consistent with gastric antral vascular ectasia s/p argon plasma coagulation. Mucosa of the, body, cardia and the fundus appeared normal. The scope was then withdrawn into the esophagus. In the cardia of the stomach there were a few telangiectasias identified with oozing which were also coagulated with argon plasma. The GE junction was located at 39 cm from the incisors. The esophagus appeared normal. There were no erosions or ulcerations seen and the patient tolerated the procedure well. IMPRESSION: 1. Linear areas of telangiectasia in the gastric antrum suggestive of gastric antral vascular ectasia with some oozing s/p argon plasma coagulation. 2. Previously noted antral ulcer has completely healed. 3. Scattered telangiectasia in the cardia of the stomach status post argon plasma coagulation RECOMMENDATIONS: The findings of this examination were discussed with the patient as well as her family. Continue with iron supplements daily. Monitor CBC daily.. Advance diet as tolerated.
--- NOTE | 2024-05-02 13:39 | P.PN ---
Subjective HPI; 79-year-old female with a past medical history of hypertension, COPD (on 3 L at home), diastolic CHF, and history of CVA/TIA presents with complaints of shortness of breath and weakness. Patient reports for the last week or so she has felt short of breath and weak and throughout the week it is gotten increasingly more and more prominent. At which point the patient decided to come to the emergency room due to her symptoms. Patient denies chest pain, palpitations, hematemesis or vomiting of any kind, or any dark stools. Initial lab work from the ER was significant for WBC 4.3, RBC 2.68, hemoglobin 3.9, hematocrit 17, MCV 63.2, platelet count 181, sodium 143, potassium 3.5, creatinine 0.63, glucose 114, troponins less than 0.012, BNP 3600. EKG done in the ER showed heart rate of 83 bpm, no ST segment elevation or depression seen, no T-wave inversions seen. Sinus rhythm, possible left atrial enlargement, QTc 406. ER CXR: Cardiomegaly and mild pulmonary vascular congestion. Subjective: Patient seen at bedside. No significant overnight events. Patient reports she is feeling somewhat better but still is experiencing weakness. Pertinent positives and negatives discussed above, a complete review of systems was preformed and all the other sytems were negative. Vitals Signs Reveiwed. General: non toxic, no distress, appears at stated age, normal weight Derm: no unusual rashes/lesions, warm Head: atraumatic, normocephalic, symmetric Eyes: EOMI, no lid lag, anicteric sclera, pupils equal round reactive to light ENT: Nose and ears atraumatic Neck: No cervical lymphadenopathy, trachea midline, supple Mouth: no lip lesion, mucus membranes moist Cardiovascular: S1S2 reg, no murmur, positive dorsalis pedis pulse bilateral, no edema Lungs: Decreased air entry bilaterally, no rhonchi, no rales, no accessory muscle use Abdominal: soft, nontender to palpation, no guarding Ext: muscle strength 5 out of 5 in all 4 extremities grossly, no gross muscle atrophy, no contractures, Neuro: CN II-XI grossly intact, no gross focal neuro deficits Psych: Alert, oriented, appropriate affect Data Reveiwed Today: Patient Labs: BC 9.1, hemoglobin 7.1, MCV 72.3, RDW 23, platelet count 173, iron 15, TIBC 413, percent saturation 3.63, transferrin 295, and ferritin 13.2 Imaging: No new imaging Assessment & Plan: Acute: #Anemia: Blood loss versus/and iron deficiency History of upper GI bleed, previous admission patient had colonoscopy and EGD which showed 5 mm antral gastric ulcer that was not bleeding at the time Patient received EGD today showing 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 GI on consult, appreciate further recommendations Transfuse if hemoglobin less than 7 Continue GI prophylaxis Iron panel shows significantly low iron with normal/low ferritin indicating iron deficiency anemia, will replete Continue to follow CBC and BMP #Diastolic CHF: Started Lasix 20 mg IV twice daily Daily weights Continue gentle fluids in the setting of potential GI bleed Continue to monitor #Hypokalemia: Replete potassium with 40 mill equivalents p.o. Continue to monitor BMP Chronic: #Hypertension: Continue home medications #History of CVA/TIA: Continue to monitor F: NS 20 cc/h E: None N: Clear liquid diet A: Normally ambulates unassisted at home GI ppx: Protonix 40 mg IV twice daily CODE STATUS: Full code Dispo: Patient received EGD today with argon plasma coagulation for a gastric antral vascular ectasia with some oozing. Patient's hemoglobin remained stable. We will keep the patient for at least another day as she still feels significantly weak. Inder Rolle MD PGY-1 FM Objective - Vital Signs Vital signs: Vital Signs Temp 98.9 F 05/02/24 04:00 Pulse 83 05/02/24 04:00 Resp 18 05/02/24 04:00 BP 134/58 05/02/24 04:00 Pulse Ox 90 L 05/02/24 04:00 FiO2 Intake & Output 05/01/24 05/02/24 05/02/24 18:59 06:59 18:59 Intake Total 10 Output Total 450 650 Balance -450 -640 Weight 68 kg Intake: IV 10 Invasive Line 1 10 Output: Urine 450 650 Other: Voiding Method Bedside Commode External Catheter # Bowel Movements 1 - Labs CBC & Chem 7: 05/02/24 06:49 05/02/24 06:49 Labs: Abnormal Lab Results - Last 24 Hours (Table) 05/01/24 05/01/24 05/01/24 Range/Units 09:31 09:31 09:31 RBC 3.54 L (3.80-5.40) m/uL Hgb 7.3 L (11.4-16.0) gm/dL Hct 24.9 L (34.0-46.0) % MCV 70.4 L (80.0-100.0) fL MCH 20.7 L (25.0-35.0) pg MCHC 29.4 L (31.0-37.0) g/dL RDW 22.0 H (11.5-15.5) % Lymphocytes # 0.9 L (1.0-4.8) k/uL Potassium 3.2 L (3.5-5.1) mmol/L Chloride 111 H (98-107) mmol/L BUN 19 H (7-17) mg/dL Iron 15 L (50-170) UG/DL % Saturation 3.63 L (12.00-45.00) Total Protein 5.4 L (6.3-8.2) g/dL Albumin 3.0 L (3.5-5.0) g/dL 05/02/24 Range/Units 06:49 RBC 3.56 L (3.80-5.40) m/uL Hgb 7.1 L (11.4-16.0) gm/dL Hct 25.8 L (34.0-46.0) % MCV 72.3 L (80.0-100.0) fL MCH 20.0 L (25.0-35.0) pg MCHC 27.7 L (31.0-37.0) g/dL RDW 23.0 H (11.5-15.5) % Lymphocytes # (1.0-4.8) k/uL Potassium (3.5-5.1) mmol/L Chloride (98-107) mmol/L BUN (7-17) mg/dL Iron (50-170) UG/DL % Saturation (12.00-45.00) Total Protein (6.3-8.2) g/dL Albumin (3.5-5.0) g/dL
--- NOTE | 2024-05-02 16:41 | P.PN ---
Subjective Progress Note Date: 05/02/24 No acute events. Reporting improvement in symptoms. S/p EGD and argon plasma coagulation of noted talangiectasia. Hgb 7.1 Objective - Vital Signs Vital signs: Vital Signs Temp 98 F 05/02/24 08:25 Pulse 89 05/02/24 11:35 Resp 17 05/02/24 11:35 BP 135/71 05/02/24 11:35 Pulse Ox 91 L 05/02/24 11:35 FiO2 Intake & Output 05/01/24 05/02/24 05/02/24 18:59 06:59 18:59 Intake Total 10 480 Output Total 450 650 650 Balance -450 -640 -170 Weight 68 kg Intake: IV 10 300 Invasive Line 1 10 Oral 180 Output: Urine 450 650 650 Other: Voiding Method Bedside Commode External Catheter External Catheter # Bowel Movements 1 - Constitutional General appearance: Present: average body habitus, no acute distress - EENT Eyes: Present: anicteric sclerae, EOMI ENT: Present: hearing grossly normal - Respiratory Details: breathing is even and unlabored - Cardiovascular Details: skin warm and dry - Gastrointestinal General gastrointestinal: Present: soft. Absent: tenderness - Integumentary Integumentary: Present: pale. Absent: cyanotic - Psychiatric Psychiatric: Present: A&O x's 3 - Labs CBC & Chem 7: 05/02/24 06:49 05/02/24 06:49 Labs: Abnormal Lab Results - Last 24 Hours (Table) 05/01/24 05/02/24 05/02/24 Range/Units 09:31 06:49 06:49 RBC 3.56 L (3.80-5.40) m/uL Hgb 7.1 L (11.4-16.0) gm/dL Hct 25.8 L (34.0-46.0) % MCV 72.3 L (80.0-100.0) fL MCH 20.0 L (25.0-35.0) pg MCHC 27.7 L (31.0-37.0) g/dL RDW 23.0 H (11.5-15.5) % Chloride 110 H (98-107) mmol/L Carbon Dioxide 31 H (22-30) mmol/L Iron 15 L (50-170) UG/DL % Saturation 3.63 L (12.00-45.00) Assessment and Plan (1) Microcytic hypochromic anemia Current Visit: Yes Status: Acute Priority: High Code(s): D50.9 - IRON DEFICIENCY ANEMIA, UNSPECIFIED SNOMED Code(s): 68110756 Plan: Microcytic, hypochromic anemia Anemia new onset earlier this year as stated in HPI. Pt denies any acute event or changes in her health that she can recall at that time. She had GI work up then, no significant findings. -Pt has been transfused 2 units PRBCs for 3.9 Hgb, would anticipate a Hgb in the 6 range, lab test came back at 7. Cont to monitor. Transfuse for Hgb <7. -Anemia labs consistent with ASHLEY, parenteral iron ordered -S/p EGD, linear areas of telangiectasia in the gastric antrum and scattered talangiectasia in the cardia of the stomach s/p argon plasma coagulation Will schedule clinic follow-up in 4 weeks to recheck nutritional studies and give additional parenteral iron as necessary Doctor attests: I performed a history and physical examination of this patient, developed impression and plan of care. Discussed with dictator. I agree with dictators note, documented as a scribe.
[2024-05-02] MEDS: ONDANSETRON 4 MG/2 ML VIAL IVP PRN (20:59)
[2024-05-02] MEDS: NYSTATIN 100,000 UNIT/GM POWD 15 GM TOPICAL PRN (21:17)
[2024-05-03 06:57] LABS: Anisocytosis Moderate; HCT 24.7 % (34.0-46.0); Hypochromasia Marked; MCH 20.4 pg (25.0-35.0); MCHC 27.9 g/dL (31.0-37.0); Mean Platelet Volume 8.7; Microcytosis Marked; Platelet Count 152 k/uL (150-450); Poikilocytosis Marked; RBC 3.39 m/uL (3.80-5.40); RDW 23.9 % (11.5-15.5); WBC 9.7 k/uL (3.8-10.6)
[2024-05-03 07:05] LABS: Anion Gap 3 mmol/L; Blood Urea Nitrogen 13 mg/dL (7-17); Carbon Dioxide 32 mmol/L (22-30); Chloride 109 mmol/L (98-107); Glucose 85 mg/dL (74-99); Potassium 3.3 mmol/L (3.5-5.1); Sodium 144 mmol/L (137-145)
[2024-05-03 07:06] LABS: African American GFR (CKD) >90 (>60 ml/min/1.73 sqM); Calcium 8.5 mg/dL (8.4-10.2); HGB 6.9 gm/dL (11.4-16.0); Non-African American GFR(CKD) 79 (>60 ml/min/1.73 sqM)
[2024-05-03] MEDS: POTASSIUM CHLORIDE ER 20 MEQ TAB.ER PO STA (12:25)
[2024-05-03 13:36] VITALS: BMI 34.1
--- NOTE | 2024-05-03 15:41 | P.PN ---
Subjective Progress Note Date: 05/03/24 HPI; 79-year-old female with a past medical history of hypertension, COPD (on 3 L at home), diastolic CHF, and history of CVA/TIA presents with complaints of shortness of breath and weakness. Patient reports for the last week or so she has felt short of breath and weak and throughout the week it is gotten increasingly more and more prominent. At which point the patient decided to come to the emergency room due to her symptoms. Patient denies chest pain, palpitations, hematemesis or vomiting of any kind, or any dark stools. Initial lab work from the ER was significant for WBC 4.3, RBC 2.68, hemoglobin 3.9, hematocrit 17, MCV 63.2, platelet count 181, sodium 143, potassium 3.5, creatinine 0.63, glucose 114, troponins less than 0.012, BNP 3600. EKG done in the ER showed heart rate of 83 bpm, no ST segment elevation or depression seen, no T-wave inversions seen. Sinus rhythm, possible left atrial enlargement, QTc 406. ER CXR: Cardiomegaly and mild pulmonary vascular congestion. Subjective: Patient seen at bedside. No significant overnight events. Patient reports she is feeling somewhat better but still is experiencing weakness. Patient states of coughing up some clear frothy sputum. Pertinent positives and negatives discussed above, a complete review of systems was preformed and all the other systems were negative. 05/03/2024: Patient had event of the desatting last night. Was placed on 4 L nasal cannula. She states she has shortness of breath. She also reports of coughing up frothy yellow sputum tinged with blood sometimes. Physical exam: Vitals Signs Reviewed. General: non toxic, no distress, appears at stated age, normal weight Derm: no unusual rashes/lesions, warm Head: atraumatic, normocephalic, symmetric Eyes: EOMI, no lid lag, anicteric sclera, pupils equal round reactive to light ENT: Nose and ears atraumatic Neck: No cervical lymphadenopathy, trachea midline, supple Mouth: no lip lesion, mucus membranes moist Cardiovascular: S1S2 reg, no murmur, positive dorsalis pedis pulse bilateral, no edema Lungs: Decreased air entry bilaterally, no rhonchi, no rales, no accessory muscle use Abdominal: soft, nontender to palpation, no guarding Ext: muscle strength 5 out of 5 in all 4 extremities grossly, no gross muscle atrophy, no contractures, Neuro: CN II-XI grossly intact, no gross focal neuro deficits Psych: Alert, oriented, appropriate affect Data Reveiwed Today: Patient Labs: WBC 9.7, Hgb 6.9, MCV 73.0, platelet 152, potassium 3.3 Imaging: No new imaging Assessment & Plan: Acute: #Anemia: Blood loss versus/and iron deficiency History of upper GI bleed, previous admission patient had colonoscopy and EGD which showed 5 mm antral gastric ulcer that was not bleeding at the time Patient received EGD yesterday showing 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 GI on consult, appreciate further recommendations Transfuse if hemoglobin less than 7 Continue GI prophylaxis Iron panel shows significantly low iron with normal/low ferritin indicating iron deficiency anemia, will replete Continue to follow CBC and BMP Patient said at last night, felt short of breath obtain chest x-ray #Diastolic CHF: Started Lasix 20 mg IV twice daily Daily weights Continue gentle fluids in the setting of potential GI bleed Continue to monitor #Hypokalemia: Replete potassium with 40 mill equivalents p.o. Continue to monitor BMP Chronic: #Hypertension: Continue home medications #History of CVA/TIA: Continue to monitor F: NS 20 cc/h E: None N: Clear liquid diet A: Normally ambulates unassisted at home GI ppx: Protonix 40 mg IV twice daily CODE STATUS: Full code Dispo: Patient received EGD today with argon plasma coagulation for a gastric antral vascular ectasia with some oozing. Patient's hemoglobin remained stable. We will keep the patient for at least another day as she still feels significantly weak. Inder Rolle MD PGY-1 Attestation Attestation/ Programming Coordinator Note: Attestation to Progress Note, Participation (I saw and evaluated the patient with the Resident, and I reviewed and discussed the patient with the Resident and agree with the Resident's findings and plans as documented above., management reviewed and discussed), I agree with findings & plan, Provider Signature (MERLENE SMITH, NESS Patel Objective - Vital Signs Vital signs: Vital Signs Temp 98.2 F 05/03/24 04:00 Pulse 75 05/03/24 04:00 Resp 16 05/03/24 04:00 BP 107/52 05/03/24 04:00 Pulse Ox 96 05/03/24 04:00 FiO2 Intake & Output 05/02/24 05/03/24 05/03/24 18:59 06:59 18:59 Intake Total 540 0 Output Total 650 600 Balance -110 -600 Weight 69 kg Intake: IV 300 Oral 240 0 Output: Urine 650 600 Other: Voiding Method External Catheter External Catheter - Labs CBC & Chem 7: 05/05/24 08:12 05/05/24 08:12 Labs: Abnormal Lab Results - Last 24 Hours (Table) 04/30/24 05/02/24 05/02/24 Range/Units 16:20 06:49 06:49 RBC 3.56 L (3.80-5.40) m/uL Hgb 7.1 L (11.4-16.0) gm/dL Hct 25.8 L (34.0-46.0) % MCV 72.3 L (80.0-100.0) fL MCH 20.0 L (25.0-35.0) pg MCHC 27.7 L (31.0-37.0) g/dL RDW 23.0 H (11.5-15.5) % Potassium (3.5-5.1) mmol/L Chloride 110 H (98-107) mmol/L Carbon Dioxide 31 H (22-30) mmol/L Vitamin B12 2675.0 H (200.0-944.0) pg/mL Crossmatch See Detail 05/03/24 05/03/24 Range/Units 05:54 05:54 RBC 3.39 L (3.80-5.40) m/uL Hgb 6.9 L* (11.4-16.0) gm/dL Hct 24.7 L (34.0-46.0) % MCV 73.0 L (80.0-100.0) fL MCH 20.4 L (25.0-35.0) pg MCHC 27.9 L (31.0-37.0) g/dL RDW 23.9 H (11.5-15.5) % Potassium 3.3 L (3.5-5.1) mmol/L Chloride 109 H (98-107) mmol/L Carbon Dioxide 32 H (22-30) mmol/L Vitamin B12 (200.0-944.0) pg/mL Crossmatch
[2024-05-04 07:43] LABS: Anisocytosis Marked; Basophils % (A) 1 %; Eosinophils # (A) 0.3 k/uL (0-0.7); Eosinophils % (A) 3 %; HCT 30.2 % (34.0-46.0); Hypochromasia Marked; Lymphocytes # (A) 1.1 k/uL (1.0-4.8); Lymphocytes % (A) 13 %; MCH 21.9 pg (25.0-35.0); MCHC 28.2 g/dL (31.0-37.0); MCV 77.8 fL (80.0-100.0); Mean Platelet Volume 10.5; Microcytosis Marked; Monocytes # (A) 0.4 k/uL (0-1.0); Monocytes % (A) 5 %; Neutrophils # (A) 6.4 k/uL (1.3-7.7); Neutrophils % (A) 76 %; Platelet Count 163 k/uL (150-450); Poikilocytosis Marked; RBC 3.88 m/uL (3.80-5.40); RDW 24.4 % (11.5-15.5); WBC 8.4 k/uL (3.8-10.6)
[2024-05-04 07:56] LABS: ALT 12 U/L (4-34); AST 23 U/L (14-36); African American GFR (CKD) >90 (>60 ml/min/1.73 sqM); Albumin 2.8 g/dL (3.5-5.0); Alkaline Phosphatase 55 U/L (38-126); Anion Gap 2 mmol/L; Blood Urea Nitrogen 14 mg/dL (7-17); Calcium 8.7 mg/dL (8.4-10.2); Carbon Dioxide 32 mmol/L (22-30); Chloride 108 mmol/L (98-107); Glucose 87 mg/dL (74-99); Magnesium 2.1 mg/dL (1.6-2.3); Non-African American GFR(CKD) 82 (>60 ml/min/1.73 sqM); Sodium 142 mmol/L (137-145); Total Bilirubin 0.9 mg/dL (0.2-1.3); Total Protein 5.1 g/dL (6.3-8.2)
[2024-05-04 07:57] LABS: HGB 8.5 gm/dL (11.4-16.0)
--- NOTE | 2024-05-04 07:58 | XR ---
EXAMINATION TYPE: XR chest 1V portable DATE OF EXAM: 05/04/2024 Comparison: 04/30/2024 Clinical History: 79-year-old female shortness of breath Findings: Heart mild to moderately enlarged. Atherosclerotic arch calcifications. Diffuse interstitial opacitie s. Patchy bibasilar opacities are increasing as is a small right pleural effusion. Loss of the subacr omial space on both sides suggesting chronic full-thickness rotator cuff tears. Vascular stent left b ase of the neck. Impression: 1. Interval worsening with development of mild interstitial pulmonary edema. 2. Development of small right pleural effusion with patchy bibasilar atelectasis and/or consolidation . [facility], , 05/04/2024 7:56 AM
[2024-05-04] MEDS ORDERED: ACETAMINOPHEN TAB 325 MG TAB PO PRN (09:02)
--- NOTE | 2024-05-04 09:09 | P.PN ---
Subjective Progress Note Date: 05/04/24 05/04/2024 Patient has improved oxygen saturations today at 99% on 4 L of oxygen she does wear 3 L at home. She is continued on IV Lasix 20 mg every 12 hours. Patient is not having any signs of active bleeding she is status post EGD post argon plasma coagulation for an easing gastric antral vascular ectasia. Hemoglobin is stable today at 8.5. She remains on IV iron infusions daily. Had a repeat ches t x-ray today which reveals interval worsening with development of mild interstitial pulmonary edema and development of a small right pleural effusion with patchy bibasilar atelectasis and/or consolidation. Blood pressure is marginal at 100s over 50s we will continue this patient on 20 mg of IV Lasix every 12 hours if her blood pressure improves she could be up is up to 40 mg. Nursing staff reports that patient is significantly weak and and as her sister is her caregiver will likely require subacute rehab. She was not evaluated with physical therapy as of yet due to the low hemoglobin and getting a blood transfusion when they came to evaluate her and the PT OT evaluation will not happen on Sunday. Review of Systems Constitutional: Denied any fatigue denied any fever. Cardio vascular: denied any chest pain, palpitations Gastrointestinal: denied any nausea, vomiting, diarrhea Pulmonary: Denied any shortness of breath cough Neurologic denied any new focal deficits All inpatient medications were reviewed and appropriate changes in these medications as dictated in the interval history and assessment and plan. PHYSICAL EXAMINATION: GENERAL: The patient is alert and oriented x3, not in any acute distress. Well developed, well nourished. HEENT: Pupils are round and equally reacting to light. EOMI. No scleral icterus. No conjunctival pallor. Normocephalic, atraumatic. No pharyngeal erythema. No thyromegaly. CARDIOVASCULAR: S1 and S2 present. No murmurs, rubs, or gallops. PULMONARY: Chest is clear to auscultation, no wheezing or crackles. ABDOMEN: Soft, nontender, nondistended, normoactive bowel sounds. No palpable organomegaly. MUSCULOSKELETAL: No joint swelling or deformity. EXTREMITIES: No cyanosis, clubbing, or pedal edema. NEUROLOGICAL: Gross neurological examination did not reveal any focal deficits. SKIN: No rashes. Assessment and plan Acute blood loss anemia with underlying iron deficiency Acute on chronic diastolic heart failure with preserved EF. Moderate aortic stenosis and moderate pulmonary hypertension History of upper GI bleed Hypokalemia repleted Chronic hypertension blood pressures currently on lower side History of stroke Stage II Pressure injury on buttock present on admission Generalized medical debility and weakness secondary to low hemoglobin and CHF GI prophylaxis Full code Plan Continue IV lasix 20 mg Q12 hr with strict intake and output monitoring Recommend to increase lasix up to 40 mg IV to start later this evening Decrease losartan as blood pressure running in the low 100s systolic. Continue IV protonix 40 mg IVP BID Continue daily iron infusions Local wound care to the pressure injury with zinc barrier paste and continue pressure offloading Pending PT/OT evaluation for discharge planning. Evaluation on sunday and will likely require subacute rehabilitation. Monitor hemoglobin and BMP; repeat blood work in the AM. The impression and plan of care has been dictated by Katty Birch, Nurse Practitioner as directed. Dr. Lesa MD I have performed a history and physical examination and medical decision making of this patient, discussed the same with the dictator, and agree with the dictators assessment and plan as written, documented as a scribe. Based on total visit time, I have performed more than 50% of this visit. Objective - Vital Signs Vital signs: Vital Signs Temp 97.6 F 05/04/24 03:36 Pulse 72 05/04/24 03:36 Resp 20 05/04/24 03:36 BP 115/58 05/04/24 03:36 Pulse Ox 99 05/04/24 03:36 FiO2 Intake & Output 05/03/24 05/04/24 05/04/24 18:59 06:59 18:59 Intake Total 523 240 Output Total 400 Balance 523 -160 Weight 69 kg 69 kg Intake: Oral 240 240 Blood Product 283 Rc Pheresis 2 As3 Unit 283 [id number] Output: Urine 400 Other: Voiding Method External Catheter External Catheter - Labs CBC & Chem 7: 05/04/24 06:52 05/04/24 06:52 Labs: Abnormal Lab Results - Last 24 Hours (Table) 04/30/24 05/04/24 05/04/24 Range/Units 16:20 06:52 06:52 Hgb 8.5 L D (11.4-16.0) gm/dL Hct 30.2 L (34.0-46.0) % MCV 77.8 L (80.0-100.0) fL MCH 21.9 L (25.0-35.0) pg MCHC 28.2 L (31.0-37.0) g/dL RDW 24.4 H (11.5-15.5) % Chloride 108 H (98-107) mmol/L Carbon Dioxide 32 H (22-30) mmol/L Total Protein 5.1 L (6.3-8.2) g/dL Albumin 2.8 L (3.5-5.0) g/dL Crossmatch See Detail Assessment and Plan Time with Patient: Less than 30
[2024-05-04] MEDS: FUROSEMIDE 10 MG/ML 4 ML VIAL IV SCH (21:32)
[2024-05-05 06:54] LABS: Methylmalonic Acid 0.13 umol/L (<0.40)
[2024-05-05 08:08] VITALS: RESP 14
[2024-05-05] MEDS: LOSARTAN 25 MG TAB PO SCH (08:12)
[2024-05-05 09:04] LABS: African American GFR (CKD) >90 (>60 ml/min/1.73 sqM); Anion Gap 4 mmol/L; Blood Urea Nitrogen 13 mg/dL (7-17); Calcium 8.7 mg/dL (8.4-10.2); Carbon Dioxide 32 mmol/L (22-30); Chloride 106 mmol/L (98-107); Glucose 89 mg/dL (74-99); Non-African American GFR(CKD) 87 (>60 ml/min/1.73 sqM); Potassium 4.1 mmol/L (3.5-5.1); Sodium 142 mmol/L (137-145)
[2024-05-05 09:20] LABS: Anisocytosis Marked; HCT 31.2 % (34.0-46.0); HGB 8.7 gm/dL (11.4-16.0); Hypochromasia Marked; MCH 21.8 pg (25.0-35.0); MCHC 27.7 g/dL (31.0-37.0); MCV 78.7 fL (80.0-100.0); Mean Platelet Volume 8.4; Microcytosis Marked; Platelet Count 144 k/uL (150-450); Poikilocytosis Marked; RBC 3.97 m/uL (3.80-5.40); WBC 8.9 k/uL (3.8-10.6)
[2024-05-05 09:21] LABS: RDW 25.8 % (11.5-15.5)
[2024-05-05 09:55] LABS: Eosinophils # (M) 0.36 k/uL (0-0.7); Lymphocytes # (M) 0.62 k/uL (1.0-4.8); Monocytes # (M) 0.36 k/uL (0-1.0); Neutrophils # (M) 7.57 k/uL (1.3-7.7); Neutrophils % (M) 85 %; Nucleated Red Blood Cells 0 /100 WBC (0-0); Total Cells Counted 100
--- NOTE | 2024-05-05 12:59 | P.PN ---
Subjective Progress Note Date: 05/05/24 Principal diagnosis: anemia In follow-up today patient denies any bleeding, she is not aware of any black or bloody stools. She denies nausea or vomiting. She has received IV iron, denies any intolerances or reactions. She is still feeling pretty weak, requesting assistance to the bathroom. No other acute complaints, patient denies any pain Objective - Vital Signs Vital signs: Vital Signs Temp 98.6 F 05/05/24 08:00 Pulse 75 05/05/24 08:00 Resp 14 05/05/24 08:00 BP 114/61 05/05/24 08:00 Pulse Ox 97 05/05/24 08:00 FiO2 Intake & Output 05/04/24 05/05/24 05/05/24 18:59 06:59 18:59 Intake Total 1200 118 Output Total 300 800 Balance 900 -800 118 Weight 68.5 kg Intake: Oral 1200 118 Output: Urine 300 800 Other: Voiding Method External Catheter External Catheter External Catheter - Constitutional Constitutional Comment(s): better color today General appearance: Present: cooperative, no acute distress, obese - EENT Eyes: Present: anicteric sclerae, EOMI ENT: Present: hearing grossly normal - Respiratory Details: resp unlabored at rest - Cardiovascular Details: skin warm, well perfused - Peripheral edema leg Peripheral Edema: bilateral: Trace, Other (thickened skin of the BLE) - Neurologic Neurologic: Present: CNII-XII intact - Musculoskeletal Musculoskeletal: Present: generalized weakness - Psychiatric Psychiatric: Present: A&O x's 3, appropriate affect, intact judgment & insight - Labs CBC & Chem 7: 05/05/24 08:12 05/05/24 08:12 Labs: Abnormal Lab Results - Last 24 Hours (Table) 05/05/24 05/05/24 Range/Units 08:12 08:12 Hgb 8.7 L (11.4-16.0) gm/dL Hct 31.2 L (34.0-46.0) % MCV 78.7 L (80.0-100.0) fL MCH 21.8 L (25.0-35.0) pg MCHC 27.7 L (31.0-37.0) g/dL RDW 25.8 H (11.5-15.5) % Plt Count 144 L (150-450) k/uL Lymphocytes # (Manual) 0.62 L (1.0-4.8) k/uL Carbon Dioxide 32 H (22-30) mmol/L - Imaging and Cardiology Chest x-ray: report reviewed Assessment and Plan (1) Microcytic hypochromic anemia Current Visit: Yes Status: Acute Priority: High Code(s): D50.9 - IRON DEFICIENCY ANEMIA, UNSPECIFIED SNOMED Code(s): 48854118 (2) Symptomatic anemia Current Visit: Yes Status: Acute Priority: High Code(s): D64.9 - ANEMIA, UNSPECIFIED SNOMED Code(s): 443258957 Plan: Microcytic, hypochromic anemia -Anemia new onset earlier this year as stated in consult. Pt denies any acute event or changes in her health that she can recall at that time. She had GI work up then, no significant findings. -Patient has had EGD and colonoscopy since admission. GI telangiectasias noted, cautery performed. -Patient has received 3 units PRBCs since admission. Hemoglobin 8.1 today. Overall stable. Transfuse for hemoglobin less than 7 or if patient is symptomatic. -Parenteral iron has been ordered x 4 for iron deficiency. Suspect microcytic, hypochromic anemia a result of chronic small volume losses. Recommendation is for follow-up with Hematology for ongoing monitoring of hemoglobin as well as iron studies and parenteral iron as needed to get iron levels and iron stores to an acceptable level. Patient agrees with the plan. We will see her in the outpatient setting in about 3 to 4 weeks.
--- NOTE | 2024-05-05 14:32 | P.DS ---
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 Patient reports for the last week or so she has felt short of breath and weak and throughout the week it is gotten increasingly more and more prominent. At which point the patient decided to come to the emergency room due to her symptoms. Patient denies chest pain, palpitations, hematemesis or vomiting of any kind, or any dark stools. Initial lab work from the ER was significant for WBC 4.3, RBC 2.68, hemoglobin 3.9, hematocrit 17, MCV 63.2, platelet count 181, sodium 143, potassium 3.5, creatinine 0.63, glucose 114, troponins less than 0.012, BNP 3600. EKG done in the ER showed heart rate of 83 bpm, no ST segment elevation or depression seen, no T-wave inversions seen. Sinus rhythm, possible left atrial enlargement, QTc 406. ER CXR: Cardiomegaly and mild pulmonary vascular congestion. Patient seen at bedside. No significant overnight events. Patient reports she is feeling somewhat better but still is experiencing weakness. Patient states of coughing up some clear frothy sputum. 05/03/2024: Patient had event of the desatting last night. Was placed on 4 L nasal cannula. She states she has shortness of breath. She also reports of coughing up frothy yellow sputum tinged with blood sometimes. 05/04/2024 Patient has improved oxygen saturations today at 99% on 4 L of oxygen she does wear 3 L at home. She is continued on IV Lasix 20 mg every 12 hours. Patient is not having any signs of active bleeding she is status post EGD post argon plasma coagulation for an easing gastric antral vascular ectasia. Hemoglobin is stable today at 8.5. She remains on IV iron infusions daily. Had a repeat chest x-ray today which reveals interval worsening with development of mild interstitial pulmonary edema and development of a small right pleural effusion with patchy bibasilar atelectasis and/or consolidation. Blood pressure is marginal at 100s over 50s we will continue this patient on 20 mg of IV Lasix every 12 hours if her blood pressure improves she could be up is up to 40 mg. Nursing staff reports that patient is significantly weak and and as her sister is her caregiver will likely require subacute rehab. She was not evaluated with physical therapy as of yet due to the low hemoglobin and getting a blood transfusion when they came to evaluate her and the PT OT evaluation will not happen on Sunday. Will admit to the hospital the patient received 3 units of blood with her lowest hemoglobin being 3.9 on admission and increasing to 8.7 at time of discharge. Patient also underwent upper endoscopy which found linear areas of telangiectasia in gastric antrum suggestive of 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 Also showed previously noted antral ulcer has completely healed as well as scattered telangiectasia in the cardia of the stomach status post argon plasma coagulation. Patient was also seen by hematology oncology for anemia, who recommended iron supplementa tion which the patient received while inpatient. Patient is medically and hemodynamically stable for discharge to short-term rehab at [facility]. Patient is advised to follow-up with her PCP, instructional interventionist, and transmission specialist. Pt seen and examined at bedside: Patient feeling better excited about starting acute rehab. Vital signs reveiwed and stable: General: non toxic, no distress, appears at stated age, normal weight Derm: no unusual rashes/lesions, warm Head: atraumatic, normocephalic, symmetric Eyes: EOMI, no lid lag, anicteric sclera, pupils equal round reactive to light ENT: Nose and ears atraumatic Neck: No cervical lymphadenopathy, trachea midline, supple Mouth: no lip lesion, mucus membranes moist Cardiovascular: S1S2 reg, no murmur, positive dorsalis pedis pulse bilateral, no edema Lungs: Decreased air entry bilaterally, no rhonchi, no rales, no accessory muscle use Abdominal: soft, nontender to palpation, no guarding Ext: muscle strength 5 out of 5 in all 4 extremities grossly, no gross muscle atrophy, no contractures, Neuro: CN II-XI grossly intact, no gross focal neuro deficits Psych: Alert, oriented, appropriate affect A total of greater than 30 minutes were spent preparing this complex discarge summary. Patient was discharged on 05/05/2024, 14: 21. Patient Condition at Discharge: Fair Plan - Discharge Summary New Discharge Prescriptions: Continue Losartan Potassium [Cozaar] 25 mg PO BID Furosemide [Lasix] 20 mg PO BID Ammonium Lactate Cream [Lac-Hydrin 12% Cream] 1 applic TOPICAL BID Calcium Carbonate [Calcium] 600 mg PO DAILY Acetaminophen [Tylenol 8 Hour] 1,300 mg PO DAILY Metamucil Gummy 3 tab PO DAILY Women's Adult Gummy Multivitamin 2 tab PO DAILY Omeprazole 20 mg PO DAILY Aspirin 81 mg PO DAILY #30 tab [place]-3S/Dha/Epa/Fish Oil/D3 [Fish Oil Gummies] 2 tab PO DAILY Acetaminophen [Tylenol 8 Hour] 650 - 1,300 mg PO BID PRN PRN Reason: Pain Vit C/Zinc Citrate/Elderberry [Sambucus Elderberry Gummy] 1 tab PO BID [place] Beets Gummies 2 tab PO HS Vitamin B Gummy(Unknown) 1 tab PO DAILY Atorvastatin [Lipitor] 40 mg PO HS Discharge Medication List Furosemide [Lasix] 20 mg PO BID 05/11/20 [History] Losartan Potassium [Cozaar] 25 mg PO BID 05/11/20 [History] Aspirin 81 mg PO DAILY #30 tab 07/20/23 [Rx] Ammonium Lactate Cream [Lac-Hydrin 12% Cream] 1 applic TOPICAL BID 09/05/23 [History] Acetaminophen [Tylenol 8 Hour] 1,300 mg PO DAILY 04/30/24 [History] Acetaminophen [Tylenol 8 Hour] 650 - 1,300 mg PO BID PRN 04/30/24 [History] Atorvastatin [Lipitor] 40 mg PO HS 04/30/24 [History] [place] Beets Gummies 2 tab PO HS 04/30/24 [History] Calcium Carbonate [Calcium] 600 mg PO DAILY 04/30/24 [History] Metamucil Gummy 3 tab PO DAILY 04/30/24 [History] [place]-3S/Dha/Epa/Fish Oil/D3 [Fish Oil Gummies] 2 tab PO DAILY 04/30/24 [History] Omeprazole 20 mg PO DAILY 04/30/24 [History] Vit C/Zinc Citrate/Elderberry [Sambucus Elderberry Gummy] 1 tab PO BID 04/30/24 [History] Vitamin B Gummy(Unknown) 1 tab PO DAILY 04/30/24 [History] Women's Adult Gummy Multivitamin 2 tab PO DAILY 04/30/24 [History] Follow up Appointment(s)/Referral(s): Herbert Chaudhry [STAFF PHYSICIAN] - 06/12/24 2:00 pm Danitza Evans MD [STAFF PHYSICIAN] - 1 Week Mike Kennedy DO [Primary Care Provider] - 1-2 days Discharge Disposition: TRANSFER TO SNF/ECF
[2024-05-05 16:21] VITALS: BP 124/55; PULSE 85; TEMP 98.2
--- NOTE | 2024-05-05 17:46 | CDI ---
Documentation Clarification Form Date: 05/05/2024 05:41:46 PM From: Ana Harris RN, CCDS Phone: [phone] Admit Date: 05/01/2024 09:12:00 AM Patient Name: Imani Em Visit Number: [id number] Discharge Date: ATTENTION: The Clinical Documentation Specialists (CDI) and [facility] Coding Staff appreciate your assistance in clarifying documentation. Please respond to the clarification below the line at the bottom and electronically sign. The CDI & [facility] Coding staff will review the response and follow-up if needed. Please note: Queries are made part of the Legal Health Record. If you have any questions, please contact the author of this message via ITS. Dr. eDbi Nathan Your patient has history of COPD (on 3L of O2 at home per ongoing progress notes. Based on this information and the findings below, is there an additional diagnosis that is clinically appropriate for this patient? History/Risk Factors: CVA/TIA, Hypertension, COPD ON 3 L at home, Diastolic CHF, Tobacco use: none Home oxygen: 3/L 04/30 CXR: Cardiomegaly and mild pulmonary vascular congestion. Correlate with BNP for congestive heart failure. 05/04 CXR: 1. Interval worsening with development of mild interstitial pulmonary edema. 2. Development of small right pleural effusion with patchy bibasilar atelectasis and/or consolidation. Clinical Indicators: 79-year-old female to the ER for evaluation of shortness of breath. VS: 05/01 (1347) 154/87 18 95 % 2/L NC VS 05/02 (08:25 160/68 94 17 96.0 92% 3/L NC (04/22: 90% 3/L NC: Lung/Breathing assessment: chest clear to auscultation B/L, no wheezing or crackles Treatment: Lasix 20 MG IV Q 12 HR 05/01-05/04 increase to 40 MG Q 12 05/04-05/05 Monitor pulse (titrate) Duoneb 0.5 Mg-3 Mg damir Inhalation once Is there an additional diagnosis that is clinically appropriate for this patient? [ ] Acute Hypoxic Respiratory Failure [ ] Acute Hypercapnia Respiratory Failure [ ] Acute on Chronic hypoxic Respiratory Failure [ x ] Chronic hypoxic Respiratory Failure [ ] Other Diagnosis, please specify [ ] Unable to determine (Template Last Revised: July 2023) MTDD
== END 2024-05-05 18:19 | DRG 811 ==
LOC: EC 15:01 → 3SCARD 19:30 → OBSVTOIN 05-01 09:12 → 3SCARD 05-01 13:32
PROVIDERS: ADMIT Hospitalist; ATTEND Hospitalist
PROC: 30233N1 Transfusion of Nonautologous Red Blood Cells into Peripheral Vein, Percutaneous Approach (ICD-10-PCS; 2024-04-30)
PROC: 0W3P8ZZ Control Bleeding in Gastrointestinal Tract, Via Natural or Artificial Opening Endoscopic (ICD-10-PCS; principal; 2024-05-02 08:05)
DX: D62 Acute posthemorrhagic anemia (principal); I50.33 Acute on chronic diastolic (congestive) heart failure; K31.811 Angiodysplasia of stomach and duodenum with bleeding; J96.11 Chronic respiratory failure with hypoxia; J44.1 Chronic obstructive pulmonary disease with (acute) exacerbation; Z94.84 Stem cells transplant status; L89.302 Pressure ulcer of unspecified buttock, stage 2; I27.20 Pulmonary hypertension, unspecified; I11.0 Hypertensive heart disease with heart failure; Z99.81 Dependence on supplemental oxygen; I35.0 Nonrheumatic aortic (valve) stenosis; Z95.820 Peripheral vascular angioplasty status with implants and grafts; I78.1 Nevus, non-neoplastic; K57.30 Diverticulosis of large intestine without perforation or abscess without bleeding; E87.6 Hypokalemia; Z96.653 Presence of artificial knee joint, bilateral; Z79.82 Long term (current) use of aspirin; Z79.899 Other long term (current) drug therapy; Z86.73 Personal history of transient ischemic attack (TIA), and cerebral infarction without residual deficits; Z87.11 Personal history of peptic ulcer disease; Z87.19 Personal history of other diseases of the digestive system
CPT/HCPCS: 36415; 36430; 43255; 71045; 80048; 80053; 82525; 82607; 82668; 82728; 82747; 83540; 83550; 83605; 83735; 83880; 83921; 84484; 85025; 85027; 85045; 85610; 85730; 86850; 86900; 86901; 86920; 93005; 94760; 96361; 96365; 96366; 96375; 99285

== ENCOUNTER 2024-05-14 23:22 | Inpatient (IN) | payer MEDICARE ==
--- NOTE | 2024-05-15 01:05 | XR ---
EXAM: XR Chest, 1 View CLINICAL HISTORY: ITS.REASON XR Reason: edema TECHNIQUE: Frontal view of the chest. COMPARISON: No relevant prior studies available. FINDINGS: Lungs: Moderate pulmonary vascular congestion. Small bilateral pleural effusions. Correlate for congestive heart failure. No consolidation. Pleural space: See above. Heart: Cardiomegaly. Calcified aorta. Mediastinum: Unremarkable. Normal mediastinal contour. Bones/joints: Unremarkable. No acute fracture. IMPRESSION: Moderate pulmonary vascular congestion. Small bilateral pleural effusions. Correlate for congestive heart failure.
[2024-05-15 01:18] LABS: Anisocytosis Marked; Basophils % (A) 1 %; Eosinophils # (A) 0.1 k/uL (0-0.7); Eosinophils % (A) 2 %; HCT 34.3 % (34.0-46.0); HGB 9.7 gm/dL (11.4-16.0); Hypochromasia Marked; Lymphocytes # (A) 0.9 k/uL (1.0-4.8); Lymphocytes % (A) 14 %; MCH 23.6 pg (25.0-35.0); MCHC 28.2 g/dL (31.0-37.0); Mean Platelet Volume 9.1; Microcytosis Marked; Monocytes # (A) 0.5 k/uL (0-1.0); Monocytes % (A) 7 %; Neutrophils # (A) 4.6 k/uL (1.3-7.7); Neutrophils % (A) 74 %; Platelet Count 197 k/uL (150-450); Poikilocytosis Slight; WBC 6.1 k/uL (3.8-10.6)
[2024-05-15 01:23] LABS: ALT 14 U/L (4-34); AST 30 U/L (14-36); African American GFR (CKD) >90 (>60 ml/min/1.73 sqM); Albumin 3.2 g/dL (3.5-5.0); Alkaline Phosphatase 87 U/L (38-126); Anion Gap 3 mmol/L; Blood Urea Nitrogen 18 mg/dL (7-17); Calcium 8.8 mg/dL (8.4-10.2); Carbon Dioxide 33 mmol/L (22-30); Chloride 107 mmol/L (98-107); Glucose 109 mg/dL (74-99); Non-African American GFR(CKD) 87 (>60 ml/min/1.73 sqM); Potassium 3.9 mmol/L (3.5-5.1); Sodium 143 mmol/L (137-145); Total Bilirubin 0.4 mg/dL (0.2-1.3); Total Protein 5.6 g/dL (6.3-8.2)
[2024-05-15 01:32] LABS: NT-Pro-B-Type Natriuretic Pept 4170 pg/mL
[2024-05-15 01:42] LABS: MCV 83.7 fL (80.0-100.0); RDW 27.8 % (11.5-15.5)
--- NOTE | 2024-05-15 02:24 | ED ---
Wound/Laceration HPI - General Chief Complaint: Wound/Laceration Stated Complaint: Rash Time Seen by Provider: 05/14/24 23:31 Source: patient Mode of arrival: EMS - History of Present Illness Initial Comments: 79-year-old female presenting with chief complaint of bilateral lower extremity swelling. Patient reports that the swelling has gotten worse over the past few days and she is having pain in the legs as well. Legs are also red bilaterally. Patient states that she normally does have redness to the lower legs, however the swelling was the most concerning feature. She denies any shortness of breath, she is currently on 2 L of O2 via nasal cannula [facility]. No chest pain. No abdominal pain, nausea, vomiting. No cough, congestion, sore throat. - Related Data Home Medications Medication Instructions Recorded Confirmed Furosemide [Lasix] 20 mg PO BID 05/11/20 04/30/24 Losartan Potassium [Cozaar] 25 mg PO BID 05/11/20 04/30/24 Ammonium Lactate Cream [Lac-Hydrin 1 applic TOPICAL BID 09/05/23 04/30/24 12% Cream] Acetaminophen [Tylenol 8 Hour] 1,300 mg PO DAILY 04/30/24 04/30/24 Acetaminophen [Tylenol 8 Hour] 650 - 1,300 mg PO BID PRN 04/30/24 04/30/24 Atorvastatin [Lipitor] 40 mg PO HS 04/30/24 04/30/24 [place] Beets Gummies 2 tab PO HS 04/30/24 04/30/24 Calcium Carbonate [Calcium] 600 mg PO DAILY 04/30/24 04/30/24 Metamucil Gummy 3 tab PO DAILY 04/30/24 04/30/24 [place]-3S/Dha/Epa/Fish Oil/D3 [Fish 2 tab PO DAILY 04/30/24 04/30/24 Oil Gummies] Omeprazole 20 mg PO DAILY 04/30/24 04/30/24 Vit C/Zinc Citrate/Elderberry 1 tab PO BID 04/30/24 04/30/24 [Sambucus Elderberry Gummy] Vitamin B Gummy(Unknown) 1 tab PO DAILY 04/30/24 04/30/24 Women's Adult Gummy Multivitamin 2 tab PO DAILY 04/30/24 04/30/24 Previous Rx's Medication Instructions Recorded Aspirin 81 mg PO DAILY #30 tab 07/20/23 Allergies Allergy/AdvReac Type Severity Reaction Status Date / Time Penicillins AdvReac Unknown PASSED OUT Verified 05/14/24 23:26 Review of Systems ROS Statement: Those systems with pertinent positive or pertinent negative responses have been documented in the HPI. ROS Other: All systems not noted in ROS Statement are negative. Past Medical History Past Medical History: CVA/TIA, Hypertension Additional Past Medical History / Comment(s): states CVA (no residual), states stent in upper leg, rash on lower legs, ankles swell, pt states on Nutrisystem diet and has lost 20-25 # with frequent stools. History of Any Multi-Drug Resistant Organisms: None Reported Past Surgical History: Joint Replacement Additional Past Surgical History / Comment(s): total right knee x2, stem cell injections prior to total knees, cataract surgery, stent in leg Additional Past Anesthesia/Blood Transfusion Reaction / Comment(s): STATES UNABLE TO INTUBATE- THEY HAD TO DO A SPINAL, STATES SHE HAS LETTER FROM [place] AND INSTRUCTED PATIENT TO BRING THIS LETTER WITH HER Past Psychological History: No Psychological Hx Reported Smoking Status: Never smoker Past Alcohol Use History: None Reported Past Drug Use History: None Reported - Past Family History Mother Family Medical History: Cancer Additional Family Medical History / Comment(s): colon cancer General Exam General appearance: alert, in no apparent distress Head exam: Present: atraumatic, normocephalic, normal inspection Eye exam: Present: normal appearance Neck exam: Present: normal inspection. Absent: meningismus Respiratory exam: Present: normal lung sounds bilaterally. Absent: respiratory distress, wheezes, rales, rhonchi, stridor Cardiovascular Exam: Present: regular rate, normal rhythm, normal heart sounds. Absent: systolic murmur, diastolic murmur, rubs, gallop, clicks Extremities exam: Present: pedal edema Neurological exam: Present: alert, oriented X3 Psychiatric exam: Present: normal affect, normal mood Skin exam: Present: erythema (Bilateral lower legs) Course Vital Signs 05/14/24 23:23 Temperature 98.8 F Pulse Rate 92 Respiratory 18 Rate Blood Pressure 142/59 O2 Sat by Pulse 100 Oximetry Medical Decision Making - Medical Decision Making Was pt. sent in by a medical professional or institution (, PA, FIRE FIGHTER, urgent care, hospital, or jail...) When possible be specific @ -correction Did you speak to anyone other than the patient for history (EMS, parent, family, police, friend...)? What history was obtained from this source @ -No Did you review nursing and triage notes (agree or disagree)? Why? @ -I reviewed and agree with nursing and triage notes Were old charts reviewed (outside hosp., previous admission, EMS record, old EKG, old radiological studies, urgent care reports/EKG's, jail records)? Report findings @ -No old charts were reviewed Differential Diagnosis (chest pain, altered mental status, abdominal pain women, abdominal pain men, vaginal bleeding, weakness, fever, dyspnea, syncope, headache, dizziness, GI bleed, back pain, seizure, CVA, palpatations, mental health, musculoskeletal)? @ -Differential Musculoskeletal Muscular strain, contusion, ligament sprain, fracture, arthritis, septic arthritis, bursitis, cellulitis, muscle spasm, nerve compression, DVT, arterial occlusion, herpes zoster, electrolyte abnormality, tumor.... This is not meant to be in all inclusive list EKG interpreted by me (3pts min.). @ -As above X-rays interpreted by me (1pt min.). @ -Chest x-ray shows moderate pulmonary vascular congestion. Small bilateral pleural effusions. CT interpreted by me (1pt min.). @ -None done U/S interpreted by me (1pt. min.). @ -None done What testing was considered but not performed or refused? (CT, X-rays, U/S, labs)? Why? @ -None What meds were considered but not given or refused? Why? @ -None Did you discuss the management of the patient with other professionals (professionals i.e. , PA, FIRE FIGHTER, lab, RT, psych nurse, manager social media, acid mixer, teacher, public safety officer, spring encaser)? Give summary @ -Spoke with Mona Odonnell who accepts admission Was smoking cessation discussed for >3mins.? @ -No Was critical care preformed (if so, how long)? @ -No Were there social determinants of health that impacted care today? How? (H omelessness, low income, unemployed, alcoholism, drug addiction, transportation, low edu. Level, literacy, decrease access to med. care, penitentiary, rehab)? @ -No Was there de-escalation of care discussed even if they declined (Discuss DNR or withdrawal of care, Hospice)? DNR status @ -No What co-morbidities impacted this encounter? (DM, HTN, Smoking, COPD, CAD, Cancer, CVA, ARF, Chemo, Hep., AIDS, mental health diagnosis, sleep apnea, morbid obesity)? @ -None Was patient admitted / discharged? Hospital course, mention meds given and route, prescriptions, significant lab abnormalities, going to OR and other pertinent info. @ -79-year-old female presenting chief complaint of bilateral lower extremity swelling. History of CHF. BNP 4170 and chest x-ray correlates with CHF. Patient given dose of Lasix 40 mg. There is some extensive bilateral redness. Patient states that she normally does have some redness at baseline but this is increased from usual. She is given 1 dose of cefazolin to cover for cellulitis though the likelihood seems to be low. Patient will be admitted she is agreea ble with this plan. I discussed this case with my attending Dr. Lacy Undiagnosed new problem with uncertain prognosis? @ -No Drug Therapy requiring intensive monitoring for toxicity (Heparin, Nitro, Insulin, Cardizem)? @ -No Were any procedures done? @ -No Diagnosis/symptom? @ -CHF Acute, or Chronic, or Acute on Chronic? @ -Acute on chronic Uncomplicated (without systemic symptoms) or Complicated (systemic symptoms)? @ -Complicated Side effects of treatment? @ -No Exacerbation, Progression, or Severe Exacerbation? @ -Exacerbation Poses a threat to life or bodily function? How? (Chest pain, [place], [place], pneumonia, PE, COPD, DKA, ARF, appy, cholecystitis, CVA, Diverticulitis, Homicidal, Suicidal, threat to staff... and all critical care pts) @ -Yes - Lab Data Result diagrams: 05/15/24 00:07 05/15/24 00:07 Lab Results 05/14/24 05/15/24 05/15/24 Range/Units 23:30 00:07 00:07 WBC 6.1 (3.8-10.6) k/uL RBC 4.10 (3.80-5.40) m/uL Hgb 9.7 L (11.4-16.0) gm/dL Hct 34.3 (34.0-46.0) % MCV 83.7 D (80.0-100.0) fL MCH 23.6 L (25.0-35.0) pg MCHC 28.2 L (31.0-37.0) g/dL RDW 27.8 H (11.5-15.5) % Plt Count 197 (150-450) k/uL MPV 9.1 Neutrophils % 74 % Lymphocytes % 14 % Monocytes % 7 % Eosinophils % 2 % Basophils % 1 % Neutrophils # 4.6 (1.3-7.7) k/uL Lymphocytes # 0.9 L (1.0-4.8) k/uL Monocytes # 0.5 (0-1.0) k/uL Eosinophils # 0.1 (0-0.7) k/uL Basophils # 0.0 (0-0.2) k/uL Hypochromasia Marked Poikilocytosis Slight Anisocytosis Marked Microcytosis Marked Sodium 143 (137-145) mmol/L Potassium 3.9 (3.5-5.1) mmol/L Chloride 107 (98-107) mmol/L Carbon Dioxide 33 H (22-30) mmol/L Anion Gap 3 mmol/L BUN 18 H (7-17) mg/dL Creatinine 0.60 (0.52-1.04) mg/dL Est GFR (CKD-EPI)AfAm >90 (>60 ml/min/1.73 sqM) Est GFR (CKD-EPI)NonAf 87 (>60 ml/min/1.73 sqM) Glucose 109 H (74-99) mg/dL Plasma Lactic Acid Luis Eduardo 1.3 (0.7-2.0) mmol/L Calcium 8.8 (8.4-10.2) mg/dL Total Bilirubin 0.4 (0.2-1.3) mg/dL AST 30 (14-36) U/L ALT 14 (4-34) U/L Alkaline Phosphatase 87 (38-126) U/L NT-Pro-B Natriuret Pep 4170 pg/mL Total Protein 5.6 L (6.3-8.2) g/dL Albumin 3.2 L (3.5-5.0) g/dL Disposition Clinical Impression: CHF (congestive heart failure) Disposition: ADMITTED IP TO THIS HOSP Condition: Fair Referrals: Atilio Torre MD [Primary Care Provider] - 1-2 days Time of Disposition: 02:24
[2024-05-15] MEDS ORDERED: NALOXONE 0.4 MG/ML 1 ML VIAL IV PRN (03:29)
[2024-05-15] MEDS: FUROSEMIDE 10 MG/ML 4 ML VIAL IV STA (03:33)
[2024-05-15] MEDS ORDERED: MAGNESIUM HYDROXIDE 2,400 MG/30 ML CUP PO PRN (09:38)
[2024-05-15] MEDS ORDERED: ACETAMINOPHEN TAB 500 MG TAB PO PRN (09:38)
[2024-05-15] MEDS ORDERED: bisacodyL 10 MG SUPP RECTAL PRN (09:38)
[2024-05-15] MEDS: ASPIRIN 81 MG PO SCH (10:32)
[2024-05-15] MEDS: PANTOPRAZOLE 40 MG TABLET PO SCH (10:32)
[2024-05-15] MEDS: FUROSEMIDE 10 MG/ML 2 ML VIAL IV SCH (10:32)
--- NOTE | 2024-05-15 21:05 | P.HPIM ---
History of Present Illness H&P Date: 05/15/24 Chief Complaint: Leg swelling Patient is a 79-year-old female with known history of hypertension, history of CVA/TIA with no residual weakness, chronic CHF with preserved EF, left lower extremity stent placement and other medical problems presents to ER with complaints of bilateral lower extremity swelling and redness. 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 Patient is status post EGD. Patient was seen by GI and oncology at the time. Patient did receive the units of PRBC transfusion. Patient was discharged on 05/05/2024. Laboratory showed WBC 6.1 hemoglobin 9.7 and platelets 197 sodium 143 potassium 3.9 total 107 bicarb is 33 BUN 18 and creatinine 0.6 and blood sugar 109 and proBNP 4170. Patient was given a dose of IV Lasix and cefazolin IV in the ER. Chest x-ray showed moderate vascular congestion. Small bilateral pleural effusions. Review of Systems Constitutional: Patient denies any fever or chills . No generalized weakness or weight loss. Abdomen: Patient denied nausea vomiting and diarrhea and abdominal pain. Cardiovascular: Patient denies any chest pain or short of breath no palpitations. Bilateral leg swelling and redness Respiratory: patient denied any cough or sputum production. No shortness of breath. Neurologic: Patient denied any numbness or tingling. no headache. Musculoskeletal: Patient denies any complaints of joint swelling or deformity. Skin: Negative Psychiatric: Negative Endocrine: No heat or cold intolerance. No recent weight gain. Genitourinary: No dysuria or hematuria. All other 14 point ROS negative except the above Past Medical History Past Medical History: CVA/TIA, Hypertension Additional Past Medical History / Comment(s): states CVA (no residual), states stent in upper leg, rash on lower legs, ankles swell, pt states on Nutrisystem diet and has lost 20-25 # with frequent stools. History of Any Multi-Drug Resistant Organisms: None Reported Past Surgical History: Joint Replacement Additional Past Surgical History / Comment(s): total right knee x2, stem cell injections prior to total knees, cataract surgery, stent in leg Additional Past Anesthesia/Blood Transfusion Reaction / Comment(s): STATES UNABLE TO INTUBATE- THEY HAD TO DO A SPINAL, STATES SHE HAS LETTER FROM [place] AND INSTRUCTED PATIENT TO BRING THIS LETTER WITH HER Past Psychological History: No Psychological Hx Reported Smoking Status: Never smoker Past Alcohol Use History: None Reported Past Drug Use History: None Reported - Past Family History Mother Family Medical History: Cancer Additional Family Medical History / Comment(s): colon cancer Medications and Allergies Home Medications Medication Instructions Recorded Confirmed Type Furosemide [Lasix] 20 mg PO BID 05/11/20 05/15/24 History Losartan Potassium [Cozaar] 25 mg PO BID 05/11/20 05/15/24 History Aspirin 81 mg PO DAILY #30 tab 07/20/23 05/15/24 Rx Ammonium Lactate Cream [Lac-Hydrin 1 applic TOPICAL BID 09/05/23 05/15/24 History 12% Cream] Acetaminophen [Tylenol 8 Hour] 1,300 mg PO BID PRN 04/30/24 05/15/24 History Acetaminophen [Tylenol 8 Hour] 1,300 mg PO DAILY 04/30/24 05/15/24 History Atorvastatin [Lipitor] 40 mg PO HS 04/30/24 05/15/24 History Calcium Carbonate [Calcium] 600 mg PO DAILY 04/30/24 05/15/24 History [place]-3S/Dha/Epa/Fish Oil/D3 [Fish 2 tab PO DAILY 04/30/24 05/15/24 History Oil Gummies] Esomeprazole Magnesium [NexIUM] 20 mg PO DAILY 05/15/24 05/15/24 History Ferrous Sulfate [Feosol] 325 mg PO DAILY 05/15/24 05/15/24 History Magnesium Hydroxide [Milk of 7,200 mg PO Q48H PRN 05/15/24 05/15/24 History Magnesia Concentrate] Na Phos,M-B/Na Phos,Di-Ba [Fleet 133 ml RECTAL DAILY PRN 05/15/24 05/15/24 History Adult] Psyllium Husk (with Sugar) 1 tsp PO DAILY PRN 05/15/24 05/15/24 History [Metamucil Powder] Sennosides-Docusate Sodium 1 tab PO BID 05/15/24 05/15/24 History [Senokot-S] Spironolactone [Aldactone] 25 mg PO DAILY 05/15/24 05/15/24 History bisacodyL [Dulcolax] 10 mg RECTAL DAILY PRN 05/15/24 05/15/24 History Allergies Allergy/AdvReac Type Severity Reaction Status Date / Time Penicillins AdvReac Unknown PASSED OUT Verified 05/15/24 08:08 Physical Exam Vitals: Vital Signs Temp Pulse Pulse Resp BP BP Pulse Ox 05/15/24 08:30 97.9 F 96 16 142/94 98 05/15/24 08:10 80 20 120/60 95 05/15/24 07:51 90 20 125/69 94 L 05/15/24 06:22 89 16 125/61 92 L 05/15/24 03:12 91 16 130/51 94 L 05/15/24 01:30 87 18 105/49 93 L 05/14/24 23:23 98.8 F 92 18 142/59 100 Intake and Output 05/14/24 05/15/24 05/15/24 22:59 06:59 14:59 Other: Weight 72.575 kg PHYSICAL EXAMINATION: Patient is lying in the bed comfortably, no acute distress, awake alert and oriented.. HEENT: Normocephalic. Neck is supple. Pupils reactive. Nostrils clear. Oral cavity is moist. Neck reveals no JVD, carotid bruits, or thyromegaly. CHEST EXAMINATION: Trachea is central. Symmetrical expansion. Lung ortiz clear to auscultation and percussion. CARDIAC: Normal S1, S2 with no gallops. No murmurs ABDOMEN: Soft. Bowel sounds normal. No organomegaly. No abdominal bruits. Extremities: Bilateral lower extremity swelling and redness and warm to touch.. No clubbing or cyanosis Neurologically awake, alert, oriented x3 with well-coordinated movements. No focal deficits noted Skin: No rash or skin lesions. Psychiatric: Coperative. Nonsuicidal Musculoskeletal: No joint swelling or deformity. Normal range of motion. Results CBC & Chem 7: 05/15/24 00:07 05/15/24 00:07 Labs: Abnormal Lab Results - Last 24 Hours (Table) 05/15/24 05/15/24 Range/Units 00:07 00:07 Hgb 9.7 L (11.4-16.0) gm/dL MCH 23.6 L (25.0-35.0) pg MCHC 28.2 L (31.0-37.0) g/dL RDW 27.8 H (11.5-15.5) % Lymphocytes # 0.9 L (1.0-4.8) k/uL Carbon Dioxide 33 H (22-30) mmol/L BUN 18 H (7-17) mg/dL Glucose 109 H (74-99) mg/dL Total Protein 5.6 L (6.3-8.2) g/dL Albumin 3.2 L (3.5-5.0) g/dL Thrombosis Risk Factor Assmnt - DVT/VTE Prophylaxis DVT/VTE Prophylaxis: Pharmacologic Prophylaxis ordered Assessment and Plan Assessment: Bilateral lower extremity redness and swelling due to cellulitis Acute on chronic CHF with preserved ejection fraction Recent history of symptomatic anemia status post EGD showed AVM and also iron deficiency. Patient was discharged on 05/05/2024 Left lower extremity stent placement Hypertension history of CVA/TIA with no residual weakness GI and DVT prophy with PPI and heparin subcu Plan: Patient will be continued on antibiotics of cefazolin. Was given a dose of IV Lasix in the ER and continue with IV Lasix x 1 more day and changed back to her home dose of 20 mg twice daily. Follow-up CBC and BMP. Continue with iron supplementation and symptomatic management. Follow-up closely. PT OT be consulted. Anticipate discharge in next 24 hours. Time with Patient: Greater than 30
[2024-05-15] MEDS: ATORVASTATIN 40 MG TAB PO SCH (22:13)
[2024-05-15] MEDS: LOSARTAN 25 MG TAB PO SCH (22:13)
[2024-05-15] MEDS: SIMETHICONE 40 MG/0.6 ML DROPS 2,000 MG/30 ML BOTTLE PO PRN (22:26)
[2024-05-16] MEDS: HEPARIN SODIUM,PORCINE 5,000 UNIT/ML 1 ML VIAL SQ SCH (00:05)
[2024-05-16] MEDS: SPIRONOLACTONE 25 MG TAB PO SCH (08:43)
[2024-05-16] MEDS: FERROUS SULFATE 325 MG TAB PO SCH (08:43)
[2024-05-16 10:29] LABS: % Iron Saturation 10.83 (12.00-45.00); Blood Urea Nitrogen 11.6 mg/dL (9.0-27.0); Calcium 8.7 mg/dL (8.7-10.3); Carbon Dioxide 29.6 mmol/L (21.6-31.8); Chloride 105 mmol/L (96-109); Glucose 91 mg/dL (70-110); Iron 30 UG/DL (50-170); Potassium 3.9 mmol/L (3.5-5.5); Sodium 145 mmol/L (135-145); Total Iron Binding Capacity 277 UG/DL (228-460)
[2024-05-16 10:55] LABS: Basophils # (A) 0.07 X 10*3/uL (0.00-0.10); Basophils % (A) 1.5 %; Eosinophils # (A) 0.07 X 10*3/uL (0.04-0.35); Eosinophils % (A) 1.5 %; HCT 32.5 % (37.2-46.3); HGB 9.1 g/dL (12.0-15.0); Hypochromasia (M) 2+; Lymphocytes # (A) 0.77 X 10*3/uL (0.90-5.00); Lymphocytes % (A) 16.1 %; MCH 23.8 pg (27.0-32.0); MCV 84.9 FL (80.0-97.0); Monocytes # (A) 0.43 X 10*3/uL (0.20-1.00); NRBC Per 100 WBC 0 X 10*3/uL (0.00-0.01); Neutrophils # (A) 3.41 X 10*3/uL (1.80-7.70); Neutrophils % (A) 71.5 %; Platelet Count 184 X 10*3/uL (140-440); RBC 3.83 X 10*6/uL (4.10-5.20); WBC 4.77 X 10*3/uL (4.50-10.00)
[2024-05-16] MEDS: SENNOSIDES-DOCUSATE SODIUM 1 EACH TAB PO SCH (10:55)
[2024-05-16] MEDS: FUROSEMIDE 20 MG TAB PO SCH (10:55)
--- NOTE | 2024-05-16 17:44 | P.PN ---
Subjective Progress Note Date: 05/16/24 Patient is a 79-year-old female with known history of hypertension, history of CVA/TIA with no residual weakness, chronic CHF with preserved EF, left lower extremity stent placement and other medical problems presents to ER with complaints of bilateral lower extremity swelling and redness. 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 Patient is status post EGD. Patient was seen by GI and oncology at the time. Patient did receive the units of PRBC transfusion. Patient was discharged on 05/05/2024. Laboratory showed WBC 6.1 hemoglobin 9.7 and platelets 197 sodium 143 potassium 3.9 total 107 bicarb is 33 BUN 18 and creatinine 0.6 and blood sugar 109 and proBNP 4170. Patient was given a dose of IV Lasix and cefazolin IV in the ER. Chest x-ray showed moderate vascular congestion. Small bilateral pleural effusions. 05/16/2024 Patient is currently sitting in the recliner. Awake alert and oriented x 3. No complaints of chest pain or shortness of breath. Patient is currently on room air. IV Lasix changed to p.o. Otherwise patient is being continued on cefazolin for bilateral lower extremity redness and swelling which is improving. Patient is able to get up and go to the bathroom. Afebrile. No complaints of nausea or vomiting abdominal pain or diarrhea. Laboratory data showed WBC 4.7 hemoglobin 9.1 and platelets 184 sodium 145 potassium 3.9 chloride 105 bicarb is 29.6 and BUN 11.6 and creatinine 0.5 and iron profile sh owed deficiency. Patient is on p.o. iron supplementation. ID consult for further evaluation. Current medications reviewed. Objective - Vital Signs Vital signs: Vital Signs Temp 98.4 F 05/16/24 14:57 Pulse 92 05/16/24 14:57 Resp 18 05/16/24 14:57 BP 145/73 05/16/24 14:57 Pulse Ox 96 05/16/24 14:57 FiO2 Intake & Output 05/15/24 05/16/24 05/16/24 18:59 06:59 18:59 Intake Total 222 Output Total 900 950 Balance -678 -950 Intake: Oral 222 Output: Urine 900 950 Other: # Voids 5 - Exam PHYSICAL EXAMINATION: Patient is lying in the bed comfortably, no acute distress, awake alert and oriented.. HEENT: Normocephalic. Neck is supple. Pupils reactive. Nostrils clear. Oral cavity is moist. Neck reveals no JVD, carotid bruits, or thyromegaly. CHEST EXAMINATION: Trachea is central. Symmetrical expansion. Lung ortiz clear to auscultation and percussion. CARDIAC: Normal S1, S2 with no gallops. No murmurs ABDOMEN: Soft. Bowel sounds normal. No organomegaly. No abdominal bruits. Extremities: Bilateral lower extremity swelling and redness and warm to touch extending up to the knee. No clubbing or cyanosis Neurologically awake, alert, oriented x3 with well-coordinated movements. No focal deficits noted Skin: No rash or skin lesions. Psychiatric: Coperative. Nonsuicidal Musculoskeletal: No joint swelling or deformity. Normal range of motion. - Labs CBC & Chem 7: 05/16/24 06:08 05/16/24 06:08 Labs: Abnormal Lab Results - Last 24 Hours (Table) 05/16/24 05/16/24 Range/Units 06:08 06:08 RBC 3.83 L (4.10-5.20) X 10*6/uL Hgb 9.1 L (12.0-15.0) g/dL Hct 32.5 L (37.2-46.3) % MCH 23.8 L (27.0-32.0) pg MCHC 28.0 L (32.0-37.0) g/dL Lymphocytes # 0.77 L (0.90-5.00) X 10*3/uL Hypochromasia (manual) 2+ A Creatinine 0.5 L (0.6-1.5) mg/dL BUN/Creatinine Ratio 23.20 H (12.00-20.00) Ratio Iron 30 L (50-170) UG/DL % Saturation 10.83 L (12.00-45.00) Transferrin 198.0 L (204.0-354.0) mg/dL Assessment and Plan Assessment: Bilateral lower extremity redness and swelling due to extensive cellulitis Acute on chronic CHF with preserved ejection fraction Recent history of symptomatic anemia status post EGD showed AVM and also iron deficiency. Patient was discharged on 05/05/2024 Left lower extremity stent placement Hypertension history of CVA/TIA with no residual weakness GI and DVT prophy with PPI and heparin subcu Plan: Patient will be continued on antibiotics of cefazolin. Was given a dose of IV Lasix in the ER and continued on IV Lasix and changed back to her home dose of 20 mg twice daily. ID consult for evaluation. Follow-up CBC and BMP. Continue with iron supplementation and symptomatic management. Follow-up closely. PT OT be consulted. Anticipate discharge in next 24 hours. Time with Patient: Greater than 30
--- NOTE | 2024-05-17 09:40 | P.CONS ---
History of Present Illness - Reason for Consult Consult date: 05/16/24 Cellulitis Requesting physician: Gabriela Mcfadden - Chief Complaint Swelling redness to bilateral lower extremity x days - History of Present Illness Patient is a 79-year-old female with a past medical history significant for CVA TIA hypertension presenting to the ER for evaluation of increasing swelling to bilateral lower extremity that has been progressively getting worse for the last few days and has becoming more red and painful patient was complaining of pain to the point it was hard for her to walk on it with diffuse swelling and redness however did not have any open wound or any drainage denies high-grade fever or chills and no fever was recorded on presentation to the hospital patient denies having any headache or urinary symptoms no chest pain some shortness of breath no cough no nausea vomiting no abdominal pain no diarrhea patient did have a white count of 6.1 creatinine 0.60 electrolytes are normal liver enzymes are normal patient did have a chest x-ray moderate pulmonary vascular congestion small bilateral effusion correlate for CHF patient was diagnosed with a cellulitis started on cefazolin infectious disease was consulted for further management of antibiotic therapy Review of Systems Positive point and negatives has been mentioned in the HPI, complete review of systems was performed and all other systems are negative Past Medical History Past Medical History: CVA/TIA, Hypertension Additional Past Medical History / Comment(s): states CVA (no residual), states stent in upper leg, rash on lower legs, ankles swell, pt states on Nutrisystem diet and has lost 20-25 # with frequent stools. History of Any Multi-Drug Resistant Organisms: None Reported Past Surgical History: Joint Replacement Additional Past Surgical History / Comment(s): total right knee x2, stem cell injections prior to total knees, cataract surgery, stent in leg Additional Past Anesthesia/Blood Transfusion Reaction / Comm: STATES UNABLE TO INTUBATE- THEY HAD TO DO A SPINAL, STATES SHE HAS LETTER FROM [place] AND INSTRUCTED PATIENT TO BRING THIS LETTER WITH HER Past Psychological History: No Psychological Hx Reported Smoking Status: Never smoker Past Alcohol Use History: None Reported Past Drug Use History: None Reported - Past Family History Mother Family Medical History: Cancer Additional Family Medical History / Comment(s): colon cancer Medications and Allergies Home Medications Medication Instructions Recorded Confirmed Type Furosemide [Lasix] 20 mg PO BID 05/11/20 05/15/24 History Losartan Potassium [Cozaar] 25 mg PO BID 05/11/20 05/15/24 History Aspirin 81 mg PO DAILY #30 tab 07/20/23 05/15/24 Rx Ammonium Lactate Cream [Lac-Hydrin 1 applic TOPICAL BID 09/05/23 05/15/24 History 12% Cream] Acetaminophen [Tylenol 8 Hour] 1,300 mg PO BID PRN 04/30/24 05/15/24 History Acetaminophen [Tylenol 8 Hour] 1,300 mg PO DAILY 04/30/24 05/15/24 History Atorvastatin [Lipitor] 40 mg PO HS 04/30/24 05/15/24 History Calcium Carbonate [Calcium] 600 mg PO DAILY 04/30/24 05/15/24 History [place]-3S/Dha/Epa/Fish Oil/D3 [Fish 2 tab PO DAILY 04/30/24 05/15/24 History Oil Gummies] Esomeprazole Magnesium [NexIUM] 20 mg PO DAILY 05/15/24 05/15/24 History Ferrous Sulfate [Feosol] 325 mg PO DAILY 05/15/24 05/15/24 History Magnesium Hydroxide [Milk of 7,200 mg PO Q48H PRN 05/15/24 05/15/24 History Magnesia Concentrate] Na Phos,M-B/Na Phos,Di-Ba [Fleet 133 ml RECTAL DAILY PRN 05/15/24 05/15/24 History Adult] Psyllium Husk (with Sugar) 1 tsp PO DAILY PRN 05/15/24 05/15/24 History [Metamucil Powder] Sennosides-Docusate Sodium 1 tab PO BID 05/15/24 05/15/24 History [Senokot-S] Spironolactone [Aldactone] 25 mg PO DAILY 05/15/24 05/15/24 History bisacodyL [Dulcolax] 10 mg RECTAL DAILY PRN 05/15/24 05/15/24 History Allergies Allergy/AdvReac Type Severity Reaction Status Date / Time Penicillins AdvReac Unknown PASSED OUT Verified 05/15/24 08:08 Physical Exam Vitals: Vital Signs Temp Pulse Resp BP Pulse Ox 05/16/24 14:57 98.4 F 92 18 145/73 96 05/16/24 07:00 98.7 F 91 18 155/73 99 05/16/24 02:00 97.9 F 93 18 148/71 90 L 05/15/24 19:47 97.7 F 97 17 135/72 91 L Intake and Output 05/16/24 05/16/24 05/16/24 06:59 14:59 22:59 Output Total 250 Balance -250 Output: Urine 250 Other: # Voids 5 # Bowel Movements 1 GENERAL DESCRIPTION: Elderly female up in the room, no distress. No tachypnea or accessory muscle of respiration use. HEENT: Shows Pallor , no scleral icterus. Oral mucous membrane is dry. NECK: Trachea central, no thyromegaly. LUNGS: Unlabored breathing. Decreased breath sound the base HEART: S1, S2, regular rate and rhythm. No loud murmur ABDOMEN: Soft, no tenderness , guarding or rigidity, no organomegaly EXTREMITIES: Diffuse swelling to bilateral lower extremity with some redness which is warm to touch SKIN: No rash, no masses palpable. NEUROLOGICAL: The patient is awake, alert, oriented x3, mood and affect normal. Results CBC & Chem 7: 05/17/24 05:25 05/17/24 05:25 Labs: Abnormal Lab Results - Last 24 Hours (Table) 05/16/24 05/16/24 Range/Units 06:08 06:08 RBC 3.83 L (4.10-5.20) X 10*6/uL Hgb 9.1 L (12.0-15.0) g/dL Hct 32.5 L (37.2-46.3) % MCH 23.8 L (27.0-32.0) pg MCHC 28.0 L (32.0-37.0) g/dL Lymphocytes # 0.77 L (0.90-5.00) X 10*3/uL Hypochromasia (manual) 2+ A Creatinine 0.5 L (0.6-1.5) mg/dL BUN/Creatinine Ratio 23.20 H (12.00-20.00) Ratio Iron 30 L (50-170) UG/DL % Saturation 10.83 L (12.00-45.00) Transferrin 198.0 L (204.0-354.0) mg/dL Assessment and Plan (1) Bilateral lower leg cellulitis Current Visit: Yes Status: Acute Code(s): L03.116 - CELLULITIS OF LEFT LOWER LIMB; L03.115 - CELLULITIS OF RIGHT LOWER LIMB SNOMED Code(s): 564363707 (2) Penicillin allergy Current Visit: No Status: Acute Code(s): Z88.0 - ALLERGY STATUS TO PENICILLIN SNOMED Code(s): 05465155 Plan: 1patient presented to hospital with increasing swelling to bilateral lower extremity with associated redness in this patient who did have evidence of fluid overload and diffuse swelling redness likely streptococcal disease. 2patient with a penicillin allergy that will limit the number of antibiotics safe to use. 3cefazolin 2 g every 8 hour 4Ace wrap to the leg from just above the toe to below the knee change daily discussed with the nursing staff. We will follow on clinical condition and cultures to further adjust medication if needed Thank you for this consultation we will follow the patient along with you Dictation was produced using [employer] dictation software. please excuse any grammatical, word or spelling errors. Time with Patient: Greater than 30
[2024-05-17 11:00] LABS: Anisocytosis (M) 3+; Basophils # (A) 0.06 X 10*3/uL (0.00-0.10); Basophils % (A) 1.2 %; Eosinophils # (A) 0.08 X 10*3/uL (0.04-0.35); Eosinophils % (A) 1.7 %; HCT 32.5 % (37.2-46.3); HGB 9.1 g/dL (12.0-15.0); Hypochromasia (M) 2+; Lymphocytes # (A) 0.87 X 10*3/uL (0.90-5.00); MCH 23.2 pg (27.0-32.0); MCV 82.7 FL (80.0-97.0); Microcytosis (M) 2+; Monocytes % (A) 10.4 %; NRBC Per 100 WBC 0 X 10*3/uL (0.00-0.01); Neutrophils % (A) 68.3 %; Platelet Count 213 X 10*3/uL (140-440); RBC 3.93 X 10*6/uL (4.10-5.20); Target Cells 2+; WBC 4.83 X 10*3/uL (4.50-10.00)
[2024-05-17 13:07] LABS: Blood Urea Nitrogen 11.7 mg/dL (9.0-27.0); Calcium 8.7 mg/dL (8.7-10.3); Carbon Dioxide 27.8 mmol/L (21.6-31.8); Chloride 107 mmol/L (96-109); Glucose 89 mg/dL (70-110); Potassium 3.9 mmol/L (3.5-5.5); Sodium 146 mmol/L (135-145)
--- NOTE | 2024-05-17 15:14 | P.PN ---
Subjective Progress Note Date: 05/17/24 Principal diagnosis: Reason for follow-up is bilateral lower extremity cellulitis Patient is a 79-year-old female with a past medical history significant for CVA TIA hypertension presenting to the ER for evaluation of increasing swelling to bilateral lower extremity patient has been diagnosed with fluid overload with a bilateral lower extremity cellulitis. On today's evaluation that is 05/17/2024, patient has been afebrile, patient is breathing comfortably and is currently on room air, patient denies having any significant cough no chest pain, patient denies nausea vomiting or diarrhea and no abdominal pain swelling in the lower extremity has decreased in intensity. Patient white count is 4.83 creatinine 0.5 Objective - Vital Signs Vital signs: Vital Signs Temp 98.3 F 05/17/24 15:00 Pulse 85 05/17/24 15:00 Resp 17 05/17/24 15:00 BP 159/72 05/17/24 15:00 Pulse Ox 92 L 05/17/24 15:00 FiO2 Intake & Output 05/16/24 05/17/24 05/17/24 18:59 06:59 18:59 Intake Total 221 236 Output Total 200 Balance 221 -200 236 Weight 64.4 kg 63.5 kg Intake: Oral 221 236 Output: Urine 200 Other: Voiding Method Toilet Toilet # Voids 2 2 8 # Bowel Movements 1 - Exam GENERAL DESCRIPTION: An elderly female lying in bed in no distress RESPIRATORY SYSTEM: Unlabored breathing , decreased breath sounds at bases HEART: S1 S2 regular rate and rhythm , ABDOMEN: Soft , no tenderness EXTREMITIES: Bilateral lower extremity with swelling and some redness no open wound or drainage - Labs CBC & Chem 7: 05/17/24 05:25 05/17/24 05:25 Labs: Abnormal Lab Results - Last 24 Hours (Table) 05/17/24 05/17/24 Range/Units 05:25 05:25 RBC 3.93 L (4.10-5.20) X 10*6/uL Hgb 9.1 L (12.0-15.0) g/dL Hct 32.5 L (37.2-46.3) % MCH 23.2 L (27.0-32.0) pg MCHC 28.0 L (32.0-37.0) g/dL Lymphocytes # 0.87 L (0.90-5.00) X 10*3/uL Hypochromasia (manual) 2+ A Anisocytosis (manual) 3+ A Microcytosis (manual) 2+ A Target Cells 2+ A Sodium 146 H (135-145) mmol/L Creatinine 0.5 L (0.6-1.5) mg/dL BUN/Creatinine Ratio 23.40 H (12.00-20.00) Ratio Assessment and Plan (1) Bilateral lower leg cellulitis Current Visit: Yes Status: Acute Code(s): L03.116 - CELLULITIS OF LEFT LOWER LIMB; L03.115 - CELLULITIS OF RIGHT LOWER LIMB SNOMED Code(s): 771271214 (2) Penicillin allergy Current Visit: No Status: Acute Code(s): Z88.0 - ALLERGY STATUS TO PENICILLIN SNOMED Code(s): 32996383 Plan: 1patient presented to hospital with increasing swelling to bilateral lower extremity with associated redness in this patient who did have evidence of fluid overload and diffuse swelling redness likely streptococcal disease. 2patient with a penicillin allergy that will limit number of antibiotics safe to use. 3 patient was not able to tolerate [place] wrap because of discomfort 4we will continue with the cefazolin 2 g every 8 hours and monitor clinical course closely Dictation was produced using [employer] dictation software. please excuse any grammatical, word or spelling errors.
--- NOTE | 2024-05-17 15:29 | P.PN ---
Subjective Progress Note Date: 05/17/24 Interval History: Patient is a 79-year-old female with known history of hypertension, history of CVA/TIA with no residual weakness, chronic CHF with preserved EF, left lower extremity stent placement and other medical problems presents to ER with complaints of bilateral lower extremity swelling and redness. 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 Patient is status post EGD. Patient was seen by GI and oncology at the time. Patient did receive the units of PRBC transfusion. Patient was discharged on 05/05/2024. Laboratory showed WBC 6.1 hemoglobin 9.7 and platelets 197 sodium 143 potassium 3.9 total 107 bicarb is 33 BUN 18 and creatinine 0.6 and blood sugar 109 and proBNP 4170. Patient was given a dose of IV Lasix and cefazolin IV in the ER. Chest x-ray showed moderate vascular congestion. Small bilateral pleural effusions. 05/16/2024 Patient is currently sitting in the recliner. Awake alert and oriented x 3. No complaints of chest pain or shortness of breath. Patient is currently on room air. IV Lasix changed to p.o. Otherwise patient is being continued on cefazolin for bilateral lower extremity redness and swelling which is improving. Patient is able to get up and go to the bathroom. Afebrile. No complaints of nausea or vomiting abdominal pain or diarrhea. Laboratory data showed WBC 4.7 hemoglobin 9.1 and platelets 184 sodium 145 potassium 3.9 chloride 105 bicarb is 29.6 and BUN 11.6 and creatinine 0.5 and iron profile showed deficiency. Patient is on p.o. iron supplementation. ID consult for further evaluation. 05/17/2024/patient was seen and examined today. Sitting in recliner. Alert oriented x 3. Complains of fatigue. Lower extremity swelling pain and redness is improving. Remained afebrile. Vital stable, on room air. WBCs 4.8, hemoglobin 9.1, platelets 213. BMP unremarkable, mildly elevated sodium 146. Assessment and plan: Bilateral lower extremity redness and swelling due to extensive cellulitis Acute on chronic CHF with preserved ejection fraction Recent history of symptomatic anemia status post EGD showed AVM and also iron deficiency. Patient was discharged on 05/05/2024 Left lower extremity stent placement Hypertension history of CVA/TIA with no residual weakness GI and DVT prophy with PPI and heparin subcu Plan: Admitted to bilateral lower extremity cellulitis, suspect streptococcal, improving Currently on cefazolin Octavio wrap Infectious disease consulted and following. Continue home meds Monitor vital signs and labs Labs and medication were reviewed. Continue same treatment. Further recommendations as per clinical course of the patient PHYSICAL EXAMINATION: GENERAL: The patient is A&O x3, NAD HEENT: EOMI, Sclerae anicteric, Moist Mucous membranes Neck: Supple, Non tender, No JVD PULMONARY: Equal breath souds B/L, No wheezing, No crackles. CARDIOVASCULAR: S1, S2 present. No murmurs, rubs, or gallops. ABDOMEN: Soft, nontender, nondistended, normoactive bowel sounds. No guarding or rebound tenderness. MUSCULOSKELETAL: Bilateral lower extremity erythema, tenderness, mild warmth.. Normal ROM. Intact peripheral pulses. EXTREMITIES: No cyanosis, clubbing, or pedal edema. NEUROLOGICAL: CN 2-12 grossly intact. No FND Skin: No Rash REVIEW OF SYSTEMS: CONSTITUTIONAL: Complains of fatigue. CARDIOVASCULAR: No chest pain, palpitations or syncope. PULMONARY: No shortness of breath, no cough, sore throat. GASTROINTESTINAL: No nausea, vomiting, diarrhea, abdominal pain. : No Dysuria, urgency, frequency. Extremities: No edema. NEUROLOGICAL: No headaches, no weakness, or numbness Skin: Complains of lower extremity redness, swelling, pain. Dictation was produced using [employer] dictation software. please excuse any grammatical, word or spelling errors. Objective - Vital Signs Vital signs: Vital Signs Temp 98.3 F 05/17/24 15:00 Pulse 85 05/17/24 15:00 Resp 17 05/17/24 15:00 BP 159/72 05/17/24 15:00 Pulse Ox 92 L 05/17/24 15:00 FiO2 Intake & Output 05/16/24 05/17/24 05/17/24 18:59 06:59 18:59 Intake Total 221 236 Output Total 200 Balance 221 -200 236 Weight 64.4 kg 63.5 kg Intake: Oral 221 236 Output: Urine 200 Other: Voiding Method Toilet Toilet # Voids 2 2 8 # Bowel Movements 1 - Labs CBC & Chem 7: 05/17/24 05:25 05/17/24 05:25 Labs: Abnormal Lab Results - Last 24 Hours (Table) 05/17/24 05/17/24 Range/Units 05:25 05:25 RBC 3.93 L (4.10-5.20) X 10*6/uL Hgb 9.1 L (12.0-15.0) g/dL Hct 32.5 L (37.2-46.3) % MCH 23.2 L (27.0-32.0) pg MCHC 28.0 L (32.0-37.0) g/dL Lymphocytes # 0.87 L (0.90-5.00) X 10*3/uL Hypochromasia (manual) 2+ A Anisocytosis (manual) 3+ A Microcytosis (manual) 2+ A Target Cells 2+ A Sodium 146 H (135-145) mmol/L Creatinine 0.5 L (0.6-1.5) mg/dL BUN/Creatinine Ratio 23.40 H (12.00-20.00) Ratio
[2024-05-18 08:15] LABS: Anisocytosis Marked; Basophils % (A) 1 %; Eosinophils # (A) 0.1 k/uL (0-0.7); Eosinophils % (A) 2 %; HCT 38.9 % (34.0-46.0); Hypochromasia Marked; Lymphocytes # (A) 0.8 k/uL (1.0-4.8); Lymphocytes % (A) 14 %; MCH 23.9 pg (25.0-35.0); MCHC 28.4 g/dL (31.0-37.0); MCV 84.2 fL (80.0-100.0); Mean Platelet Volume 9.4; Microcytosis Marked; Monocytes # (A) 0.3 k/uL (0-1.0); Monocytes % (A) 5 %; Neutrophils # (A) 4.2 k/uL (1.3-7.7); Neutrophils % (A) 76 %; Platelet Count 244 k/uL (150-450); Poikilocytosis Slight; RBC 4.62 m/uL (3.80-5.40); WBC 5.5 k/uL (3.8-10.6)
[2024-05-18 08:32] LABS: African American GFR (CKD) >90 (>60 ml/min/1.73 sqM); Anion Gap 6 mmol/L; Blood Urea Nitrogen 10 mg/dL (7-17); Calcium 8.9 mg/dL (8.4-10.2); Carbon Dioxide 31 mmol/L (22-30); Chloride 105 mmol/L (98-107); Glucose 85 mg/dL (74-99); Non-African American GFR(CKD) >90 (>60 ml/min/1.73 sqM); Potassium 3.6 mmol/L (3.5-5.1); Sodium 142 mmol/L (137-145)
[2024-05-18 08:36] LABS: RDW 27.3 % (11.5-15.5)
--- NOTE | 2024-05-18 13:13 | P.PN ---
Subjective Progress Note Date: 05/18/24 Interval History: Patient is a 79-year-old female with known history of hypertension, history of CVA/TIA with no residual weakness, chronic CHF with preserved EF, left lower extremity stent placement and other medical problems presents to ER with complaints of bilateral lower extremity swelling and redness. 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 Patient is status post EGD. Patient was seen by GI and oncology at the time. Patient did receive the units of PRBC transfusion. Patient was discharged on 05/05/2024. Laboratory showed WBC 6.1 hemoglobin 9.7 and platelets 197 sodium 143 potassium 3.9 total 107 bicarb is 33 BUN 18 and creatinine 0.6 and blood sugar 109 and proBNP 4170. Patient was given a dose of IV Lasix and cefazolin IV in the ER. Chest x-ray showed moderate vascular congestion. Small bilateral pleural effusions. 05/16/2024 Patient is currently sitting in the recliner. Awake alert and oriented x 3. No complaints of chest pain or shortness of breath. Patient is currently on room air. IV Lasix changed to p.o. Otherwise patient is being continued on cefazolin for bilateral lower extremity redness and swelling which is improving. Patient is able to get up and go to the bathroom. Afebrile. No complaints of nausea or vomiting abdominal pain or diarrhea. Laboratory data showed WBC 4.7 hemoglobin 9.1 and platelets 184 sodium 145 potassium 3.9 chloride 105 bicarb is 29.6 and BUN 11.6 and creatinine 0.5 and iron profile showed deficiency. Patient is on p.o. iron supplementation. ID consult for further evaluation. 05/17/2024/patient was seen and examined today. Sitting in recliner. Alert oriented x 3. Complains of fatigue. Lower extremity swelling pain and redness is improving. Remained afebrile. Vital stable, on room air. WBCs 4.8, hemoglobin 9.1, platelets 213. BMP unremarkable, mildly elevated sodium 146. 05/18/2024 Patient remained afebrile, temperature 98.0, pulse rate 93, respiratory rate 16, blood pressure 159/81, saturating 92% on room air. WBCs 5.5, hemoglobin 11.0, platelet 244. BMP unremarkable. Patient currently on cefazolin per infectious disease. Lower extremity redness and swelling and pain slowly improving. Assessment and plan: Bilateral lower extremity redness and swelling due to extensive cellulitis Acute on chronic CHF with preserved ejection fraction Recent history of symptomatic anemia status post EGD showed AVM and also iron deficiency. Patient was discharged on 05/05/2024 Left lower extremity stent placement Hypertension history of CVA/TIA with no residual weakness GI and DVT prophy with PPI and heparin subcu Plan: Admitted to bilateral lower extremity cellulitis, suspect streptococcal, improving Currently on cefazolin Octavio wrap Infectious disease consulted and following. Continue home meds Monitor vital signs and labs Labs and medication were reviewed. Continue same treatment. Further recommendations as per clinical course of the patient PHYSICAL EXAMINATION: GENERAL: The patient is A&O x3, NAD HEENT: EOMI, Sclerae anicteric, Moist Mucous membranes Neck: Supple, Non tender, No JVD PULMONARY: Equal breath souds B/L, No wheezing, No crackles. CARDIOVASCULAR: S1, S2 present. No murmurs, rubs, or gallops. ABDOMEN: Soft, nontender, nondistended, normoactive bowel sounds. No guarding or rebound tenderness. MUSCULOSKELETAL: Bilateral lower extremity erythema, tenderness, mild warmth.. Normal ROM. Intact peripheral pulses. EXTREMITIES: No cyanosis, clubbing, or pedal edema. NEUROLOGICAL: CN 2-12 grossly intact. No FND Skin: No Rash REVIEW OF SYSTEMS: CONSTITUTIONAL: Complains of fatigue. CARDIOVASCULAR: No chest pain, palpitations or syncope. PULMONARY: No shortness of breath, no cough, sore throat. GASTROINTESTINAL: No nausea, vomiting, diarrhea, abdominal pain. : No Dysuria, urgency, frequency. Extremities: No edema. NEUROLOGICAL: No headaches, no weakness, or numbness Skin: Complains of lower extremity redness, swelling, pain. Dictation was produced using [employer] dictation software. please excuse any grammatical, word or spelling errors. Objective - Vital Signs Vital signs: Vital Signs Temp 98.0 F 05/18/24 07:00 Pulse 93 05/18/24 07:00 Resp 16 05/18/24 07:00 BP 159/81 05/18/24 07:00 Pulse Ox 92 L 05/18/24 07:00 FiO2 Intake & Output 05/17/24 05/18/24 05/18/24 18:59 06:59 18:59 Intake Total 354 118 Balance 354 118 Weight 63.4 kg Intake: Oral 354 118 Other: Voiding Method Toilet Toilet Toilet # Voids 8 3 - Labs CBC & Chem 7: 05/18/24 07:59 05/18/24 07:59 Labs: Abnormal Lab Results - Last 24 Hours (Table) 05/18/24 05/18/24 Range/Units 07:59 07:59 Hgb 11.0 L (11.4-16.0) gm/dL MCH 23.9 L (25.0-35.0) pg MCHC 28.4 L (31.0-37.0) g/dL RDW 27.3 H (11.5-15.5) % Lymphocytes # 0.8 L (1.0-4.8) k/uL Carbon Dioxide 31 H (22-30) mmol/L
--- NOTE | 2024-05-18 21:50 | P.PN ---
Subjective Progress Note Date: 05/18/24 Principal diagnosis: Reason for follow-up is bilateral lower extremity cellulitis Patient is a 79-year-old female with a past medical history significant for CVA TIA hypertension presenting to the ER for evaluation of increasing swelling to bilateral lower extremity patient has been diagnosed with fluid overload with a bilateral lower extremity cellulitis. On today's evaluation that is 05/18/2024, Patient is afebrile this morning patient denies having any chest pain shortness of breath or cough, the patient is currently on room air, patient denies any abdominal pain no diarrhea no nausea no vomiting, mention lower extremity swelling and pain has decreased in intensity. Patient white count is 5.5 creatinine 0.54 Objective - Vital Signs Vital signs: Vital Signs Temp 98.7 F 05/18/24 19:31 Pulse 96 05/18/24 19:31 Resp 18 05/18/24 19:31 BP 151/71 05/18/24 19:31 Pulse Ox 94 L 05/18/24 19:31 FiO2 Intake & Output 05/18/24 05/18/24 05/19/24 06:59 18:59 06:59 Intake Total 354 Balance 354 Weight 63.4 kg Intake: Oral 354 Other: Voiding Method Toilet Toilet Toilet # Voids 3 5 # Bowel Movements 4 - Exam GENERAL DESCRIPTION: An elderly female lying in bed in no distress RESPIRATORY SYSTEM: Unlabored breathing , decreased breath sounds at bases HEART: S1 S2 regular rate and rhythm , ABDOMEN: Soft , no tenderness EXTREMITIES: Bilateral lower extremity with swelling and some redness no open wound or drainage - Labs CBC & Chem 7: 05/18/24 07:59 05/18/24 07:59 Labs: Abnormal Lab Results - Last 24 Hours (Table) 05/18/24 05/18/24 Range/Units 07:59 07:59 Hgb 11.0 L (11.4-16.0) gm/dL MCH 23.9 L (25.0-35.0) pg MCHC 28.4 L (31.0-37.0) g/dL RDW 27.3 H (11.5-15.5) % Lymphocytes # 0.8 L (1.0-4.8) k/uL Carbon Dioxide 31 H (22-30) mmol/L Assessment and Plan (1) Bilateral lower leg cellulitis Current Visit: Yes Status: Acute Code(s): L03.116 - CELLULITIS OF LEFT LOWER LIMB; L03.115 - CELLULITIS OF RIGHT LOWER LIMB SNOMED Code(s): 946774947 (2) Penicillin allergy Current Visit: No Status: Acute Code(s): Z88.0 - ALLERGY STATUS TO P ENICILLIN SNOMED Code(s): 62936511 Plan: 1patient presented to hospital with increasing swelling to bilateral lower extremity with associated redness in this patient who did have evidence of fluid overload and diffuse swelling redness likely streptococcal disease. 2patient with a penicillin allergy that will limit number of antibiotics safe to use. 3 patient was not able to tolerate Octavio wrap because of discomfort and continue to fuse it 4patient did have some improvement of lower extremity swelling and redness, we will continue with the cefazolin 2 g every 8 hours and monitor clinical course closely Dictation was produced using [employer] dictation software. please excuse any grammatical, word or spelling errors. Time with Patient: Less than 30
--- NOTE | 2024-05-19 15:06 | P.PN ---
Subjective Progress Note Date: 05/19/24 Interval History: Patient is a 79-year-old female with known history of hypertension, history of CVA/TIA with no residual weakness, chronic CHF with preserved EF, left lower extremity stent placement and other medical problems presents to ER with complaints of bilateral lower extremity swelling and redness. 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 Patient is status post EGD. Patient was seen by GI and oncology at the time. Patient did receive the units of PRBC transfusion. Patient was discharged on 05/05/2024. Laboratory showed WBC 6.1 hemoglobin 9.7 and platelets 197 sodium 143 potassium 3.9 total 107 bicarb is 33 BUN 18 and creatinine 0.6 and blood sugar 109 and proBNP 4170. Patient was given a dose of IV Lasix and cefazolin IV in the ER. Chest x-ray showed moderate vascular congestion. Small bilateral pleural effusions. 05/16/2024 Patient is currently sitting in the recliner. Awake alert and oriented x 3. No complaints of chest pain or shortness of breath. Patient is currently on room air. IV Lasix changed to p.o. Otherwise patient is being continued on cefazolin for bilateral lower extremity redness and swelling which is improving. Patient is able to get up and go to the bathroom. Afebrile. No complaints of nausea or vomiting abdominal pain or diarrhea. Laboratory data showed WBC 4.7 hemoglobin 9.1 and platelets 184 sodium 145 potassium 3.9 chloride 105 bicarb is 29.6 and BUN 11.6 and creatinine 0.5 and iron profile showed deficiency. Patient is on p.o. iron supplementation. ID consult for further evaluation. 05/17/2024/patient was seen and examined today. Sitting in recliner. Alert oriented x 3. Complains of fatigue. Lower extremity swelling pain and redness is improving. Remained afebrile. Vital stable, on room air. WBCs 4.8, hemoglobin 9.1, platelets 213. BMP unremarkable, mildly elevated sodium 146. 05/18/2024 Patient remained afebrile, temperature 98.0, pulse rate 93, respiratory rate 16, blood pressure 159/81, saturating 92% on room air. WBCs 5.5, hemoglobin 11.0, platelet 244. BMP unremarkable. Patient currently on cefazolin per infectious disease. Lower extremity redness and swelling and pain slowly improving. 05/19/2024 Patient remained afebrile, heart rate 94, respiratory rate 17, blood pressure 159/83, saturating 91% on room air. No new labs from today. Currently on cefazolin, infectious disease following. PT/OT consulted. Assessment and plan: Bilateral lower extremity redness and swelling due to extensive cellulitis Acute on chronic CHF with preserved ejection fraction Recent history of symptomatic anemia status post EGD showed AVM and also iron d eficiency. Patient was discharged on 05/05/2024 Left lower extremity stent placement Hypertension history of CVA/TIA with no residual weakness GI and DVT prophy with PPI and heparin subcu Plan: Admitted to bilateral lower extremity cellulitis, suspect streptococcal, improving Currently on cefazolin Octavio wrap--unable to tolerate Infectious disease consulted and following. Continue home meds PT/OT consult. Monitor vital signs and labs Labs and medication were reviewed. Continue same treatment. Further recommendations as per clinical course of the patient PHYSICAL EXAMINATION: GENERAL: The patient is A&O x3, NAD HEENT: EOMI, Sclerae anicteric, Moist Mucous membranes Neck: Supple, Non tender, No JVD PULMONARY: Equal breath souds B/L, No wheezing, No crackles. CARDIOVASCULAR: S1, S2 present. No murmurs, rubs, or gallops. ABDOMEN: Soft, nontender, nondistended, normoactive bowel sounds. No guarding or rebound tenderness. MUSCULOSKELETAL: Bilateral lower extremity erythema, tenderness, mild warmth.. Normal ROM. Intact peripheral pulses. EXTREMITIES: No cyanosis, clubbing, or pedal edema. NEUROLOGICAL: CN 2-12 grossly intact. No FND Skin: No Rash REVIEW OF SYSTEMS: CONSTITUTIONAL: Complains of fatigue. CARDIOVASCULAR: No chest pain, palpitations or syncope. PULMONARY: No shortness of breath, no cough, sore throat. GASTROINTESTINAL: No nausea, vomiting, diarrhea, abdominal pain. : No Dysuria, urgency, frequency. Extremities: No edema. NEUROLOGICAL: No headaches, no weakness, or numbness Skin: Complains of lower extremity redness, swelling, pain. Dictation was produced using [employer] dictation software. please excuse any grammatical, word or spelling errors. Objective - Vital Signs Vital signs: Vital Signs Temp 98.1 F 05/19/24 07:00 Pulse 94 05/19/24 07:00 Resp 17 05/19/24 07:00 BP 159/83 05/19/24 07:00 Pulse Ox 91 L 05/19/24 07:00 FiO2 Intake & Output 05/18/24 05/19/24 05/19/24 18:59 06:59 18:59 Intake Total 354 118 Balance 354 118 Weight 60.28 kg Intake: Oral 354 118 Other: Voiding Method Toilet Toilet Toilet # Voids 5 2 # Bowel Movements 4 - Labs CBC & Chem 7: 05/18/24 07:59 05/18/24 07:59
[2024-05-19] MEDS ORDERED: ZINC OXIDE PASTE (Z-GUARD) 1 APPLIC TOPICAL PRN (21:46)
--- NOTE | 2024-05-19 21:54 | P.PN ---
Subjective Progress Note Date: 05/19/24 Principal diagnosis: Reason for follow-up is bilateral lower extremity cellulitis Patient is a 79-year-old female with a past medical history significant for CVA TIA hypertension presenting to the ER for evaluation of increasing swelling to bilateral lower extremity patient has been diagnosed with fluid overload with a bilateral lower extremity cellulitis. On today's evaluation that is 05/19/2024,the patient denies any fever or any chills, patient is breathing comfortably on room air, the patient denies chest pain shortness of breath and no significant cough, patient denies abdominal pain, no nausea vomiting or diarrhea. Still complaining of swelling to the l ower extremity. Patient white count is 5.5, creatinine 0.54 Objective - Vital Signs Vital signs: Vital Signs Temp 98.1 F 05/19/24 07:00 Pulse 94 05/19/24 07:00 Resp 17 05/19/24 07:00 BP 159/83 05/19/24 07:00 Pulse Ox 91 L 05/19/24 07:00 FiO2 Intake & Output 05/18/24 05/19/24 05/19/24 18:59 06:59 18:59 Intake Total 354 118 Balance 354 118 Weight 60.28 kg Intake: Oral 354 118 Other: Voiding Method Toilet Toilet Toilet # Voids 5 2 # Bowel Movements 4 - Exam GENERAL DESCRIPTION: An elderly female lying in bed in no distress RESPIRATORY SYSTEM: Unlabored breathing , decreased breath sounds at bases HEART: S1 S2 regular rate and rhythm , ABDOMEN: Soft , no tenderness EXTREMITIES: Bilateral lower extremity with swelling and some redness no open wound or drainage - Labs CBC & Chem 7: 05/18/24 07:59 05/18/24 07:59 Assessment and Plan (1) Bilateral lower leg cellulitis Current Visit: Yes Status: Acute Code(s): L03.116 - CELLULITIS OF LEFT LOWER LIMB; L03.115 - CELLULITIS OF RIGHT LOWER LIMB SNOMED Code(s): 126839577 (2) Penicillin allergy Current Visit: No Status: Acute Code(s): Z88.0 - ALLERGY STATUS TO PENICILLIN SNOMED Code(s): 66285249 Plan: 1patient presented to hospital with increasing swelling to bilateral lower extremity with associated redness in this patient who did have evidence of fluid overload and diffuse swelling redness likely streptococcal disease. 2patient with a penicillin allergy that will limit number of antibiotics safe to use. 3 patient has been advised to let the nursing staff apply Octavio wrap that we will get some of the swelling as well as redness and to improve continue with the cefazolin Dictation was produced using [employer] dictation software. please excuse any grammatical, word or spelling errors. Time with Patient: Less than 30
[2024-05-20] MEDS ORDERED: guaiFENesin-DM 100-10MG/5ML 10 ML CUP PO PRN (13:37)
--- NOTE | 2024-05-20 13:37 | P.PN ---
Subjective Progress Note Date: 05/20/24 Principal diagnosis: Reason for follow-up is bilateral lower extremity cellulitis Patient is a 79-year-old female with a past medical history significant for CVA TIA hypertension presenting to the ER for evaluation of increasing swelling to bilateral lower extremity patient has been diagnosed with fluid overload with a bilateral lower extremity cellulitis. On today's evaluation that is 05/20/2024,the patient remains to be afebrile, patient is on room air not requiring supplemental oxygen and denies any shortness of breath no chest pain however has been complaining of some dry cough.Patient denies having any nausea or vomiting, no abdominal pain and no diarrhea swelling pain to the lower extremity. No new labs were obtained today has decreased Objective - Vital Signs Vital signs: Vital Signs Temp 97.6 F 05/20/24 07:42 Pulse 93 05/20/24 07:42 Resp 17 05/20/24 07:42 BP 185/71 05/20/24 07:42 Pulse Ox 93 L 05/20/24 07:42 FiO2 Intake & Output 05/19/24 05/20/24 05/20/24 18:59 06:59 18:59 Intake Total 354 1180 Balance 354 1180 Weight 60.28 kg 59.6 kg Intake: Oral 354 1180 Other: Voiding Method Toilet Toilet # Voids 3 3 - Exam GENERAL DESCRIPTION: An elderly female lying in bed in no distress RESPIRATORY SYSTEM: Unlabored breathing , decreased breath sounds at bases HEART: S1 S2 regular rate and rhythm , ABDOMEN: Soft , no tenderness EXTREMITIES: Bilateral lower extremity with swelling and some redness no open wound or drainage - Labs CBC & Chem 7: 05/18/24 07:59 05/18/24 07:59 Assessment and Plan (1) Bilateral lower leg cellulitis Current Visit: Yes Status: Acute Code(s): L03.116 - CELLULITIS OF LEFT LOWER LIMB; L03.115 - CELLULITIS OF RIGHT LOWER LIMB SNOMED Code(s): 551682912 (2) Penicillin allergy Current Visit: No Status: Acute Code(s): Z88.0 - ALLERGY STATUS TO PENICILLIN SNOMED Code(s): 96340042 Plan: 1patient presented to hospital with increasing swelling to bilateral lower extremity with associated redness in this patient who did have evidence of fluid overload and diffuse swelling redness likely streptococcal disease. 2patient with a penicillin allergy that will limit number of antibiotics safe to use. 3 patient continue to refuse Octavio wrap swelling redness likely discontinue cefazolin short course of oral Keflex on discharge Dictation was produced using [employer] dictation software. please excuse any grammatical, word or spelling errors. Time with Patient: Less than 30
--- NOTE | 2024-05-20 15:31 | P.PN ---
Subjective Progress Note Date: 05/20/24 Interval History: Patient is a 79-year-old female with known history of hypertension, history of CVA/TIA with no residual weakness, chronic CHF with preserved EF, left lower extremity stent placement and other medical problems presents to ER with complaints of bilateral lower extremity swelling and redness. 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 Patient is status post EGD. Patient was seen by GI and oncology at the time. Patient did receive the units of PRBC transfusion. Patient was discharged on 05/05/2024. Laboratory showed WBC 6.1 hemoglobin 9.7 and platelets 197 sodium 143 potassium 3.9 total 107 bicarb is 33 BUN 18 and creatinine 0.6 and blood sugar 109 and proBNP 4170. Patient was given a dose of IV Lasix and cefazolin IV in the ER. Chest x-ray showed moderate vascular congestion. Small bilateral pleural effusions. 05/16/2024 Patient is currently sitting in the recliner. Awake alert and oriented x 3. No complaints of chest pain or shortness of breath. Patient is currently on room air. IV Lasix changed to p.o. Otherwise patient is being continued on cefazolin for bilateral lower extremity redness and swelling which is improving. Patient is able to get up and go to the bathroom. Afebrile. No complaints of nausea or vomiting abdominal pain or diarrhea. Laboratory data showed WBC 4.7 hemoglobin 9.1 and platelets 184 sodium 145 potassium 3.9 chloride 105 bicarb is 29.6 and BUN 11.6 and creatinine 0.5 and iron profile showed deficiency. Patient is on p.o. iron supplementation. ID consult for further evaluation. 05/17/2024/patient was seen and examined today. Sitting in recliner. Alert oriented x 3. Complains of fatigue. Lower extremity swelling pain and redness is improving. Remained afebrile. Vital stable, on room air. WBCs 4.8, hemoglobin 9.1, platelets 213. BMP unremarkable, mildly elevated sodium 146. 05/18/2024 Patient remained afebrile, temperature 98.0, pulse rate 93, respiratory rate 16, blood pressure 159/81, saturating 92% on room air. WBCs 5.5, hemoglobin 11.0, platelet 244. BMP unremarkable. Patient currently on cefazolin per infectious disease. Lower extremity redness and swelling and pain slowly improving. 05/19/2024 Patient remained afebrile, heart rate 94, respiratory rate 17, blood pressure 159/83, saturating 91% on room air. No new labs from today. Currently on cefazolin, infectious disease following. PT/OT consulted. 05/20/24- Patient was seen and examined today. No issues overnight. Remained afebrile, heart rate 103, blood pressure 159/94, respiratory rate 16, saturating 96% on room air. No new labs from today. Infectious disease following, remains on cefazolin. Patient complaining of cough, nonproductive. Assessment and plan: Bilateral lower extremity redness and swelling due to extensive cellulitis Acute on chronic CHF with preserved ejection fraction Recent history of symptomatic anemia status post EGD showed AVM and also iron deficiency. Patient was discharged on 05/05/2024 Left lower extremity stent placement Hypertension history of CVA/TIA with no residual weakness GI and DVT prophy with PPI and heparin subcu Plan: Admitted to bilateral lower extremity cellulitis, suspect streptococcal, improving Currently on cefazolin Octavio wrap--unable to tolerate Infectious disease consulted and following. Continue home meds PT/OT consult. Monitor vital signs and labs Labs and medication were reviewed. Continue same treatment. Further recommendations as per clinical course of the patient PHYSICAL EXAMINATION: GENERAL: The patient is A&O x3, NAD HEENT: EOMI, Sclerae anicteric, Moist Mucous membranes Neck: Supple, Non tender, No JVD PULMONARY: Equal breath souds B/L, No wheezing, No crackles. CARDIOVASCULAR: S1, S2 present. No murmurs, rubs, or gallops. ABDOMEN: Soft, nontender, nondistended, normoactive bowel sounds. No guarding or rebound tenderness. MUSCULOSKELETAL: Bilateral lower extremity erythema, tenderness, mild warmth.. Normal ROM. Intact peripheral pulses. EXTREMITIES: No cyanosis, clubbing, or pedal edema. NEUROLOGICAL: CN 2-12 grossly intact. No FND Skin: No Rash REVIEW OF SYSTEMS: CONSTITUTIONAL: Complains of fatigue. CARDIOVASCULAR: No chest pain, palpitations or syncope. PULMONARY: No shortness of breath, no cough, sore throat. GASTROINTESTINAL: No nausea, vomiting, diarrhea, abdominal pain. : No Dysuria, urgency, frequency. Extremities: No edema. NEUROLOGICAL: No headaches, no weakness, or numbness Skin: Complains of lower extremity redness, swelling, pain. Dictation was produced using [email or web address] dictation software. please excuse any grammatical, word or spelling errors. Objective - Vital Signs Vital signs: Vital Signs Temp 98.9 F 05/20/24 13:31 Pulse 103 H 05/20/24 13:31 Resp 16 05/20/24 13:31 BP 159/94 05/20/24 13:31 Pulse Ox 96 05/20/24 13:31 FiO2 Intake & Output 05/19/24 05/20/24 05/20/24 18:59 06:59 18:59 Intake Total 354 1180 Balance 354 1180 Weight 60.28 kg 59.6 kg Intake: Oral 354 1180 Other: Voiding Method Toilet Toilet # Voids 3 3 1 - Labs CBC & Chem 7: 05/18/24 07:59 05/18/24 07:59
[2024-05-20] MEDS: guaiFENesin SYRUP 100MG/5ML 200 MG/10 ML CUP PO PRN (20:46)
[2024-05-20] MEDS: LOSARTAN 50 MG TAB PO SCH (20:46)
--- NOTE | 2024-05-21 13:49 | P.DS ---
Providers Date of admission: 05/19/24 10:21 Expected date of discharge: 05/21/24 Attending physician: Izabel Murguia Consults: 05/16/24 14:58 Consult Physician Routine Consulting Provider: Jason Robbins Consult Reason/Comments: cellulitis Do you want consulting provider notified?: Yes Primary care physician: Atilio Nihco [place] [facility] Course: Discharge diagnoses: Bilateral lower extremity redness and swelling due to extensive cellulitis Acute on chronic CHF with preserved ejection fraction Recent history of symptomatic anemia status post EGD showed AVM and also iron deficiency. Patient was discharged on 05/05/2024 Left lower extremity stent placement Hypertension history of CVA/TIA with no residual weakness GI and DVT prophy with PPI and heparin subcu Plan: Admitted to bilateral lower extremity cellulitis, suspect streptococcal, improving Octavio wrap--unable to tolerate Infectious disease was consulted, received IV cefazolin during hospitalization,, continued on Keflex for 7 more days at discharge. PT/OT consulted Discharge home with home health services. Resume home meds. Hospital course: Patient is a 79-year-old female with known history of hypertension, history of CVA/TIA with no residual weakness, chronic CHF with preserved EF, left lower extremity stent placement and other medical problems presents to ER with complaints of bilateral lower extremity swelling and redness. 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 Patient is status post EGD. Patient was seen by GI and oncology at the time. Patient did receive the units of PRBC transfusion. Patient was discharged on 05/05/2024. Laboratory showed WBC 6.1 hemoglobin 9.7 and platelets 197 sodium 143 potassium 3.9 total 107 bicarb is 33 BUN 18 and creatinine 0.6 and blood sugar 109 and proBNP 4170. Patient was given a dose of IV Lasix and cefazolin IV in the ER. Chest x-ray showed moderate vascular congestion. Small bilateral pleural effusi ons. 05/16/2024 Patient is currently sitting in the recliner. Awake alert and oriented x 3. No complaints of chest pain or shortness of breath. Patient is currently on room air. IV Lasix changed to p.o. Otherwise patient is being continued on cefazolin for bilateral lower extremity redness and swelling which is improving. Patient is able to get up and go to the bathroom. Afebrile. No complaints of nausea or vomiting abdominal pain or diarrhea. Laboratory data showed WBC 4.7 hemoglobin 9.1 and platelets 184 sodium 145 potassium 3.9 chloride 105 bicarb is 29.6 and BUN 11.6 and creatinine 0.5 and iron profile showed deficiency. Patient is on p.o. iron supplementation. ID consult for further evaluation. 05/17/2024/patient was seen and examined today. Sitting in recliner. Alert oriented x 3. Complains of fatigue. Lower extremity swelling pain and redness is improving. Remained afebrile. Vital stable, on room air. WBCs 4.8, hemoglobin 9.1, platelets 213. BMP unremarkable, mildly elevated sodium 146. 05/18/2024 Patient remained afebrile, temperature 98.0, pulse rate 93, respiratory rate 16, blood pressure 159/81, saturating 92% on room air. WBCs 5.5, hemoglobin 11.0, platelet 244. BMP unremarkable. Patient currently on cefazolin per infectious disease. Lower extremity redness and swelling and pain slowly improving. 05/19/2024 Patient remained afebrile, heart rate 94, respiratory rate 17, blood pressure 159/83, saturating 91% on room air. No new labs from today. Currently on cefazolin, infectious disease following. PT/OT consulted. 05/20/24- Patient was seen and examined today. No issues overnight. Remained afebrile, heart rate 103, blood pressure 159/94, respiratory rate 16, saturating 96% on room air. No new labs from today. Infectious disease following, remains on cefazolin. Patient complaining of cough, nonproductive. 05/21/2024 Patient was seen and examined today. No issues overnight, remained afebrile. Vital stable. Discussed with infectious disease, okay to discharge on oral Keflex for 7 more days at discharge. Lower extremity swelling erythema and tenderness improving. Patient home medication resumed at discharge. Patient's condition and vital stable at discharge. Please refer to med rec and assessment plan for further details. art framing manager consulted for home health services. PT/OT consulted. Follow-up with PCP in 1 week. PHYSICAL EXAMINATION: GENERAL: The patient is A&O x3, NAD HEENT: EOMI, Sclerae anicteric, Moist Mucous membranes Neck: Supple, Non tender, No JVD PULMONARY: Equal breath souds B/L, No wheezing, No crackles. CARDIOVASCULAR: S1, S2 present. No murmurs, rubs, or gallops. ABDOMEN: Soft, nontender, nondistended, normoactive bowel sounds. No guarding or rebound tenderness. MUSCULOSKELETAL: Trace edema, No cyanosis. No clubbing. Normal ROM. Intact peripheral pulses. Mild erythema, nontender. NEUROLOGICAL: CN 2-12 grossly intact. No FND SKIN: No rashes. Dictation was produced using [email or web address] dictation software. please excuse any grammatical, word or spelling errors. Patient Condition at Discharge: Fair Plan - Discharge Summary Discharge Rx Participant: No New Discharge Prescriptions: New Cephalexin [Keflex] 500 mg PO TID 7 Days #21 cap guaiFENesin SYRUP 100MG/5ML [Robitussin] 200 mg PO TID PRN #200 ml PRN Reason: Cough Continue Losartan Potassium [Cozaar] 25 mg PO BID Furosemide [Lasix] 20 mg PO BID Ammonium Lactate Cream [Lac-Hydrin 12% Cream] 1 applic TOPICAL BID Calcium Carbonate [Calcium] 600 mg PO DAILY Acetaminophen [Tylenol 8 Hour] 1,300 mg PO DAILY Sennosides-Docusate Sodium [Senokot-S] 1 tab PO BID Psyllium Husk (with Sugar) [Metamucil Powder] 1 tsp PO DAILY PRN PRN Reason: Constipation Na Phos,M-B/Na Phos,Di-Ba [Fleet Adult] 133 ml RECTAL DAILY PRN PRN Reason: Constipation Ferrous Sulfate [Iron (65 MG Elemental)] 325 mg PO DAILY bisacodyL [Dulcolax] 10 mg RECTAL DAILY PRN PRN Reason: Constipation Spironolactone [Aldactone] 25 mg PO DAILY Aspirin 81 mg PO DAILY #30 tab [place]-3S/Dha/Epa/Fish Oil/D3 [Fish Oil Gummies] 2 tab PO DAILY Acetaminophen [Tylenol 8 Hour] 1,300 mg PO BID PRN PRN Reason: Pain Atorvastatin [Lipitor] 40 mg PO HS Magnesium Hydroxide [Milk of Magnesia Concentrate] 7,200 mg PO Q48H PRN PRN Reason: Constipation Esomeprazole Magnesium [NexIUM] 20 mg PO DAILY Discharge Medication List Furosemide [Lasix] 20 mg PO BID 05/11/20 [History] Losartan Potassium [Cozaar] 25 mg PO BID 05/11/20 [History] Aspirin 81 mg PO DAILY #30 tab 07/20/23 [Rx] Ammonium Lactate Cream [Lac-Hydrin 12% Cream] 1 applic TOPICAL BID 09/05/23 [History] Acetaminophen [Tylenol 8 Hour] 1,300 mg PO BID PRN 04/30/24 [History] Acetaminophen [Tylenol 8 Hour] 1,300 mg PO DAILY 04/30/24 [History] Atorvastatin [Lipitor] 40 mg PO HS 04/30/24 [History] Calcium Carbonate [Calcium] 600 mg PO DAILY 04/30/24 [History] [place]-3S/Dha/Epa/Fish Oil/D3 [Fish Oil Gummies] 2 tab PO DAILY 04/30/24 [History] Esomeprazole Magnesium [NexIUM] 20 mg PO DAILY 05/15/24 [History] Ferrous Sulfate [Iron (65 MG Elemental)] 325 mg PO DAILY 05/15/24 [History] Magnesium Hydroxide [Milk of Magnesia Concentrate] 7,200 mg PO Q48H PRN 05/15/24 [History] Na Phos,M-B/Na Phos,Di-Ba [Fleet Adult] 133 ml RECTAL DAILY PRN 05/15/24 [History] Psyllium Husk (with Sugar) [Metamucil Powder] 1 tsp PO DAILY PRN 05/15/24 [History] Sennosides-Docusate Sodium [Senokot-S] 1 tab PO BID 05/15/24 [History] Spironolactone [Aldactone] 25 mg PO DAILY 05/15/24 [History] bisacodyL [Dulcolax] 10 mg RECTAL DAILY PRN 05/15/24 [History] Cephalexin [Keflex] 500 mg PO TID 7 Days #21 cap 05/21/24 [Rx] guaiFENesin SYRUP 100MG/5ML [Robitussin] 200 mg PO TID PRN #200 ml 05/21/24 [Rx] Follow up Appointment(s)/Referral(s): [facility] [NON-STAFF] - As Needed Mike Kennedy DO [REFERRING] - 1-2 Days Discharge Disposition: HOME WITH HOME HEALTH SERVICES
[2024-05-21 14:28] VITALS: BP 121/54; PULSE 80; RESP 18; TEMP 98.8
[2024-05-21] MEDS ORDERED: CEPHALEXIN 500 MG CAP PO SCH (16:00)
--- NOTE | 2024-05-22 12:46 | P.PN ---
Subjective Progress Note Date: 05/21/24 Principal diagnosis: Reason for follow-up is bilateral lower extremity cellulitis Patient is a 79-year-old female with a past medical history significant for CVA TIA hypertension presenting to the ER for evaluation of increasing swelling to bilateral lower extremity patient has been diagnosed with fluid overload with a bilateral lower extremity cellulitis. On today's evaluation that is 05/21/2024, the patient continues to be afebrile, the patient is on room air and breathing comfortably, the Pt denies having any chest pain has been complaining of some, the patient denies having any abdominal pain no vomiting or any diarrhea pain and swelling to the leg has decreased in intensity. Patient did not have any lab draw today Objective - Vital Signs Vital signs: Vital Signs Temp 98 F 05/21/24 07:45 Pulse 85 05/21/24 07:45 Resp 16 05/21/24 07:45 BP 120/68 05/21/24 07:45 Pulse Ox 92 L 05/21/24 01:30 FiO2 Intake & Output 05/20/24 05/21/24 05/21/24 18:59 06:59 18:59 Intake Total 480 Output Total 1 Balance 480 -1 Weight 59.1 kg Intake: Oral 480 Output: Urine 1 Other: Voiding Method Toilet # Voids 1 2 - Exam GENERAL DESCRIPTION: An elderly female lying in bed in no distress RESPIRATORY SYSTEM: Unlabored breathing , decreased breath sounds at bases HEART: S1 S2 regular rate and rhythm , ABDOMEN: Soft , no tenderness EXTREMITIES: Bilateral lower extremity with swelling and some redness no open wound or drainage - Labs CBC & Chem 7: 05/18/24 07:59 05/18/24 07:59 Assessment and Plan (1) Bilateral lower leg cellulitis Status: Acute Code(s): L03.116 - CELLULITIS OF LEFT LOWER LIMB; L03.115 - CELLULITIS OF RIGHT LOWER LIMB SNOMED Code(s): 260461039 (2) Penicillin allergy Status: Acute Code(s): Z88.0 - ALLERGY STATUS TO PENICILLIN SNOMED Code(s): 43923440 Plan: 1patient presented to hospital with increasing swelling to bilateral lower extremity with associated redness in this patient who did have evidence of fluid overload and diffuse swelling redness likely streptococcal disease. 2patient with a penicillin allergy that will limit number of antibiotics safe to use. 3 patient did have improvement of the lower extremity cellulitis with cefazolin she will finish therapy with oral Keflex discussed with admitting team working on discharge Dictation was produced using [employer] dictation software. please excuse any grammatical, word or spelling errors. Time with Patient: Less than 30
== END 2024-05-21 17:54 | disposition home health service (06) | DRG 291 ==
LOC: EC 23:22 → 6NMEDSUR 05-15 04:47 → OBSVTOIN 05-19 10:21 → 5NMEDONC 05-19 20:35
PROVIDERS: ADMIT Hospitalist; ATTEND Hospitalist
DX: I11.0 Hypertensive heart disease with heart failure (principal); I50.33 Acute on chronic diastolic (congestive) heart failure; Z94.84 Stem cells transplant status; L03.115 Cellulitis of right lower limb; L03.116 Cellulitis of left lower limb; K31.819 Angiodysplasia of stomach and duodenum without bleeding; Z96.653 Presence of artificial knee joint, bilateral; Z79.82 Long term (current) use of aspirin; Z79.899 Other long term (current) drug therapy; Z86.73 Personal history of transient ischemic attack (TIA), and cerebral infarction without residual deficits; Z95.820 Peripheral vascular angioplasty status with implants and grafts; Z88.0 Allergy status to penicillin
CPT/HCPCS: 36415; 71045; 80048; 80053; 83540; 83550; 83605; 83880; 85025; 96365; 96375; 99284

== ENCOUNTER 2024-11-12 16:30 | Inpatient (IN) | payer MEDICARE ==
--- NOTE | 2024-11-12 17:19 | ED ---
General Adult HPI - General Chief complaint: Shortness of Breath Stated complaint: TOMMIE Time Seen by Provider: 11/12/24 16:45 Source: patient, EMS Mode of arrival: EMS Limitations: no limitations - History of Present Illness Initial comments: Dictation was produced using [employer] dictation software. please excuse any grammatical, word or spelling errors. Chief Complaint: 79-year-old female with history of reflux presents to the emergency department for cough History of Present Illness: Patient is a 79-year-old female history of reflux, stroke hypertension states that for the last couple days she has been feeling weak. Primary complaint is cough. States that she is cooperative throughout phlegm. States that it seems to go away with oral intake. States that the phlegm is white and cloudy. Denies any fever, chills or night sweats. No chest pain. The ROS documented in this emergency department record has been reviewed and confirmed by me. Those systems with pertinent positive or negative responses have been documented in the HPI. All other systems are other negative and/or noncontributory. - Related Data Home Medications Medication Instructions Recorded Confirmed Furosemide [Lasix] 20 mg PO BID 05/11/20 05/15/24 Losartan Potassium [Cozaar] 25 mg PO BID 05/11/20 05/15/24 Ammonium Lactate Cream [Lac-Hydrin 1 applic TOPICAL BID 09/05/23 05/15/24 12% Cream] Acetaminophen [Tylenol 8 Hour] 1,300 mg PO BID PRN 04/30/24 05/15/24 Acetaminophen [Tylenol 8 Hour] 1,300 mg PO DAILY 04/30/24 05/15/24 Atorvastatin [Lipitor] 40 mg PO HS 04/30/24 05/15/24 Calcium Carbonate [Calcium] 600 mg PO DAILY 04/30/24 05/15/24 [place]-3S/Dha/Epa/Fish Oil/D3 [Fish 2 tab PO DAILY 04/30/24 05/15/24 Oil Gummies] Esomeprazole Magnesium [NexIUM] 20 mg PO DAILY 05/15/24 05/15/24 Ferrous Sulfate [Iron (65 MG 325 mg PO DAILY 05/15/24 05/15/24 Elemental)] Magnesium Hydroxide [Milk of 7,200 mg PO Q48H PRN 05/15/24 05/15/24 Magnesia Concentrate] Na Phos,M-B/Na Phos,Di-Ba [Fleet 133 ml RECTAL DAILY PRN 05/15/24 05/15/24 Adult] Psyllium Husk (with Sugar) 1 tsp PO DAILY PRN 05/15/24 05/15/24 [Metamucil Powder] Sennosides-Docusate Sodium 1 tab PO BID 05/15/24 05/15/24 [Senokot-S] Spironolactone [Aldactone] 25 mg PO DAILY 05/15/24 05/15/24 bisacodyL [Dulcolax] 10 mg RECTAL DAILY PRN 05/15/24 05/15/24 Previous Rx's Medication Instructions Recorded Aspirin 81 mg PO DAILY #30 tab 07/20/23 Cephalexin [Keflex] 500 mg PO Q8HR 7 Days #21 cap 05/21/24 guaiFENesin SYRUP 100MG/5ML 200 mg PO TID PRN #200 ml 05/21/24 [Robitussin] Allergies Allergy/AdvReac Type Severity Reaction Status Date / Time Penicillins AdvReac Unknown PASSED OUT Verified 05/15/24 08:08 Review of Systems ROS Statement: Those systems with pertinent positive or pertinent negative responses have been documented in the HPI. ROS Other: All systems not noted in ROS Statement are negative. Past Medical History Past Medical History: CVA/TIA, Hypertension Additional Past Medical History / Comment(s): states CVA (no residual), states stent in upper leg, rash on lower legs, ankles swell, pt states on Nutrisystem diet and has lost 20-25 # with frequent stools. History of Any Multi-Drug Resistant Organisms: None Reported Past Surgical History: Joint Replacement Additional Past Surgical History / Comment(s): total right knee x2, stem cell injections prior to total knees, cataract surgery, stent in leg Additional Past Anesthesia/Blood Transfusion Reaction / Comment(s): STATES UNABLE TO INTUBATE- THEY HAD TO DO A SPINAL, STATES SHE HAS LETTER FROM [facility] AND INSTRUCTED PATIENT TO BRING THIS LETTER WITH HER Past Psychological History: No Psychological Hx Reported Smoking Status: Never smoker Past Alcohol Use History: None Reported Past Drug Use History: None Reported - Past Family History Mother Family Medical History: Cancer Additional Family Medical History / Comment(s): colon cancer General Exam - General Exam Comments Initial Comments: PHYSICAL EXAM: General Impression: Alert and oriented x3, not in acute distress HEENT: Normocephalic atraumatic, extra-ocular movements intact, pupils equal and reactive to light bilaterally, mucous membranes moist. Cardiovascular: Heart regular rate and rhythm Chest: Able to complete full sentences, no retractions, no tachypnea Abdomen: abdomen soft, non-tender, non-distended, no organomegaly Musculoskeletal: Pulses present and equal in all extremities, no peripheral edema Motor: no focal deficits noted Neurological: CN II-XII grossly intact, no focal motor or sensory deficits noted Skin: Intact with no visualized rashes Psych: Normal affect and mood Limitations: no limitations Course Vital Signs 11/12/24 11/12/24 11/12/24 16:39 18:00 19:04 Temperature 98.2 F 98.6 F Pulse Rate 80 81 82 Respiratory 20 20 16 Rate Blood Pressure 127/64 128/82 133/64 O2 Sat by Pulse 95 96 94 L Oximetry 11/12/24 11/12/24 19:14 19:34 Temperature 98.6 F 98.4 F Pulse Rate 75 79 Respiratory 15 Rate Blood Pressure 141/66 143/76 O2 Sat by Pulse 96 100 Oximetry EKG Findings - EKG Comments: EKG Findings:: My EKG interpretation: Ventricular rate 81, sinus rhythm,. 173, QRS 74, QTc 4 6. No MI prolongation, no QTC prolongation, no ST or T-wave changes noted. Overall, this EKG is unremarkable Medical Decision Making - Medical Decision Making Was pt. sent in by a medical professional or institution (, PA, WHOLESALE ACCOUNT EXECUTIVE, urgent care, hospital, or long term...) When possible be specific @ -No Did you speak to anyone other than the patient for history (EMS, parent, family, police, friend...)? What history was obtained from this source @ -No Did you review nursing and triage notes (agree or disagree)? Why? @ -I reviewed and agree with nursing and triage notes Were old charts reviewed (outside hosp., previous admission, EMS record, old EKG, old radiological studies, urgent care reports/EKG's, long term records)? Report findings @ -No old charts were reviewed Differential Diagnosis (chest pain, altered mental status, abdominal pain women, abdominal pain men, vaginal bleeding, musculoskeletal, weakness, fever, dyspnea , syncope, headache, dizziness, GI bleed, back pain, seizure, CVA, palpatations, mental health)? @ -Differential Dyspnea: Coronary syndrome, arrhythmia, tamponade, asthma, COPD, pulmonary embolism, pneumonia, pneumothorax, pulmonary effusion, anaphylaxis, diabetic ketoacidosis, flailed chest, pulmonary contusion, diaphragmatic rupture, anemia, neuromuscular, this is not meant to be an all-inclusive list. EKG interpreted by me (3pts min.). @ -Above X-rays interpreted by me (1pt min.). @ -Chest x-ray is nonacute CT interpreted by me (1pt min.). @ -None done U/S interpreted by me (1pt. min.). @ -None done What testing was considered but not performed or refused? (CT, X-rays, U/S, labs)? Why? @ -None What meds were considered but not given or refused? Why? @ -None Was smoking cessation discussed for >3mins.? @ -No Were there social determinants of health that impacted care today? How? (Homelessness, low income, unemployed, alcoholism, drug addiction, transportation, low edu. Level, literacy, decrease access to med. care, retirement, rehab)? @ -No Was there de-escalation of care discussed even if they declined (Discuss DNR or withdrawal of care, Hospice)? DNR status @ -No What co-morbidities impacted this encounter? (DM, HTN, Smoking, COPD, CAD, Cancer, CVA, ARF, Chemo, Hep., AIDS, mental health diagnosis, sleep apnea, morbid obesity)? @ -Anemia Was patient admitted / discharged? Hospital course, mention meds given and route, prescriptions, significant lab abnormalities, going to OR and other pertinent info. @ -79-year-old female with dyspnea and cough. Vital signs stable. Patient well-appearing at the bedside. Laboratory evaluation obtained. Hemoglobin 5.2. Rest of labs within acceptable limits. Chest x-ray nonacute. Suspect patient's dyspnea secondary to anemia. She does report dark stools. Patient Protonix, 2 units of blood will be admitted consultation to GI for possible GI bleed. Case discussed with hospitalist for admission Did you discuss the management of the patient with other professionals (professionals i.e. , PA, WHOLESALE ACCOUNT EXECUTIVE, lab, RT, psych nurse, social professionals, genetic scientist, teacher, data officer, pillowcase cleaner)? Give summary @ -Anemia Was critical care preformed (if so, how long)? @ -No Undiagnosed new problem with uncertain prognosis? @ -No Drug Therapy requiring intensive monitoring for toxicity (Heparin, Nitro, Insulin, Cardizem)? @ -No Were any procedures done? @ -No Diagnosis/symptom? Acute, or Chronic, or Acute on Chronic? Uncomplicated (without systemic symptoms) or Complicated (systemic symptoms)? @ -Anemia Side effects of treatment? @ -No Exacerbation, Progression, or Severe Exacerbation? @ -No Poses a threat to life or bodily function? How? (Chest pain, [place], [place], pneumonia, PE, COPD, DKA, ARF, appy, cholecystitis, CVA, Diverticulitis, Homicidal, Suicidal, threat to staff... and all critical care pts) @ -yes - Lab Data Result diagrams: 11/12/24 17:15 11/12/24 17:15 Lab Results 11/12/24 11/12/24 11/12/24 Range/Units 17:15 17:15 17:15 WBC 5.64 (4.50-10.00) 10*3/uL RBC 3.40 L (4.10-5.20) 10*6/uL Hgb 5.2 L* (12.0-15.0) g/dL Hct 19.7 L* (37.2-46.3) % MCV 57.9 L (80.0-97.0) fL MCH 15.3 L (27.0-32.0) pg MCHC 26.4 L (32.0-37.0) g/dL Plt Count 198 (140-440) 10*3/uL Immature Gran % (Auto) 0.5 % Neutrophils % 73.6 % Lymphocytes % 14.7 % Monocytes % 8.2 % Eosinophils % 2.1 % Basophils % 0.9 % Immature Gran # 0.03 (0.00-0.04) 10*3/uL Neutrophils # 4.15 (1.80-7.70) 10*3/uL Lymphocytes # 0.83 L (0.90-5.00) 10*3/uL Monocytes # 0.46 (0.20-1.00) 10*3/uL Eosinophils # 0.12 (0.04-0.35) 10*3/uL Basophils # 0.05 (0.00-0.10) 10*3/uL Immature Plt Fraction 5.3 (1.1-6.1) % Sodium 144 (137-145) mmol/L Potassium 4.2 (3.5-5.1) mmol/L Chloride 108 H (98-107) mmol/L Carbon Dioxide 27 (22-30) mmol/L Anion Gap 9 mmol/L BUN 46 H (7-17) mg/dL Creatinine 0.98 (0.52-1.04) mg/dL Est GFR (CKD-EPI)AfAm 63 (>60 ml/min/1.73 sqM) Est GFR (CKD-EPI)NonAf 55 (>60 ml/min/1.73 sqM) Glucose 102 H (74-99) mg/dL Plasma Lactic Acid Luis Eduardo 1.8 (0.7-2.0) mmol/L Calcium 9.2 (8.4-10.2) mg/dL Magnesium 2.4 H (1.6-2.3) mg/dL Total Bilirubin 0.9 (0.2-1.3) mg/dL AST 80 H (14-36) U/L ALT 58 H (4-34) U/L Alkaline Phosphatase 87 (38-126) U/L Troponin I (0.000-0.034) ng/mL Total Protein 6.3 (6.3-8.2) g/dL Albumin 3.8 (3.5-5.0) g/dL Influenza Type A (PCR) (Not Detectd) Influenza Type B (PCR) (Not Detectd) RSV (PCR) (Not Detectd) SARS-CoV-2 (PCR) (Not Detectd) Blood Type Blood Type Recheck Bld Type Recheck Status Antibody Screen Crossmatch Spec Expiration Date 11/12/24 11/12/24 11/12/24 Range/Units 17:15 17:22 17:50 WBC (4.50-10.00) 10*3/uL RBC (4.10-5.20) 10*6/uL Hgb (12.0-15.0) g/dL Hct (37.2-46.3) % MCV (80.0-97.0) fL MCH (27.0-32.0) pg MCHC (32.0-37.0) g/dL Plt Count (140-440) 10*3/uL Immature Gran % (Auto) % Neutrophils % % Lymphocytes % % Monocytes % % Eosinophils % % Basophils % % Immature Gran # (0.00-0.04) 10*3/uL Neutrophils # (1.80-7.70) 10*3/uL Lymphocytes # (0.90-5.00) 10*3/uL Monocytes # (0.20-1.00) 10*3/uL Eosinophils # (0.04-0.35) 10*3/uL Basophils # (0.00-0.10) 10*3/uL Immature Plt Fraction (1.1-6.1) % Sodium (137-145) mmol/L Potassium (3.5-5.1) mmol/L Chloride (98-107) mmol/L Carbon Dioxide (22-30) mmol/L Anion Gap mmol/L BUN (7-17) mg/dL Creatinine (0.52-1.04) mg/dL Est GFR (CKD-EPI)AfAm (>60 ml/min/1.73 sqM) Est GFR (CKD-EPI)NonAf (>60 ml/min/1.73 sqM) Glucose (74-99) mg/dL Plasma Lactic Acid Luis Eduardo (0.7-2.0) mmol/L Calcium (8.4-10.2) mg/dL Magnesium (1.6-2.3) mg/dL Total Bilirubin (0.2-1.3) mg/dL AST (14-36) U/L ALT (4-34) U/L Alkaline Phosphatase (38-126) U/L Troponin I 0.017 (0.000-0.034) ng/mL Total Protein (6.3-8.2) g/dL Albumin (3.5-5.0) g/dL Influenza Type A (PCR) Not Detected (Not Detectd) Influenza Type B (PCR) Not Detected (Not Detectd) RSV (PCR) Not Detected (Not Detectd) SARS-CoV-2 (PCR) Not Detected (Not Detectd) Blood Type O Positive Blood Type Recheck O Pos Bld Type Recheck Status No Antibody Screen NEGATIVE Crossmatch See Detail Spec Expiration Date 11/15/20242349 Disposition Clinical Impression: Anemia Disposition: ADMITTED IP TO THIS HOSP Condition: Fair Referrals: Mike Kennedy DO [Primary Care Provider] - 1-2 days Decision Time: 19:50
[2024-11-12 17:33] LABS: ALT 58 U/L (4-34); AST 80 U/L (14-36); African American GFR (CKD) 63 (>60 ml/min/1.73 sqM); Albumin 3.8 g/dL (3.5-5.0); Alkaline Phosphatase 87 U/L (38-126); Anion Gap 9 mmol/L; Blood Urea Nitrogen 46 mg/dL (7-17); Calcium 9.2 mg/dL (8.4-10.2); Carbon Dioxide 27 mmol/L (22-30); Chloride 108 mmol/L (98-107); Glucose 102 mg/dL (74-99); Non-African American GFR(CKD) 55 (>60 ml/min/1.73 sqM); Potassium 4.2 mmol/L (3.5-5.1); Sodium 144 mmol/L (137-145); Total Bilirubin 0.9 mg/dL (0.2-1.3); Total Protein 6.3 g/dL (6.3-8.2)
[2024-11-12 17:34] LABS: Magnesium 2.4 mg/dL (1.6-2.3)
[2024-11-12 17:36] LABS: Basophils # (A) 0.05 10*3/uL (0.00-0.10); Basophils % (A) 0.9 %; Eosinophils # (A) 0.12 10*3/uL (0.04-0.35); Eosinophils % (A) 2.1 %; Immature Platelet Fraction 5.3 % (1.1-6.1); Lymphocytes # (A) 0.83 10*3/uL (0.90-5.00); Lymphocytes % (A) 14.7 %; MCH 15.3 pg (27.0-32.0); MCHC 26.4 g/dL (32.0-37.0); MCV 57.9 fL (80.0-97.0); Monocytes # (A) 0.46 10*3/uL (0.20-1.00); Monocytes % (A) 8.2 %; Neutrophils # (A) 4.15 10*3/uL (1.80-7.70); Neutrophils % (A) 73.6 %; Platelet Count 198 10*3/uL (140-440); WBC 5.64 10*3/uL (4.50-10.00)
[2024-11-12 17:38] LABS: HCT 19.7 % (37.2-46.3); HGB 5.2 g/dL (12.0-15.0)
--- NOTE | 2024-11-12 17:40 | XR ---
EXAMINATION TYPE: XR chest 2V DATE OF EXAM: 11/12/2024 5:35 PM COMPARISON: Chest radiographs from 05/04/2024 TECHNIQUE: XR chest 2V Frontal and lateral views of the chest. CLINICAL INDICATION:Female, 79 years old with history of cough; FINDINGS: Lungs/Pleura: Small bilateral pleural effusions with associated atelectasis. No pneumothorax. Pulmonary vascularity: Pulmonary vascular congestion. Heart/mediastinum: Cardiomediastinal silhouette is enlarged and stable. Atherosclerotic calcificatio ns are seen in the aorta. Musculoskeletal: No acute osseous pathology. IMPRESSION: Cardiomegaly, pulmonary vascular congestion and small bilateral pleural effusions. Correlate with BNP for congestive heart failure. [facility], , 11/12/2024 5:38 PM
[2024-11-12 18:10] LABS: Influenza A Not Detected (Not Detectd); Influenza B Not Detected (Not Detectd); RSV Not Detected (Not Detectd)
[2024-11-12] MEDS: PANTOPRAZOLE 40 MG/10 ML VIAL IVP STA (19:02)
[2024-11-12] MEDS ORDERED: NALOXONE 0.4 MG/ML 1 ML VIAL IV PRN (19:47)
[2024-11-12] MEDS: SODIUM CHLORIDE 0.9% 1,000 ML IV SCH (23:00)
[2024-11-13 01:42] LABS: Basophils # (A) 0.08 10*3/uL (0.00-0.10); Basophils % (A) 1.4 %; Eosinophils # (A) 0.14 10*3/uL (0.04-0.35); Eosinophils % (A) 2.4 %; HCT 25.3 % (37.2-46.3); Immature Platelet Fraction 5.8 % (1.1-6.1); Lymphocytes # (A) 0.91 10*3/uL (0.90-5.00); Lymphocytes % (A) 15.7 %; MCH 18.6 pg (27.0-32.0); MCHC 28.9 g/dL (32.0-37.0); Monocytes # (A) 0.55 10*3/uL (0.20-1.00); Monocytes % (A) 9.5 %; Neutrophils # (A) 4.09 10*3/uL (1.80-7.70); Neutrophils % (A) 70.8 %; Platelet Count 173 10*3/uL (140-440); RBC 3.93 10*6/uL (4.10-5.20); WBC 5.78 10*3/uL (4.50-10.00)
[2024-11-13 01:48] LABS: HGB 7.3 g/dL (12.0-15.0); MCV 64.4 fL (80.0-97.0); RDW 27.4 % (11.5-14.5)
[2024-11-13 02:18] LABS: Anisocytosis (M) Present; Hypochromasia (M) Present
[2024-11-13 07:23] LABS: Appearance,Urine Cloudy (Clear); Bacteria,Urine Rare /hpf; Bilirubin,Urine Negative (Negative); Blood,Urine Negative (Negative); Color,Urine Colorless; Glucose,Urine (UA) Negative (Negative); Hyaline Casts,Urine 1 /lpf (0-2); Ketones,Urine Negative (Negative); Leukocyte Esterase,Urine Negative (Negative); Mucus,Urine Rare /hpf; Nitrite,Urine Negative (Negative); PH, Urine 5.5 (5.0-8.0); Protein,Urine Trace (Negative); RBC,Urine 2 /hpf (0-5); Specific Gravity,Urine 1.015 (1.001-1.035); Squamous Epithelial Cell,Urine 1 /hpf (0-4); Urobilinogen,Urine <2.0 mg/dL (<2.0); WBC,Urine 13 /hpf (0-5)
[2024-11-13] MEDS: PANTOPRAZOLE 40 MG/10 ML VIAL IV SCH (07:54)
[2024-11-13] MEDS ORDERED: NON FORMULARY DRUG (Acetaminophen [Tylenol 8 Hour] 650 MG Tablet) PO PRN (08:31)
[2024-11-13] MEDS: ATORVASTATIN 80 MG TAB PO SCH (09:30)
[2024-11-13] MEDS: LOSARTAN 25 MG TAB PO SCH (09:30)
[2024-11-13] MEDS: CALCIUM CARBONATE 500 MG CHEWABLE PO SCH (09:30)
[2024-11-13] MEDS: FUROSEMIDE 20 MG TAB PO SCH (09:30)
[2024-11-13] MEDS: FUROSEMIDE 10 MG/ML 4 ML VIAL IV STA (11:26)
--- NOTE | 2024-11-13 12:36 | P.CONS ---
History of Present Illness - Reason for Consult Consult date: 11/13/24 Anemia, possible GI bleed Requesting physician: Steve Mace - Chief Complaint Cough, weakness and shortness of breath - History of Present Illness This a pleasant 79-year-old female who presented to the emergency department with complaints of shortness of breath, weakness and cough. She has a past medical history including heart failure, anemia, CVA/TIA, hypertension gastric ulcer and antral vascular ectasia. On presentation patient was presented with microcytic anemia with a hemoglobin of 5.2. She was given 2 units of blood repeat hemoglobin this morning 7.3. Gastroenterology was consulted secondary to anemia. Patient denies any blood or black stool but also states that she really cannot see well, she denies any abdominal pain, nausea or vomiting. Last upper endoscopy was in April [address] Evans with findings of linear areas of telangiectasia in the gastric antrum suggestive of 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 Previously noted antral ulcer was completely healed patient also had scattered telangiectasia in the cardia of the stomach status post argon plasma coagulation. Review of Systems REVIEW OF SYSTEMS: CARDIOPULMONARY: No chest pain, positive shortness of breath. Positive cough. Gastrointestinal: No abdominal pain. No nausea or vomiting. No hematemesis, coffee-ground emesis. No rectal bleeding, or melena. GENITOURINARY: No dysuria or hematuria. MUSCULOSKELETAL: Reports normal range of motion., Joint pain. SKIN: No rashes. No jaundice. ENDOCRINE: No chills, fevers. No excessive weight gain or loss. No polydipsia or polyuria. PSYCHIATRIC: Unremarkable. NEUROLOGY: No change in mental status. Denies dizziness, headache. ENT: Vision unremarkable. CONSTITUTIONAL: No recent weight loss. No fever, chills, night sweats. Past Medical History Past Medical History: Heart Failure, CVA/TIA, GERD/Reflux, Hypertension Additional Past Medical History / Comment(s): states CVA (no residual), states stent in upper leg, rash on lower legs, ankles swell, pt states on Nutrisystem diet in 2020 and has lost 20-25 # with frequent stools. History of Any Multi-Drug Resistant Organisms: None Reported Past Surgical History: Joint Replacement Additional Past Surgical History / Comment(s): total right knee x2, stem cell injections prior to total knees, cataract surgery, stent in leg Past Anesthesia/Blood Transfusion Reactions: No Reported Reaction Additional Past Anesthesia/Blood Transfusion Reaction / Comm: STATES UNABLE TO INTUBATE- THEY HAD TO DO A SPINAL, STATES SHE HAS LETTER FROM OPP AND INSTRUCTED PATIENT TO BRING THIS LETTER WITH HER Past Psychological History: No Psychological Hx Reported Smoking Status: Never smoker Past Alcohol Use History: None Reported Past Drug Use History: None Reported - Past Family History Mother Family Medical History: Cancer Additional Family Medical History / Comment(s): colon cancer Father Family Medical History: Congestive Heart Failure (CHF) Medications and Allergies Home Medications Medication Instructions Recorded Confirmed Type Furosemide [Lasix] 20 mg PO BID 05/11/20 11/12/24 History Losartan Potassium [Cozaar] 25 mg PO BID 05/11/20 11/12/24 History Aspirin 81 mg PO DAILY #30 tab 07/20/23 11/12/24 Rx Ammonium Lactate Cream [Lac-Hydrin 1 applic TOPICAL BID 09/05/23 11/12/24 History 12% Cream] Acetaminophen [Tylenol 8 Hour] 1,300 mg PO BID PRN 04/30/24 11/12/24 History Acetaminophen [Tylenol 8 Hour] 1,300 mg PO DAILY 04/30/24 11/12/24 History Calcium Carbonate [Calcium] 600 mg PO DAILY 04/30/24 11/12/24 History [place]-3S/Dha/Epa/Fish Oil/D3 [Fish 2 tab PO DAILY 04/30/24 11/12/24 History Oil Gummies] Atorvastatin [Lipitor] 80 mg PO DAILY 11/12/24 11/12/24 History Black Elderberry Gummies 1 cap PO BID 11/12/24 11/12/24 History [place] Beets Gummies Supplement 1 cap PO BID 11/12/24 11/12/24 History Pantoprazole [Protonix] 40 mg PO BID 11/12/24 11/12/24 History Psyllium Husk [Metamucil] 1.2 gm PO DAILY 11/12/24 11/12/24 History Unknown Vitamin B Gummy 1 cap PO DAILY 11/12/24 11/12/24 History Women's Multivitamin Gummies 2 cap PO DAILY 11/12/24 11/12/24 History Allergies Allergy/AdvReac Type Severity Reaction Status Date / Time Penicillins AdvReac Unknown PASSED OUT Verified 11/12/24 20:09 Physical Exam Vitals: Vital Signs Temp Pulse Pulse Resp BP BP Pulse Ox 11/13/24 08:04 98 11/13/24 07:49 97.4 F L 72 17 126/77 98 11/13/24 03:36 97.4 F L 78 17 138/87 99 11/13/24 02:00 88 20 127/78 100 11/13/24 00:56 98.5 F 74 16 132/74 98 11/12/24 23:01 76 17 137/63 95 11/12/24 22:54 98.4 F 77 16 143/73 98 11/12/24 22:06 98.3 F 70 16 140/65 100 11/12/24 21:30 98.5 F 76 16 146/64 98 11/12/24 21:00 98.6 F 74 16 150/78 98 11/12/24 20:49 98.6 F 77 16 150/78 100 11/12/24 19:55 98.4 F 76 16 162/80 100 11/12/24 19:34 98.4 F 79 143/76 100 11/12/24 19:14 98.6 F 75 15 141/66 96 11/12/24 19:04 98.6 F 82 16 133/64 94 L 11/12/24 18:00 81 20 128/82 96 11/12/24 16:39 98.2 F 80 20 127/64 95 Intake and Output 11/12/24 11/13/24 11/13/24 22:59 06:59 14:59 Intake Total 589 585 10 Output Total 500 Balance 589 85 10 Intake: IV 10 Invasive Line 1 10 Intake, IV Titration 585 Amount Sodium Chloride 0.9% 1, 585 000 ml @ 130 mls/hr IV . Q7H42M [facility] Rx#:[id number] Oral 0 Blood Product 589 Rc As-1 Unit 310 [id number] Rc Pheresis As-3 Unit 279 [id number] Output: Urine 500 Straight 500 Other: Voiding Method Bedside Commode Bedside Commode External Catheter External Catheter # Bowel Movements 0 Weight 52.163 kg 65.5 kg General appearance: The patient is alert, oriented, appears in no acute distress. HET: Head is normocephalic and atraumatic. Conjunctiva pink. Sclera anicteric. Neck: Supple without lymphadenopathy. Trachea midline. Heart: Regular. Lungs: Equal expansion, normal respiratory effort. Wheezing. Abdomen: Soft, nontender, nondistended. Skin: No rashes. No jaundice. Extremities: Normal skin color and turgor. No pedal edema. Neurological: No focal deficits. Alert and oriented x3. Results CBC & Chem 7: 11/13/24 01:11 11/12/24 17:15 Labs: Abnormal Lab Results - Last 24 Hours (Table) 11/12/24 11/12/24 11/12/24 Range/Units 17:15 17:15 17:50 RBC 3.40 L (4.10-5.20) 10*6/uL Hgb 5.2 L* (12.0-15.0) g/dL Hct 19.7 L* (37.2-46.3) % MCV 57.9 L (80.0-97.0) fL MCH 15.3 L (27.0-32.0) pg MCHC 26.4 L (32.0-37.0) g/dL RDW (11.5-14.5) % Lymphocytes # 0.83 L (0.90-5.00) 10*3/uL Chloride 108 H (98-107) mmol/L BUN 46 H (7-17) mg/dL Glucose 102 H (74-99) mg/dL Magnesium 2.4 H (1.6-2.3) mg/dL AST 80 H (14-36) U/L ALT 58 H (4-34) U/L Urine Appearance (Clear) Urine Protein (Negative) Urine WBC (0-5) /hpf Urine Bacteria (None) /hpf Urine Mucus (None) /hpf Crossmatch See Detail 11/13/24 11/13/24 Range/Units 01:11 07:00 RBC 3.93 L (4.10-5.20) 10*6/uL Hgb 7.3 L D (12.0-15.0) g/dL Hct 25.3 L (37.2-46.3) % MCV 64.4 L D (80.0-97.0) fL MCH 18.6 L (27.0-32.0) pg MCHC 28.9 L (32.0-37.0) g/dL RDW 27.4 H (11.5-14.5) % Lymphocytes # (0.90-5.00) 10*3/uL Chloride (98-107) mmol/L BUN (7-17) mg/dL Glucose (74-99) mg/dL Magnesium (1.6-2.3) mg/dL AST (14-36) U/L ALT (4-34) U/L Urine Appearance Cloudy H (Clear) Urine Protein Trace H (Negative) Urine WBC 13 H (0-5) /hpf Urine Bacteria Rare H (None) /hpf Urine Mucus Rare H (None) /hpf Crossmatch Assessment and Plan (1) Microcytic anemia Narrative/Plan: 79-year-old female with a history of gastric and antral telangiectasia as well as anemia presented with symptomatic anemia. Although patient is unsure if she is having any blood in her stool or black stool need to consider anemia likely secondary to upper GI bleed with known vascular ectasia the antrum and stomach. Recommend direct visualization with upper endoscopy. Current Visit: Yes Status: Acute Code(s): D50.9 - IRON DEFICIENCY ANEMIA, UNSPECIFIED SNOMED Code(s): 072295944 (2) Gastric antral vascular ectasia Narrative/Plan: History of Current Visit: Yes Status: Acute Code(s): K31.819 - ANGIODYSPLASIA OF STOMACH AND DUODENUM WITHOUT BLEEDING SNOMED Code(s): 82648785 (3) CHF (congestive heart failure) Current Visit: No Status: Acute Code(s): I50.9 - HEART FAILURE, UNSPECIFIED SNOMED Code(s): 51751890 (4) COPD (chronic obstructive pulmonary disease) Current Visit: No Status: Acute Code(s): J44.9 - CHRONIC OBSTRUCTIVE PULMONARY DISEASE, UNSPECIFIED SNOMED Code(s): 47991062 Plan: 1. Continue symptomatic and supportive care 2. Keep n.p.o. 3. Hold any anticoagulation 4. Protonix 40 mg daily for GI prophylaxis 5. Will plan for upper endoscopy today 6. Rest of medical management per primary medical team Thank you for this consultation, we will continue to follow. Dr. Lilia Evans I agree with the dictator's note, documented as a scribe by Dana Kohli.
[2024-11-13] MEDS ORDERED: ENOXAPARIN 40 MG/0.4 ML SYRINGE SQ SCH (14:45)
--- NOTE | 2024-11-13 15:21 | P.HPIM ---
History of Present Illness H&P Date: 11/13/24 Patient is a 79-year-old female with history of heart failure, CVA, hypertension, GAVE status post argon plasma coagulation on 05/02/2024 presents to the ER with complaint of feeling weak and lethargic since 1 to 2 weeks. Patient reports that yesterday she was feeling very weak and had to have the help from her sister for ambulation. She is also endorsing mild shortness of breath, orthopnea and PND since 1 to 2 weeks. Patient reports no bloody stool or black-colored stool. Patient is apparently not on any blood thinner. Patient had been admitted in the past for upper GI bleed, iron deficiency anemia, low hemoglobin requiring blood transfusion. 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 Prior to that she had a upper endoscopy and lower endoscopy with biopsy on 09/07/2023 which showed gastric antral ulcer, gastritis, sigmoid diverticulosis. Biopsy result was positive for H. pylori. Patient otherwise denies any chest pain, abdominal pain, nausea, vomiting. Initial lab work shows hemoglobin of 5.2, hematocrit 19.5, MCV 57.9, sodium 144, potassium 4.2, BUN 46, creatinine 0.98, AST 80, ALT 58,. Repeat blood work shows hemoglobin 7.3 after receiving 2 units of PRBC. Chest x-ray shows pulm vascular congestion and cardiomegaly. EKG shows normal sinus rhythm with ventricular rate of 81 bpm, MN interval 173 ms, QRS duration is 84 ms, QTc 4 6 ms. Review of systems: Pertinent positives and negatives as discussed in HPI, a complete review of systems was performed and all other systems are negative. Physical examination: Vital signs reviewed General: non toxic, no distress, appears at stated age, obese Derm: no unusual rashes/lesions, warm, chronic venous dermatitis bilaterally Head: atraumatic, normocephalic, symmetric Eyes: EOMI, no lid lag, anicteric sclera, pupils equal round reactive to light ENT: Nose and ears atraumatic Neck: No cervical lymphadenopathy, trachea midline, supple Mouth: no lip lesion, mucus membranes moist Cardiovascular: S1S2 reg, no murmur, positive dorsalis pedis pulse bilateral, 3+ pitting edema Lungs: Bilateral crackles noted on examination, no wheezing, no use of accessory muscles, patient on 2 L oxygen via nasal cannula Abdominal: soft, nontender to palpation, no guarding Ext: muscle strength 5 out of 5 in all 4 extremities grossly, no gross muscle atrophy, no contractures, Neuro: CN II-XI grossly intact, no gross focal neuro deficits Psych: Alert, oriented, appropriate affect Assessment/Plan: This is a Patient is a 79-year-old female with history of heart failure, CVA, h ypertension, GAVE status post argon plasma coagulation on 05/02/2024 presents to the ER with complaint of feeling weak and lethargic since 1 to 2 weeks. Case was discussed with the Emergency Room provider and decision was made to admit the patient for upper GI bleed. Labs and images: Initial lab work shows hemoglobin of 5.2, hematocrit 19.5, MCV 57.9, sodium 144, potassium 4.2, BUN 46, creatinine 0.98, AST 80, ALT 58,. Repeat blood work shows hemoglobin 7.3 after receiving 2 units of PRBC. Chest x-ray shows pulm vascular congestion and cardiomegaly. EKG shows normal sinus rhythm with ventricular rate of 81 bpm, MN interval 173 ms, QRS duration is 84 ms, QTc 4 6 ms. #Iron deficiency anemia likely secondary to upper GI bleed #History of GAVE status post APC Patient is status post 2 units of packed RBC Hemoglobin improved from 5.2 to 7.3 Consult gastroenterology for EGD Blood transfusion if hemoglobin less than 7 Continue with IV Protonix 40 mg daily Continue monitor CBC #Diastolic congestive heart failure exacerbation #Acute hypoxemic respiratory failure secondary to CHF and anemia Most recent echocardiogram in July 2023 showed ejection fraction of 60 to 65%. Order echocardiogram Order NT proBNP Start patient on IV Lasix 40 mg twice daily Continue with oxygen therapy as needed Daily weights, strict I's and O's, fluid restriction to 2 L #History of hypertension Resume Cozaar 25 mg p.o. twice daily #Generalized weakness Consult PT/OT DVT prophylaxis: SCDs GI prophylaxis: IV Protonix F: IV normal saline at KVO E: Replete as needed N: N.p.o. A: Ambulatory at baseline The patient is admitted with an anticipated more than than 2 midnight stay for evaluation of upper GI bleed and CHF exacerbation CODE STATUS: Full code Discussed with: Patient Anticipated discharge place: Pending clinical course Dictation was produced using Cherryation software. Please excuse any grammatical, word or spelling errors. Past Medical History Past Medical History: Heart Failure, CVA/TIA, GERD/Reflux, Hypertension Additional Past Medical History / Comment(s): states CVA (no residual), states stent in upper leg, rash on lower legs, ankles swell, pt states on Nutrisystem diet in 2019 and has lost 20-25 # with frequent stools. History of Any Multi-Drug Resistant Organisms: None Reported Past Surgical History: Joint Replacement Additional Past Surgical History / Comment(s): total right knee x2, stem cell injections prior to total knees, cataract surgery, stent in leg Past Anesthesia/Blood Transfusion Reactions: No Reported Reaction Additional Past Anesthesia/Blood Transfusion Reaction / Comment(s): STATES UNABLE TO INTUBATE- THEY HAD TO DO A SPINAL, STATES SHE HAS LETTER FROM [employer] PATIENT TO BRING THIS LETTER WITH HER Past Psychological History: No Psychological Hx Reported Smoking Status: Never smoker Past Alcohol Use History: None Reported Past Drug Use History: None Reported - Past Family History Mother Family Medical History: Cancer Additional Family Medical History / Comment(s): colon cancer Father Family Medical History: Congestive Heart Failure (CHF) Medications and Allergies Home Medications Medication Instructions Recorded Confirmed Type Furosemide [Lasix] 20 mg PO BID 05/11/20 11/12/24 History Losartan Potassium [Cozaar] 25 mg PO BID 05/11/20 11/12/24 History Aspirin 81 mg PO DAILY #30 tab 07/20/23 11/12/24 Rx Ammonium Lactate Cream [Lac-Hydrin 1 applic TOPICAL BID 09/05/23 11/12/24 History 12% Cream] Acetaminophen [Tylenol 8 Hour] 1,300 mg PO BID PRN 04/30/24 11/12/24 History Acetaminophen [Tylenol 8 Hour] 1,300 mg PO DAILY 04/30/24 11/12/24 History Calcium Carbonate [Calcium] 600 mg PO DAILY 04/30/24 11/12/24 History [place]-3S/Dha/Epa/Fish Oil/D3 [Fish 2 tab PO DAILY 04/30/24 11/12/24 History Oil Gummies] Atorvastatin [Lipitor] 80 mg PO DAILY 11/12/24 11/12/24 History Black Elderberry Gummies 1 cap PO BID 11/12/24 11/12/24 History [place] Beets Gummies Supplement 1 cap PO BID 11/12/24 11/12/24 History Pantoprazole [Protonix] 40 mg PO BID 11/12/24 11/12/24 History Psyllium Husk [Metamucil] 1.2 gm PO DAILY 11/12/24 11/12/24 History Unknown Vitamin B Gummy 1 cap PO DAILY 11/12/24 11/12/24 History Women's Multivitamin Gummies 2 cap PO DAILY 11/12/24 11/12/24 History Allergies Allergy/AdvReac Type Severity Reaction Status Date / Time Penicillins AdvReac Unknown PASSED OUT Verified 11/12/24 20:09 Physical Exam Vitals: Vital Signs Temp Pulse Pulse Resp BP BP Pulse Ox 11/13/24 07:49 97.4 F L 72 17 126/77 98 11/13/24 03:36 97.4 F L 78 17 138/87 99 11/13/24 02:00 88 20 127/78 100 11/13/24 00:56 98.5 F 74 16 132/74 98 11/12/24 23:01 76 17 137/63 95 11/12/24 22:54 98.4 F 77 16 143/73 98 11/12/24 22:06 98.3 F 70 16 140/65 100 11/12/24 21:30 98.5 F 76 16 146/64 98 11/12/24 21:00 98.6 F 74 16 150/78 98 11/12/24 20:49 98.6 F 77 16 150/78 100 11/12/24 19:55 98.4 F 76 16 162/80 100 11/12/24 19:34 98.4 F 79 143/76 100 11/12/24 19:14 98.6 F 75 15 141/66 96 11/12/24 19:04 98.6 F 82 16 133/64 94 L 11/12/24 18:00 81 20 128/82 96 11/12/24 16:39 98.2 F 80 20 127/64 95 Intake and Output 11/12/24 11/13/24 11/13/24 22:59 06:59 14:59 Intake Total 589 585 10 Output Total 500 Balance 589 85 10 Intake: IV 10 Invasive Line 1 10 Intake, IV Titration 585 Amount Sodium Chloride 0.9% 1, 585 000 ml @ 130 mls/hr IV . Q7H42M [facility] Rx#:[id number] Oral 0 Blood Product 589 Rc As-1 Unit 310 [id number] Rc Pheresis As-3 Unit 279 [id number] Output: Urine 500 Straight 500 Other: Voiding Method Bedside Commode External Catheter # Bowel Movements 0 Weight 52.163 kg 65.5 kg Results CBC & Chem 7: 11/13/24 01:11 11/12/24 17:15 Labs: Abnormal Lab Results - Last 24 Hours (Table) 11/12/24 11/12/24 11/12/24 Range/Units 17:15 17:15 17:50 RBC 3.40 L (4.10-5.20) 10*6/uL Hgb 5.2 L* (12.0-15.0) g/dL Hct 19.7 L* (37.2-46.3) % MCV 57.9 L (80.0-97.0) fL MCH 15.3 L (27.0-32.0) pg MCHC 26.4 L (32.0-37.0) g/dL RDW (11.5-14.5) % Lymphocytes # 0.83 L (0.90-5.00) 10*3/uL Chloride 108 H (98-107) mmol/L BUN 46 H (7-17) mg/dL Glucose 102 H (74-99) mg/dL Magnesium 2.4 H (1.6-2.3) mg/dL AST 80 H (14-36) U/L ALT 58 H (4-34) U/L Urine Appearance (Clear) Urine Protein (Negative) Urine WBC (0-5) /hpf Urine Bacteria (None) /hpf Urine Mucus (None) /hpf Crossmatch See Detail 11/13/24 11/13/24 Range/Units 01:11 07:00 RBC 3.93 L (4.10-5.20) 10*6/uL Hgb 7.3 L D (12.0-15.0) g/dL Hct 25.3 L (37.2-46.3) % MCV 64.4 L D (80.0-97.0) fL MCH 18.6 L (27.0-32.0) pg MCHC 28.9 L (32.0-37.0) g/dL RDW 27.4 H (11.5-14.5) % Lymphocytes # (0.90-5.00) 10*3/uL Chloride (98-107) mmol/L BUN (7-17) mg/dL Glucose (74-99) mg/dL Magnesium (1.6-2.3) mg/dL AST (14-36) U/L ALT (4-34) U/L Urine Appearance Cloudy H (Clear) Urine Protein Trace H (Negative) Urine WBC 13 H (0-5) /hpf Urine Bacteria Rare H (None) /hpf Urine Mucus Rare H (None) /hpf Crossmatch Thrombosis Risk Factor Assmnt - Choose All That Apply Any of the Below Risk Factors Present?: Yes Each Factor Represents 1 point: Obesity (BMI >25), Swollen legs (current) Other Risk Factors: Yes Each Risk Factor Represents 3 Points: Age 75 years or older Other congenital or acquired thrombophilia - If yes, enter type in comment: No Thrombosis Risk Factor Assessment Total Risk Factor Score: 5 Thrombosis Risk Factor Assessment Level: High Risk
[2024-11-13] MEDS ORDERED: LIDOCAINE 1% INJ 10MG/ML (20 ML MDV) ONE (16:00)
[2024-11-13] MEDS ORDERED: PROPOFOL 10 MG/ML 20 ML VIAL IV ONE (16:00)
[2024-11-13] MEDS ORDERED: PHENYLEPHRINE 10 MG/ML VIAL ONE (16:00)
[2024-11-13] MEDS: IV FLUID CONTINUATION 1,000 ML IV ONE (16:06)
--- NOTE | 2024-11-13 16:19 | P.PCN ---
Date of Procedure: 11/13/24 Procedure(s) Performed: BRIEF HISTORY: Patient is a 79-year-old, pleasant, white female admitted to hospital with severe symptomatic anemia and hemoglobin of 5.6 g/dL requiring 2 antibiotic transfusion.. She had EGD and colonoscopy in August 2023 and was diagnosed with gastric antral vascular ectasia. She denies any black tarry stools. She is scheduled for an upper endoscopy to evaluate further PROCEDURE PERFORMED: Esophagogastroduodenoscopy with argon plasma coagulation. PREOPERATIVE DIAGNOSIS: Severe symptomatic anemia with a hemoglobin of 5.2 g/dL. IV sedation per anesthesia. PROCEDURE: After informed consent was obtained, the patient was brought into the endoscopy unit. IV sedation was administered by Anesthesia under continuous monitoring. Initially the Olympus GIF-140 video endoscope was inserted into the mouth. Esophagus intubated without any difficulty. It was gradually advanced into the stomach and duodenum and carefully examined. The bulb and the second part of the duodenum appeared normal. The scope at this time was withdrawn to the stomach, adequately insufflated with air, and upon careful examination, mucosa of the antrum had scattered telangiectasias consistent with gastric antral vascular ectasia. No active bleeding noted. At this time argon plasma coagulation was performed in the antrum and all the telangiectasias were coagulated.. Mucosa of the, body, cardia and the fundus appeared normal. The scope was then withdrawn into the esophagus. The GE junction was located at 39 cm from the incisors. Small hiatal hernia noted. The esophagus appeared normal. There were no erosions or ulcerations seen and the patient tolerated the procedure well. IMPRESSION: 1. Gastric antral vascular ectasia but no active bleeding noted status post argon plasma coagulation as described above.. 2. Small hiatal hernia. RECOMMENDATIONS: The findings of this examination were discussed with the patient. She will be started on regular diet. Monitor CBC daily. Continue with Protonix 40 mg daily..
[2024-11-13] MEDS: SODIUM CHLORIDE 0.9% 1,000 ML IV ONE (17:08)
[2024-11-13] MEDS: FUROSEMIDE 10 MG/ML 4 ML VIAL IV SCH (20:19)
[2024-11-14 06:13] LABS: Basophils # (A) 0.06 10*3/uL (0.00-0.10); Eosinophils # (A) 0.09 10*3/uL (0.04-0.35); Eosinophils % (A) 1.4 %; HCT 26.6 % (37.2-46.3); HGB 7.4 g/dL (12.0-15.0); Immature Platelet Fraction 5.1 % (1.1-6.1); Lymphocytes # (A) 0.91 10*3/uL (0.90-5.00); Lymphocytes % (A) 14.5 %; MCH 18.5 pg (27.0-32.0); MCHC 27.8 g/dL (32.0-37.0); MCV 66.7 fL (80.0-97.0); Monocytes # (A) 0.67 10*3/uL (0.20-1.00); Monocytes % (A) 10.7 %; Neutrophils # (A) 4.53 10*3/uL (1.80-7.70); Neutrophils % (A) 71.9 %; Platelet Count 185 10*3/uL (140-440); RBC 3.99 10*6/uL (4.10-5.20); WBC 6.29 10*3/uL (4.50-10.00)
[2024-11-14 06:24] LABS: RDW 26.5 % (11.5-14.5)
[2024-11-14 06:34] LABS: African American GFR (CKD) 75 (>60 ml/min/1.73 sqM); Anion Gap 8 mmol/L; Blood Urea Nitrogen 37 mg/dL (7-17); Calcium 9.1 mg/dL (8.4-10.2); Carbon Dioxide 27 mmol/L (22-30); Chloride 109 mmol/L (98-107); Glucose 102 mg/dL (74-99); Non-African American GFR(CKD) 65 (>60 ml/min/1.73 sqM); Potassium 3.1 mmol/L (3.5-5.1); Sodium 144 mmol/L (137-145)
[2024-11-14] MEDS: ACETAMINOPHEN TAB 325 MG TAB PO PRN (08:58)
[2024-11-14] MEDS: POTASSIUM CHLORIDE ER 20 MEQ TAB.ER PO SCH (08:59)
--- NOTE | 2024-11-14 10:54 | CA ---
Transthoracic Echo Report Name: Imani Em Age: 79 Gender: F : 1945 Exam Date: 11/14/2024 08:26 Exam Location: [facility] Ht (in): 56 Wt (lb): 144 Ordering Physician: Chris Fox MD Attending/Referring Phys: Center Machine Operator Nisa Cutler RDCS Procedure CPT: Indications: chf Cardiac Hx: Technical Quality: Technically difficult study Contrast 1: Definity Total Dose (mL): 4 Contrast 2: Total Dose (mL): MEASUREMENTS (Male / Female) Normal Values 2D ECHO LV Diastolic Diameter PLAX 4.1 cm 4.2 - 5.9 / 3.9 - 5.3 cm LV Systolic Diameter PLAX 2.5 cm IVS Diastolic Thickness 1.2 cm 0.6 - 1.0 / 0.6 - 0.9 cm LVPW Diastolic Thickness 1.0 cm 0.6 - 1.0 / 0.6 - 0.9 cm LV Relative Wall Thickness 0.5 LVOT Diameter 1.2 cm Aortic Root Diameter 2.9 cm LV Diastolic Volume MOD BP 68.4 cm??? 67 - 155 / 56 - 104 cm??? LV Systolic Volume MOD BP 20.3 cm??? 22 - 58 / 19 - 49 cm??? LV Ejection Fraction MOD BP 70.4 % >= 55 % LV Cardiac Index MOD BP 2262.6 cm???/min???m??? LV Diastolic Volume MOD 4C 74.8 cm??? LV Systolic Volume MOD 4C 21.8 cm??? LV Ejection Fraction MOD 4C 70.8 % LV Cardiac Index MOD 4C 2490.2 cm???/min???m??? LV Diastolic Length 4C 7.0 cm LV Systolic Length 4C 5.4 cm LV Diastolic Volume MOD 2C 61.7 cm??? LV Systolic Volume MOD 2C 18.8 cm??? LV Ejection Fraction MOD 2C 69.5 % LV Cardiac Index MOD 2C 2014.0 cm???/min???m??? LV Diastolic Length 2C 7.2 cm LV Systolic Length 2C 5.3 cm Ascending Aorta Diameter 3.1 cm DOPPLER AV Peak Velocity 369.6 cm/s AV Peak Gradient 54.6 mmHg AV Mean Velocity 252.6 cm/s AV Mean Gradient 27.9 mmHg AV Velocity Time Integral 58.3 cm LVOT Peak Velocity 192.8 cm/s LVOT Peak Gradient 14.9 mmHg LVOT Velocity Time Integral 29.2 cm LVOT Stroke Volume 35.6 cm??? LVOT Stroke Volume Index 23.1 ml/m??? LVOT Cardiac Index 1673.0 cm???/min???m??? AV Area Cont Eq vti 0.6 cm??? AV Area Cont Eq pk 0.6 cm??? MV Peak Velocity 232.7 cm/s MV Peak Gradient 21.7 mmHg MV Mean Velocity 127.2 cm/s MV Mean Gradient 7.6 mmHg MV Velocity Time Integral 47.8 cm Mitral E Point Velocity 95.9 cm/s Mitral A Point Velocity 216.0 cm/s Mitral E to A Ratio 0.4 MV Deceleration Time 172.2 ms MV E' Velocity 4.2 cm/s Mitral E to MV E' Ratio 22.7 TR Peak Velocity 414.9 cm/s TR Peak Gradient 68.9 mmHg Right Atrial Pressure 15.0 mmHg Pulmonary Artery Systolic Pressu 83.9 mmHg Right Ventricular Systolic Press 83.9 mmHg PV Peak Velocity 116.6 cm/s PV Peak Gradient 5.4 mmHg FINDINGS Left Ventricle Left ventricular ejection fraction is estimated at 65-70 %. Mildly increased septal wall thickness. Left ventricular cavity size normal. No obvious regional wall motion abnormalities. Hyperdynamic left ventricular systolic function. Mid cavitary gradient 75mmHg rest, 99mmHg post ectopic. Right Ventricle Right ventricular dilatation. Normal right ventricular global systolic function. Severe pulmonary hypertension. Right Atrium Mild right atrial dilatation. Left Atrium Mild left atrial dilatation. Mitral Valve Mitral valve thickened. Mitral annular calcification. No evidence for mitral valve prolapse. Moderate mitral stenosis. Trace mitral regurgitation. Aortic Valve Trileaflet aortic valve. Diffuse thickening of the aortic valve cusps with reduced excursion. Moderate to severe aortic stenosis with a peak velocity of 3.7 m/s, peak gradient 55 mmHg, mean gradient 28 mmHg, and estimated aortic valve area of 0.72 . No aortic regurgitation. Tricuspid Valve Structurally normal tricuspid valve. No tricuspid stenosis. Cyhcfaba-er-vyecjj tricuspid regurgitation. Pulmonic Valve Structurally normal pulmonic valve. No pulmonic stenosis. Mild pulmonic regurgitation. Pericardium Small pericardial effusion. Pleural effusion. Aorta Normal size aortic root and proximal ascending aorta. CONCLUSIONS Normal LV size and systolic function. Significant enlargement of right ventricle. Severe pulmonary hypertension. Mitral annular calcification with some calcific mitral stenosis of a mild degree if not moderate. Aortic valve sclerosis calcification restriction moderate to severe stenosis with a mean gradient of 28 mmHg. Cannot exclude a small pericardial effusion or fat pad Previewed by: Dr. Bri Florez MD (Electronically Signed) Final Date: 14 Nov 2024 10:53
--- NOTE | 2024-11-14 11:52 | P.PN ---
Subjective Progress Note Date: 11/14/24 Principal diagnosis: Anemia This a pleasant 79-year-old female who presented to the emergency department with complaints of shortness of breath, weakness and cough. She has a past medical history including heart failure, anemia, CVA/TIA, hypertension gastric ulcer and antral vascular ectasia. On presentation patient was presented with microcytic anemia with a hemoglobin of 5.2. She was given 2 units of blood repeat hemoglobin this morning 7.3. Gastroenterology was consulted secondary to anemia. Patient denies any blood or black stool but also states that she really cannot see well, she denies any abdominal pain, nausea or vomiting. Last upper endoscopy was in April [address] Evans with findings of linear areas of telangiectasia in the gastric antrum suggestive of 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 Previously noted antral ulcer was completely healed patient also had scattered telangiectasia in the cardia of the stomach status post argon plasma coagulation. 11/14/2024 Patient seen and examined today as a follow-up. Yesterday she underwent upper endoscopy with findings of gastric antral vascular ectasia with no active bleeding status post argon plasma coagulation and a small hiatal hernia. Vicenta ent denies any nausea or vomiting, no black stool or blood per rectum. Denies any abdominal pain. Hemoglobin stable at 7.4. Objective - Vital Signs Vital signs: Vital Signs Temp 98.2 F 11/14/24 03:12 Pulse 73 11/14/24 03:12 Resp 20 11/14/24 03:12 BP 93/59 11/14/24 03:12 Pulse Ox 90 L 11/14/24 03:12 FiO2 Intake & Output 11/13/24 11/13/24 11/14/24 06:59 18:59 06:59 Intake Total 1174 270 20 Output Total 500 1400 700 Balance 209 -4220 -913 Weight 65.5 kg 68 kg Intake: IV 270 20 Invasive Line 1 20 20 Intake, IV Titration 585 Amount Sodium Chloride 0.9% 1, 585 000 ml @ 20 mls/hr IV . Q24H [facility] Rx#:[id number] Oral 0 Blood Product 589 Rc As-1 Unit 310 [id number] Rc Pheresis As-3 Unit 279 [id number] Output: Urine 500 1400 700 Straight 500 900 Other: Voiding Method Bedside Commode Bedside Commode Indwelling Catheter External Catheter External Catheter # Bowel Movements 0 - Exam General appearance: The patient is alert, oriented, appears in no acute distress. HET: Head is normocephalic and atraumatic. Conjunctiva pink. Sclera anicteric. Neck: Supple without lymphadenopathy. Abdomen: Soft, nontender, nondistended. Extremities: Normal skin color and turgor. Skin: No rashes, no jaundice Neurological: No focal deficits. Alert and oriented. - Labs CBC & Chem 7: 11/14/24 05:51 11/14/24 05:51 Labs: Abnormal Lab Results - Last 24 Hours (Table) 11/13/24 11/14/24 11/14/24 Range/Units 07:00 05:51 05:51 RBC 3.99 L (4.10-5.20) 10*6/uL Hgb 7.4 L (12.0-15.0) g/dL Hct 26.6 L (37.2-46.3) % MCV 66.7 L (80.0-97.0) fL MCH 18.5 L (27.0-32.0) pg MCHC 27.8 L (32.0-37.0) g/dL RDW 26.5 H (11.5-14.5) % Potassium 3.1 L (3.5-5.1) mmol/L Chloride 109 H (98-107) mmol/L BUN 37 H (7-17) mg/dL Glucose 102 H (74-99) mg/dL Urine Appearance Cloudy H (Clear) Urine Protein Trace H (Negative) Urine WBC 13 H (0-5) /hpf Urine Bacteria Rare H (None) /hpf Urine Mucus Rare H (None) /hpf Assessment and Plan (1) Microcytic anemia Narrative/Plan: 79-year-old female with a history of gastric and antral telangiectasia as well as anemia presented with symptomatic anemia. Although patient is unsure if she is having any blood in her stool or black stool need to consider anemia likely secondary to upper GI bleed with known vascular ectasia the antrum and stomach. Recommend direct visualization with upper endoscopy. Current Visit: Yes Status: Acute Code(s): D50.9 - IRON DEFICIENCY ANEMIA, UNSPECIFIED SNOMED Code(s): 929779774 (2) Gastric antral vascular ectasia Narrative/Plan: Patient is status post upper endoscopy with findings of gastric antral vascular ectasia without any active bleeding status post argon plasma coagulation Current Visit: Yes Status: Acute Code(s): K31.819 - ANGIODYSPLASIA OF STOMACH AND DUODENUM WITHOUT BLEEDING SNOMED Code(s): 21016160 (3) CHF (congestive heart failure) Current Visit: No Status: Acute Code(s): I50.9 - HEART FAILURE, UNSPECIFIED SNOMED Code(s): 07633096 (4) COPD (chronic obstructive pulmonary disease) Current Visit: No Status: Acute Code(s): J44.9 - CHRONIC OBSTRUCTIVE PULMONARY DISEASE, UNSPECIFIED SNOMED Code(s): 54386172 Plan: 1. Continue symptomatic and supportive care 2. Patient can have heart healthy diet 3. Continue Protonix 40 mg daily 4. May resume aspirin 5. Status post upper endoscopy 6. Rest of medical management per primary medical team Thank you for this consultation, patient is cleared from gastroenterology for discharge once otherwise medically stable. We will sign off at this time. Dr. Lilia Evans I agree with the dictator's note, documented as a scribe by Dana Kohli.
[2024-11-14] MEDS ORDERED: CALCIUM CARBONATE 500 MG CHEWABLE PO PRN (14:09)
[2024-11-14] MEDS ORDERED: Potassium Replacement Protocol 1 EACH MISC MISCELLANE PRN (14:36)
[2024-11-14] MEDS: CALCIUM CARBONATE 500 MG CHEWABLE PO PRN (14:36)
[2024-11-14] MEDS: ASPIRIN 81 MG PO SCH (14:37)
--- NOTE | 2024-11-14 14:37 | P.PN ---
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 Patient reports that yesterday she was feeling very weak and had to have the help from her sister for ambulation. She is also endorsing mild shortness of breath, orthopnea and PND since 1 to 2 weeks. Patient reports no bloody stool or black-colored stool. Patient is apparently not on any blood thinner. Patient had been admitted in the past for upper GI bleed, iron deficiency anemia, low hemoglobin requiring blood transfusion. 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 Prior to that she had a upper endoscopy and lower endoscopy with biopsy on 09/07/2023 which showed gastric antral ulcer, gastritis, sigmoid diverticulosis. Biopsy result was positive for H. pylori. Patient otherwise denies any chest pain, abdominal pain, nausea, vomiting. Initial lab work shows hemoglobin of 5.2, hematocrit 19.5, MCV 57.9, sodium 144, potassium 4.2, BUN 46, creatinine 0.98, AST 80, ALT 58,. Repeat blood work s hows hemoglobin 7.3 after receiving 2 units of PRBC. Chest x-ray shows pulm vascular congestion and cardiomegaly. EKG shows normal sinus rhythm with ventricular rate of 81 bpm, NE interval 173 ms, QRS duration is 84 ms, QTc 4 6 ms. 11/14/2024: Patient seen and examined at the bedside. Patient sitting in a recliner chair. Patient is on room air. EGD was performed yesterday with findings of GAVE with no active bleeding sites status post argon plasma coagulation. Echocardiogram on 11/13/2024 shows ejection fraction of 65 to 70% with moderate to severe aortic stenosis. Denies any shortness of breath, chest pain, cough, nausea, vomiting, abdominal pain, active bleeding, melanotic stool, diarrhea or constipation. Patient had urinary retention yesterday and had Newell catheter placed. Her labs from today shows WBC 6.29, hemoglobin 7.4, sodium 144, potassium 2.1, BUN 37, creatinine 0.86. No new imaging done today. Physical examination: Vital signs reviewed General: non toxic, no distress, appears at stated age, obese Derm: no unusual rashes/lesions, warm, chronic venous dermatitis bilaterally Head: atraumatic, normocephalic, symmetric Eyes: EOMI, no lid lag, anicteric sclera, pupils equal round reactive to light ENT: Nose and ears atraumatic Neck: No cervical lymphadenopathy, trachea midline, supple Mouth: no lip lesion, mucus membranes moist Cardiovascular: S1S2 reg, no murmur, positive dorsalis pedis pulse bilateral, 2+ pitting edema Lungs: CTAB, no wheezing, no use of accessory muscles, patient is on room air Abdominal: soft, nontender to palpation, no guarding Ext: muscle strength 5 out of 5 in all 4 extremities grossly, no gross muscle atrophy, no contractures, Neuro: CN II-XI grossly intact, no gross focal neuro deficits Psych: Alert, oriented, appropriate affect Assessment/Plan: #Iron deficiency anemia likely secondary to upper GI bleed, no active bleeding #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 once daily Resume aspirin 81 mg Blood transfusion if hemoglobin less than 7 Continue monitor CBC #Diastolic congestive heart failure exacerbation #Acute hypoxemic respiratory failure secondary to CHF and anemia #Moderate-severe aortic stenosis Echocardiogram on 11/13/2024 shows ejection fraction of 65 to 70% with moderate to severe aortic stenosis Continue with IV Lasix 40 mg twice daily Continue with oxygen therapy as needed Daily weights, strict I's and O's, fluid restriction to 2 L Repeat chest x-ray #History of hypertension Resume Cozaar 25 mg p.o. twice daily #Generalized weakness Consult PT/OT #Hypokalemia Order potassium chloride 40 mEq x 2 Repeat chemistry in the morning #History of hypertension Hold losartan due to low blood pressure DVT prophylaxis: SCDs GI prophylaxis: Protonix 40 mg p.o. once daily F: IV normal saline at KVO E: Replete as needed N: N.p.o. A: Ambulatory at baseline The patient is admitted with an anticipated more than than 2 midnight stay for evaluation of upper GI bleed and CHF exacerbation CODE STATUS: Full code Discussed with: Patient Anticipated discharge place: Pending clinical course Dictation was produced using [employer] software. Please excuse any grammatical, word or spelling errors. Objective - Vital Signs Vital signs: Vital Signs Temp 98.1 F 11/14/24 11:05 Pulse 61 11/14/24 11:05 Resp 18 11/14/24 11:05 BP 92/55 11/14/24 11:05 Pulse Ox 98 11/14/24 11:05 FiO2 Intake & Output 11/13/24 11/14/24 11/14/24 18:59 06:59 18:59 Intake Total 270 20 370 Output Total 1400 700 200 Balance -1130 -680 170 Weight 68 kg Intake: IV 270 20 10 Invasive Line 1 20 20 10 Oral 360 Output: Urine 1400 700 200 Straight 900 200 Other: Voiding Method Bedside Commode Indwelling Catheter Indwelling Catheter External Catheter - Labs CBC & Chem 7: 11/14/24 05:51 11/14/24 05:51 Labs: Abnormal Lab Results - Last 24 Hours (Table) 11/14/24 11/14/24 Range/Units 05:51 05:51 RBC 3.99 L (4.10-5.20) 10*6/uL Hgb 7.4 L (12.0-15.0) g/dL Hct 26.6 L (37.2-46.3) % MCV 66.7 L (80.0-97.0) fL MCH 18.5 L (27.0-32.0) pg MCHC 27.8 L (32.0-37.0) g/dL RDW 26.5 H (11.5-14.5) % Potassium 3.1 L (3.5-5.1) mmol/L Chloride 109 H (98-107) mmol/L BUN 37 H (7-17) mg/dL Glucose 102 H (74-99) mg/dL
--- NOTE | 2024-11-14 15:21 | XR ---
EXAMINATION TYPE: XR chest 1V portable DATE OF EXAM: 11/14/2024 CLINICAL INDICATION: Female, 79 years old with history of diastolic congestive heart failure, progres s study. TECHNIQUE: Single AP portable upright view of the chest is obtained. COMPARISON: Chest x-ray from May 15 2024 FINDINGS: Redemonstration of cardiomegaly with atherosclerotic thoracic aorta. Redemonstration of ce ntral vascular congestion with small bilateral pleural effusions and bibasilar opacities favoring com pressive atelectasis. Upper lungs remain clear. Osseous structures are intact. IMPRESSION: Findings consistent with CHF exacerbation are present. [facility], , 11/14/2024 3:18 PM
[2024-11-14] MEDS: FUROSEMIDE 10 MG/ML 4 ML VIAL IV SCH (19:47)
[2024-11-15] MEDS: PANTOPRAZOLE 40 MG TABLET PO SCH ×2 (06:35→19:36)
[2024-11-15 07:52] LABS: Basophils # (A) 0.05 10*3/uL (0.00-0.10); Basophils % (A) 0.5 %; Eosinophils # (A) 0.14 10*3/uL (0.04-0.35); Eosinophils % (A) 1.4 %; HCT 26.4 % (37.2-46.3); HGB 7.4 g/dL (12.0-15.0); Lymphocytes # (A) 0.93 10*3/uL (0.90-5.00); Lymphocytes % (A) 9.3 %; MCH 18.5 pg (27.0-32.0); Monocytes # (A) 0.74 10*3/uL (0.20-1.00); Monocytes % (A) 7.4 %; Neutrophils # (A) 8.05 10*3/uL (1.80-7.70); Platelet Count 194 10*3/uL (140-440); WBC 9.95 10*3/uL (4.50-10.00)
[2024-11-15 07:56] LABS: RDW 28.1 % (11.5-14.5)
[2024-11-15 08:28] LABS: African American GFR (CKD) 71 (>60 ml/min/1.73 sqM); Anion Gap 5 mmol/L; Blood Urea Nitrogen 39 mg/dL (7-17); Calcium 9.2 mg/dL (8.4-10.2); Carbon Dioxide 28 mmol/L (22-30); Chloride 111 mmol/L (98-107); Glucose 128 mg/dL (74-99); Magnesium 2.1 mg/dL (1.6-2.3); Non-African American GFR(CKD) 61 (>60 ml/min/1.73 sqM); Sodium 144 mmol/L (137-145)
[2024-11-15] MEDS ORDERED: FUROSEMIDE 10 MG/ML 4 ML VIAL IV SCH (09:00)
[2024-11-15 10:34] LABS: Anisocytosis (M) Present
[2024-11-15 10:39] LABS: Target Cells Present
[2024-11-15] MEDS: FERROUS SULFATE 325 MG TAB PO SCH (13:04)
--- NOTE | 2024-11-15 14:20 | P.PN ---
Subjective Progress Note Date: 11/15/24 Hospital course: Patient is a 79-year-old female with history of heart failure, CVA, hypertension, GAVE status post argon plasma coagulation on 05/02/2024 presents to the ER with complaint of feeling weak and lethargic since 1 to 2 weeks. Patient reports that yesterday she was feeling very weak and had to have the help from her sister for ambulation. She is also endorsing mild shortness of breath, orthopnea and PND since 1 to 2 weeks. Patient reports no bloody stool or black-colored stool. Patient is apparently not on any blood thinner. Patient had been admitted in the past for upper GI bleed, iron deficiency anemia, low hemoglobin requiring blood transfusion. 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 Prior to that she had a upper endoscopy and lower endoscopy with biopsy on 09/07/2023 which showed gastric antral ulcer, gastritis, sigmoid diverticulosis. Biopsy result was positive for H. pylori. Patient otherwise denies any chest pain, abdominal pain, nausea, vomiting. Initial lab work shows hemoglobin of 5.2, hematocrit 19.5, MCV 57.9, sodium 144, potassium 4.2, BUN 46, creatinine 0.98, AST 80, ALT 58,. Repeat blood work s hows hemoglobin 7.3 after receiving 2 units of PRBC. Chest x-ray shows pulm vascular congestion and cardiomegaly. EKG shows normal sinus rhythm with ventricular rate of 81 bpm, CT interval 173 ms, QRS duration is 84 ms, QTc 4 6 ms. 11/14/2024: Patient seen and examined at the bedside. Patient sitting in a recliner chair. Patient is on room air. EGD was performed yesterday with findings of GAVE with no active bleeding sites status post argon plasma coagulation. Echocardiogram on 11/13/2024 shows ejection fraction of 65 to 70% with moderate to severe aortic stenosis. Denies any shortness of breath, chest pain, cough, nausea, vomiting, abdominal pain, active bleeding, melanotic stool, diarrhea or constipation. Patient had urinary retention yesterday and had Newell catheter placed. Her labs from today shows WBC 6.29, hemoglobin 7.4, sodium 144, potassium 2.1, BUN 37, creatinine 0.86. No new imaging done today. 11/15/2024 Patient seen and examined at the bedside. Patient sitting in recliner chair feeling well comfortable today. Patient denies shortness of breath and is currently on room air. No active bleeding. Cardiology has been consulted for moderate severe aortic stenosis. Lab work from today shows hemoglobin 7.4, BUN 39, creatinine 0.90,. No new imaging. Physical examination: Vital signs reviewed General: non toxic, no distress, appears at stated age, obese Derm: no unusual rashes/lesions, warm, chronic venous dermatitis bilaterally Head: atraumatic, normocephalic, symmetric Eyes: EOMI, no lid lag, anicteric sclera, pupils equal round reactive to light ENT: Nose and ears atraumatic Neck: No cervical lymphadenopathy, trachea midline, supple Mouth: no lip lesion, mucus membranes moist Cardiovascular: S1S2 reg, no murmur, positive dorsalis pedis pulse bilateral, 2+ pitting edema Lungs: CTAB, no wheezing, no use of accessory muscles, patient is on room air Abdominal: soft, nontender to palpation, no guarding Ext: muscle strength 5 out of 5 in all 4 extremities grossly, no gross muscle atrophy, no contractures, Neuro: CN II-XI grossly intact, no gross focal neuro deficits Psych: Alert, oriented, appropriate affect Assessment/Plan: #Iron deficiency anemia likely secondary to upper GI bleed, no active bleeding #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 once daily Resume aspirin 81 mg Blood transfusion if hemoglobin less than 7 Continue monitor CBC #Diastolic congestive heart failure exacerbation #Acute hypoxemic respiratory failure secondary to CHF and anemia #Moderate-severe aortic stenosis Echocardiogram on 11/13/2024 shows ejection fraction of 65 to 70% with moderate to severe aortic stenosis Transition to Lasix 40 mg twice daily p.o. Continue with oxygen therapy as needed Daily weights, strict I's and O's, fluid restriction to 2 L #Iron-deficiency anemia Start patient on ferrous sulfate 325 mg p.o. daily #History of hypertension Resume Cozaar 25 mg p.o. twice daily #Generalized weakness Consult PT/OT #Hypokalemia, resolved BMP tomorrow a.m. #History of hypertension Hold losartan due to low blood pressure DVT prophylaxis: SCDs GI prophylaxis: Protonix 40 mg p.o. once daily F: IV normal saline at KVO E: Replete as needed N: N.p.o. A: Ambulatory at baseline CODE STATUS: Full code Discussed with: Patient Anticipated discharge place: Pending clinical course Dictation was produced using [email or web address] dictation software. Please excuse any grammatical, word or spelling errors. Dr. Nathan seen patient with resident, present during exam, and agreed with findings. Objective - Vital Signs Vital signs: Vital Signs Temp 98.0 F 11/15/24 11:31 Pulse 84 11/15/24 11:31 Resp 17 11/15/24 11:31 BP 115/69 11/15/24 11:31 Pulse Ox 96 11/15/24 11:31 FiO2 Intake & Output 11/14/24 11/15/24 11/15/24 18:59 06:59 18:59 Intake Total 370 30 190 Output Total 992 724 5587 Balance -30 720 -1210 Weight 67.5 kg Intake: IV 10 30 10 Invasive Line 1 10 20 Invasive Line 2 10 10 Oral 360 180 Output: Urine 192 986 0391 Straight 400 Other: Voiding Method Indwelling Catheter Indwelling Catheter Indwelling Catheter # Bowel Movements 1 - Labs CBC & Chem 7: 11/15/24 07:41 11/15/24 07:41 Labs: Abnormal Lab Results - Last 24 Hours (Table) 11/15/24 11/15/24 Range/Units 07:41 07:41 RBC 4.00 L (4.10-5.20) 10*6/uL Hgb 7.4 L (12.0-15.0) g/dL Hct 26.4 L (37.2-46.3) % MCV 66.0 L (80.0-97.0) fL MCH 18.5 L (27.0-32.0) pg MCHC 28.0 L (32.0-37.0) g/dL RDW 28.1 H (11.5-14.5) % Neutrophils # 8.05 H (1.80-7.70) 10*3/uL Chloride 111 H (98-107) mmol/L BUN 39 H (7-17) mg/dL Glucose 128 H (74-99) mg/dL
[2024-11-15] MEDS: FUROSEMIDE 40 MG TAB PO SCH (15:42)
--- NOTE | 2024-11-15 16:25 | P.CRDCN ---
History of Present Illness Consult date: 11/15/24 History of present illness: HISTORY OF PRESENTING ILLNESS: 76-year-old female have history of HFpEF, CVA, hypertension, GAVE status post argon plasma coagulation on April 2024. She presented to the hospital this time because of concerns of generalized weakness. Got admitted to the hospital because of severe symptomatic anemia with hemoglobin of 5.6 for which she re quired 2 units of blood transfusion. She has previously had EGD done in August 2023 which showed gastric antral vascular ectasia. On admission she denied any black tarry stools. She underwent upper GI endoscopy on 08/16/2024 which showed gastric antral vascular ectasia but no active signs of bleeding. She was recommended to have conservative management with Protonix. She also had pulm congestion lower extremity edema. Cardiology was consulted for CHF management. Her echo showed concerns of valvular dysfunction. Admission Vitals: BP 115/69, heart rate 84 bpm Admission Labs: Hemoglobin 5.2, repeat 7.4 BUN 39, creatinine 0.9 NT-proBNP 6100 Admission EKG: Sinus rhythm with low voltage precordial complex Imaging: CXR showed increased interstitial marking with small bilateral pleural effusion Echo showed EF of 65 to 70%, hyperdynamic LV with increased mid ventricular cavity gradients, moderate to severe aortic stenosis with mean gradient of 28 mmHg, severe pulmonary hypertension. Mild to moderate mitral stenosis and moderate to severe mitral regurgitation, degenerative mitral valve Echo from April 2024 showed moderate aortic stenosis, moderate pulmonary hypertension, severe mitral calcification Carotid Doppler 50 to 69% right, severe stenosis of the left side greater than 70% CTA neck left carotid bifurcation stent graft within ICA with 25 to 50% narrowing, 70% stenosis right carotid bifurcation because of calcific plaque REVIEW OF SYSTEMS: 14 point review of system is negative except what is mentioned above in HPI. PHYSICAL EXAMINATION: Neck: Brisk carotid upstroke, no jugular venous distention. Lungs: Diminished inspiratory effort, mild crackles audible in bilateral lower lung ortiz Heart: Regular pulses, systolic murmur audible in the aortic area Abdomen: Soft nontender, positive bowel sounds. Extremities: 2+ pitting edema bilateral extremity Neuro: Alert, oritented, no focal deficits. Detailed neuro exam was not performed. 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 Reduce Lipitor to 40 mg Start metoprolol XL 50 mg daily. Gool goal resting heart rate 50 to 60 bpm Start losartan 12.5 mg daily Add Farxiga 10 mg daily Diuretic changed to Bumex 1 mg p.o. daily Aldactone 25 mg daily Protonix increased to 40 mg twice daily Goal hemoglobin more than 8 Continue iron and multivitamin Overall prognosis is poor Mauricio Pederson MD, FACC, RPVI Thank you for allowing [facility] to participate in th is patient's care. Feel free to reach out in case of any followup questions. Past Medical History Past Medical History: Heart Failure, CVA/TIA, GERD/Reflux, Hypertension Additional Past Medical History / Comment(s): states CVA (no residual), states stent in upper leg, rash on lower legs, ankles swell, pt states on Nutrisystem diet in 2019 and has lost 20-25 # with frequent stools. History of Any Multi-Drug Resistant Organisms: None Reported Past Surgical History: Joint Replacement Additional Past Surgical History / Comment(s): total right knee x2, stem cell injections prior to total knees, cataract surgery, stent in leg Past Anesthesia/Blood Transfusion Reactions: No Reported Reaction Additional Past Anesthesia/Blood Transfusion Reaction / Comment(s): STATES UNABLE TO INTUBATE- THEY HAD TO DO A SPINAL, STATES SHE HAS LETTER FROM [place] [facility] [employer] PAT[facility] TO BRING THIS LETTER WITH HER Past Psychological History: No Psychological Hx Reported Smoking Status: Never smoker Past Alcohol Use History: None Reported Past Drug Use History: None Reported - Past Family History Mother Family Medical History: Cancer Additional Family Medical History / Comment(s): colon cancer Father Family Medical History: Congestive Heart Failure (CHF) Medications and Allergies Home Medications Medication Instructions Recorded Confirmed Type Furosemide [Lasix] 20 mg PO BID 05/11/20 11/12/24 History Losartan Potassium [Cozaar] 25 mg PO BID 05/11/20 11/12/24 History Aspirin 81 mg PO DAILY #30 tab 07/20/23 11/12/24 Rx Ammonium Lactate Cream [Lac-Hydrin 1 applic TOPICAL BID 09/05/23 11/12/24 History 12% Cream] Acetaminophen [Tylenol 8 Hour] 1,300 mg PO BID PRN 04/30/24 11/12/24 History Acetaminophen [Tylenol 8 Hour] 1,300 mg PO DAILY 04/30/24 11/12/24 History Calcium Carbonate [Calcium] 600 mg PO DAILY 04/30/24 11/12/24 History [place]-3S/Dha/Epa/Fish Oil/D3 [Fish 2 tab PO DAILY 04/30/24 11/12/24 History Oil Gummies] Atorvastatin [Lipitor] 80 mg PO DAILY 11/12/24 11/12/24 History Black Elderberry Gummies 1 cap PO BID 11/12/24 11/12/24 History Dolphin Beets Gummies Supplement 1 cap PO BID 11/12/24 11/12/24 History Pantoprazole [Protonix] 40 mg PO BID 11/12/24 11/12/24 History Psyllium Husk [Metamucil] 1.2 gm PO DAILY 11/12/24 11/12/24 History Unknown Vitamin B Gummy 1 cap PO DAILY 11/12/24 11/12/24 History Women's Multivitamin Gummies 2 cap PO DAILY 11/12/24 11/12/24 History Allergies Allergy/AdvReac Type Severity Reaction Status Date / Time Penicillins AdvReac Unknown PASSED OUT Verified 11/12/24 20:09 Physical Exam Vitals: Vital Signs Temp Pulse Resp BP Pulse Ox 11/15/24 11:31 98.0 F 84 17 115/69 96 11/15/24 08:00 97.9 F 78 17 112/70 93 L 11/15/24 03:35 97.5 F L 84 17 113/67 97 11/14/24 23:15 97.5 F L 82 18 117/63 94 L 11/14/24 19:35 98.1 F 68 19 101/63 94 L 11/14/24 16:27 82 18 119/73 96 Intake and Output 11/15/24 11/15/24 11/15/24 06:59 14:59 22:59 Intake Total 20 190 Output Total 750 1400 Balance -730 -1210 Intake: IV 20 10 Invasive Line 1 10 Invasive Line 2 10 10 Oral 180 Output: Urine 750 1400 Other: Voiding Method Indwelling Catheter Indwelling Catheter # Bowel Movements 1 Weight 67.5 kg Results 11/15/24 07:41 11/15/24 07:41 CBC 11/15/24 Range/Units 07:41 WBC 9.95 (4.50-10.00) 10*3/uL RBC 4.00 L (4.10-5.20) 10*6/uL Hgb 7.4 L (12.0-15.0) g/dL Hct 26.4 L (37.2-46.3) % Plt Count 194 (140-440) 10*3/uL Comprehensive Metabolic Panel 11/15/24 Range/Units 07:41 Sodium 144 (137-145) mmol/L Potassium 4.0 (3.5-5.1) mmol/L Chloride 111 H (98-107) mmol/L Carbon Dioxide 28 (22-30) mmol/L BUN 39 H (7-17) mg/dL Creatinine 0.90 (0.52-1.04) mg/dL Glucose 128 H (74-99) mg/dL Calcium 9.2 (8.4-10.2) mg/dL Current Medications Generic Name Dose Route Start Last Admin Trade Name Freq PRN Reason Stop Dose Admin Acetaminophen 650 mg 11/12/24 19:47 11/14/24 08:58 Acetaminophen Tab 325 Mg Tab PO 650 mg Q6HR PRN Administration Mild Pain or Fever > 100.5 Aspirin 81 mg 11/14/24 14:30 11/15/24 09:12 Aspirin 81 Mg PO 81 mg DAILY LAY Administration Atorvastatin Calcium 40 mg 11/16/24 09:00 Atorvastatin 80 Mg Tab PO DAILY LAY Calcium Carbonate/Glycine 500 mg 11/13/24 09:00 11/15/24 09:12 Calcium Carbonate 500 Mg Chewable PO 500 mg DAILY LAY Administration Calcium Carbonate/Glycine 500 mg 11/14/24 14:11 11/15/24 13:07 Calcium Carbonate 500 Mg Chewable PO 500 mg DAILY PRN Administration Heartburn Ferrous Sulfate 325 mg 11/15/24 12:30 11/15/24 13:04 Ferrous Sulfate 325 Mg Tab PO 325 mg W/LUNCH LAY Administration Sodium Chloride 1,000 mls @ 20 mls/hr 11/12/24 20:00 11/14/24 08:07 Saline 0.9% IV Not Given .Q24H [facility] Miscellaneous Information 1 each 11/14/24 14:36 Potassium Replacement Protocol 1 Each Misc MISCELLANE DAILY PRN Per Protocol Protocol Naloxone HCl 0.2 mg 11/12/24 19:47 Naloxone 0.4 Mg/Ml 1 Ml Vial IV Q2M PRN Opioid Reversal Pantoprazole Sodium 40 mg 11/15/24 21:00 Pantoprazole 40 Mg Tablet PO BID LAY Intake and Output 11/15/24 11/15/24 11/15/24 06:59 14:59 22:59 Intake Total 20 190 Output Total 750 1400 Balance -730 -1210 Intake: IV 20 10 Invasive Line 1 10 Invasive Line 2 10 10 Oral 180 Output: Urine 750 1400 Other: Voiding Method Indwelling Catheter Indwelling Catheter # Bowel Movements 1 Weight 67.5 kg 11/15/24 07:41 11/15/24 07:41
[2024-11-15] MEDS: DAPAGLIFLOZIN PROPANEDIOL 10 MG TABLET PO SCH (18:04)
[2024-11-15] MEDS: SPIRONOLACTONE 25 MG TAB PO SCH (18:04)
[2024-11-15] MEDS: METOPROLOL SUCCINATE (ER) 50 MG TAB.ER.24H PO SCH (18:04)
[2024-11-15] MEDS: LOSARTAN 25 MG TAB PO SCH (18:04)
[2024-11-15] MEDS ORDERED: ZINC OXIDE PASTE (Z-GUARD) 1 APPLIC TOPICAL PRN (18:05)
[2024-11-15] MEDS: SODIUM FERRIC GLUCONAT-SUCROSE 125 MG in SODIUM CHLORIDE 0.9% 100 ML IVPB ONE (18:18)
[2024-11-16 07:15] LABS: African American GFR (CKD) 78 (>60 ml/min/1.73 sqM); Anion Gap 7 mmol/L; Blood Urea Nitrogen 33 mg/dL (7-17); Calcium 9.7 mg/dL (8.4-10.2); Carbon Dioxide 31 mmol/L (22-30); Chloride 107 mmol/L (98-107); Glucose 112 mg/dL (74-99); Non-African American GFR(CKD) 68 (>60 ml/min/1.73 sqM); Potassium 3.8 mmol/L (3.5-5.1); Sodium 145 mmol/L (137-145)
[2024-11-16 07:24] LABS: NT-Pro-B-Type Natriuretic Pept 15600 pg/mL
[2024-11-16] MEDS: ATORVASTATIN 40 MG TAB PO SCH (08:40)
[2024-11-16] MEDS: BUMETANIDE 1 MG TAB PO SCH (08:40)
[2024-11-16 10:08] LABS: T4, Free (Free Thyroxine) 1.22 ng/dL (0.78-2.19)
--- NOTE | 2024-11-16 15:25 | P.PN ---
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 She presented to the hospital this time because of concerns of generalized weakness. Got admitted to the hospital because of severe symptomatic anemia with hemoglobin of 5.6 for which she required 2 units of blood transfusion. She has previously had EGD done in August 2023 which showed gastric antral vascular ectasia. On admission she denied any black tarry stools. She underwent upper GI endoscopy on 08/16/2024 which showed gastric antral vascular ectasia but no active signs of bleeding. She was recommended to have conservative management with Protonix. She also had pulm congestion lower extremity edema. Cardiology was consulted for CHF man agement. Her echo showed concerns of valvular dysfunction. Admission Vitals: BP 115/69, heart rate 84 bpm Admission Labs: Hemoglobin 5.2, repeat 7.4 BUN 39, creatinine 0.9 NT-proBNP 6100 Admission EKG: Sinus rhythm with low voltage precordial complex Imaging: CXR showed increased interstitial marking with small bilateral pleural effusion Echo showed EF of 65 to 70%, hyperdynamic LV with increased mid ventricular cavity gradients, moderate to severe aortic stenosis with mean gradient of 28 m mHg, severe pulmonary hypertension. Mild to moderate mitral stenosis and moderate to severe mitral regurgitation, degenerative mitral valve Echo from April 2024 showed moderate aortic stenosis, moderate pulmonary hypertension, severe mitral calcification Carotid Doppler 50 to 69% right, severe stenosis of the left side greater than 70% CTA neck left carotid bifurcation stent graft within ICA with 25 to 50% narrowing, 70% stenosis right carotid bifurcation because of calcific plaque Progress note 11/16/2024 Seen examined at bedside this a.m., no new cardiovascular events Hemodynamically stable, BP 140/74, heart rate 68 bpm Tolerated the addition of medications yesterday, kidney function is stable and electrolytes are stable. PHYSICAL EXAMINATION: Neck: Brisk carotid upstroke, no jugular venous distention. Lungs: Diminished inspiratory effort, mild crackles audible in bilateral lower lung ortiz Heart: Regular pulses, systolic murmur audible in the aortic area Abdomen: Soft nontender, positive bowel sounds. Extremities: 2+ pitting edema bilateral extremity Neuro: Alert, oritented, no focal deficits. Detailed neuro exam was not performed. 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 Reduce Lipitor to 40 mg Start metoprolol XL 50 mg daily. Gool goal resting heart rate 50 to 60 bpm Increase losartan to 25 mg daily Continue Farxiga 10 mg daily Diuretic changed to Bumex 1 mg p.o. daily Aldactone 25 mg daily Protonix increased to 40 mg twice daily Goal hemoglobin more than 8 Continue iron and multivitamin Overall prognosis is poor Objective - Vital Signs Vital signs: Vital Signs Temp 97.8 F 11/16/24 11:27 Pulse 68 11/16/24 11:27 Resp 19 11/16/24 11:27 BP 140/74 11/16/24 11:27 Pulse Ox 94 L 11/16/24 11:30 FiO2 21 11/16/24 11:30 Intake & Output 11/15/24 11/16/24 11/16/24 18:59 06:59 18:59 Intake Total 380 20 370 Output Total 2200 650 800 Balance -1820 -630 -430 Weight 66.6 kg Intake: IV 20 20 10 Invasive Line 2 20 20 10 Oral 360 360 Output: Urine 2200 650 800 Other: Voiding Method Indwelling Catheter Indwelling Catheter Indwelling Catheter # Bowel Movements 1 1 - Labs CBC & Chem 7: 11/15/24 07:41 11/16/24 06:48 Labs: Abnormal Lab Results - Last 24 Hours (Table) 11/16/24 Range/Units 06:48 Carbon Dioxide 31 H (22-30) mmol/L BUN 33 H (7-17) mg/dL Glucose 112 H (74-99) mg/dL TSH 5.540 H (0.465-4.680) mIU/L
--- NOTE | 2024-11-16 18:43 | P.PN ---
Subjective Progress Note Date: 11/16/24 Patient evaluated today sitting up in the chair. No acute complaints overnight. Chest xray completed yesterday afternoon reveals CHF exacerbation. Patient is currently on oral bumex daily. Cardiology has evaluated the patient. Currently no evidence of GI bleeding. Tolerating diet. Hemoglobin stable. Review of Systems Constitutional: Denied any fatigue denied any fever. Cardio vascular: denied any chest pain, palpitations Gastrointestinal: denied any nausea, vomiting, diarrhea Pulmonary: Denied any shortness of breath cough Neurologic denied any new focal deficits All inpatient medications were reviewed and appropriate changes in these medications as dictated in the interval history and assessment and plan. PHYSICAL EXAMINATION: GENERAL: The patient is alert and oriented x3, not in any acute distress. Well developed, well nourished. HEENT: Pupils are round and equally reacting to light. EOMI. No scleral icterus. No conjunctival pallor. Normocephalic, atraumatic. No pharyngeal erythema. No thyromegaly. CARDIOVASCULAR: S1 and S2 present. No murmurs, rubs, or gallops. PULMONARY: Chest is clear to auscultation, no wheezing or crackles. ABDOMEN: Soft, nontender, nondistended, normoactive bowel sounds. No palpable organomegaly. MUSCULOSKELETAL: No joint swelling or deformity. EXTREMITIES: No cyanosis, clubbing, or pedal edema. NEUROLOGICAL: Gross neurological examination did not reveal any focal deficits. SKIN: No rashes. Assessment/Plan: #Iron deficiency anemia likely secondary to upper GI bleed, no active bleeding #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 ; has been increased to twice daily Resume aspirin 81 mg Blood transfusion if hemoglobin less than 7 Continue monitor CBC #Diastolic congestive heart failure exacerbation #Acute hypoxemic respiratory failure secondary to CHF and anemia #Moderate-severe aortic stenosis Echocardiogram on 11/13/2024 shows ejection fraction of 65 to 70% with moderate to severe aortic stenosis Cardiology following Patient currently on 1 mg oral bumex daily; aldactone daily Continues on farxiga Continue with oxygen therapy as needed Daily weights, strict I's and O's, fluid restriction to 2 L #Iron-deficiency anemia Start patient on ferrous sulfate 325 mg p.o. daily #History of hypertension Resume Cozaar 25 mg p.o. twice daily Toprol XL added #Generalized weakness Consult PT/OT #Hypokalemia, resolved BMP tomorrow a.m. #History of hypertension DVT prophylaxis: SCDs GI prophylaxis: Protonix 40 mg twice daily CODE STATUS: Full code PT/OT have recommended subacute rehab did discuss with patient and she is adamen t that she does not want [facility] on discharge. Possible D/C home in the next 24 hours. The impression and plan of care has been dictated by Katty Birch, Nurse Practitioner as directed. Dr. Venita MD I have performed a history and physical examination and medical decision making of this patient, discussed the same with the dictator, and agree with the dictators assessment and plan as written, documented as a scribe. Based on total visit time, I have performed more than 50% of this visit. Objective - Vital Signs Vital signs: Vital Signs Temp 97.6 F 11/16/24 03:25 Pulse 83 11/16/24 03:25 Resp 19 11/16/24 03:25 BP 149/83 11/16/24 03:25 Pulse Ox 93 L 11/16/24 03:25 FiO2 Intake & Output 11/15/24 11/15/24 11/16/24 06:59 18:59 06:59 Intake Total 30 380 20 Output Total 750 2200 650 Balance -720 -1820 -630 Weight 67.5 kg 66.6 kg Intake: IV 30 20 20 Invasive Line 1 20 Invasive Line 2 10 20 20 Oral 360 Output: Urine 750 2200 650 Other: Voiding Method Indwelling Catheter Indwelling Catheter Indwelling Catheter # Bowel Movements 1 1 - Labs CBC & Chem 7: 11/15/24 07:41 11/16/24 06:48 Labs: Abnormal Lab Results - Last 24 Hours (Table) 11/15/24 11/15/24 Range/Units 07:41 07:41 RBC 4.00 L (4.10-5.20) 10*6/uL Hgb 7.4 L (12.0-15.0) g/dL Hct 26.4 L (37.2-46.3) % MCV 66.0 L (80.0-97.0) fL MCH 18.5 L (27.0-32.0) pg MCHC 28.0 L (32.0-37.0) g/dL RDW 28.1 H (11.5-14.5) % Neutrophils # 8.05 H (1.80-7.70) 10*3/uL Chloride 111 H (98-107) mmol/L BUN 39 H (7-17) mg/dL Glucose 128 H (74-99) mg/dL Assessment and Plan Time with Patient: Less than 30
[2024-11-17 01:12] LABS: Chol/HDL Ratio 2.99 Ratio; LDL Cholesterol,Calculated 49.8 mg/dL (0.0-131.0); VLDL Calculation 18.66 mg/dL (5.00-40.00)
[2024-11-17 05:28] LABS: Basophils # (A) 0.08 10*3/uL (0.00-0.10); Basophils % (A) 0.8 %; Eosinophils # (A) 0.35 10*3/uL (0.04-0.35); Eosinophils % (A) 3.3 %; HCT 29.3 % (37.2-46.3); HGB 8.1 g/dL (12.0-15.0); Immature Platelet Fraction 6.8 % (1.1-6.1); Lymphocytes # (A) 1.31 10*3/uL (0.90-5.00); Lymphocytes % (A) 12.5 %; MCH 18.6 pg (27.0-32.0); MCHC 27.6 g/dL (32.0-37.0); MCV 67.2 fL (80.0-97.0); Monocytes % (A) 7.7 %; Neutrophils # (A) 7.85 10*3/uL (1.80-7.70); Neutrophils % (A) 75.1 %; Platelet Count 188 10*3/uL (140-440); RBC 4.36 10*6/uL (4.10-5.20); WBC 10.45 10*3/uL (4.50-10.00)
[2024-11-17 05:53] LABS: African American GFR (CKD) 87 (>60 ml/min/1.73 sqM); Anion Gap 8 mmol/L; Blood Urea Nitrogen 28 mg/dL (7-17); Calcium 9.5 mg/dL (8.4-10.2); Carbon Dioxide 32 mmol/L (22-30); Chloride 103 mmol/L (98-107); Glucose 112 mg/dL (74-99); Non-African American GFR(CKD) 75 (>60 ml/min/1.73 sqM); Potassium 3.6 mmol/L (3.5-5.1); Sodium 143 mmol/L (137-145)
[2024-11-17 05:55] LABS: Anisocytosis (M) Present
[2024-11-17] MEDS: LOSARTAN 25 MG TAB PO SCH (08:16)
--- NOTE | 2024-11-17 10:20 | P.PN ---
Subjective HISTORY OF PRESENT ILLNESS: 76-year-old female have history of HFpEF, CVA, hypertension, GAVE status post argon plasma coagulation on April 2024. She presented to the hospital this time because of concerns of generalized weakness. Got admitted to the hospital because of severe symptomatic anemia with hemoglobin of 5.6 for which she required 2 units of blood transfusion. She has previously had EGD done in August 2023 which showed gastric antral vascular ectasia. On admission she denied any black tarry stools. She underwent upper GI endoscopy on 08/16/2024 which showed gastric antral vascular ectasia but no active signs of bleeding. She was recommended to have conservative management with Protonix. She also had pulm congestion lower extremity edema. Cardiology was consulted for CHF management. Her echo showed concerns of valvular dysfunction. Admission Vitals: BP 115/69, heart rate 84 bpm Admission Labs: Hemoglobin 5.2, repeat 7.4 BUN 39, creatinine 0.9 NT-proBNP 6100 Admission EKG: Sinus rhythm with low voltage precordial complex Imaging: CXR showed increased interstitial marking with small bilateral pleural effusion Echo showed EF of 65 to 70%, hyperdynamic LV with increased mid ventricular cavity gradients, moderate to severe aortic stenosis with mean gradient of 28 mmHg, severe pulmonary hypertension. Mild to moderate mitral stenosis and moderate to severe mitral regurgitation, degenerative mitral valve Echo from April 2024 showed moderate aortic stenosis, moderate pulmonary hypertension, severe mitral calcification Carotid Doppler 50 to 69% right, severe stenosis of the left side greater than 70% CTA neck left carotid bifurcation stent graft within ICA with 25 to 50% narrowing, 70% stenosis right carotid bifurcation because of calcific plaque 11/17/2024 Patient examined this morning at bedside. Patient reports she is feeling short of breath this morning and has been coughing a lot. She does report sputum production. She states that she is exhausted this morning from her coughing. She denies any chest pain or pressure. She is maintained on oral diuretics. PHYSICAL EXAM: VITAL SIGNS: Reviewed. GENERAL: Well-developed in no acute distress. NECK: Supple. No JVD or thyromegaly LUNGS: Respirations even and unlabored. Lungs essentially clear to auscultation bilaterally. HEART: Regular rate and rhythm. S1 and S2 heard. Systolic murmur noted. EXTREMITIES: Normal range of motion. No clubbing or cyanosis. Peripheral pulses intact. Trace bilateral lower extremity edema ASSESSMENT: Acute on chronic anemia status post EGD revealing gastric antral vascular ectasia but no active bleeding noted status post argon plasma coagulation Acute on chronic heart failure with preserved EF Severe pulmonary hypertension Moderate right carotid stenosis History of left carotid stenting with mild disease Valvular heart disease with moderate aortic stenosis, moderate mitral stenosis, and moderate to severe mitral regurgitation PLAN: Continue current cardiac medications including aspirin, atorvastatin, Bumex, Farxiga, losartan, metoprolol, and Aldactone Patient is currently stable from a cardiac standpoint Further recommendations pending patient course Nurse practitioner note has been reviewed by physician. Signing provider agrees with the documented findings, assessment, and plan of care documented by PLAYGROUND ATTENDANT as a scribe. Objective - Vital Signs Vital signs: Vital Signs Temp 97.9 F 11/16/24 19:30 Pulse 89 11/17/24 04:30 Resp 20 11/17/24 04:30 BP 106/66 11/17/24 04:30 Pulse Ox 94 L 11/17/24 04:30 FiO2 21 11/16/24 11:30 Intake & Output 11/16/24 11/17/24 11/17/24 18:59 06:59 18:59 Intake Total 560 20 Output Total 1500 750 Balance -940 -730 Weight 66.1 kg Intake: IV 20 20 Invasive Line 2 20 20 Oral 540 Output: Urine 1500 750 Other: Voiding Method Indwelling Catheter Indwelling Catheter # Bowel Movements 1 - Labs CBC & Chem 7: 11/17/24 04:38 11/17/24 04:38 Labs: Abnormal Lab Results - Last 24 Hours (Table) 11/16/24 11/17/24 11/17/24 Range/Units 06:48 04:38 04:38 WBC 10.45 H (4.50-10.00) 10*3/uL Hgb 8.1 L (12.0-15.0) g/dL Hct 29.3 L (37.2-46.3) % MCV 67.2 L (80.0-97.0) fL MCH 18.6 L (27.0-32.0) pg MCHC 27.6 L (32.0-37.0) g/dL RDW 31.0 H (11.5-14.5) % Immature Gran # 0.06 H (0.00-0.04) 10*3/uL Neutrophils # 7.85 H (1.80-7.70) 10*3/uL Immature Plt Fraction 6.8 H (1.1-6.1) % Carbon Dioxide 32 H (22-30) mmol/L BUN 28 H (7-17) mg/dL Glucose 112 H (74-99) mg/dL HDL Cholesterol 34.50 L (40.00-60.00) mg/dL
--- NOTE | 2024-11-17 14:38 | P.PN ---
Subjective Progress Note Date: 11/17/24 Hospital course: Patient is a 79-year-old female with history of heart failure, CVA, hypertension, GAVE status post argon plasma coagulation on 05/02/2024 presents to the ER with complaint of feeling weak and lethargic since 1 to 2 weeks. Patient reports that yesterday she was feeling very weak and had to have the help from her sister for ambulation. She is also endorsing mild shortness of breath, orthopnea and PND since 1 to 2 weeks. Patient reports no bloody stool or black-colored stool. Patient is apparently not on any blood thinner. Patient had been admitted in the past for upper GI bleed, iron deficiency anemia, low hemoglobin requiring blood transfusion. 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 Prior to that she had a upper endoscopy and lower endoscopy with biopsy on 09/07/2023 which showed gastric antral ulcer, gastritis, sigmoid diverticulosis. Biopsy result was positive for H. pylori. Patient otherwise denies any chest pain, abdominal pain, nausea, vomiting. Initial lab work shows hemoglobin of 5.2, hematocrit 19.5, MCV 57.9, sodium 144, potassium 4.2, BUN 46, creatinine 0.98, AST 80, ALT 58,. Repeat blood work s hows hemoglobin 7.3 after receiving 2 units of PRBC. Chest x-ray shows pulm vascular congestion and cardiomegaly. EKG shows normal sinus rhythm with ventricular rate of 81 bpm, SD interval 173 ms, QRS duration is 84 ms, QTc 4 6 ms. 11/17/2024: Patient seen and examined at the bedside. Patient sitting in recliner seat and is breathing on room air. Patient is complaining of coughing fits since ov ern. Patient continues to have orthopnea and PND. Denies any chest pain, diarrhea, constipation, abdominal pain, nausea vomiting, numbness or weakness in upper or lower extremities. Lab work done today shows WBC 10.45, hemoglobin 8.1, sodium 143, potassium 3.6, BUN 28, creatinine 0.76, calcium 9.5. Physical examination: Vital signs reviewed General: non toxic, no distress, appears at stated age, obese Derm: no unusual rashes/lesions, warm, chronic venous dermatitis bilaterally Head: atraumatic, normocephalic, symmetric Eyes: EOMI, no lid lag, anicteric sclera, pupils equal round reactive to light ENT: Nose and ears atraumatic Neck: No cervical lymphadenopathy, trachea midline, supple Mouth: no lip lesion, mucus membranes moist Cardiovascular: S1S2 reg, no murmur, positive dorsalis pedis pulse bilateral, 2+ pitting edema Lungs: CTAB, no wheezing, no use of accessory muscles, patient is on room air Abdominal: soft, nontender to palpation, no guarding Ext: muscle strength 5 out of 5 in all 4 extremities grossly, no gross muscle atrophy, no contractures, Neuro: CN II-XI grossly intact, no gross focal neuro deficits Psych: Alert, oriented, appropriate affect Assessment/Plan: #Iron deficiency anemia likely secondary to upper GI bleed, no active bleeding #GAVE status post APC on 11/13/2024, no active bleeding Patient is status post 2 units of packed RBC Hemoglobin currently stable Gastroenterology signed off Continue Protonix 40 mg p.o. twice daily Aspirin 81 mg p.o. daily Blood transfusion if hemoglobin less than 7 Continue monitor CBC #Diastolic congestive heart failure exacerbation #Acute hypoxemic respiratory failure secondary to CHF and anemia #Moderate-severe aortic stenosis #Severe pulmonary hypertension Echocardiogram on 11/13/2024 shows ejection fraction of 65 to 70% with moderate to severe aortic stenosis Cardiology on board, note reviewed, Continue with Bumex 1 mg p.o. daily Continue Farxiga 10 mg p.o. daily, Toprol XL 50 mg p.o. daily, Aldactone 25 mg p.o. daily Continue with oxygen therapy as needed Daily weights, strict I's and O's, fluid restriction to 2 L #Iron-deficiency anemia Start patient on ferrous sulfate 325 mg p.o. daily #Urinary retention On Newell catheter Newell catheter management #History of hypertension Cozaar 25 mg p.o. once daily Hold losartan #Generalized weakness Consult PT/OT #Hypokalemia, resolved BMP tomorrow a.m. DVT prophylaxis: SCDs GI prophylaxis: Protonix 40 mg F: IV normal saline at KVO E: Replete as needed N: N.p.o. A: Ambulatory at baseline CODE STATUS: Full code Discussed with: Patient Anticipated discharge place: Pending clinical course Dictation was produced using [employer] dictation software. Please excuse any gramm atical, word or spelling errors. Objective - Vital Signs Vital signs: Vital Signs Temp 98.3 F 11/17/24 08:11 Pulse 65 11/17/24 11:46 Resp 18 11/17/24 11:46 BP 108/76 11/17/24 11:46 Pulse Ox 90 L 11/17/24 11:46 FiO2 21 11/16/24 11:30 Intake & Output 11/16/24 11/17/24 11/17/24 18:59 06:59 18:59 Intake Total 560 20 380 Output Total 1500 750 600 Balance -940 -730 -220 Weight 66.1 kg Intake: IV 20 20 20 Invasive Line 2 20 20 20 Oral 540 360 Output: Urine 1500 750 600 Other: Voiding Method Indwelling Catheter Indwelling Catheter Indwelling Catheter # Bowel Movements 1 - Labs CBC & Chem 7: 11/17/24 04:38 11/17/24 04:38 Labs: Abnormal Lab Results - Last 24 Hours (Table) 11/16/24 11/17/24 11/17/24 Range/Units 06:48 04:38 04:38 WBC 10.45 H (4.50-10.00) 10*3/uL Hgb 8.1 L (12.0-15.0) g/dL Hct 29.3 L (37.2-46.3) % MCV 67.2 L (80.0-97.0) fL MCH 18.6 L (27.0-32.0) pg MCHC 27.6 L (32.0-37.0) g/dL RDW 31.0 H (11.5-14.5) % Immature Gran # 0.06 H (0.00-0.04) 10*3/uL Neutrophils # 7.85 H (1.80-7.70) 10*3/uL Immature Plt Fraction 6.8 H (1.1-6.1) % Carbon Dioxide 32 H (22-30) mmol/L BUN 28 H (7-17) mg/dL Glucose 112 H (74-99) mg/dL HDL Cholesterol 34.50 L (40.00-60.00) mg/dL
[2024-11-17] MEDS: guaiFENesin-DM 100-10MG/5ML 10 ML CUP PO PRN (20:53)
[2024-11-17] MEDS: MELATONIN 5 MG TABLET PO SCH (23:44)
[2024-11-17] MEDS: BENZONATATE 100 MG CAP PO PRN (23:44)
[2024-11-18 06:59] LABS: African American GFR (CKD) 76 (>60 ml/min/1.73 sqM); Anion Gap 7 mmol/L; Blood Urea Nitrogen 30 mg/dL (7-17); Calcium 8.6 mg/dL (8.4-10.2); Carbon Dioxide 32 mmol/L (22-30); Chloride 106 mmol/L (98-107); Glucose 123 mg/dL (74-99); Non-African American GFR(CKD) 66 (>60 ml/min/1.73 sqM); Potassium 3.4 mmol/L (3.5-5.1); Sodium 145 mmol/L (137-145)
[2024-11-18 07:57] LABS: Basophils # (A) 0.07 10*3/uL (0.00-0.10); Basophils % (A) 0.9 %; Eosinophils # (A) 0.27 10*3/uL (0.04-0.35); Eosinophils % (A) 3.4 %; HCT 27.7 % (37.2-46.3); HGB 7.5 g/dL (12.0-15.0); Lymphocytes # (A) 1.12 10*3/uL (0.90-5.00); MCH 18.9 pg (27.0-32.0); MCHC 27.1 g/dL (32.0-37.0); MCV 69.9 fL (80.0-97.0); Monocytes # (A) 0.62 10*3/uL (0.20-1.00); Monocytes % (A) 7.8 %; Neutrophils # (A) 5.85 10*3/uL (1.80-7.70); Neutrophils % (A) 73.3 %; Platelet Count 152 10*3/uL (140-440); RBC 3.96 10*6/uL (4.10-5.20); WBC 7.98 10*3/uL (4.50-10.00)
[2024-11-18 07:58] LABS: RDW 31.5 % (11.5-14.5)
[2024-11-18 08:34] VITALS: PULSE 64; TEMP 98.1
[2024-11-18] MEDS: POTASSIUM CHLORIDE ER 20 MEQ TAB.ER PO STA (08:35)
--- NOTE | 2024-11-18 08:51 | XR ---
EXAMINATION TYPE: XR chest 1V portable DATE OF EXAM: 11/18/2024 8:30 AM COMPARISON: Chest radiographs from 11/14/2024 CLINICAL INDICATION: Female, 79 years old with history of Shortness of breath; congestive heart failu re; [facility] TECHNIQUE: XR chest 1V portable Frontal view of the chest. FINDINGS: Lungs/Pleura: No evidence of focal consolidation or pneumothorax. Blunting of the costophrenic angles is present. Pulmonary vascularity: Pulmonary vascular congestion. Heart/mediastinum: Cardiomediastinal silhouette is enlarged. Atherosclerotic calcifications are seen in the aorta. Musculoskeletal: No acute osseous pathology. Other findings: None IMPRESSION: Cardiomegaly, pulmonary vascular congestion and bilateral pleural effusions. Correlate with BNP for c ongestive heart failure. [facility], , 11/18/2024 8:49 AM
[2024-11-18] MEDS: FUROSEMIDE 10 MG/ML 4 ML VIAL IV STA (10:07)
--- NOTE | 2024-11-18 10:43 | P.PN ---
Subjective HISTORY OF PRESENT ILLNESS: 76-year-old female have history of HFpEF, CVA, hypertension, GAVE status post argon plasma coagulation on April 2024. She presented to the hospital this time because of concerns of generalized weakness. Got admitted to the hospital because of severe symptomatic anemia with hemoglobin of 5.6 for which she required 2 units of blood transfusion. She has previously had EGD done in August 2023 which showed gastric antral vascular ectasia. On admission she denied any black tarry stools. She underwent upper GI endoscopy on 08/16/2024 which showed gastric antral vascular ectasia but no active signs of bleeding. She was recommended to have conservative management with Protonix. She also had pulm congestion lower extremity edema. Cardiology was consulted for CHF management. Her echo showed concerns of valvular dysfunction. Admission Vitals: BP 115/69, heart rate 84 bpm Admission Labs: Hemoglobin 5.2, repeat 7.4 BUN 39, creatinine 0.9 NT-proBNP 6100 Admission EKG: Sinus rhythm with low voltage precordial complex Imaging: CXR showed increased interstitial marking with small bilateral pleural effusion Echo showed EF of 65 to 70%, hyperdynamic LV with increased mid ventricular cavity gradients, moderate to severe aortic stenosis with mean gradient of 28 mmHg, severe pulmonary hypertension. Mild to moderate mitral stenosis and moderate to severe mitral regurgitation, degenerative mitral valve Echo from April 2024 showed moderate aortic stenosis, moderate pulmonary hypertension, severe mitral calcification Carotid Doppler 50 to 69% right, severe stenosis of the left side greater than 70% CTA neck left carotid bifurcation stent graft within ICA with 25 to 50% narrowing, 70% stenosis right carotid bifurcation because of calcific plaque 11/17/2024 Patient examined this morning at bedside. Patient reports she is feeling short of breath this morning and has been coughing a lot. She does report sputum production. She states that she is exhausted this morning from her coughing. She denies any chest pain or pressure. She is maintained on oral diuretics. 11/18/2024 Patient examined this morning. Patient is sitting up in the chair. Patient currently denies chest pain or pressure. She denies shortness of breath. Vital signs are stable. Hemoglobin 7.5. Patient is hoping to be discharged home today. PHYSICAL EXAM: VITAL SIGNS: Reviewed. GENERAL: Well-developed in no acute distress. NECK: Supple. No JVD or thyromegaly LUNGS: Respirations even and unlabored. Lungs essentially clear to auscultation bilaterally. HEART: Regular rate and rhythm. S1 and S2 heard. Systolic murmur noted. EXTREMITIES: Normal range of motion. No clubbing or cyanosis. Peripheral pulses intact. Trace bilateral lower extremity edema ASSESSMENT: Acute on chronic anemia status post EGD revealing gastric antral vascular ectasia but no active bleeding noted status post argon plasma coagulation Acute on chronic heart failure with preserved EF Severe pulmonary hypertension Moderate right carotid stenosis History of left carotid stenting with mild disease Valvular heart disease with moderate aortic stenosis, moderate mitral stenosis, and moderate to severe mitral regurgitation PLAN: Continue current cardiac medications including aspirin, atorvastatin, Bumex, Farxiga, losartan, metoprolol, and Aldactone Patient is currently stable for discharge from a cardiac standpoint Further recommendations pending patient course Nurse practitioner note has been reviewed by physician. Signing provider agrees with the documented findings, assessment, and plan of care documented by [employer] as a scribe. Objective - Vital Signs Vital signs: Vital Signs Temp 98.1 F 11/18/24 08:28 Pulse 64 11/18/24 08:28 Resp 17 11/18/24 08:28 BP 93/58 11/18/24 08:28 Pulse Ox 83 L 11/18/24 10:22 FiO2 21 11/16/24 11:30 Intake & Output 11/17/24 11/18/24 11/18/24 18:59 06:59 18:59 Intake Total 560 20 128 Output Total 600 400 Balance -40 -380 128 Weight 65.3 kg Intake: IV 20 20 10 Invasive Line 2 20 20 10 Oral 540 118 Output: Urine 600 400 Other: Voiding Method Indwelling Catheter Indwelling Catheter Indwelling Catheter - Labs CBC & Chem 7: 11/18/24 05:34 11/18/24 05:34 Labs: Abnormal Lab Results - Last 24 Hours (Table) 11/18/24 11/18/24 Range/Units 05:34 05:34 RBC 3.96 L (4.10-5.20) 10*6/uL Hgb 7.5 L (12.0-15.0) g/dL Hct 27.7 L (37.2-46.3) % MCV 69.9 L (80.0-97.0) fL MCH 18.9 L (27.0-32.0) pg MCHC 27.1 L (32.0-37.0) g/dL RDW 31.5 H (11.5-14.5) % Immature Gran # 0.05 H (0.00-0.04) 10*3/uL Potassium 3.4 L (3.5-5.1) mmol/L Carbon Dioxide 32 H (22-30) mmol/L BUN 30 H (7-17) mg/dL Glucose 123 H (74-99) mg/dL
[2024-11-18 11:20] VITALS: BP 85/53; RESP 16
--- NOTE | 2024-11-18 15:20 | P.DS ---
Providers Date of admission: 11/12/24 19:48 Attending physician: Izabel Murguia Consults: 11/12/24 18:53 Consult Physician Stat Consulting Provider: Danitza Evans Consult Reason/Comments: gi bleed? Do you want consulting provider notified?: Yes 11/14/24 14:21 Consult Physician Routine Consulting Provider: Bri Florez Consult Reason/Comments: moderate to severe Do you want consulting provider notified?: Yes [facility] Course: Discharge Diagnosis: #Upper GI bleed secondary to gastric antral vascular ectasia status post argon plasma coagulation on 11/13/2024, no active bleeding #Iron deficiency anemia likely secondary to above, hemoglobin stable #Status post 2 units of packed RBC #Diastolic congestive heart failure exacerbation, improved #Acute hypoxemic respiratory failure secondary to CHF and anemia, patient to be discharged on home oxygen therapy as needed #Moderate-severe aortic stenosis, echocardiogram shows ejection fraction 65 to 70% #Severe pulmonary hypertension #Urinary retention, Newell catheter placement for short term, now resolved #History of hypertension #generalized weakness # Hypokalemia, resolved Hospital Course: Patient is a 79-year-old female with history of heart failure, CVA, hypertension, GAVE status post argon plasma coagulation on 05/02/2024 presents to the ER with complaint of feeling weak and lethargic since 1 to 2 weeks. Patient reports that yesterday she was feeling very weak and had to have the help from her sister for ambulation. She is also endorsing mild shortness of breath, orthopnea and PND since 1 to 2 weeks. Patient reports no bloody stool or black-colored stool. Patient is apparently not on any blood thinner. Patient had been admitted in the past for upper GI bleed, iron deficiency anemia, low hemoglobin requiring blood transfusion. 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 Prior to that she had a upper endoscopy and lower endoscopy with biopsy on 09/07/2023 which showed gastric antral ulcer, gastritis, sigmoid diverticulosis. Biopsy result was positive for H. pylori. Patient otherwise denies any chest pain, abdominal pain, nausea, vomiting. Initial lab work shows hemoglobin of 5.2, hematocrit 19.5, MCV 57.9, sodium 144, potassium 4.2, BUN 46, creatinine 0.98, AST 80, ALT 58,. Repeat blood work shows hemoglobin 7.3 after receiving 2 units of PRBC. Chest x-ray shows pulm vascular congestion and cardiomegaly. EKG shows normal sinus rhythm with ventricular rate of 81 bpm, TX interval 173 ms, QRS duration is 84 ms, QTc 4 6 ms. Gastroenterology was consulted for possible upper GI bleed. Patient underwent EGD she was found to have gastric antral vascular ectasia. Patient is status post organ plasma coagulation with no active bleeding. Subsequent blood work showed improvement in her hemoglobin. Echocardiogram showed ejection fraction of 65 to 70% with moderate to severe aortic stenosis and severe pulmonary hypertension. Cardiology was consulted. Farxiga, Toprol XL, Aldactone and Bumex were added. Patient continues show improvement in her symptoms. Had urinary retention and Newell catheter was placed. Patient has successful voiding trial before discharge. She continue to be mildly hypoxemic and does require oxygen to maintain her saturation above 88% specially with activities. Patient to be discharged on home oxygen. Changes made to her medication include new prescription for Farxiga, Toprol XL, Aldactone and Bumex. Losartan that she was on before was 25 mg p.o. twice daily and has been changed to losartan 25 mg once daily. Lasix has been discontinued. Patient is advised to follow with PCP and cardiology within 1 week posthospital discharge. Patient is otherwise medically hemodynamically stable and medically optimized for discharge. Discharge disposition: Home Vital signs reviewed General: non toxic, no distress, appears at stated age, obese Derm: no unusual rashes/lesions, warm, chronic venous dermatitis bilaterally Head: atraumatic, normocephalic, symmetric Eyes: EOMI, no lid lag, anicteric sclera, pupils equal round reactive to light ENT: Nose and ears atraumatic Neck: No cervical lymphadenopathy, trachea midline, supple Mouth: no lip lesion, mucus membranes moist Cardiovascular: S1S2 reg, no murmur, positive dorsalis pedis pulse bilateral, 2+ pitting edema Lungs: CTAB, no wheezing, no use of accessory muscles, patient is on room air Abdominal: soft, nontender to palpation, no guarding Ext: muscle strength 5 out of 5 in all 4 extremities grossly, no gross muscle atrophy, no contractures, Neuro: CN II-XI grossly intact, no gross focal neuro deficits Psych: Alert, oriented, appropriate affect Dictation was produced using Carmaation software. Please excuse any grammatical, word or spelling errors. Patient Condition at Discharge: Stable Plan - Discharge Summary Discharge Rx Participant: No New Discharge Prescriptions: New Spironolactone [Aldactone] 25 mg PO DAILY #30 tab Bumetanide [BUMEX] 1 mg PO DAILY #30 tab Losartan [Cozaar] 25 mg PO DAILY #30 tab Metoprolol Succinate (ER) [Toprol XL] 50 mg PO DAILY #30 tab Dapagliflozin Propanediol [Farxiga] 10 mg PO DAILY #30 tab Ferrous Sulfate [Iron (65 MG Elemental)] 325 mg PO W/LUNCH #30 tab Continue Ammonium Lactate Cream [Lac-Hydrin 12% Cream] 1 applic TOPICAL BID Calcium Carbonate [Calcium] 600 mg PO DAILY Psyllium Husk [Metamucil] 1.2 gm PO DAILY Pantoprazole [Protonix] 40 mg PO BID Women's Multivitamin Gummies 2 cap PO DAILY Black Elderberry Gummies 1 cap PO BID Aspirin 81 mg PO DAILY #30 tab [place]-3S/Dha/Epa/Fish Oil/D3 [Fish Oil Gummies] 2 tab PO DAILY Acetaminophen [Tylenol 8 Hour] 1,300 mg PO BID PRN PRN Reason: Pain Atorvastatin [Lipitor] 80 mg PO DAILY Unknown Vitamin B Gummy 1 cap PO DAILY [place] Beets Gummies Supplement 1 cap PO BID Discontinued Losartan Potassium [Cozaar] 25 mg PO BID Furosemide [Lasix] 20 mg PO BID Acetaminophen [Tylenol 8 Hour] 1,300 mg PO DAILY Discharge Medication List Aspirin 81 mg PO DAILY #30 tab 07/20/23 [Rx] Ammonium Lactate Cream [Lac-Hydrin 12% Cream] 1 applic TOPICAL BID 09/05/23 [History] Acetaminophen [Tylenol 8 Hour] 1,300 mg PO BID PRN 04/30/24 [History] Calcium Carbonate [Calcium] 600 mg PO DAILY 04/30/24 [History] [place]-3S/Dha/Epa/Fish Oil/D3 [Fish Oil Gummies] 2 tab PO DAILY 04/30/24 [History] Atorvastatin [Lipitor] 80 mg PO DAILY 11/12/24 [History] Black Elderberry Gummies 1 cap PO BID 11/12/24 [History] [place] Beets Gummies Supplement 1 cap PO BID 11/12/24 [History] Pantoprazole [Protonix] 40 mg PO BID 11/12/24 [History] Psyllium Husk [Metamucil] 1.2 gm PO DAILY 11/12/24 [History] Unknown Vitamin B Gummy 1 cap PO DAILY 11/12/24 [History] Women's Multivitamin Gummies 2 cap PO DAILY 11/12/24 [History] Bumetanide [BUMEX] 1 mg PO DAILY #30 tab 11/18/24 [Rx] Dapagliflozin Propanediol [Farxiga] 10 mg PO DAILY #30 tab 11/18/24 [Rx] Ferrous Sulfate [Iron (65 MG Elemental)] 325 mg PO W/LUNCH #30 tab 11/18/24 [Rx] Losartan [Cozaar] 25 mg PO DAILY #30 tab 11/18/24 [Rx] Metoprolol Succinate (ER) [Toprol XL] 50 mg PO DAILY #30 tab 11/18/24 [Rx] Spironolactone [Aldactone] 25 mg PO DAILY #30 tab 11/18/24 [Rx] Follow up Appointment(s)/Referral(s): Mir Chinchilla MD [STAFF PHYSICIAN] - 1 Week (Please call to schedule hospital fol low up apt. ) [facility] [NON-STAFF] - 1 Week [facility] [NON-STAFF] - Mike Kennedy DO [Primary Care Provider] - 1-2 days (Please call to schedule hospital follow up apt. ) Patient Instructions/Handouts: Gastrointestinal Bleeding (DC), Anemia (DC), Hypoxia (ED) Activity/Diet/Wound Care/Special Instructions: Notify [facility] when you will be home and they will deliver the rest of the oxygen supplies
== END 2024-11-18 16:15 | disposition home or self-care (01) | DRG 377 ==
LOC: EC 16:30 → 3SCARD 19:48
PROVIDERS: ADMIT Hospitalist; ATTEND Hospitalist
PROC: 30233N1 Transfusion of Nonautologous Red Blood Cells into Peripheral Vein, Percutaneous Approach (ICD-10-PCS; principal; 2024-11-12)
PROC: 0W3P8ZZ Control Bleeding in Gastrointestinal Tract, Via Natural or Artificial Opening Endoscopic (ICD-10-PCS; principal; 2024-11-12)
DX: K31.811 Angiodysplasia of stomach and duodenum with bleeding (principal); I50.33 Acute on chronic diastolic (congestive) heart failure; J96.01 Acute respiratory failure with hypoxia; I27.20 Pulmonary hypertension, unspecified; D62 Acute posthemorrhagic anemia; I11.0 Hypertensive heart disease with heart failure; J44.9 Chronic obstructive pulmonary disease, unspecified; D50.9 Iron deficiency anemia, unspecified; I35.0 Nonrheumatic aortic (valve) stenosis; I65.21 Occlusion and stenosis of right carotid artery; E66.9 Obesity, unspecified; K21.9 Gastro-esophageal reflux disease without esophagitis; R33.9 Retention of urine, unspecified; E87.6 Hypokalemia; I95.9 Hypotension, unspecified; K44.9 Diaphragmatic hernia without obstruction or gangrene; I08.0 Rheumatic disorders of both mitral and aortic valves; Z96.651 Presence of right artificial knee joint; Z86.73 Personal history of transient ischemic attack (TIA), and cerebral infarction without residual deficits; Z79.899 Other long term (current) drug therapy; Z79.82 Long term (current) use of aspirin; Z68.32 Body mass index [BMI] 32.0-32.9, adult
CPT/HCPCS: 36415; 36430; 43255; 71045; 71046; 80048; 80053; 80061; 81001; 83036; 83605; 83735; 83880; 84439; 84443; 84484; 85025; 86850; 86900; 86901; 86920; 87636; 93005; 93306; 94760; 96361; 96374; 99285

== ENCOUNTER 2024-11-22 09:21 | Inpatient (IN) | payer MEDICARE ==
--- NOTE | 2024-11-22 09:31 | ED ---
General Adult HPI - General Stated complaint: leg swelling Time Seen by Provider: 11/22/24 09:21 Source: patient, RN notes reviewed, old records reviewed - History of Present Illness Initial comments: This is a 79-year-old female who presents to the emergency department the past medical history significant for COPD and congestive heart MI. Patient always has some pedal edema but she states has been worse over the last 3 or so days. Patient states she was in the hospital and had an endoscopy procedure done to repair an ulcer. Patient states since she went home and Sunday her swelling has gotten worse each day. Patient denies any chest pain or palpitations. Patient denies any shortness of breath or difficulty breathing. Patient is normally on 2 L of oxygen at home. Patient denies any recent fever chills or cough. - Related Data Home Medications Medication Instructions Recorded Confirmed Ammonium Lactate Cream [Lac-Hydrin 1 applic TOPICAL BID 09/05/23 11/12/24 12% Cream] Acetaminophen [Tylenol 8 Hour] 1,300 mg PO BID PRN 04/30/24 11/12/24 Calcium Carbonate [Calcium] 600 mg PO DAILY 04/30/24 11/12/24 [place]-3S/Dha/Epa/Fish Oil/D3 [Fish 2 tab PO DAILY 04/30/24 11/12/24 Oil Gummies] Atorvastatin [Lipitor] 80 mg PO DAILY 11/12/24 11/12/24 Black Elderberry Gummies 1 cap PO BID 11/12/24 11/12/24 [place] Beets Gummies Supplement 1 cap PO BID 11/12/24 11/12/24 Pantoprazole [Protonix] 40 mg PO BID 11/12/24 11/12/24 Psyllium Husk [Metamucil] 1.2 gm PO DAILY 11/12/24 11/12/24 Unknown Vitamin B Gummy 1 cap PO DAILY 11/12/24 11/12/24 Women's Multivitamin Gummies 2 cap PO DAILY 11/12/24 11/12/24 Previous Rx's Medication Instructions Recorded Aspirin 81 mg PO DAILY #30 tab 07/20/23 Bumetanide [BUMEX] 1 mg PO DAILY #30 tab 11/18/24 Dapagliflozin Propanediol [Farxiga] 10 mg PO DAILY #30 tab 11/18/24 Ferrous Sulfate [Iron (65 MG 325 mg PO W/LUNCH #30 tab 11/18/24 Elemental)] Losartan [Cozaar] 25 mg PO DAILY #30 tab 11/18/24 Metoprolol Succinate (ER) [Toprol 50 mg PO DAILY #30 tab 11/18/24 XL] Spironolactone [Aldactone] 25 mg PO DAILY #30 tab 11/18/24 Allergies Allergy/AdvReac Type Severity Reaction Status Date / Time Penicillins AdvReac Unknown PASSED OUT Verified 11/22/24 09:36 Review of Systems ROS Statement: Those systems with pertinent positive or pertinent negative responses have been documented in the HPI. ROS Other: All systems not noted in ROS Statement are negative. Past Medical History Past Medical History: Heart Failure, CVA/TIA, GERD/Reflux, Hypertension Additional Past Medical History / Comment(s): states CVA (no residual), states stent in upper leg, rash on lower legs, ankles swell, pt states on Nutrisystem diet in 2019 and has lost 20-25 # with frequent stools. History of Any Multi-Drug Resistant Organisms: None Reported Past Surgical History: Joint Replacement Additional Past Surgical History / Comment(s): total right knee x2, stem cell injections prior to total knees, cataract surgery, stent in leg Past Anesthesia/Blood Transfusion Reactions: No Reported Reaction Additional Past Anesthesia/Blood Transfusion Reaction / Comment(s): STATES UNABLE TO INTUBATE- THEY HAD TO DO A SPINAL, STATES SHE HAS LETTER FROM [place] [facility] INSTRUCTED PATIENT TO BRING THIS LETTER WITH HER Past Psychological History: No Psychological Hx Reported Smoking Status: Never smoker Past Alcohol Use History: None Reported Past Drug Use History: None Reported - Past Family History Mother Family Medical History: Cancer Additional Family Medical History / Comment(s): colon cancer Father Family Medical History: Congestive Heart Failure (CHF) General Exam - General Exam Comments Initial Comments: GENERAL: Patient is well-developed and well-nourished. Patient is nontoxic and well- hydrated and is in mild distress. ENT: Neck is soft and supple. No significant lymphadenopathy is noted. Oropharynx i s clear. Moist mucous membranes. Neck has full range of motion without eliciting any pain. EYES: The sclera were anicteric and conjunctiva were pink and moist. Extraocular movements were intact and pupils were equal round and reactive to light. Eyelids were unremarkable. PULMONARY: Patient has crackles at bilateral bases CARDIOVASCULAR: There is a regular rate and rhythm without any murmurs gallops or rubs. ABDOMEN: Soft and nontender with normal bowel sounds. SKIN: Skin is clear with no lesions or rashes and otherwise unremarkable. NEUROLOGIC: Patient is alert and oriented x3. Cranial nerves II through XII are grossly intact. Motor and sensory are also intact. Normal speech, volume and content. Symmetrical smile. MUSCULOSKELETAL: Normal extremities with adequate strength and full range of motion. Chronic cellulitis bilaterally with significant edema LYMPHATICS: No significant lymphadenopathy is noted PSYCHIATRIC: Normal psychiatric evaluation. Course Vital Signs 11/22/24 11/22/24 09:24 11:00 Temperature 97.5 F L Pulse Rate 66 63 Respiratory 22 18 Rate Blood Pressure 88/53 115/51 O2 Sat by Pulse 91 L 97 Oximetry Medical Decision Making - Medical Decision Making EKG is interpreted by myself. EKG shows a sinus rhythm at 65 bpm parable 176 QRS is 92 QT interval is 406 QTc is 418. Patient's EKG shows no ST segment elevation or depression. Was pt. sent in by a medical professional or institution (Dr. PA, [facility], urgent care, hospital, or assisted...) When possible be specific @ -No Did you speak to anyone other than the patient for history (EMS, parent, family, police, friend...)? What history was obtained from this source @ -No Did you review nursing and triage notes (agree or disagree)? Why? @ -I reviewed and agree with nursing and triage notes Were old charts reviewed (outside hosp., previous admission, EMS record, old EKG, old radiological studies, urgent care reports/EKG's, assisted records)? Report findings @ -No old charts were reviewed Differential Diagnosis? @ -Differential Dyspnea: Coronary syndrome, arrhythmia, tamponade, asthma, COPD, pulmonary embolism, pneumonia, pneumothorax, pulmonary effusion, anaphylaxis, diabetic ketoacidosis, flailed chest, pulmonary contusion, diaphragmatic rupture, anemia, neuromuscular, this is not meant to be an all-inclusive list. EKG interpreted by me (3pts min.). @ -As above X-rays interpreted by me (1pt min.). @ -Chest x-ray is consistent with acute pulmonary edema CT interpreted by me (1pt min.). @ -None done U/S interpreted by me (1pt. min.). @ -None done What testing was considered but not performed or refused? (CT, X-rays, U/S, labs)? Why? @ -None What meds were considered but not given or refused? Why? @ -None Did you discuss the management of the patient with other professionals (professionals i.e. , PA, [facility], lab, RT, psych nurse, older adult social work specialist, fitting room inspector, teacher, rating officer, case work aide)? Give summary @ -[facility] Was smoking cessation discussed for >3mins.? @ -No Was critical care preformed (if so, how long)? @ -35 minutes Were there social determinants of health that impacted care today? How? (Homelessness, low income, unemployed, alcoholism, drug addiction, transpor tation, low edu. Level, literacy, decrease access to med. care, snf, rehab)? @ -No Was there de-escalation of care discussed even if they declined (Discuss DNR or withdrawal of care, Hospice)? DNR status @ -No What co-morbidities impacted this encounter? (DM, HTN, Smoking, COPD, CAD, Cancer, CVA, ARF, Chemo, Hep., AIDS, mental health diagnosis, sleep apnea, morbid obesity)? @ -None Was patient admitted / discharged? Hospital course, mention meds given and route, prescriptions, significant lab abnormalities, going to OR and other pertinent info. @ -Patient had significant edema to the legs and some crackles in the bases. Patient was given Lasix Nitropaste and [facility] be admitted to [facility] and a cardiology consult be placed Undiagnosed new problem with uncertain prognosis? @ -No Drug Therapy requiring intensive monitoring for toxicity (Heparin, Nitro, Insulin, Cardizem)? @ -No Were any procedures done? @ -No Diagnosis/symptom? @ -Acute pulmonary edema Acute, or Chronic, or Acute on Chronic? @ -Acute Uncomplicated (without systemic symptoms) or Complicated (systemic symptoms)? @ -Complicated Side effects of treatment? @ -No Exacerbation, Progression, or Severe Exacerbation? @ -No Poses a threat to life or bodily function? How? (Chest pain, [place], ND, pneumonia, PE, COPD, DKA, ARF, appy, cholecystitis, CVA, Diverticulitis, Homicidal, Suicidal, threat to staff... and all critical care pts) @ -Yes this can lead to hypoxia and endorgan dysfunction - Lab Data Result diagrams: 11/22/24 10:11 11/22/24 10:11 Lab Results 11/22/24 11/22/24 11/22/24 Range/Units 10:11 10:11 10:11 WBC 9.24 (4.50-10.00) 10*3/uL RBC 3.91 L (4.10-5.20) 10*6/uL Hgb 7.9 L (12.0-15.0) g/dL Hct 29.2 L (37.2-46.3) % MCV 74.7 L (80.0-97.0) fL MCH 20.2 L (27.0-32.0) pg MCHC 27.1 L (32.0-37.0) g/dL RDW 36.0 H (11.5-14.5) % Immature Gran % (Auto) 1.0 % Immature Gran # 0.09 H (0.00-0.04) 10*3/uL Sodium 140 (137-145) mmol/L Potassium 4.4 (3.5-5.1) mmol/L Chloride 101 (98-107) mmol/L Carbon Dioxide 32 H (22-30) mmol/L Anion Gap 7 mmol/L BUN 38 H (7-17) mg/dL Creatinine 0.81 (0.52-1.04) mg/dL Est GFR (CKD-EPI)AfAm 80 (>60 ml/min/1.73 sqM) Est GFR (CKD-EPI)NonAf 70 (>60 ml/min/1.73 sqM) Glucose 114 H (74-99) mg/dL Plasma Lactic Acid Luis Eduardo 2.1 H* (0.7-2.0) mmol/L Calcium 8.9 (8.4-10.2) mg/dL Magnesium 2.2 (1.6-2.3) mg/dL Total Bilirubin 0.7 (0.2-1.3) mg/dL AST 49 H (14-36) U/L ALT 49 H (4-34) U/L Alkaline Phosphatase 95 (38-126) U/L Troponin I (0.000-0.034) ng/mL NT-Pro-B Natriuret Pep 6560 pg/mL Total Protein 5.7 L (6.3-8.2) g/dL Albumin 3.3 L (3.5-5.0) g/dL 11/22/24 Range/Units 10:11 WBC (4.50-10.00) 10*3/uL RBC (4.10-5.20) 10*6/uL Hgb (12.0-15.0) g/dL Hct (37.2-46.3) % MCV (80.0-97.0) fL MCH (27.0-32.0) pg MCHC (32.0-37.0) g/dL RDW (11.5-14.5) % Immature Gran % (Auto) % Immature Gran # (0.00-0.04) 10*3/uL Sodium (137-145) mmol/L Potassium (3.5-5.1) mmol/L Chloride (98-107) mmol/L Carbon Dioxide (22-30) mmol/L Anion Gap mmol/L BUN (7-17) mg/dL Creatinine (0.52-1.04) mg/dL Est GFR (CKD-EPI)AfAm (>60 ml/min/1.73 sqM) Est GFR (CKD-EPI)NonAf (>60 ml/min/1.73 sqM) Glucose (74-99) mg/dL Plasma Lactic Acid Luis Eduardo (0.7-2.0) mmol/L Calcium (8.4-10.2) mg/dL Magnesium (1.6-2.3) mg/dL Total Bilirubin (0.2-1.3) mg/dL AST (14-36) U/L ALT (4-34) U/L Alkaline Phosphatase (38-126) U/L Troponin I 0.032 (0.000-0.034) ng/mL NT-Pro-B Natriuret Pep pg/mL Total Protein (6.3-8.2) g/dL Albumin (3.5-5.0) g/dL Disposition Clinical Impression: Acute pulmonary edema, Pedal edema, Deep vein thrombosis (DVT) of upper extremity Disposition: ADMITTED IP TO THIS HOSP Referrals: Mike Kennedy DO [Primary Care Provider] - 1-2 days Time of Disposition: 11:23
[2024-11-22] MEDS: FUROSEMIDE 10 MG/ML 10 ML VIAL IV STA (10:22)
[2024-11-22 10:32] LABS: ALT 49 U/L (4-34); African American GFR (CKD) 80 (>60 ml/min/1.73 sqM); Albumin 3.3 g/dL (3.5-5.0); Anion Gap 7 mmol/L; Blood Urea Nitrogen 38 mg/dL (7-17); Calcium 8.9 mg/dL (8.4-10.2); Carbon Dioxide 32 mmol/L (22-30); Chloride 101 mmol/L (98-107); Glucose 114 mg/dL (74-99); Non-African American GFR(CKD) 70 (>60 ml/min/1.73 sqM); Sodium 140 mmol/L (137-145); Total Bilirubin 0.7 mg/dL (0.2-1.3); Total Protein 5.7 g/dL (6.3-8.2)
[2024-11-22 10:41] LABS: NT-Pro-B-Type Natriuretic Pept 6560 pg/mL
[2024-11-22 10:42] LABS: Basophils # (A) 0.07 10*3/uL (0.00-0.10); Basophils % (A) 0.8 %; Eosinophils % (A) 2.2 %; HCT 29.2 % (37.2-46.3); HGB 7.9 g/dL (12.0-15.0); Lymphocytes # (A) 0.98 10*3/uL (0.90-5.00); Lymphocytes % (A) 10.6 %; MCH 20.2 pg (27.0-32.0); MCHC 27.1 g/dL (32.0-37.0); MCV 74.7 fL (80.0-97.0); Monocytes # (A) 0.89 10*3/uL (0.20-1.00); Monocytes % (A) 9.6 %; Neutrophils # (A) 7.01 10*3/uL (1.80-7.70); Neutrophils % (A) 75.8 %; RBC 3.91 10*6/uL (4.10-5.20); WBC 9.24 10*3/uL (4.50-10.00)
[2024-11-22 10:52] LABS: AST 49 U/L (14-36); Alkaline Phosphatase 95 U/L (38-126); Magnesium 2.2 mg/dL (1.6-2.3); Potassium 4.4 mmol/L (3.5-5.1)
--- NOTE | 2024-11-22 11:08 | XR ---
Chest, 2 view. CLINICAL INDICATION: Female, 79 years old with history of difficulty breathing COMPARISON: 11/12/2024 TECHNIQUE: PA and lateral views the chest are obtained. FINDINGS: There is moderate cardiomegaly, pulmonary vascular congestion, interstitial edema and small bilateral pleural effusions. Findings consistent with moderate CHF. There is no pneumothorax. The osseous structures are intact. IMPRESSION: Acute cardiopulmonary disease most consistent with CHF. [facility], , 11/22/2024 11:05 AM
[2024-11-22 11:41] LABS: Anisocytosis (M) Present
[2024-11-22 11:42] LABS: Spherocytes Present; Target Cells Present
[2024-11-22 11:43] LABS: Large Platelets Present
[2024-11-22 11:44] LABS: Platelet Count 113 10*3/uL (140-440)
[2024-11-22] MEDS: NITROGLYCERIN OINT 1 INCH/GM PACKET TOPICAL SCH (11:46)
[2024-11-22] MEDS: FUROSEMIDE 10 MG/ML 4 ML VIAL IV SCH (15:12)
[2024-11-22] MEDS ORDERED: ACETAMINOPHEN TAB 325 MG TAB PO PRN (17:52)
[2024-11-22] MEDS: DAPAGLIFLOZIN PROPANEDIOL 10 MG TABLET PO SCH (18:03)
--- NOTE | 2024-11-23 02:09 | HP ---
HISTORY AND PHYSICAL CHIEF COMPLAINT: Shortness of breath and leg swelling. HISTORY OF PRESENT ILLNESS: This is a 79-year-old woman with past medical history of multiple problems including CVA, TIA, CHF, and GERD, was complaining of bilateral leg swelling and shortness of breath, which was worsening over the last 2 to 3 days. The patient has features of CHF. The patient is being admitted for further evaluation and treatment. The patient apparently had an upper GI bleed recently, secondary to gastric antral vascular ectasia and argon plasma coagulation was done with no evidence of any active bleeding. There is no history of any fever, rigors, or chills at this time. PAST MEDICAL HISTORY: History of CHF, GERD, and history of recent upper GI bleeding as mentioned earlier. Rest of the history and rest of the chart is also reviewed. HOME MEDICATIONS: Reviewed, include Aldactone. Doses and rest of medications reviewed. ALLERGIES: Penicillin. FAMILY HISTORY: History of colon cancer. SOCIAL HISTORY: No history of smoking or alcohol. REVIEW OF SYSTEMS: Fourteen-point review of systems negative except as mentioned earlier. PHYSICAL EXAMINATION: VITAL SIGNS: Pulse 63, blood pressure 120/51, and respirations 18. HEENT: Conjunctivae are pale. NECK: No JVD. CARDIOVASCULAR: S1 and S2, muffled. No stenosis. Ejection systolic murmur. RESPIRATORY: n ABDOMEN: Soft and nontender. No mass palpable. LEGS: Bilateral leg edema. NERVOUS SYSTEM: Diffusely weak. LABORATORY DATA: WBC 9.2, hemoglobin is 7.9, and the previous hemoglobin was 7.5. Glucose 114 and lactic acid 2.1. Rest of the labs noted. X-ray noted. ASSESSMENT: 1. Congestive heart failure with acute exacerbation with acute on chronic diastolic dysfunction. 2. Severe pulmonary hypertension. 3. Ybqysasq-ik-qmlcod aortic stenosis. 4. History of recent gastrointestinal bleed with gastric antral vascular ectasia, status post argon plasma coagulation. 5. History of iron-deficiency anemia. 6. Hypertension. 7. Generalized weakness. RECOMMENDATIONS: This is a 79-year-old woman presented with multiple complex medical issues. We will monitor the patient closely. Continue with the current medications. I would recommend IV diuretics, cardiology consultation, PT/OT evaluation, and possible rehab. We will repeat the hemoglobin and if the hemoglobin is less than 8 or symptomatic, one unit of transfusion and Lasix may be given. Overall prognosis is guarded because of multiple complex medical conditions. See orders for details. Proton pump inhibitors. MMODL / IJN: [id number] / MTDD
[2024-11-23 07:15] LABS: Basophils # (A) 0.08 10*3/uL (0.00-0.10); Basophils % (A) 1.1 %; Eosinophils # (A) 0.24 10*3/uL (0.04-0.35); Eosinophils % (A) 3.2 %; HCT 32.1 % (37.2-46.3); HGB 8.3 g/dL (12.0-15.0); Lymphocytes # (A) 0.84 10*3/uL (0.90-5.00); Lymphocytes % (A) 11.4 %; MCH 19.9 pg (27.0-32.0); MCHC 25.9 g/dL (32.0-37.0); MCV 76.8 fL (80.0-97.0); Monocytes # (A) 0.58 10*3/uL (0.20-1.00); Monocytes % (A) 7.8 %; Neutrophils # (A) 5.62 10*3/uL (1.80-7.70); Neutrophils % (A) 76.1 %; Platelet Count 118 10*3/uL (140-440); RBC 4.18 10*6/uL (4.10-5.20); WBC 7.39 10*3/uL (4.50-10.00)
[2024-11-23 07:32] LABS: ALT 43 U/L (4-34); AST 38 U/L (14-36); African American GFR (CKD) 83 (>60 ml/min/1.73 sqM); Albumin 3.1 g/dL (3.5-5.0); Albumin/Globulin Ratio 1.3; Alkaline Phosphatase 95 U/L (38-126); Anion Gap 7 mmol/L; Blood Urea Nitrogen 36 mg/dL (7-17); Calcium 8.8 mg/dL (8.4-10.2); Carbon Dioxide 29 mmol/L (22-30); Chloride 104 mmol/L (98-107); Globulin 2.3 g/dL; Glucose 83 mg/dL (74-99); Non-African American GFR(CKD) 72 (>60 ml/min/1.73 sqM); Potassium 4.2 mmol/L (3.5-5.1); Sodium 140 mmol/L (137-145); Total Bilirubin 0.7 mg/dL (0.2-1.3); Total Protein 5.4 g/dL (6.3-8.2)
[2024-11-23 08:29] LABS: Anisocytosis (M) Present; Spherocytes Present
[2024-11-23 08:31] LABS: Target Cells Present
[2024-11-23 08:32] LABS: Large Platelets Present
[2024-11-23] MEDS: SPIRONOLACTONE 25 MG TAB PO SCH (09:42)
[2024-11-23] MEDS: LOSARTAN 25 MG TAB PO SCH (09:42)
[2024-11-23] MEDS: ATORVASTATIN 80 MG TAB PO SCH (09:42)
[2024-11-23] MEDS: ASPIRIN 81 MG PO SCH (09:43)
[2024-11-23] MEDS: CALCIUM CARBONATE 500 MG CHEWABLE PO SCH (09:43)
[2024-11-23] MEDS: MULTIVITAMINS, THERA 1 EACH TAB PO SCH (09:43)
[2024-11-23] MEDS: METOPROLOL SUCCINATE (ER) 50 MG TAB.ER.24H PO SCH (09:43)
--- NOTE | 2024-11-23 10:35 | P.CRDCN ---
History of Present Illness Consult date: 11/23/24 History of present illness: The patient is a pleasant 79-year-old female patient who is known to our service from before with a past medical history significant for valvular heart disease with known severe mitral regurgitation and severe pulmonary hypertension as well as HFpEF and also hypertension and dyslipidemia and history of peptic ulcer disease who was discharged from the hospital recently after she was admitted with anemia and heart failure which she underwent an endoscopy and the ulcer has been treated and she was discharged in stable medical condition. She is here with progressive bilateral lower extremities edema and progressive shortness of breath associated with also weight gain in spite of being compliant with the current medical regimen including the current dose of oral diuretics. No symptoms of chest pain or chest discomfort or dizziness or lightness or any feeling of heart racing or fluttering or presyncope or syncope. She was diagnosed with heart failure and she was started on IV diuretics with improvement in the edema as well as the shortness of breath. The EKG showed sinus mechanism with a chest x-ray showed pulmonary vascular congestions. NT proBNP came to be elevated at 16,000. The pressure is soft overall. The physical examination is remarkable for bilateral lower extremities pitting edema with bilateral rhonchi and regular rate and rhythm with pansystolic murmur was heard in all areas including right and left upper sternal border and apical area. The most recent echo showed normal LV systolic function with evidence of severe mitral regurgitation and severe pulmonary hypertension Assessment Heart failure exacerbation secondary to HFpEF Severe mitral regurgitation need to be addressed as an outpatient Marginally low blood pressure History of peptic ulcer disease Multiple comorbid conditions Plan Continue the current medical regimen including the current dose of Lasix IV Decrease the dose of losartan and decrease the dose of Aldactone in the light of low blood pressure Monitor the kidney function and electrolytes Cardiac workup regarding the mitral regurgitation Follow-up with the patient Past Medical History Past Medical History: Heart Failure, CVA/TIA, GERD/Reflux, Hypertension Additional Past Medical History / Comment(s): states CVA (no residual), states stent in upper leg, rash on lower legs, ankles swell, pt states on Nutrisystem diet in 2020 and has lost 20-25 # with frequent stools. History of Any Multi-Drug Resistant Organisms: None Reported Past Surgical History: Joint Replacement Additional Past Surgical History / Comment(s): total right knee x2, stem cell injections prior to total knees, cataract surgery, stent in leg, endoscopy Past Anesthesia/Blood Transfusion Reactions: No Reported Reaction Additional Past Anesthesia/Blood Transfusion Reaction / Comment(s): STATES UNABLE TO INTUBATE- THEY HAD TO DO A SPINAL, STATES SHE HAS LETTER FROM [employer] [facility] [employer] [facility] TO BRING THIS LETTER WITH HER Past Psychological History: No Psychological Hx Reported Smoking Status: Never smoker Past Alcohol Use History: None Reported Past Drug Use History: None Reported - Past Family History Mother Family Medical History: Cancer Additional Family Medical History / Comment(s): colon cancer Father Family Medical History: Congestive Heart Failure (CHF) Medications and Allergies Home Medications Medication Instructions Recorded Confirmed Type Aspirin 81 mg PO DAILY #30 tab 07/20/23 11/22/24 Rx Ammonium Lactate Cream [Lac-Hydrin 1 applic TOPICAL BID 09/05/23 11/22/24 History 12% Cream] Acetaminophen [Tylenol 8 Hour] 1,300 mg PO BID PRN 04/30/24 11/22/24 History Calcium Carbonate [Calcium] 600 mg PO DAILY 04/30/24 11/22/24 History [place]-3S/Dha/Epa/Fish Oil/D3 [Fish 2 tab PO DAILY 04/30/24 11/22/24 History Oil Gummies] Atorvastatin [Lipitor] 80 mg PO DAILY 11/12/24 11/22/24 History Black Elderberry Gummies 1 cap PO BID 11/12/24 11/22/24 History [place] Beets Gummies Supplement 1 cap PO BID 11/12/24 11/22/24 History Pantoprazole [Protonix] 40 mg PO BID 11/12/24 11/22/24 History Psyllium Husk [Metamucil] 1.2 gm PO DAILY 11/12/24 11/22/24 History Unknown Vitamin B Gummy 1 cap PO DAILY 11/12/24 11/22/24 History Women's Multivitamin Gummies 2 cap PO DAILY 11/12/24 11/22/24 History Bumetanide [BUMEX] 1 mg PO DAILY #30 tab 11/18/24 11/22/24 Rx Dapagliflozin Propanediol [Farxiga] 10 mg PO DAILY #30 tab 11/18/24 11/22/24 Rx Ferrous Sulfate [Iron (65 MG 325 mg PO W/LUNCH #30 tab 11/18/24 11/22/24 Rx Elemental)] Losartan [Cozaar] 25 mg PO DAILY #30 tab 11/18/24 11/22/24 Rx Metoprolol Succinate (ER) [Toprol 50 mg PO DAILY #30 tab 11/18/24 11/22/24 Rx XL] Spironolactone [Aldactone] 25 mg PO DAILY #30 tab 11/18/24 11/22/24 Rx Allergies Allergy/AdvReac Type Severity Reaction Status Date / Time Penicillins AdvReac Unknown PASSED OUT Verified 11/22/24 09:36 Physical Exam Vitals: Vital Signs Temp Pulse Pulse Resp BP BP Pulse Ox 11/23/24 07:00 97.8 F 70 18 97/59 92 L 11/23/24 02:00 69 11/23/24 00:45 98.1 F 69 18 103/59 95 11/22/24 21:37 98.2 F 67 20 101/61 95 11/22/24 20:17 75 12 102/43 99 11/22/24 18:05 66 16 99/53 100 11/22/24 15:09 63 18 120/51 100 11/22/24 12:18 65 20 106/80 98 11/22/24 11:00 63 18 115/51 97 Intake and Output 11/22/24 11/23/24 11/23/24 22:59 06:59 14:59 Intake Total 591 Output Total 400 Balance 191 Intake: Oral 591 Output: Urine 400 Other: Voiding Method External Catheter # Bowel Movements 1 Weight 63.503 kg 62 kg Results 11/23/24 06:19 11/23/24 06:19 Cardiac Enzymes 11/22/24 11/22/24 11/23/24 Range/Units 10:11 10:11 06:19 AST 49 H 38 H (14-36) U/L Troponin I 0.032 (0.000-0.034) ng/mL CBC 11/22/24 11/23/24 Range/Units 10:11 06:19 WBC 9.24 7.39 (4.50-10.00) 10*3/uL RBC 3.91 L 4.18 (4.10-5.20) 10*6/uL Hgb 7.9 L 8.3 L (12.0-15.0) g/dL Hct 29.2 L 32.1 L (37.2-46.3) % Plt Count 113 L 118 L (140-440) 10*3/uL Comprehensive Metabolic Panel 11/22/24 11/23/24 Range/Units 10:11 06:19 Sodium 140 140 (137-145) mmol/L Potassium 4.4 4.2 (3.5-5.1) mmol/L Chloride 101 104 (98-107) mmol/L Carbon Dioxide 32 H 29 (22-30) mmol/L BUN 38 H 36 H (7-17) mg/dL Creatinine 0.81 0.79 (0.52-1.04) mg/dL Glucose 114 H 83 (74-99) mg/dL Calcium 8.9 8.8 (8.4-10.2) mg/dL AST 49 H 38 H (14-36) U/L ALT 49 H 43 H (4-34) U/L Alkaline Phosphatase 95 95 (38-126) U/L Total Protein 5.7 L 5.4 L (6.3-8.2) g/dL Albumin 3.3 L 3.1 L (3.5-5.0) g/dL Current Medications Generic Name Dose Route Start Last Admin Trade Name Freq PRN Reason Stop Dose Admin Acetaminophen 650 mg 11/22/24 17:52 Acetaminophen Tab 325 Mg Tab PO QID PRN Pain Aspirin 81 mg 11/23/24 09:00 11/23/24 09:43 Aspirin 81 Mg PO 81 mg DAILY LAY Administration Atorvastatin Calcium 80 mg 11/23/24 09:00 11/23/24 09:42 Atorvastatin 80 Mg Tab PO 80 mg DAILY LAY Administration Calcium Carbonate/Glycine 500 mg 11/23/24 09:00 11/23/24 09:43 Calcium Carbonate 500 Mg Chewable PO 500 mg DAILY LAY Administration Calcium Polycarbophil 625 mg 11/23/24 09:00 11/23/24 09:42 Calcium Polycarbophil 625 Mg Tab PO 625 mg DAILY LAY Administration Dapagliflozin 10 mg 11/22/24 18:00 11/23/24 09:43 Dapagliflozin Propanediol 10 Mg Tablet PO 10 mg DAILY LAY Administration Ferrous Sulfate 325 mg 11/23/24 12:30 Ferrous Sulfate 325 Mg Tab PO W/LUNCH LAY Furosemide 40 mg 11/22/24 16:00 11/23/24 09:43 Furosemide 10 Mg/Ml 4 Ml Vial IV 40 mg Q8H LAY Administration Losartan Potassium 25 mg 11/23/24 09:00 11/23/24 09:42 Losartan 25 Mg Tab PO 25 mg DAILY LAY Administration Metoprolol Succinate 50 mg 11/23/24 09:00 11/23/24 09:43 Metoprolol Succinate (Er) 50 Mg Tab.Er.24h PO 50 mg DAILY LAY Administration Multivitamins 1 each 11/23/24 09:00 11/23/24 09:43 Multivitamins, Thera 1 Each Tab PO 1 each DAILY LAY Administration Nitroglycerin 1 inch 11/22/24 12:00 11/23/24 05:21 Nitroglycerin Oint 1 Inch/Gm Packet TOPICAL 11/23/24 11:59 Not Given Q6HR LAY Spironolactone 25 mg 11/23/24 09:00 11/23/24 09:42 Spironolactone 25 Mg Tab PO 25 mg DAILY LAY Administration Intake and Output 11/22/24 11/23/24 11/23/24 22:59 06:59 14:59 Intake Total 591 Output Total 400 Balance 191 Intake: Oral 591 Output: Urine 400 Other: Voiding Method External Catheter # Bowel Movements 1 Weight 63.503 kg 62 kg 11/23/24 06:19 11/23/24 06:19
[2024-11-23] MEDS: FERROUS SULFATE 325 MG TAB PO SCH (13:20)
[2024-11-23 22:56] LABS: Magnesium 2.1 mg/dL (1.6-2.3); Potassium 3.6 mmol/L (3.5-5.1)
--- NOTE | 2024-11-24 03:27 | PN ---
PROGRESS NOTE DATE OF SERVICE: 11/23/2024 SUBJECTIVE: This is a 79-year-old woman, who was admitted with CHF with possible acute on chronic diastolic dysfunction, also had nvthkphg-my-jttobx aortic stenosis. The patient has been closely monitored. Patient is on diuretics. Cardiology is following the patient closely. OBJECTIVE: VITAL SIGNS: Pulse is 61, blood pressure 130/66, respirations 18. CHEST: Few scattered rhonchi and crackles. CARDIOVASCULAR: Ejection systolic murmur. ABDOMEN: Soft. EXTREMITIES: Legs, no edema, no swelling. LABORATORY DATA: Hemoglobin 8.3. ASSESSMENT: 1. Congestive heart failure, acute exacerbation with acute on chronic diastolic dysfunction. 2. Severe pulmonary hypertension. 3. Xficanze-ok-etitgx aortic stenosis and mitral stenosis. 4. History of recent GI bleed with gastric antral vascular ectasia, status post argon plasma coagulation. 5. History of iron-deficiency anemia. 6. Hypertension with generalized weakness. RECOMMENDATIONS: Recommended to continue current management. Continue the diuretics. Closely follow with Cardiology. The patient is on oxygen as well. Repeat labs. Limit fluid intake. Prognosis guarded. Further recommendations to follow. MMODL / IJN: [id number] /
--- NOTE | 2024-11-24 07:35 | XR ---
EXAMINATION TYPE: XR chest 2V DATE OF EXAM: 11/24/2024 7:26 AM COMPARISON: 11/22/2024 CLINICAL INDICATION: Female, 79 years old with history of pulmonary edema, , TECHNIQUE: Frontal and lateral views FINDINGS: Heart moderately enlarged. Interstitial and perihilar opacities with small to moderate bilateral pleu ral effusions. Relatively similar to prior exam. Suspect full-thickness rotator cuff tear has both sh oulders. IMPRESSION: Ongoing CHF with interstitial pulmonary edema along with khwzj-tt-lyrywhof bilateral pleural effusion s. [facility], Workstation: [facility] [place], 11/24/2024 7:33 AM
[2024-11-24 08:17] LABS: BUN/Creat Ratio 39.14 Ratio (12.00-20.00); Blood Urea Nitrogen 27.4 mg/dL (9.0-27.0); Calcium 8.7 mg/dL (8.7-10.3); Carbon Dioxide 34.1 mmol/L (21.6-31.8); Chloride 102 mmol/L (96-109); Glucose 87 mg/dL (70-110); Potassium 3.8 mmol/L (3.5-5.5); Sodium 144 mmol/L (135-145)
[2024-11-24] MEDS: SPIRONOLACTONE 25 MG TAB PO SCH (08:47)
[2024-11-24] MEDS: LOSARTAN 25 MG TAB PO SCH (08:48)
[2024-11-24] MEDS: FUROSEMIDE 40 MG TAB PO SCH (08:55)
[2024-11-24] MEDS ORDERED: SPIRONOLACTONE 25 MG TAB PO SCH (09:00)
--- NOTE | 2024-11-24 11:19 | P.PN ---
Subjective HISTORY OF PRESENT ILLNESS: The patient is a pleasant 79-year-old female patient who is known to our service from before with a past medical history significant for valvular heart disease with known severe mitral regurgitation and severe pulmonary hypertension as well as HFpEF and also hypertension and dyslipidemia and history of peptic ulcer bill george who was discharged from the hospital recently after she was admitted with anemia and heart failure which she underwent an endoscopy and the ulcer has been treated and she was discharged in stable medical condition. She is here with progressive bilateral lower extremities edema and progressive shortness of breath associated with also weight gain in spite of being compliant with the current medical regimen including the current dose of oral diuretics. No symptoms of chest pain or chest discomfort or dizziness or lightness or any feeling of heart racing or fluttering or presyncope or syncope. She was diagnosed with heart failure and she was started on IV diuretics with improvement in the edema as well as the shortness of breath. The EKG showed sinus mechanism with a chest x-ray showed pulmonary vascular congestions. NT proBNP came to be elevated at 16,000. The pressure is soft overall. The physical examination is remarkable for bilateral lower extremities pitting edema with bilateral rhonchi and regular rate and rhythm with pansystolic murmur was heard in all areas including right and left upper sternal border and apical area. The most recent echo showed normal LV systolic function with evidence of severe mitral regurgitation and severe pulmonary hypertension 11/24/2024 Patient examined this morning at the bedside. Patient currently denies chest pain or pressure. She denies shortness of breath. Patient remains on IV Lasix. PHYSICAL EXAM: VITAL SIGNS: Reviewed. GENERAL: Well-developed in no acute distress. NECK: Supple. No JVD or thyromegaly LUNGS: Respirations even and unlabored. Lungs essentially clear to auscultation bilaterally. HEART: Regular rate and rhythm. S1 and S2 heard. Systolic murmur noted. EXTREMITIES: Normal range of motion. No clubbing or cyanosis. Peripheral pulses intact. No lower extremity edema ASSESSMENT: Acute on chronic heart failure with preserved EF Severe mitral regurgitation Borderline hypotension, improved Severe pulmonary hypertension Peptic ulcer disease PLAN: Discontinue IV Lasix. Begin oral Lasix 40 mg twice a day Increase Aldactone back to 25 mg daily Continue additional cardiac medications including aspirin, Lipitor, Farxiga, losartan, and metoprolol Patient is stable for discharge home today from a cardiac standpoint Patient to follow-up postdischarge in the office for further evaluation and work up of severe MR We will sign off. Please reconsult if needed. Nurse practitioner note has been reviewed by physician. Signing provider agrees with the documented findings, assessment, and plan of care documented by STOCKKEEPER as a scribe. Objective - Vital Signs Vital signs: Vital Signs Temp 98.4 F 11/24/24 07:01 Pulse 67 11/24/24 07:01 Resp 17 11/24/24 07:01 BP 93/54 11/24/24 07:01 Pulse Ox 97 11/24/24 08:53 FiO2 Intake & Output 11/23/24 11/24/24 11/24/24 18:59 06:59 18:59 Intake Total 780 240 Output Total 400 750 Balance 380 -750 240 Weight 63.5 kg Intake: Oral 780 240 Output: Urine 400 750 Other: Voiding Method External Catheter External Catheter # Voids 1 # Bowel Movements 1 - Labs CBC & Chem 7: 11/25/24 05:25 11/25/24 05:25 Labs: Abnormal Lab Results - Last 24 Hours (Table) 11/24/24 Range/Units 05:25 Carbon Dioxide 34.1 H (21.6-31.8) mmol/L BUN 27.4 H (9.0-27.0) mg/dL BUN/Creatinine Ratio 39.14 H (12.00-20.00) Ratio
[2024-11-24] MEDS ORDERED: ZINC OXIDE PASTE (Z-GUARD) 1 APPLIC TOPICAL PRN (11:36)
[2024-11-24 12:09] LABS: Anisocytosis (M) 3+ (None Seen); Basophils # (A) 0.08 X 10*3/uL (0.00-0.10); Basophils % (A) 1.1 %; Eosinophils # (A) 0.25 X 10*3/uL (0.04-0.35); Eosinophils % (A) 3.3 %; HCT 31.4 % (37.2-46.3); HGB 8.1 g/dL (12.0-15.0); Hypochromasia (M) 2+ (None Seen); Lymphocytes # (A) 0.84 X 10*3/uL (0.90-5.00); Lymphocytes % (A) 11.2 %; MCH 20.2 pg (27.0-32.0); MCHC 25.8 g/dL (32.0-37.0); MCV 78.3 FL (80.0-97.0); Microcytosis (M) 2+ (None Seen); Monocytes # (A) 0.75 X 10*3/uL (0.20-1.00); NRBC Per 100 WBC 0 X 10*3/uL (0.00-0.01); Neutrophils # (A) 5.56 X 10*3/uL (1.80-7.70); Neutrophils % (A) 74.1 %; Platelet Count 124 X 10*3/uL (140-440); RBC 4.01 X 10*6/uL (4.10-5.20); RDW 37.6 % (11.5-14.5)
[2024-11-24 13:38] VITALS: BMI 29.2
--- NOTE | 2024-11-24 17:03 | PN ---
PROGRESS NOTE DATE OF SERVICE: 11/24/2024 SUBJECTIVE: This is a 79-year-old woman, who was admitted with CHF acute exacerbation, also had severe pulmonary hypertension. The patient also had bilateral leg swelling also. The most recent chest x-ray, which was done today, which was reviewed personally by me showed evidences of bilateral CHF as well as maybe pleural effusion also. PAST MEDICAL HISTORY: Reviewed. REVIEW OF SYSTEMS: Fourteen-point review of systems negative except as mentioned earlier. CURRENT MEDICATIONS: Reviewed. PHYSICAL EXAMINATION: VITAL SIGNS: Pulse 75, blood pressure 114/66, and respirations 17. CHEST: Few scattered rhonchi. ABDOMEN: Soft. NERVOUS SYSTEM: Nonfocal. LABORATORY DATA: Hemoglobin 8.1. Abnormal peripheral smear. ASSESSMENT: 1. Congestive heart failure with acute exacerbation with bdtjg-uk-bjdornn diastolic dysfunction. 2. Severe pulmonary hypertension. 3. Xyhtrkhk-ov-jitldo aortic stenosis and mitral stenosis. 4. History of recent gastrointestinal bleed with gastric antral vascular ectasia, status post argon plasma coagulation. 5. History of iron deficiency anemia. 6. Hypertension with generalized weakness. RECOMMENDATIONS AND DISCUSSION: I recommend to continue current management and symptomatic treatment with fluid restriction to 100 mL per 24 hours. Continue with Lasix 40 mg b.i.d. The creatinine is 0.7. We will continue to monitor. I would also recommend PT/OT evaluation, also evaluated for the patient for ECF also. Guarded prognosis. Further recommendations to follow. SOLOMON / MARLA: [id number] /
[2024-11-25 08:18] LABS: Basophils # (A) 0.06 X 10*3/uL (0.00-0.10); Basophils % (A) 0.8 %; Eosinophils # (A) 0.23 X 10*3/uL (0.04-0.35); Eosinophils % (A) 2.9 %; HCT 33.6 % (37.2-46.3); HGB 8.8 g/dL (12.0-15.0); Lymphocytes # (A) 0.75 X 10*3/uL (0.90-5.00); Lymphocytes % (A) 9.6 %; MCH 20.6 pg (27.0-32.0); MCHC 26.2 g/dL (32.0-37.0); MCV 78.7 FL (80.0-97.0); Monocytes # (A) 0.71 X 10*3/uL (0.20-1.00); Monocytes % (A) 9.1 %; NRBC Per 100 WBC 0 X 10*3/uL (0.00-0.01); Neutrophils # (A) 6.04 X 10*3/uL (1.80-7.70); Neutrophils % (A) 77.3 %; Platelet Count 138 X 10*3/uL (140-440); RBC 4.27 X 10*6/uL (4.10-5.20); RDW 38.6 % (11.5-14.5); WBC 7.81 X 10*3/uL (4.50-10.00)
[2024-11-25 08:19] LABS: BUN/Creat Ratio 40.71 Ratio (12.00-20.00); Blood Urea Nitrogen 28.5 mg/dL (9.0-27.0); Glucose 101 mg/dL (70-110)
[2024-11-25 08:20] LABS: Calcium 8.7 mg/dL (8.7-10.3); Carbon Dioxide 31.1 mmol/L (21.6-31.8); Chloride 102 mmol/L (96-109); Potassium 4.1 mmol/L (3.5-5.5); Sodium 144 mmol/L (135-145)
--- NOTE | 2024-11-25 15:24 | PN ---
PROGRESS NOTE DATE OF SERVICE: 11/25/2024 SUBJECTIVE: This is a 79-year-old woman, who was admitted with CHF acute exacerbation, also had some gait dysfunction. No chest pain. No palpitation. PHYSICAL EXAMINATION: VITAL SIGNS: Pulse is 63, blood pressure 116/64, and respirations 16. CHEST: A few scattered rhonchi. ABDOMEN: Soft. NERVOUS SYSTEM: Nonfocal. LABORATORY DATA: Hemoglobin 8.8. ASSESSMENT: 1. Congestive heart failure with acute exacerbation with mvgao-ot-twdeqnb diastolic dysfunction. 2. Severe pulmonary hypertension. 3. Osadstqt-kx-bitztk aortic stenosis and mitral stenosis. 4. History of recent gastrointestinal bleed with gastric antral vascular ectasia, status post argon plasma coagulation. 5. History of iron deficiency anemia. 6. Hypertension. 7. Generalized weakness. RECOMMENDATIONS: Recommend to continue current management and symptomatic treatment. Closely follow with Cardiology. Continue with diuretics. Prognosis guarded, because of multiple complex medical issues. Further recommendations to follow. See orders for details. MMODL / IJN: [id number] /
[2024-11-25 19:29] VITALS: RESP 18
--- NOTE | 2024-11-26 06:32 | XR ---
EXAMINATION TYPE: XR chest 1V portable DATE OF EXAM: 11/26/2024 CLINICAL INDICATION: Female, 79 years old with history of sob, progress study. TECHNIQUE: Single AP portable upright view of the chest is obtained. COMPARISON: Chest x-ray from 2 days earlier FINDINGS: Persistent cardiomegaly with small bilateral pleural effusions and central vascular conges tion. High riding humeral heads bilaterally are redemonstrated. IMPRESSION: Findings are consistent with continued CHF exacerbation. No significant change from prior . [facility], , 11/26/2024 6:29 AM
[2024-11-26 14:51] VITALS: BP 102/61; PULSE 67; TEMP 98
== END 2024-11-26 16:00 | disposition home health service (06) | DRG 291 ==
LOC: EC 09:21 → 6NMEDSUR 11:27 → OBSVTOIN 11-24 07:19
PROVIDERS: ADMIT Hospitalist; ATTEND Hospitalist
DX: I11.0 Hypertensive heart disease with heart failure (principal); I50.33 Acute on chronic diastolic (congestive) heart failure; I27.20 Pulmonary hypertension, unspecified; J44.9 Chronic obstructive pulmonary disease, unspecified; D50.9 Iron deficiency anemia, unspecified; I08.0 Rheumatic disorders of both mitral and aortic valves; K27.9 Peptic ulcer, site unspecified, unspecified as acute or chronic, without hemorrhage or perforation; R53.1 Weakness; Z87.11 Personal history of peptic ulcer disease; Z88.0 Allergy status to penicillin; E78.5 Hyperlipidemia, unspecified; K21.9 Gastro-esophageal reflux disease without esophagitis; Z79.82 Long term (current) use of aspirin; Z79.899 Other long term (current) drug therapy; Z79.84 Long term (current) use of oral hypoglycemic drugs; Z82.49 Family history of ischemic heart disease and other diseases of the circulatory system; Z86.73 Personal history of transient ischemic attack (TIA), and cerebral infarction without residual deficits; Z87.19 Personal history of other diseases of the digestive system
CPT/HCPCS: 36415; 51798; 71045; 71046; 80048; 80053; 83605; 83735; 83880; 84132; 84484; 85025; 93005; 94760; 96374; 96376; 99291